=== PATIENT | male | born 1975 | race Caucasian/White ===

== ENCOUNTER 2019-04-30 20:50 | Emergency (ER) | payer MEDICAID, SELFPAY ==
[2019-04-30 20:50] VITALS: BP 155/96; PULSE 89; RESP 16; TEMP 36.6; O2SAT 100; BMI 27.4
--- NOTE | 2019-04-30 21:37 | ED.DCSUM_ITS ---
- ER Visit Summary Date of Service: 04/30/19 Chief Complaint: Headache History of Present Illness: The patient is a 43 M past medical history of a porcine valve and hypertension. Patient is on no blood thinners. He is up-to-date with his family. Said after is done eating he choked on a piece of lettuce and then developed a headache which is frontal. He says is actually improving. Now he has no trouble swallowing. Denies any recent head trauma. Again he is on no blood thinners. No family history of intracranial bleeds or aneurysms. Physical Examination: Well-appearing middle-aged male. Vital signs are stable and afebrile. H EENT exam unremarkable. Neck nontender. No meningismus. Able to flex chin to chest. Lungs clear to auscultation bilaterally. Heart regular rhythm. Abdomen soft nontender normal bowel sounds no peritoneal signs. Extremities moves all 4. Neurovascular intact. 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 Dorsi plantarflexion intact. Neurologically is awake and alert. No focal motor or sensory deficits. Fingertip to nose within normal limits [id number] within normal limits bilaterally. He is able to get up and ambulate without any difficulty in the hallway. No ataxia or trouble with his balance. NIH score is 0. Test Results: None Emergency Department Course and Treatment: Patient's exam is unremarkable. He was given p.o. Tylenol and reevaluated he is doing well his headache is resolving he is currently being discharged home. Repeat neurologic exam normal. Treatment Plan: Tylenol as needed. Return if worse. Disposition: Discharge Impression: Acute cephalgia History of porcine valve This note was generated with [employer] dictation software. It may contain incorrect words, spelling, and punctuation that were not noted in review of the chart prior to signing ED Disposition - Plan for ED Patient: Referrals: Anna Resendiz MD [Primary Care Provider] -
--- NOTE | 2019-04-30 21:40 | ED.DEP ---
ED Disposition - Plan for ED Patient: Disposition: Home or Assisted Living Instructions: HEADACHE, Unspecified Referrals: Anna Resendiz MD [Primary Care Provider] - 3-5 Days if not improving Additional Instructions: Headache as needed. Return if feeling a lot worse. Follow-up with your doctor if not improving.
[2019-04-30] MEDS: Acetaminophen 500 MG Tablet 1000 MG PO (21:44)
== END 2019-04-30 22:03 | disposition home or self-care (01) ==
PROVIDERS: Emergency Provider Emergency Medicine; Family Provider Internal Medicine; PCP Internal Medicine
DX: R51 Headache (principal); I10 Essential (primary) hypertension; Z95.3 Presence of xenogenic heart valve; Z79.899 Other long term (current) drug therapy
CPT/HCPCS: 99283

== ENCOUNTER → 2020-02-11 14:11 | Outpatient (CLI) | payer MEDICAID, SELFPAY ==
[2020-02-11 13:52] VITALS: BMI 27.4
[2020-02-11 15:29] LABS: Absolute Lymphocyte Count 1.18 X10^3/uL (0.83-4.51); Absolute Neutrophil Count 3.7 X10^3/uL (2.0-7.7); Basophil# 0.06 X10^3/uL; Basophil% 1.1 % (0-1); Eosinophil# 0.29 X10^3/uL; Eosinophils% 5.1 % (0-5); Hematocrit 42.5 % (40-54); Hemoglobin 14.2 g/dL (13.0-16.5); Lymphocyte # 1.18 X10^3/ul (4.0); Lymphocyte % 20.7 % (19-41); Mean Corp Hgb Conc 33.4 g/dL (32-36); Mean Corpuscular Hgb 31.7 pg (27.0-32.0); Mean Corpuscular Volume 94.9 fL (80-94); Mean Platelet Vol. 12.4 fl (6.2-12.0); Monocyte# 0.43 X10^3/uL; Monocyte% 7.5 % (0-10); NRBC Flagged by Analyzer 0 % (0-5); Neutrophil # 3.74 X10^3/uL (2.7-7.7); Neutrophil % 65.4 % (47-70); Platelet Count 134 K/mm3 (150-450); RBC Distribution Width CV 11.6 % (11.6-14.6); RBC Distribution Width SD 39.9 fl (35.1-43.9); Red Blood Count 4.48 M/mm3 (4.6-6.2); White Blood Count 5.7 K/mm3 (4.4-11.0)
[2020-02-11 16:19] LABS: Hemoglobin A1c 5.7 % (3.8-5.6)
[2020-02-11 16:23] LABS: ALB/GLOB Ratio 1.1 RATIO (0.9-2.4); AST(SGOT) 13 U/L (15-37); Alanine Aminotransfer ALT/SGPT 21 U/L (16-61); Albumin, Serum 3.8 g/dL (3.2-5.0); Alkaline Phosphatase 67 U/L (45-117); Anion Gap 3 (5-15); BUN 22 mg/dL (7-18); Calcium,Total 8.6 mg/dL (8.5-10.1); Chloride 104 mmol/L (98-107); Cholesterol 174 mg/dL (200); EST Glomerular Filtration Rate 78 mL/min (>60); Est Glom Filt Rate - Afr Amer 94 mL/min (>60); Globulin 3.5 g/dL (2.2-4.2); Glucose 108 mg/dL (74-106); High Density Lipoprotein 44 mg/dL; Potassium 4.2 mmol/L (3.5-5.1); Protein, Total 7.3 g/dL (6.4-8.2); Sodium Level 137 mmol/L (136-145); Triglycerides 180 mg/dL; Very Low Density Lipoprotein 36 mg/dL (5-40)
== END ==
PROVIDERS: PCP Internal Medicine; Referring Provider Nurse Practitioner Family; Visit Provider Nurse Practitioner Family
DX: I10 Essential (primary) hypertension (principal); R73.03 Prediabetes
CPT/HCPCS: 36415; 80053; 80061; 83036; 84443; 85025

== ENCOUNTER → 2020-10-11 14:19 | Outpatient (CLI) | payer MEDICAID, SELFPAY ==
[2020-10-11 15:38] LABS: Hemoglobin A1c 5.8 % (3.8-5.6)
[2020-10-11 15:42] LABS: Cholesterol 163 mg/dL (200); High Density Lipoprotein 45 mg/dL; PSA,Total - Annual Screen 0.25 ng/mL (0.00-4.00); Triglycerides 234 mg/dL; Very Low Density Lipoprotein 47 mg/dL (5-40)
== END ==
PROVIDERS: PCP Internal Medicine; Referring Provider Internal Medicine; Visit Provider Internal Medicine
DX: E11.9 Type 2 diabetes mellitus without complications (principal); E78.5 Hyperlipidemia, unspecified; Z12.5 Encounter for screening for malignant neoplasm of prostate
CPT/HCPCS: 36415; 80061; 83036; 84153; G0103

== ENCOUNTER → 2020-10-17 13:38 | Outpatient (CLI) | payer MEDICAID, SELFPAY ==
--- NOTE | 2020-10-17 13:40 | ECHOD_ITS ---
Reason For Study: CONGENITAL HEART DISEASE Procedure This was a 2D Doppler, Color Flow transthoracic echocardiogram. The study was technically difficult. Exam performed in department. Left Ventricle Normal LV size. Left ventricular systolic function is normal. The estimated ejection fraction is 60 %. No evidence for diastolic dysfunction. No regional wall motion abnormalities noted. Right Ventricle Normal RV size. Normal systolic function. Atria The left atrium is mildly enlarged. Normal right atrium. No doppler evidence for ASD. Mitral Valve There is no mitral annular calcification. Mild diffuse mitral valve thickening. Mild focal mitral valve calcification of the anterior leaflet. Mild mitral valve prolapse. Trivial mitral valve insufficiency. Tricuspid Valve Normal tricuspid valve. Trivial tricuspid valve insufficiency. Unable to estimate RV systolic pressure/pulmonary artery pressure due to technically difficult study. Aortic Valve Stable appearing bioprosthetic aortic valve apparatus. Pulmonic Valve The pulmonic valve is not well visualized. Great Vessels Normal sized aortic root. Pericardium/Pleural No pericardial effusion. MMode/2D Measurements & Calculations LVIDd: 5.0 cm IVSd: 1.0 cm LVOT diam: 2.3 cm LVIDs: 3.3 cm LVPWd: 1.0 cm LVOT area: 4.0 cm2 RVDd: 3.1 cm FS: 33.1 % Ao root diam: 3.6 cm LAV(MOD-bp): 45.2 ml LA A4 area: 16.5 cm2 LAV(MOD-bp) Indexed: 24.8 ml/m2 LAV(MOD-sp2): 44.9 ml LAV(MOD-sp4): 47.0 ml LA dimension(2D): 4.2 cm RA A4 area: 11.9 cm2 Time Measurements MV dec time: 0.23 sec Doppler Measurements & Calculations MV E max cristobal: 98.7 cm/sec Lat Peak E' Cristobal: 6.5 cm/sec Med Peak E' Cristobal: 6.8 cm/sec MV A max cristobal: 92.1 cm/sec E/E' lat: 15.3 E/E' med: 14.6 MV E/A: 1.1 Ao V2 max: 103.2 cm/sec LV V1 max: 81.8 cm/sec SV(LVOT): 71.3 ml Ao max P.3 mmHg LV V1 max P.7 mmHg Ao V2 mean: 70.7 cm/sec LV V1 mean P.5 mmHg Ao mean P.2 mmHg LV V1 mean: 57.6 cm/sec Ao V2 VTI: 21.5 cm LV V1 VTI: 17.8 cm LOLIS(I,D): 3.3 cm2 LOLIS(V,D): 3.2 cm2 PA V2 max: 167.7 cm/sec PA V2 mean: 116.6 cm/sec PA V2 VTI: 38.6 cm ECHO/Echo Complete Interpretation Summary The study was technically difficult. Left ventricular systolic function is normal. The estimated ejection fraction is 60 %. The left atrium is mildly enlarged. Mild diffuse mitral valve thickening. Mild focal mitral valve calcification of the anterior leaflet. Mild mitral valve prolapse. Trivial mitral valve insufficiency. Trivial tricuspid valve insufficiency. Stable appearing bioprosthetic aortic valve apparatus. Unable to estimate RV systolic pressure/pulmonary artery pressure due to techni lashell difficult study. No evidence for diastolic dysfunction. Ordering Physician: Anna Resendiz Referring Physician: Anna Resendiz Performed By: [place] Nunez, GAYATRI, RVT
== END ==
PROVIDERS: PCP Internal Medicine; Referring Provider Internal Medicine; Visit Provider Internal Medicine
DX: I10 Essential (primary) hypertension (principal)
CPT/HCPCS: 93306

== ENCOUNTER → 2021-06-06 14:12 | Outpatient (CLI) | payer MEDICAID, SELFPAY ==
[2021-06-06 15:32] LABS: Absolute Lymphocyte Count 1.03 X10^3/uL (0.83-4.51); Absolute Neutrophil Count 3.8 X10^3/uL (2.0-7.7); Basophil# 0.07 X10^3/uL; Basophil% 1.2 % (0-1); Eosinophil# 0.43 X10^3/uL; Eosinophils% 7.4 % (0-5); Hematocrit 42.4 % (40-54); Hemoglobin 14.5 g/dL (13.0-16.5); Lymphocyte # 1.03 X10^3/ul (0.83-4.51); Lymphocyte % 17.7 % (19-41); Mean Corp Hgb Conc 34.2 g/dL (32-36); Mean Corpuscular Hgb 31.2 pg (27.0-32.0); Mean Corpuscular Volume 91.2 fL (80-94); Mean Platelet Vol. 12.7 fl (6.2-12.0); Monocyte# 0.46 X10^3/uL; Monocyte% 7.9 % (0-10); NRBC Flagged by Analyzer 0 % (0-5); Neutrophil # 3.82 X10^3/uL (2.7-7.7); Neutrophil % 65.5 % (47-70); Platelet Count 145 K/mm3 (150-450); RBC Distribution Width CV 11.6 % (11.6-14.6); RBC Distribution Width SD 38.7 fl (35.1-43.9); Red Blood Count 4.65 M/mm3 (4.6-6.2); White Blood Count 5.8 K/mm3 (4.4-11.0)
[2021-06-06 15:56] LABS: Vitamin D,25 Hydroxy 18.8 ng/mL
[2021-06-06 16:06] LABS: AST(SGOT) 23 U/L (15-37); Alanine Aminotransfer ALT/SGPT 42 U/L (16-61); Albumin, Serum 3.7 g/dL (3.2-5.0); Alkaline Phosphatase 83 U/L (45-117); Anion Gap 3 (5-15); BUN 20 mg/dL (7-18); BUN/Creat Ratio 17.2 RATIO (10-20); Calcium,Total 8.6 mg/dL (8.5-10.1); Chloride 103 mmol/L (98-107); Cholesterol 228 mg/dL (200); Creatinine, Serum 1.16 mg/dL (0.70-1.30); EST Glomerular Filtration Rate 73 mL/min (>60); Est Glom Filt Rate - Afr Amer 88 mL/min (>60); Globulin 3.8 g/dL (2.2-4.2); Glucose 138 mg/dL (74-106); High Density Lipoprotein 47 mg/dL; Protein, Total 7.5 g/dL (6.4-8.2); Sodium Level 136 mmol/L (136-145); Thyroid Stim Hormone (TSH) 2.31 uIU/mL (0.358-3.74); Triglycerides 307 mg/dL; Very Low Density Lipoprotein 61 mg/dL (5-40)
[2021-06-06 17:04] LABS: Hemoglobin A1c 6.2 % (3.8-5.6)
== END ==
PROVIDERS: PCP Internal Medicine; Referring Provider Internal Medicine; Visit Provider Internal Medicine
DX: E11.9 Type 2 diabetes mellitus without complications (principal); E78.5 Hyperlipidemia, unspecified; I10 Essential (primary) hypertension
CPT/HCPCS: 36415; 80053; 80061; 82306; 83036; 84443; 85025

== ENCOUNTER 2021-07-26 14:38 | Outpatient (CLI) | payer MEDICAID, SELFPAY | END 2021-07-26 23:59 | disposition short-term general hospital (02) | LOC: LABSPEC 14:39 | PROVIDERS: PCP Internal Medicine; Referring Provider Physician Assistant; Visit Provider Physician Assistant | DX: U07.1 COVID-19 (principal) | CPT/HCPCS: 87635; U0003; U0005 ==

== ENCOUNTER 2021-07-27 18:07 | Emergency (ER) | payer MEDICAID, SELFPAY ==
[2021-07-27] VITALS (8 sets, daily range): BP systolic 114–126; BP diastolic 67–88; PULSE 100–115; RESP 16–22; TEMP 37.3–37.7; O2SAT 88–98; BMI 25.8
--- NOTE | 2021-07-27 18:35 | RAD_ITS ---
STUDY: X-RAY CHEST REASON FOR EXAM: Male, 45 years old. CHEST PAIN FEVER,COUGH TECHNIQUE: XR Chest 1 View COMPARISON: 07/05/14 FINDINGS: There is no demonstrated pleural abnormality. Left pneumonia. There are multiple median sternotomy wires. Normal size heart. Normal mediastinum and jerald. Normal visualized pulmonary arteries. Normal visualized aortic arch and descending thoracic aorta. Normal visualized thoracic spine. Normal visualized ribs, clavicles, and shoulders. There is no demonstrated abnormality of the visualized soft tissue structures of the upper abdomen. RAD/Chest 1 View IMPRESSION: Left pneumonia. Electronically Signed: Nicholas Cruz MD at 18:52 EST , Service support ,
--- NOTE | 2021-07-27 19:03 | EDS_ITS ---
HPI History of Present Illness Chief Complaint: Fever Informant: patient Onset/Context/Timing Onset: Days Context: Gradual Onset Current Severity: Mild Maximum Severity: Mild Narrative Narrative: Patient presents secondary to runny nose, chills, cough. Patient states he became ill 2 nights ago. He was seen by his PCP on a virtual visit today. Because they were unable to get vital signs on him they wanted him to be evaluated. He has a history of aortic valve replacement and they requested a chest x-ray. Patient reports some slight chest heaviness. He has occasional cough with clear sputum. [facility] Medical History Hyperlipidemia Hypertension kidney stone surgery Kidney stones Home Medications Grains super food PO 10/11/20 [History Last Taken Unknown] cholecalciferol (vitamin D3) 10 mcg (400 unit) capsule 10 mcg PO DAILY 10/11/20 [History Last Taken Unknown] metoprolol tartrate 25 mg tablet 12.5 mg PO BID #180 tablet 10/11/20 [Rx Last Taken Unknown] lisinopril 10 mg tablet 10 mg PO BID #90 tab 02/12/21 [Rx Last Taken Unknown] benzocaine 15 mg-menthol 2.6 mg lozenges 1 markie MUCOUS MEMBRANE Q2H PRN #16 ea 07/26/21 [Rx Last Taken Unknown] benzonatate 200 mg capsule 200 mg PO TID PRN #30 cap 07/26/21 [Rx Last Taken Unknown] fluticasone propionate 50 mcg/actuation nasal spray,suspension 1 spray INTRANASAL BID #16 g 07/26/21 [Rx Last Taken Unknown] guaifenesin 400 mg tablet 400 mg PO TID PRN #30 tab 07/26/21 [Rx Last Taken Unknown] dexamethasone [Decadron] 6 mg PO DAILY #9 tab 07/27/21 [Rx Last Taken Unknown] Allergy/AdvReac Type Severity Reaction Status Date / Time No Known Allergies Allergy Verified 06/06/21 13:10 Family History Father Cancer Surgical History Aortic valve replaced Social History Smoking Status: Never smoker alcohol intake: current alcohol intake frequency: holidays/special occasions only ROS ROS ED Constitutional Constitutional ED: Reports chills, fever(s) and subjective Eyes Eyes: Denies change in vision ENT ENT ED: Denies sore throat Cardiovascular Cardiovascular: Reports chest pain Respiratory/Chest Respiratory/Chest: Reports cough and dyspnea Gastrointestinal Gastrointestinal: Denies abdominal pain, diarrhea, nausea or vomiting Genitourinary Genitourinary ED: Denies dysuria Musculoskeletal Musculoskeletal: Denies back pain Integumentary Denies rash Neurologic Neurologic: Denies headache(s) or weakness Allergic/Immunologic Allergic/Immunologic ED: Denies urticaria EXAM Physical Exam Const Vital Signs: 07/27/21 18:08 07/27/21 18:10 07/27/21 20:07 Temperature 100 F H 100 F H 99.4 F H Temperature Source Temporal Temporal Temporal Pulse Rate 109 H 109 H 115 H Respiratory Rate 16 16 20 H Blood Pressure 124/81 H 124/81 H 126/67 H Blood Pressure Mean 95 95 86 Pulse Ox 98 98 96 Oxygen Delivery Method Room Air Room Air Room Air 07/27/21 22:28 Temperature 99.2 F H Temperature Source Temporal Pulse Rate 103 H Respiratory Rate 17 Blood Pressure 125/88 H Blood Pressure Mean 100 Pulse Ox 94 Oxygen Delivery Method Room Air Positive well nourished and well developed General Appearance ED: well developed HEENT Reports moist mucous membranes Eyes PERRL and EOMs intact bilaterally Neck supple Chest Wall inspection of chest normal and palpation of chest normal Resp normal respiratory effort and clear to auscultation bilaterally Cardio regular rate and regular rhythm GI non-tender Palpation: soft Extremity normal to inspection Neuro oriented x3 Sensorium / Orientation: alert Psych mental status grossly normal Skin no rashes or lesions noted MDM MDM MDM Narrative Medical decision making narrative: Rapid COVID testing portable chest x-ray ordered per nursing protocol. Patient was ambulated on room air and did desat to 88%. Lab work and EKG ordered at that time. Lab Data Attestation: I reviewed the patient's lab results. Labs: Laboratory Results - last 24 hr 07/27/21 07/27/21 07/27/21 20:10 20:10 20:10 WBC 5.0 RBC 4.78 Hgb 14.7 Hct 43.5 MCV 91.0 MCH 30.8 MCHC 33.8 RDW Std Deviation 39.7 RDW Coeff of Joan 11.9 Plt Count 112 L MPV 12.8 H Immature Gran % (Auto) 0.600 Neut % (Auto) 68.0 Lymph % (Auto) 15.7 L [place] % (Auto) 14.5 H Eos % (Auto) 0.8 Baso % (Auto) 0.4 Absolute Neuts (auto) 3.4 Absolute Lymphs (auto) 0.78 L Nucleated RBC % 0 D-Dimer Quant (PE/DVT) 1.11 H* Sodium 138 Potassium 4.2 Chloride 104 Carbon Dioxide 26.0 Anion Gap 8 BUN 20 H Creatinine 1.45 H Estim Creat Clear Calc 60.78 Est GFR (MDRD) Af Amer 68 Est GFR (MDRD) Non-Af 56 L BUN/Creatinine Ratio 13.8 Glucose 114 H Calcium 8.1 L Troponin I High Sens 12 Radiography Chest X-Ray - ED: 1 View, Read by ED Physician and Chronic Changes Diagnostic Testing: Clinical Impression(s) from Imaging Studies Chest X-Ray 07/27/21 18:35 IMPRESSION: Left pneumonia. Electronically Signed: Nicholas Cruz MD at 18:52 EST , Service support , Chest CTA 07/27/21 21:40 IMPRESSION: No demonstrated pulmonary embolism or arterial dissection. Electronically Signed: Nicholas Cruz MD at 21:55 EST , Service support , EKG Initial EKG: Attestation: I personally reviewed and interpreted this EKG as follows: Interpretation: Sinus Tachycardia (Sinus tach at 103. No acute ischemia) Treatment and Re-Evaluation Comments:: Patient did desat to 88% with ambulation. Lab work then obtained and significant for elevated D-dimer at 1.11. Troponin negative. Creatinine is slightly bumped to 1.45. CTA of the chest reveals no evidence of infiltrate. No PE. Patient is ambulated on 2 L of nasal cannula and tolerates this well. Order for home oxygen written and patient treated with a course of Decadron. Discharge Plan Triage Chief Complaint: Fever ED Provider: Hanna,Fiorella Dx/Rx/DC Orders Clinical Impression: COVID-19 Instructions: Coronavirus Disease 2019 (COVID-19): Overview, Coronavirus Disease 2019 (COVID-19): Caring for Yourself or Others Prescriptions: New dexamethasone [Decadron] 6 mg tablet 6 mg PO DAILY Qty: 9 RF: 0 No Action Grains super food PO RF: 0 cholecalciferol (vitamin D3) 10 mcg (400 unit) capsule 10 mcg PO DAILY RF: 0 metoprolol tartrate 25 mg tablet 12.5 mg PO BID Qty: 180 RF: 1 benzonatate 200 mg capsule 200 mg PO TID PRN (Reason: cough) Qty: 30 RF: 0 fluticasone propionate [Allergy Relief (fluticasone)] 50 mcg/actuation spray,suspension 1 spray intranasal BID Qty: 16 RF: 1 guaifenesin 400 mg tablet 400 mg PO TID PRN (Reason: congestion, cough) Qty: 30 RF: 0 benzocaine-menthol 15-2.6 mg lozenge 1 markie mucous membrane Q2H PRN (Reason: sore throat) Qty: 16 RF: 1 lisinopril 10 mg tablet 10 mg PO BID Qty: 90 RF: 1 Primary Care Provider: Anna Resendiz Referrals: Anna Resendiz MD [Primary Care Provider] - 1-2 Weeks Disposition Disposition: Home, Self Care
--- NOTE | 2021-07-27 19:32 | EKG12_ITS ---
Test Reason : FEVER Blood Pressure : / mmHG Vent. Rate : 103 BPM Atrial Rate : 103 BPM P-R Int : 176 ms QRS Dur : 096 ms QT Int : 326 ms P-R-T Axes : 208 084 142 degrees QTc Int : 427 ms Consider Limb Lead Misplacement Consider Repeat ECG Interpretation Based Upon the ECG Obtained Unusual P axis, possible ectopic atrial tachycardia Incomplete right bundle branch block Lateral infarct , age undetermined Abnormal ECG Confirmed by CALVIN HIGUERA, RAEGAN ([id number]), society editor LORNA GLEASON ([id number]) on 08/01/2021 11:21:43 AM Referred By: ASAF Confirmed By:RAEGAN SIMPSON MD
[2021-07-27] MEDS: Acetaminophen 500 MG Tablet 1000 MG PO (19:34)
[2021-07-27 20:27] LABS: Absolute Lymphocyte Count 0.78 X10^3/uL (0.83-4.51); Absolute Neutrophil Count 3.4 X10^3/uL (2.0-7.7); Basophil# 0.02 X10^3/uL; Basophil% 0.4 % (0-1); Eosinophil# 0.04 X10^3/uL; Eosinophils% 0.8 % (0-5); Hematocrit 43.5 % (40-54); Hemoglobin 14.7 g/dL (13.0-16.5); Lymphocyte # 0.78 X10^3/ul (0.83-4.51); Lymphocyte % 15.7 % (19-41); Mean Corp Hgb Conc 33.8 g/dL (32-36); Mean Corpuscular Hgb 30.8 pg (27.0-32.0); Mean Platelet Vol. 12.8 fl (6.2-12.0); Monocyte# 0.72 X10^3/uL; Monocyte% 14.5 % (0-10); NRBC Flagged by Analyzer 0 % (0-5); Neutrophil # 3.37 X10^3/uL (2.7-7.7); Platelet Count 112 K/mm3 (150-450); RBC Distribution Width CV 11.9 % (11.6-14.6); RBC Distribution Width SD 39.7 fl (35.1-43.9); Red Blood Count 4.78 M/mm3 (4.6-6.2)
[2021-07-27 20:44] LABS: Anion Gap 8 (5-15); BUN 20 mg/dL (7-18); BUN/Creat Ratio 13.8 RATIO (10-20); Calcium,Total 8.1 mg/dL (8.5-10.1); Chloride 104 mmol/L (98-107); Creatinine, Serum 1.45 mg/dL (0.70-1.30); EST Glomerular Filtration Rate 56 mL/min (>60); Est Glom Filt Rate - Afr Amer 68 mL/min (>60); Estimated Creatinine Clearance 60.78 ml/min; Glucose 114 mg/dL (74-106); Potassium 4.2 mmol/L (3.5-5.1); Sodium Level 138 mmol/L (136-145); Troponin-I HS 12 pg/mL (3.0-78.0)
[2021-07-27 21:02] LABS: D-Dimer Quantitative (DVT/PE) 1.11 FEU/ug/m (0.27-0.49)
--- NOTE | 2021-07-27 21:40 | CT_ITS ---
EXAM: CT ANGIOGRAPHY CHEST WITHOUT AND WITH INTRAVENOUS CONTRAST CLINICAL INDICATION: sob, covid TECHNIQUE: Helically acquired angiography images were obtained of the chest without and with intravenous contrast. This CT exam was performed using one or more of the following dose reduction techniques: automated exposure control, adjustment of the mA and/or kV according to patient size, and/or use of iterative reconstruction technique. This report was created using [employer] report generation technology. MIP reconstructed images were created and reviewed. CONTRAST: IV 100mL [id number] COMPARISON: None. FINDINGS: PULMONARY ARTERIES: No demonstrated pulmonary embolism or arterial dissection. Prior surgery of the pulmonary artery. AORTA: Unremarkable. Normal in caliber. No evidence of dissection. GREAT VESSELS OF AORTIC ARCH: Unremarkable. Normal in caliber. No evidence of dissection. LUNGS AND PLEURAL SPACES: Unremarkable. No mass. No consolidation or edema. No pleural effusion or thickening. No pneumothorax. HEART: Multiple median sternotomy wires are noted consistent for cardiac surgery. Retroesophageal right brachycephalic artery. There is prominent pericardial fat which can simply an infiltrate on plain film. MEDIASTINUM: See above. THYROID: Unremarkable. No thyroid lesions. BONES/JOINTS: There are degenerative findings of the thoracic spine. No suspicious lytic or blastic abnormality. CT/CTA Chest W/WO Contrast IMPRESSION: No demonstrated pulmonary embolism or arterial dissection. Electronically Signed: Nicholas Cruz MD at 21:55 EST , Service support ,
[2021-07-27] MEDS: dexAMETHasone 10 MG/ML Vial 6 MG IV (22:33)
== END 2021-07-27 22:59 | disposition home or self-care (01) ==
PROVIDERS: Emergency Provider Emergency Medicine; PCP Internal Medicine; Visit Provider Emergency Medicine
DX: U07.1 COVID-19 (principal); E78.5 Hyperlipidemia, unspecified; I10 Essential (primary) hypertension; Z79.899 Other long term (current) drug therapy; Z87.442 Personal history of urinary calculi; Z95.2 Presence of prosthetic heart valve
CPT/HCPCS: 71045; 71275; 80048; 84484; 85025; 85379; 87426; 93005; 99283; Q9967; A4216

== ENCOUNTER → 2022-02-25 | Outpatient (CLI) | payer MEDICAID, SELFPAY ==
[2022-02-25 13:36] LABS: Absolute Lymphocyte Count 1.05 X10^3/uL (0.83-4.51); Absolute Neutrophil Count 3.2 X10^3/uL (2.0-7.7); Basophil# 0.05 X10^3/uL; Eosinophil# 0.33 X10^3/uL; Eosinophils% 6.6 % (0-5); Hematocrit 40.6 % (40-54); Hemoglobin 14.5 g/dL (13.0-16.5); Lymphocyte # 1.05 X10^3/ul (0.83-4.51); Lymphocyte % 21.1 % (19-41); Mean Corp Hgb Conc 35.7 g/dL (32-36); Mean Corpuscular Hgb 32.7 pg (27.0-32.0); Mean Corpuscular Volume 91.6 fL (80-94); Mean Platelet Vol. 12.2 fl (6.2-12.0); Monocyte# 0.36 X10^3/uL; Monocyte% 7.2 % (0-10); NRBC Flagged by Analyzer 0 % (0-5); Neutrophil # 3.18 X10^3/uL (2.7-7.7); Neutrophil % 63.9 % (47-70); Platelet Count 151 K/mm3 (150-450); RBC Distribution Width CV 11.6 % (11.6-14.6); Red Blood Count 4.43 M/mm3 (4.6-6.2)
[2022-02-25 14:00] LABS: Hemoglobin A1c 6.5 % (3.8-5.6)
[2022-02-25 14:19] LABS: ALB/GLOB Ratio 1.1 RATIO (0.9-2.4); AST(SGOT) 19 U/L (15-37); Alanine Aminotransfer ALT/SGPT 32 U/L (16-61); Albumin, Serum 3.6 g/dL (3.2-5.0); Alkaline Phosphatase 74 U/L (45-117); Anion Gap 5 (5-15); BUN 15 mg/dL (7-18); BUN/Creat Ratio 12.9 RATIO (10-20); Calcium,Total 8.2 mg/dL (8.5-10.1); Chloride 106 mmol/L (98-107); Cholesterol 247 mg/dL (200); Creatinine, Serum 1.16 mg/dL (0.70-1.30); EST Glomerular Filtration Rate 72 mL/min (>60); Est Glom Filt Rate - Afr Amer 87 mL/min (>60); Globulin 3.4 g/dL (2.2-4.2); Glucose 152 mg/dL (74-106); High Density Lipoprotein 37 mg/dL; PSA,Total - Annual Screen 0.28 ng/mL (0.00-4.00); Potassium 4.2 mmol/L (3.5-5.1); Sodium Level 139 mmol/L (136-145); Thyroid Stim Hormone (TSH) 3.58 uIU/mL (0.358-3.74); Triglycerides 692 mg/dL
== END | disposition home or self-care (01) ==
LOC: LAB 12:15
PROVIDERS: PCP Internal Medicine; Referring Provider Internal Medicine; Visit Provider Internal Medicine
DX: E78.5 Hyperlipidemia, unspecified (principal); E11.9 Type 2 diabetes mellitus without complications; I10 Essential (primary) hypertension; E55.9 Vitamin D deficiency, unspecified; Z12.5 Encounter for screening for malignant neoplasm of prostate
CPT/HCPCS: 84153; 36415; 80053; 80061; 82306; 83036; 84443; 85025; G0103

== ENCOUNTER → 2022-09-16 | Outpatient (CLI) | payer MEDICAID, SELFPAY ==
--- NOTE | 2022-09-16 12:51 | ECHOD_ITS ---
Reason For Study: Congenital Heart Disease Procedure This was a 2D Doppler, Color Flow transthoracic echocardiogram. Technically difficult study, two techs attempted apical images. Exam performed in department. Left Ventricle Normal LV size. Left ventricular systolic function is normal. The estimated ejection fraction is 55 %. Stage 1 diastolic dysfunction. No regional wall motion abnormalities noted. Right Ventricle Normal RV size. Normal systolic function. Atria Normal left atrium. Normal right atrium. Mitral Valve Normal mitral valve. Tricuspid Valve Normal tricuspid valve. Aortic Valve Av Repair. Pulmonic Valve Normal pulmonic valve. Great Vessels Normal aortic root. The pulmonary artery is normal size. Normal inferior vena cava. Pericardium/Pleural No pericardial effusion. MMode/2D Measurements & Calculations LVIDd: 5.7 cm IVSd: 0.89 cm LVOT diam: 2.0 cm LVIDs: 4.7 cm LVPWd: 0.85 cm LVOT area: 3.3 cm2 FS: 17.4 % Ao root diam: 3.4 cm LAV(MOD-sp4): 29.3 ml LA A4 area: 14.1 cm2 LA dimension: 4.4 cm RA A4 area: 11.1 cm2 Time Measurements MV dec time: 0.21 sec Doppler Measurements & Calculations MV E max cristobal: 99.6 cm/sec Lat Peak E' Cristobal: 8.0 cm/sec Med Peak E' Cristobal: 8.7 cm/sec MV A max cristobal: 111.9 cm/sec E/E' lat: 12.4 E/E' med: 11.5 MV E/A: 0.89 MV V2 max: 137.7 cm/sec MV P1/2t max cristobal: 139.3 cm/sec Ao V2 max: 112.9 cm/sec MV max P.6 mmHg MV P1/2t: 63.3 msec Ao max P.1 mmHg MV V2 mean: 79.0 cm/sec Ao V2 mean: 76.0 cm/sec MV mean P.0 mmHg MV dec slope: 644.3 cm/sec2 Ao mean P.6 mmHg MV V2 VTI: 36.2 cm MVA(P1/2t): 3.5 cm2 Ao V2 VTI: 22.6 cm AV (velocity ratio): 0.67 MVA(VTI): 1.4 cm2 LOLIS(I,D): 2.2 cm2 LOLIS(V,D): 2.0 cm2 LV V1 max: 70.0 cm/sec SV(LVOT): 49.5 ml PA V2 max: 171.4 cm/sec LV V1 max P.0 mmHg LV V1 mean P.1 mmHg LV V1 mean: 47.3 cm/sec LV V1 VTI: 15.2 cm ECHO/Echo Complete Interpretation Summary Normal LV size. Left ventricular systolic function is normal. The estimated ejection fraction is 55 %. Stage 1 diastolic dysfunction. Ordering Physician: Anna Resendiz Referring Physician: Anna Resendiz Performed By: Tyler Fatima RCS
== END | disposition home or self-care (01) ==
LOC: CVS 12:50
PROVIDERS: PCP Internal Medicine; Referring Provider Internal Medicine; Visit Provider Internal Medicine
DX: Q21.3 Tetralogy of Fallot (principal); Z95.2 Presence of prosthetic heart valve
CPT/HCPCS: 93306

== ENCOUNTER 2022-09-21 12:14 | Emergency (ER) | payer MEDICAID, SELFPAY ==
[2022-09-21 12:15] VITALS: BP 136/92; PULSE 102; RESP 16; TEMP 36.8; O2SAT 99; BMI 26.4
--- NOTE | 2022-09-21 12:27 | RAD_ITS ---
HISTORY: cough. TECHNIQUE: XR Chest 2 Views. COMPARISON: 08/09/2021. FINDINGS: CARDIOMEDIASTINAL BORDERS: Unchanged borderline cardiomegaly with enlargement of the main pulmonary artery and midline sternotomy. LUNGS: Patchy and nodular opacities in the right upper to lower lung. Mild patchy opacities in the left mid and lower lung. PLEURA: No pleural effusion or pneumothorax seen. OSSEOUS STRUCTURES: Chronic appearing fracture of the left medial clavicle. Mild scoliosis and degenerative change. RAD/Chest PA and Lateral IMPRESSION: Patchy bilateral pulmonary opacities concerning for pneumonia with a small nodular opacity in the right mid lung; recommend follow-up. Electronically Signed: Juliet Moore MD at 13:13 EST ,
--- NOTE | 2022-09-21 12:29 | EDS_ITS ---
HPI <KAMLA Alarcon - Last Filed: 09/21/22 14:17> History of Present Illness Chief Complaint: Cough Narrative Narrative: Patient presents with chills and productive cough that started 5 days ago. A few days before this he was around someone who later became ill with cold symptoms. He states the chills have resolved but the cough is keeping him up at night. He tried a new cough syrup today which is helping. He denies chest pain or shortness of breath. He has decreased appetite but no nausea vomiting. Denies smoking. PFSH <KAMLA Alarcon - Last Filed: 09/21/22 14:17> [facility] Medical History Hyperlipidemia Hypertension kidney stone surgery Kidney stones Home Medications Grains super food PO 10/11/20 [History Last Taken Unknown] cholecalciferol (vitamin D3) 10 mcg (400 unit) capsule 10 mcg PO DAILY 10/11/20 [History Last Taken Unknown] benzocaine 15 mg-menthol 2.6 mg lozenges 1 markie mucous membrane Q2H PRN sore throat #16 ea 07/26/21 [Rx Last Taken Unknown] benzonatate 200 mg capsule 200 mg PO TID PRN cough #30 caps 07/26/21 [Rx Last Taken Unknown] fluticasone propionate 50 mcg/actuation nasal spray,suspension (Allergy Relief (fluticasone)) 1 spray intranasal BID #16 grams 07/26/21 [Rx Last Taken Unknown] guaifenesin 400 mg tablet 400 mg PO TID PRN congestion, cough #30 tabs 07/26/21 [Rx Last Taken Unknown] metoprolol tartrate 25 mg tablet 12.5 mg PO BID #90 tabs 11/09/21 [Rx Last Taken Unknown] lisinopril 10 mg tablet 10 mg PO BID #90 tabs 02/18/22 [Rx Last Taken Unknown] fexofenadine 180 mg tablet (Samia Allergy) 180 mg PO DAILY #30 tabs 02/25/22 [Rx Last Taken Unknown] levofloxacin 750 mg tablet 750 mg PO Q24H #7 tabs 09/21/22 [Rx Last Taken Unknown] Allergy/AdvReac Type Severity Reaction Status Date / Time enviromental Allergy Intermediate Other Uncoded 09/21/22 12:19 Family History Father Cancer Surgical History Aortic valve replaced Social History Smoking Status: Never smoker alcohol intake: current alcohol intake frequency: holidays/special occasions only ROS <KAMLA Alarcon - Last Filed: 09/21/22 14:17> ROS ED ROS Narrative Constitutional: Positive for chills. Negative for fever. ENT: Negative for sore throat, ear pain, rhinorrhea. CVS: Negative for palpitations, chest pain, syncope. Respiratory: Positive for cough. Negative for shortness of breath, cough. GI: Negative for abdominal pain, nausea, vomiting, diarrhea. : Negative for dysuria. Neuro: Negative for headache. Skin: Negative for rash. Musc: Negative for joint pain, swelling, trauma. EXAM <KAMLA Alarcon - Last Filed: 09/21/22 14:17> Physical Exam Narrative Exam Narrative: CONST: Patient sitting in no acute distress. EYES: Normal inspection. ENT: Normal inspection, moist mucous membranes. NECK: Normal inspection. RESP: No respiratory distress, faint bibasilar crackles. CVS: Regular rate and rhythm, no murmur, no gallop. SKIN: Color normal, no rash, warm, dry, intact. EXTREMITIES: Normal appearance, no pedal edema. NEURO: Oriented x4. PSYCH: Normal affect. Const Vital Signs: 09/21/22 12:15 09/21/22 12:57 Temperature 98.2 F Temperature Source Temporal Pulse Rate 102 H Respiratory Rate 16 Respiratory Effort Normal Non-Labored Respiratory Depth Normal Respiratory Pattern Normal Blood Pressure 136/92 H Blood Pressure Mean 106 Pulse Ox 99 Oxygen Delivery Method Room Air Room Air <Dr. Cheryl Morse DO - Last Filed: 09/21/22 13:54> Physical Exam Const Vital Signs: 09/21/22 12:15 09/21/22 12:57 Temperature 98.2 F Temperature Source Temporal Pulse Rate 102 H Respiratory Rate 16 Respiratory Effort Normal Non-Labored Respiratory Depth Normal Respiratory Pattern Normal Blood Pressure 136/92 H Blood Pressure Mean 106 Pulse Ox 99 Oxygen Delivery Method Room Air Room Air MDM <KAMLA Alarcon - Last Filed: 09/21/22 14:17> [facility] Narrative Medical decision making narrative: Patient presents with chills and a productive cough. He appears well and nontoxic. Heart rate which is 102 which is around his baseline. He states he is on metoprolol for tachycardia. The rest of his vital signs are normal. Radiography Diagnostic Testing: Clinical Impression(s) from Imaging Studies Chest X-Ray 09/21/22 12:27 IMPRESSION: Patchy bilateral pulmonary opacities concerning for pneumonia with a small nodular opacity in the right mid lung; recommend follow-up. Electronically Signed: Juliet Moore MD at 13:13 EST , <Dr. Cheryl Morse DO - Last Filed: 09/21/22 13:54> [facility] Narrative Medical decision making narrative: Patient presents with chills and a productive cough. He appears well and nontoxic. Heart rate which is 102 which is around his baseline. He states he is on metoprolol for tachycardia. The rest of his vital signs are normal. I have personally performed a face to face assessment of the patient and have reviewed the ISA Note. I performed a substantive portion of the visit including all aspects of the following. My aldridge findings include: History is [patient presents to the emergency department with a cough that he has had for about 4 to 5 days. Patient has had fever and chills. Patient states that he was with a friend last weekend who also came down with upper respiratory illness. Patient at times bringing up some phlegm. He has had no vomiting or diarrhea. He describes decreased appetite. He denies urinary symptoms.] Exam is [HEENT-PERRLA, EOMI. Cranial nerves II through XII grossly intact. TMs clear. Mucous membranes moist. No adenopathy. Cardiovascular-regular rate and rhythm without murmur or ectopy Lungs-no conversational dyspnea. Good aeration bilaterally. Few rales in both bases. No wheezing noted. No accessory muscle use or retractions. Abdomen-normoactive bowel sounds, soft, nontender, no rebound or rigidity, no peritoneal signs. Extremities-intact ?4, normal range of motion, normal pulses, atraumatic] Medical Decison Making [patient presents with cough for 5 days and fever. Chest x-ray consistent with pneumonia. Patient hemodynamically stable and does not require oxygen. He is in no respiratory distress.. Patient was given a dose of Levaquin in the emergency department and will be given a prescription for Levaquin. Patient advised to follow-up with primary care physician within next 3 to 5 days. He is advised to return if increasing shortness of breath or condition should worsen anyway. His COVID and flu tests were negative.] Other additions or changes: [None] Lab Data Attestation: I reviewed the patient's lab results. Radiography Diagnostic Testing: Clinical Impression(s) from Imaging Studies Chest X-Ray 09/21/22 12:27 IMPRESSION: Patchy bilateral pulmonary opacities concerning for pneumonia with a small nodular opacity in the right mid lung; recommend follow-up. Electronically Signed: Juliet Moore MD at 13:13 EST Reading Location ID and State: [facility] / [place] Tel , Service support , 1 view chest x-ray obtained interpreted by myself as bilateral infiltrates without evidence of pneumothorax. Radiology read x-rays patchy bilateral pulmonary opacities concerning for pneumonia with small nodular opacity in right midlung and recommended follow-up. Differential Diagnosis Chest pain/SOB: pneumonia and CHF Differential Diagnosis: CHF Why less likely: Patient without edema or weight gain. Patient also has a fever which would speak against CHF. Discharge Plan Triage Chief Complaint: Cough ED Midlevel Provider: Maaem Azul ED Provider: Cheryl Morse Dx/Rx/DC Orders Clinical Impression: Pneumonia Instructions: ED Pneumonia (Adult) Prescriptions: New levofloxacin 750 mg tablet 750 mg PO Q24H Qty: 7 0RF No Action Grains super food PO cholecalciferol (vitamin D3) 10 mcg (400 unit) capsule 10 mcg PO DAILY benzonatate 200 mg capsule 200 mg PO TID PRN (Reason: cough) Qty: 30 0RF fluticasone propionate [Allergy Relief (fluticasone)] 50 mcg/actuation spray,suspension 1 spray intranasal BID Qty: 16 1RF Rx Instructions: administer into each nostril guaifenesin 400 mg tablet 400 mg PO TID PRN (Reason: congestion, cough) Qty: 30 0RF benzocaine-menthol 15-2.6 mg lozenge 1 markie mucous membrane Q2H PRN (Reason: sore throat) Qty: 16 1RF fexofenadine [Samia Allergy] 180 mg tablet 180 mg PO DAILY Qty: 30 2RF metoprolol tartrate 25 mg tablet 12.5 mg PO BID Qty: 90 3RF lisinopril 10 mg tablet 10 mg PO BID Qty: 90 3RF Rx Instructions: Take 1/2 tab twice daily Primary Care Provider: Anna Resendiz Referrals: Anna Resendiz MD [Primary Care Provider] - 3-5 Days Disposition Disposition: Home, Self Care
[2022-09-21 12:57] VITALS: O2SAT 96
[2022-09-21] MEDS: levoFLOXacin 750 MG Tablet PO (14:09)
== END 2022-09-21 14:23 | disposition home or self-care (01) ==
PROVIDERS: Emergency Provider Emergency Medicine; PCP Internal Medicine; Visit Provider Emergency Medicine
DX: J18.9 Pneumonia, unspecified organism (principal); I10 Essential (primary) hypertension; E78.5 Hyperlipidemia, unspecified; Z79.899 Other long term (current) drug therapy
CPT/HCPCS: 71046; 87428; 99283

== ENCOUNTER → 2023-03-06 | Outpatient (CLI) | payer MEDICAID, SELFPAY ==
[2023-03-06 14:02] LABS: Absolute Lymphocyte Count 1.11 X10^3/uL (0.83-4.51); Absolute Neutrophil Count 3.3 X10^3/uL (2.0-7.7); Basophil# 0.06 X10^3/uL; Basophil% 1.2 % (0-1); Eosinophils% 5.8 % (0-5); Hematocrit 42.8 % (40-54); Hemoglobin 14.6 g/dL (13.0-16.5); Lymphocyte # 1.11 X10^3/ul (0.83-4.51); Lymphocyte % 21.6 % (19-41); Mean Corp Hgb Conc 34.1 g/dL (32-36); Mean Corpuscular Hgb 31.8 pg (27.0-32.0); Mean Corpuscular Volume 93.2 fL (80-94); Mean Platelet Vol. 11.9 fl (6.2-12.0); Monocyte# 0.37 X10^3/uL; Monocyte% 7.2 % (0-10); NRBC Flagged by Analyzer 0 % (0-5); Neutrophil # 3.29 X10^3/uL (2.7-7.7); Neutrophil % 63.8 % (47-70); Platelet Count 148 K/mm3 (150-450); RBC Distribution Width CV 11.8 % (11.6-14.6); RBC Distribution Width SD 39.5 fl (35.1-43.9); Red Blood Count 4.59 M/mm3 (4.6-6.2); White Blood Count 5.2 K/mm3 (4.4-11.0)
[2023-03-06 14:41] LABS: Hemoglobin A1c 8.1 % (3.8-5.6)
[2023-03-06 14:49] LABS: AST(SGOT) 21 U/L (15-37); Alanine Aminotransfer ALT/SGPT 45 U/L (16-61); Albumin, Serum 3.6 g/dL (3.2-5.0); Alkaline Phosphatase 92 U/L (45-117); Anion Gap 6 (5-15); BUN 16 mg/dL (7-18); BUN/Creat Ratio 13.1 RATIO (10-20); Calcium,Total 8.3 mg/dL (8.5-10.1); Chloride 106 mmol/L (98-107); Cholesterol 284 mg/dL (200); Creatinine, Serum 1.22 mg/dL (0.70-1.30); EST Glomerular Filtration Rate 68 mL/min (>60); Est Glom Filt Rate - Afr Amer 82 mL/min (>60); Globulin 3.5 g/dL (2.2-4.2); Glucose 190 mg/dL (74-106); High Density Lipoprotein 41 mg/dL; PSA,Total - Annual Screen 0.24 ng/mL (0.00-4.00); Potassium 4.2 mmol/L (3.5-5.1); Protein, Total 7.1 g/dL (6.4-8.2); Sodium Level 137 mmol/L (136-145); Thyroid Stim Hormone (TSH) 3.31 uIU/mL (0.358-3.74); Triglycerides 770 mg/dL
[2023-03-06 21:42] LABS: Vitamin D,25 Hydroxy 30.3 ng/mL
== END | disposition home or self-care (01) ==
LOC: LAB 13:45
PROVIDERS: PCP Internal Medicine; Referring Provider Internal Medicine; Visit Provider Internal Medicine
DX: E11.65 Type 2 diabetes mellitus with hyperglycemia (principal); E78.5 Hyperlipidemia, unspecified; I10 Essential (primary) hypertension; Q21.3 Tetralogy of Fallot; E55.9 Vitamin D deficiency, unspecified; Z95.2 Presence of prosthetic heart valve; Z12.5 Encounter for screening for malignant neoplasm of prostate; Z13.220 Encounter for screening for lipoid disorders
CPT/HCPCS: 84153; 36415; 80053; 80061; 82306; 83036; 84443; 85025; G0103

== ENCOUNTER → 2023-07-18 | Outpatient (CLI) | payer MEDICAID, SELFPAY ==
--- OUTSIDE RECORDS SUMMARY | 2023-07-18 12:10 | XMS RPT_ITS | CCD ---
Author Name Unknown Address [address] [place] [address] Organization [facility] Care Team Providers Care Apparel Sales Leader Name Role Phone ADALBERTO VICK (PAPER CUTTING MACHINE OPERATOR) Unavailable Unavaila ble ADALBERTO VICK S (PAPER CUTTING MACHINE OPERATOR) Unavailable Unavaila ble GERALD NATHANIEL Unavailable Unavailable ADALBERTO VICK S (PAPER CUTTING MACHINE OPERATOR) Unavailable Unavaila ble ADALBERTO VICK S (PAPER CUTTING MACHINE OPERATOR) Unavailable Unavaila ble MULU HAYES (PAPER CUTTING MACHINE OPERATOR) Unavailable Unavailable MISTY MAIER Unavailable Unavailable SAAREL, NATHANIEL Unavailable Unavailable NAJM, HANI Unavailable Unavailable NAJM, HANI Unavailable Unavailable NAJM, HANI Unavailable Unavailable NAJM, HANI Unavailable Unavailable NAJM, HANI Unavailable Unavailable LEANN KHAN G Unavailable Unavailable AMBROSIO CARLSON MD Admitting Unavailable AMBROSIO CARLSON MD Attending Unavailable AMBROSIO CARLSON MD Primary Care Unavailable AMBROSIO CARLSON MD Consulting Unavailable PROVIDER, UNKNOWN Consulting Unavailable PROVIDER, UNKNOWN Consulting Unavailable PROVIDER, UNKNOWN Consulting Unavailable HELEN COOK Admitting Unavailable HELEN COOK Attending Unavailable HELEN COOK Primary Care Unavailable AMBROSIO CARLSON MD Consulting Unavailable AMBROSIO CARLSON MD Referring Unavailable PROVIDER, UNKNOWN Consulting Unavailable PROVIDER, UNKNOWN Consulting Unavailable PROVIDER, UNKNOWN Consulting Unavailable AMBROSIO CARLSON MD Admitting Unavailable AMBROSIO CARLSON MD Attending Unavailable AMBROSIO CARLSON MD Primary Care Unavailable AMBROSIO CARLSON MD Consulting Unavailable PROVIDER, UNKNOWN Consulting Unavailable PROVIDER, UNKNOWN Consulting Unavailable PROVIDER, UNKNOWN Consulting Unavailable AMBROSIO CARLSON MD Admitting Unavailable AMBROSIO CARLSON MD Attending Unavailable AMBROSIO CARLSON MD Primary Care Unavailable AMBROSIO CARLSON MD Consulting Unavailable PROVIDER, UNKNOWN Consulting Unavailable PROVIDER, UNKNOWN Consulting Unavailable PROVIDER, UNKNOWN Consulting Unavailable AMBROSIO CARLSON MD Admitting Unavailable AMBROSIO CARLSON MD Attending Unavailable AMBROSIO CARLSON MD Primary Care Unavailable AMBROSIO CARLSON MD Consulting Unavailable PROVIDER, UNKNOWN Consulting Unavailable PROVIDER, UNKNOWN Consulting Unavailable PROVIDER, UNKNOWN Consulting Unavailable AMBROSIO CARLSON MD Admitting Unavailable AMBROSIO CARLSON MD Attending Unavailable AMBROSIO CARLSON MD Primary Care Unavailable AMBROSIO CARLSON MD Consulting Unavailable PROVIDER, UNKNOWN Consulting Unavailable PROVIDER, UNKNOWN Consulting Unavailable PROVIDER, UNKNOWN Consulting Unavailable YONY ABARCA Admitting Unavailable YONY ABARCA Attending Unavailable NO, DOCTOR ON Referring Unavailable YONY ABARCA Primary Care Unavailable NO, DOCTOR ON Consulting Unavailable Unavailable Primary Care Provider Unavailabl e Medications Current Medications Medication Drug Class(es) Dates Sig (Normalized) Sig (Original) acetaminophen 325 mg oral tablet (2 sources) Start: 09-09-2019 650 mg, Rectal, EVERY 6 HOURS PRN, Pain Mild (1-3), Fever, For temp greater than 100.5 F (38 C), Starting Nicki 09/09/19 at 0033 Administer if oral route cannot be used. Completed/Discontinued Medications Medication Drug Class(es) Dates Sig (Normalized) Sig (Original) cefTRIAXone sodium 1 g in dextrose 5 % 50 mL IVPB (add-vantage) (1 source) Start: 09-09-2019 1 g, Intravenous, EVERY 24 HOURS, First dose on Nicki 09/09/19 at 0200, Until Discontinued iopamidol (ISOVUE-300) 61 % injection 50 mL (1 source) Start: 09-10-2019 End: 09-10-2019 iopamidol (ISOVUE-300) 61 % injection 50 mL Problems Active Problems Problem Classification Problem Date Documented Date Episodic/Chronic Acute and unspecified renal failure (2 sources) Acute injury of kidney; Translations: [SHAWN (acute kidney injury) (HCC)] Onset: 09-09-2019 09-09-2019 Cardiac and circulatory congenital anomalies (1 source) Tetralogy of Fallot; Translations: [Tetralogy of Fallot] Onset: 05-12-2017 Chronic Cardiac dysrhythmias (1 source) Paroxysmal atrial fibrillation; Translations: [Paroxysmal atrial fibrillation] Onset: 05-12-2017 Chronic Diabetes mellitus without complication (4 sources) Type 2 diabetes mellitus without complications; Translations: [Type 2 diabetes mellitus without complications] Onset: 06-11-2019 Chronic Diseases of white blood cells (2 sources) Leukocytosis; Translations: [Leukocytosis] Onset: 09-09-2019 09-09-2019 Chronic Disorders of lipid metabolism (5 sources) Hyperlipidemia, unspecified; Translations: [Pure hyperglyceridemia] Onset: 03-09-2019 Chronic Essential hypertension (2 sources) Essential (primary) hypertension; Translations: [Essential (primary) hypertension] Onset: 04-30-2017 Chronic Heart valve disorders (4 sources) Nonrheumatic pulmonary valve insufficiency; 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] Onset: 05-06-2017 09-09-2019 Chronic Immunity disorders (1 source) Di Dionisio's syndrome; 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 Other connective tissue disease (1 source) Pain in right lower leg; Translations: [Pain in right lower leg] Onset: 09-08-2019 Episodic Other nutritional; endocrine; and metabolic disorders (1 source) Overweight; Translations: [Overweight] Onset: 02-02-2019 Chronic Unclassified (1 source) Other specified postprocedural states; Translations: [Other specified postprocedural states] Onset: 01-27-2017 Past or Other Problems Problem Classification Problem Date Documented Date Episodic/Chronic Calculus of urinary tract (2 sources) Kidney stone; Translations: [Nephrolithiasis] Onset: 09-09-2019 09-09-2019 Episodic Cardiac and circulatory congenital anomalies (3 sources) Personal history of (corrected) congenital malformations of heart and circulatory system; Translations: [H/O: cardiac anomaly] Onset: 01-27-2017 09-09-2019 Episodic Cardiac dysrhythmias (1 source) Palpitations; Translations: [Palpitations] Onset: 04-28-2017 Episodic Complications of surgical procedures or medical care (1 source) Acute postprocedural respiratory failure; Translations: [Acute postprocedural respiratory failure] Onset: 04-30-2017 Episodic Diabetes mellitus without complication (1 source) Other abnormal glucose; Translations: [Other abnormal glucose] Onset: 03-09-2019 Episodic Other nervous system disorders (1 source) Other acute postprocedural pain; Translations: [Other acute postprocedural pain] Onset: 04-30-2017 Episodic Other screening for suspected conditions (not mental disorders or infectious disease) (1 source) Encounter for screening for malignant neoplasm of prostate; Translations: [Encounter for screening for malignant neoplasm of prostate] Onset: 06-11-2019 Episodic Results Test Name Value Interpretation Reference Range Facil ity Vital Signs Date Time Vital Sign Value Performing Clinician Rajiv velazquez 09-11-2019 06:08-0500 Body Temperature 98.6 [degF] Randyrialice Castaneda [facility] [place] [place] 09-11-2019 06:08-0500 BP Diastolic 99 mm[Hg] Nimrit Leonel [facility] [place] [facility] [place] 09-11-2019 06:08-0500 BP Systolic 154 mm[Hg] Nimrit Leonel [facility] [place] [facility] [place] 09-11-2019 06:08-0500 Pulse (Heart Rate) 88 /min Nimrit Leonel [facility] [place] [place] 09-11-2019 06:08-0500 Pulse Oximetry 96 % Randyrialice Castaneda [facility] [place] , [place] 09-11-2019 06:08-0500 Respiratory Rate 18 /min Randyrit Leonel [facility] [place] Encounters Encounter Date Encounter Type Care Provider Facility Start: 09-08-2019 End: 09-11-2019 Evaluation and management of inpatient Tara Castaneda Work Phone: [facility] Start: 09-08-2019 End: 09-09-2019 Emergency department patient visit YONY ABARCA [facility] Start: 09-08-2019 Patient encounter procedure AMBROSIO HIGUERA [facility] Start: 08-31-2019 End: 08-31-2019 Patient encounter procedure AMBROSIO HIGUERA [facility] Start: 06-11-2019 End: 06-11-2019 Patient encounter procedure AMBROSIO HIGUERA [facility] Start: 03-09-2019 End: 03-09-2019 Patient encounter procedure AMBROSIO HIGUERA [facility] Start: 02-02-2019 End: 02-02-2019 Patient encounter procedure AMBROSIO HIGUERA [facility] Start: 12-02-2018 End: 12-02-2018 Emergency department patient visit HELEN COOK [facility] Start: 03-27-2018 End: 03-30-2018 Patient encounter LEANN KHAN [facility] Start: 05-12-2017 End: 05-12-2017 Patient encounter PAULINE LEON [facility] Start: 05-06-2017 End: 05-06-2017 Patient encounter PAULINE LEON [facility] Start: 04-30-2017 End: 05-06-2017 Evaluation and management of inpatient PAULINE LEON [facility] Start: 04-28-2017 End: 05-08-2017 Patient encounter MISTY MAIER [facility] Procedures Date Procedure Procedure Detail Performing Clinician Start: 09-11-2019 BASIC METABOLIC PANE L W/ REFLEX TO MG FOR LOW K Ruben B Justin Work Phone: Start: 09-11-2019 Blood count complete automated Rubenjairo Anderson Work Phone: Start: 09-10-2019 OPERATIVE REPORT 3m Sca nning Start: 09-10-2019 BASIC METABOLIC PANE L W/ REFLEX TO MG FOR LOW K Ruben B Justin Work Phone: Start: 09-10-2019 Blood count complete automated Ruben Bimal Anderson Work Phone: Start: 09-09-2019 Us retroperitoneal r eal time w/image limited Sagemerlin Veras Work Phone: Start: 09-09-2019 Radiologic exam abdo men 1 view Wally Jose Elias Work Phone: Start: 09-09-2019 Culture bacterial quanttative colony count urine [employer] Work Phone: Start: 09-09-2019 Urnls dip stick/tabl et rgnt auto w/o microscopy [employer] Work Phone: Start: 09-09-2019 Assay of urea nitrogen urine Marc Shereen Reeves Work Phone: Start: 09-09-2019 Assay of urine sodium A ndrea L [place] Work Phone: Start: 09-09-2019 Creatinine other source Marc Reeves Work Phone: Start: 09-09-2019 Blood count complete automated Ruben Wallis Justin Work Phone: Start: 09-09-2019 BASIC METABOLIC PANE L W/ REFLEX TO MG FOR LOW K Ruben Anderson Work Phone: Start: 09-08-2019 Urinalysis AMBROSIO THAD HNER Plan of Treatment Date Care Activity Detail Author Start: 2026 Shingles Vaccine (1 of 2) Shingles Vaccine (1 of 2) [place], [place] Start: 09-11-2020 Creatinine monitoring Creatinine mon itoring [place], [place] Start: 09-11-2020 Potassium monitoring Potassium monit oring [place], [place] Start: 03-21-2019 Influenza vaccination Flu vaccine (# 1) [place], [place] Start: 2016 Lipid screen Lipid screen [place], [place] Start: 11-04-1991 HIV screen HIV screen [place], [place] Start: 11-04-1987 DTaP/Tdap/Td vaccine (1 - Tdap) DTaP/Tdap/Td vaccine (1 - Tdap) [place], [place] Basic Metabolic Pane l w/ Reflex to MG Basic Metabolic Panel w/ Reflex to MG Lab Routine Daily until discontinued starting 09/09/2019, 3 completed [place], [place] Payers Date Payer Category Payer Unknown [id number] 1975 Unknown [id number] 1975 Unknown [id number] 1975 Unknown [id number] 1975 Unknown [id number] .[id number] 1975 Unknown [id number] 1975 Unknown [id number] Unknown [id number] Social History Date Type Detail Facility Start: 09-09-2019 [facility] [employer] Sex Assigned At Not on file [employer] Summary Purpose Family History No Family History Records FoundNo Family History Records FoundNo Family History Records FoundNo Family History Records Found Advance Directives Documents on File Type Date Recorded Patient Indian Nanny Expl anation Advance Directives and Living Will Power of Control Officer Latest Code Status on File Code Status Date Activated Date Inactivated Comments Full Code 09/09/2019 12:34 AM Hospital Course * Heather Vanegas MD - 09/11/2019 8:31 AM EST [facility] Discharge Summary with Discharge DayProgress Note and Transition Note Doc Ford : 1975 ADMIT DATE: 09/08/2019 DISCHARGE DATE: 09/11/2019 PRIMARYCARE PHYSICIAN: No primary care provider on file. VISIT STATUS: Admission CODE STATUS: Full Code DISCHARGE DIAGNOSES: Active Problems: Nephrolithiasis SHAWN (acute kidney injury) (HCC) Leukocytosis History of tetralogy of Fallot S/P AVR Resolved Problems: * No resolved hospital problems. * HOSPITAL COURSE: Doc Ford is a 43 y.o. male with history of DiGeorge 22q11 genetic abnormality, left atrophickidney, DM2 (diet controlled, Hgb A1C 6.0), HLD, HTN, and Tetralogy of Fallot (s/p bioprosthetic AVR), who presents as a transfer from [facility] with complaints of severe right flank/back pain. In ER, patient was found to have severe hydronephrosis, UTI and obstructing ureteral stone. Transferred to [facility], where he underwent urethral stone removal and R urethral string stent placement. Patient was discharged home in stable condition, with instructions to pull out string stent at home, andto follow up with urology. DAY OF DISCHARGE: Review of Systems Constitutional: Negative for chills and fever. Respiratory: Negative for cough and wheezing. Cardiovascular: Negative for chest pain. Gastrointestinal: Negative for abdominal pain, constipation, diarrhea, nausea and vomiting. Genitourinary: Negative for dysuria and hematuria. Patient Vitals for the past 24 hrs: BP Temp Temp src Pulse Resp SpO2 09/11/19 0608 (!) 154/99 98.6 F (37 C) Temporal 88 18 96 % 09/10/19 1958 (!) 152/86 Temporal 105 09/10/19 1746 98.7 F (37.1 C) Temporal 94 18 98 % 09/10/19 0859 (!) 145/97 Temporal 106 Average, Min, and Max forlast 24 hours Vitals: TEMPERATURE: Temp Av.7 F (37.1 C) Min: 98.6 F (37 C) Max: 98.7 F (37.1 C) RESPIRATIONS RANGE: Resp Av Min: 18 Max: 18 PULSE RANGE: Pulse Av.3 Min: 88 Max: 106 BLOOD PRESSURE RANGE: Systolic (24hrs), Av , Min:145 , Max:154 ; Diastolic (24hrs), Av, Min:86, Max:99 PULSE OXIMETRYRANGE: SpO2 Av % Min: 96 % Max: 98 % I/O last 3 completed shifts: In: 1915 [P.O.:500; I.V.:1415] Out: - Physical Exam Constitutional: Appearance: Normal appearance. Cardiovascular: Rate and Rhythm: Normal rate and regular rhythm. Heart sounds: No murmur. Pulmonary: Effort: Pulmonary effort is normal. No respiratory distress. Breath sounds: Normal breath sounds. No wheezing. Abdominal: General: Abdomen is flat. There is no distension. Palpations: Abdomen is soft. Tenderness: There is no abdominal tenderness. Neurological: Mental Status: He is alert. PROCEDURES: Urethral stone removal and string stent placement CONSULTANTS: urology DISCHARGE MEDICATIONS: Significant Medication Changes: none Doc Ford Home Medication Instructions SITA:[id number] Printed on:09/11/19 0842 Medication Information aspirin 81 MG chewable tablet Take 81 mg by mouth daily lisinopril (PRINIVIL;ZESTRIL) 5 MG tablet Take 5 mg by mouth 2 times daily metoprolol tartrate (LOPRESSOR) 25 MG tablet Take 25 mg by mouth 2 times daily DIET: regular ACTIVITY: resume regular activity SIGNIFICANT DIAGNOSTIC STUDIES: COMPLEXITY OF FOLLOW UP: [x] Moderate Complexity: follow up within 7-14 calendar days (36294) [] Severe Complexity: follow up within 7 calendar days (79711) FOLLOW UP TESTING, PENDING RESULTS ORREFERRALS AT TRANSITIONAL CARE VISIT: [] Yes - Pt to remove string stent in 3 days - Rpt renal US in 6 weeks, then follow up with urology in 2 months - Check BMP to look at renal function [] No DISPOSITION: Home FACILITY/HOME CARE AGENCY NAME: Follow up with No primary care provider on file. to be scheduled d Notification (telephone encounter) to PCP initiated: [] Yes [] No INSTRUCTIONS TO MA/SW: Please call patient on day after discharge (must document patient contacted within 2 business days of discharge). FOLLOW UP QUESTIONS FOR MA/SW: 1. Did you get medications filled and takingthem as instructed from discharge? 2. Are you following your discharge instructions from your hospital stay? 3. Please confirm patient is scheduled for a follow up appointment within the above time frame. DISCHARGE TIME: > 30 minutes D/W patient's father and RN documented in this encounter Discharge Instructions * Instructions* Heather Vanegas MD - 09/11/2019 - Remove string stent on 09/13 - Repeat renal ultrasound in 6 weeks - Follow up with urology in 2 months Ureteral Stent Placement: What to Expect at Home Your Recovery A ureteral (say [id number]-ZMA-[id number]-ul ) stent is a thin, hollow tube that is placed in the ureter to helpurine pass from the kidney into the bladder. Ureters are the tubes that connect the kidneys to the bladder. You may have a small amount of blood in your urine for 1 to 3 days after the procedure. While the stent is in place, you may have to urinate more often, feel a sudden need to urinate, or feel like you cannot completely empty your bladder. You may feel some pain when you urinate or do strenuous activity. You also may notice a small amount of blood in your urine after strenuous activities. These side effects usually do not prevent people from doing their normal daily activities. You may have a thin string coming out of your urethra. Your urethra is the tube that carries urine from your bladder to outside your body. This string is attached to the stent. Try not to pull on thestring. The doctor will use the string to pull out the stent when you no longer need it. After the procedure, urine may flow better from your kidneys to your bladder. A ureteral stent may be left in place for several days or for as long as several months. Your doctor will take it out when you no longer need it. This care sheet gives you a general idea about how long it will take for you to recover. But each person recovers at a different pace. Follow the steps below to get better as quickly as possible. How can you care for yourself at home? Activity Rest when you feel tired. Getting enough sleep will help you recover. Avoid strenuous activities, such as bicycle riding, jogging, weight lifting, or aerobic exercise, until your doctor says it is okay. Ask your doctor when you can drive again. Most people are able to return to work the day after the procedure. If your work requires intense activity, you may feel pain in your kidney area or get tired easily. If this happens, you may need todo less strenuous activities while the stent is in. Ask your doctor when it is okay for you to have sex. Diet You can eat your normal diet. If your stomach is upset, try bland, low-fat foods like plain rice, broiled chicken, toast, and yogurt. Drink plenty of fluids (unless your doctor tells you not to). Medicines Your doctor will tell you if and when you can restart your medicines. He or she will also give you instructions about taking any new medicines. If you take aspirin or some other blood thinner, ask your doctor if and when to start taking it again. Make sure that you understand exactly what your doctor wants you to do. Be safe with medicines. Take pain medicines exactly as directed. ? If the doctor gave you a prescription medicine for pain, take it as prescribed. ? If you are not taking a prescription pain medicine, ask your doctor if you can take an osmw-vor-lwijnyi medicine. If you think your pain medicine is making you sick to your stomach: ? Take your medicine after meals (unless your doctor has told you not to). ? Ask your doctor for a different pain medicine. If your doctor prescribed antibiotics, take them as directed. Do not stop taking them just because you feel better. You need to take the full course of antibiotics. Follow-up care is a aldridge part of your treatment and safety. Be sure to make and go to all appointments, and call your doctor if you are having problems. It's also a good idea to know your test resultsand keep a list of the medicines you take. When should you call for help? Call 911 anytime you think you may need emergency care. For example, call if: You passed out (lost consciousness). You have severe trouble breathing. You have sudden chest pain and shortness of breath, or you cough up blood. You have severe belly pain. Call your doctor now or seek immediate medical care if: Part or all of the stent comes out of your urethra. You have pain that does not get better after you take pain medicine. You have symptoms of a urinary infection. For example: ? You have blood or pus in your urine. ? You have pain in your back just below your rib cage. This is called flank pain. ? You have a fever, chills, or body aches. ? It hurts to urinate. ? You have groin or belly pain. You cannot control when you urinate, or you leak urine. Watch closely for changes in your health, and be sure to contact your doctor if you have any problems. Where can you learn more? Go to [email or web address] and sign in to your [employer] account. Enter B869 in the Search Health Information box to learn more about Ureteral Stent Placement: What to Expect at Home. If you do not have an account, please click on the Sign Up Now link. Current as of: March 10, 2019 Content Version: 12.3 2906-7516 [employer]. Care instructions adapted under license by [employer]. If youhave questions about a medical condition or this instruction, always ask your healthcare professional. [employer] disclaims any warranty or liability for your use of this information. * Attachments The following attachments cannot be sent through Care Everywhere. * Ureteral Stent Placement: Post-op (Lao) documented in this encounter History of Present Illness * Acacia Mathew RN - 09/11/2019 1:11 PM EST Discharge instructions given to pt with good understanding * Marc Reeves PA-C - 09/10/2019 10:53 AM EST [facility] Progress Note Doc Ford : 1975(43 y.o.) Date: 09/10/19 Subjective: HPI The patient complains of right flank pain. Reports he feels well s/p stent. Right flank pain has resolved. Febrile overnight but no n/v. Voided s/p procedure with pink tinged urine. Denies CP, SOB, abdominal, flank pain, dysuria. Asking about diet. Scheduled Meds: [Held by provider] lisinopril 5 mg Oral BID metoprolol tartrate 25 mg Oral BID sodium chloride flush 10 mL Intravenous 2 times per day cefTRIAXone (ROCEPHIN) IV 1 g Intravenous Q24H aspirin 81 mg Oral Daily Continuous Infusions: sodium chloride 100 mL/hr at 09/09/192033 PRN Meds:oxyCODONE-acetaminophen, morphine, sodium chloride flush, acetaminophen, acetaminophen, polyethylene glycol, promethazine, ondansetron, melatonin Review of Systems Constitutional: Negative for chills, fatigue and fever. Respiratory: Negative for cough and shortness of breath. Cardiovascular: Negative for chest pain. Gastrointestinal: Negative for abdominal pain, constipation, diarrhea, nausea and vomiting. Genitourinary: Positive for hematuria. Negative for dysuria, flank pain and frequency. Interval Pertinent History: Social History Tobacco Use Smoking status: Not on file Substance Use Topics Alcohol use: Not on file Objective: Patient Vitals for the past 24 hrs: BP Temp Temp src Pulse Resp SpO2 09/10/19 0859 (!) 145/97 Temporal 106 09/10/19 0840 98.9 F (37.2 C) Temporal 102 18 99 % 09/10/19 0815 (!) 143/91 101 16 95 % 09/10/19 0745 (!) 144/93 85 13 100 % 09/10/19 0729 130/86 97.3 F (36.3 C) Temporal 89 13 100 % 09/10/19 0715 (!) 156/100 91 13 100 % 09/10/19 0658 139/89 97.4 F (36.3 C) Temporal 90 19 100 % 09/10/19 0607 (!) 158/92 98.3 F (36.8 C) Temporal 97 16 97 % 09/10/19 0554 (!) 167/99 98.7 F (37.1 C) Temporal 92 18 99 % 09/10/19 0136 123/74 98.3 F (36.8 C) Oral 92 18 95 % 09/09/19 2354 135/88 99.4 F (37.4 C) Oral 110 20 96 % 09/09/19 2253 (!) 180/105 102.5 F (39.2 C) Oral 114 94 % 09/09/19 1730 (!) 148/84 98.8 F (37.1 C) Oral 103 20 94 % 09/09/19 1508 (!) 149/90 97.5 F (36.4 C) Oral 98 18 95 % Average, Min, and Max for last 24 hours Vitals: TEMPERATURE: Temp Av.7 F (37.1 C) Min: 97.3 F (36.3 C) Max: 102.5 F (39.2 C) RESPIRATIONS RANGE: Resp Av.8 Min: 13 Max: 20 PULSE RANGE: Pulse Av.9 Min: 85 Max: 114 BLOOD PRESSURE RANGE: Systolic (24hrs), Av , Min:123 , Max:180 ; Diastolic (24hrs), Av, Min:74, Max:105 PULSE OXIMETRY RANGE: SpO2 Av.2 % Min: 94 % Max: 100 % I/O last 3 completed shifts: In: 4110 [P.O.:900; I.V.:3210] Out: 1720 [Urine:1720] Physical Exam Vitals signs reviewed. Constitutional: Appearance: He is well-developed. Comments: Resting in bed, ambulating to bathroom, father at bedside HENT: Head: Normocephalic and atraumatic. Right Ear: External ear normal. Left Ear: External ear normal. Nose: Nose normal. Mouth/Throat: Mouth: Mucous membranes are moist. Eyes: General: No scleral icterus. Conjunctiva/sclera: Conjunctivae normal. Pupils: Pupils are equal, round, and reactive to light. Neck: Musculoskeletal: Neck supple. Cardiovascular: Rate and Rhythm: Normal rate and regular rhythm. Heart sounds: Normal heart sounds. No murmur. Comments: Prominent S2, borderline tachycardia Pulmonary: Effort: Pulmonary effort is normal. Breath sounds: Normal breath sounds. No wheezing. Abdominal: General: Bowel sounds are normal. There is no distension. Palpations: Abdomen is soft. Comments: Obese abdomen, no TTP, no flank pain or CVA tenderness Skin: General: Skin is warm and dry. Neurological: General: No focal deficit present. Mental Status: He is alert and oriented to person, place, and time. Gait: Gait normal. Psychiatric: Behavior: Behavior normal. Lab Results Component Value Date WBC 8.2 09/10/2019 HGB 12.1 (L) 09/10/2019 HCT 36.4 (L) 09/10/2019 MCV 95.1 09/10/2019 PLT 111 (L) 09/10/2019 Lab Results Component Value Date NA 142 09/10/2019 K 4.2 09/10/2019 CL 113 09/10/2019 CO2 21 09/10/2019 BUN 20 09/10/2019 CREATININE 1.46 09/10/2019 GLUCOSE 120 09/10/2019 CALCIUM 8.1 09/10/2019 No results found for: LABA1C Additional results of the last 24 hours have been reviewed. Assessment and Plan: Active Problems: Nephrolithiasis SHAWN (acute kidney injury) (HCC) Leukocytosis History of tetralogy of Fallot S/P AVR Resolved Problems: * No resolved hospital problems. * 1. Nephrolithiasis, right flank pain and UTI -appreciate urology, stone was seen in proximal urethra and passed, right ureteral string stent placed 09/10/19--remove stent in 3 days, f/u with repeat renal US in 6w, reports flank pain resolved -flomax, strain urine -started on Ceftriaxone (day 2) for UA with 500 leuks, >100WBC, and moderate bacteria, Ucx pending 2. SHAWN -BUN/creat increased since initial labs --trending down today creat. 1.46, continue IVF, likely cand/c as long as good PO intake -hold lisinopril -denies NSAID use 3. Leukocytosis -likely 2/2 UTI vs kidney stone, normalized today, continue IV ceftriaxone 4. Tetrology of fallot -s/p bioprosthetic aortic valve replacement, on ASA, metoprolol -stable, follows with cardiology at [facility] 5. Disposition -s/p stent 09/10- observe, likely d/c later today or tomorrow per urology -continue IV ceftriaxone DVTProphylaxis: SCDs and Ambulate in purvis Disposition:await test results, await life consultant recommendations, await clinical improvement and anticipate discharge likely tomorrow I spent over 51% of total time providing counseling or incoordination of care: > 25 minutes discussed with nurse, patient and family updated, I personally examined the patient and I personally reviewed chart, data, labs radiology reports 6AM-6PM please page: [phone], Izabella Reeves PA-C 6PM-6AM please page: [facility] Internal [facility] Associated attestation - Heather Vanegas MD - 09/10/2019 4:15 PM EST Attending Supervising Physician's Attestation Statement I performed a history and physical examination on the patient and discussed the management with thephysician bookkeeping assistant. I reviewed and agree with the findings and plan as documented in her note . Patient underwent R ureteral stent placement today, plan to remove in 3 days, fu renal US in 6w Patient feels better Renal function improving Cont abx Likely discharge tomorrow I spent over 51% of total time providing counseling or incoordination of care: > 35 minutes discussed with nurse, patient and family updated, I personally examined the patient and I personally reviewed chart, data, labs radiology reports * Fiorella Landa - 09/10/2019 10:32 AM EST Nutrition rescreen completed. Chart reviewed. Patient to be monitored and followed by the diet tissue technician. Fiorella Landa DT * Sabine Dale RN - 09/10/2019 7:37 AM EST Attempted to update family, unable to locate at this time. * Karen Lawrence RN - 09/09/2019 11:07 PM EST Patient complaining of abdominal pain. Patient medicated with PRN morphine. Patient bladder scannedfor 340cc. Vitals 102.5, HR 114, BP 180/105 Spo2% 92 on Room air. Patient was given tylenol for fever. Dr. Veras was paged and notified. Will continue to monitor. * Laura Yu RN - 09/09/2019 1:00 AM EST Pt transferred from [facility]. Arrived 09/08/19 at approx 2325. Report received from ER nurse at [facility]. Pt presented to ER with flank pain and was worked up for possible kidney stone. Upon arrival to [facility], pt A&Ox4 and not in acute distress. ethnoarchaeologist stated he was given Fentanyl and Zofran for pain and nausea on the way over. Dr. Veras contacted for orders and those were received. Pt resting comfortably in bed and his father is rooming with him. documented in this encounter Assessments Diagnosis Nephrolithiasis Calculus of kidney SHAWN (acute kidney injury) (HCC) Acute kidney failure, unspecified Leukocytosis Leukocytosis, unspecified History of tetralogy of Fallot S/P AVR Heart valve replaced by other means Additional Source Comments (unrecognized sect ion and content) No Status Records FoundNo Status Records FoundNo Status Records FoundNo Status Records Found INFORMATION SOURCE (unrecogn ized section and content) DATE CREATED AUTHOR AUTHOR'S ORGANIZ ATION 09/01/[address] [facility] DATE CREATED AUTHOR AUTHOR'S ORGANIZ ATION 09/17/2019 [facility] DATE CREATED AUTHOR AUTHOR'S ORGANIZ ATION 11/10/2019 [facility] Reason for Visit (unrecogniz ed section and content) FOR RECORDS PERTAINING TO PATIENTS WHO ARE OR HAVE BEEN ENROLLED IN A CHEMICAL DEPENDENCY/SUBSTANCEABUSE PROGRAM, SOME INFORMATION MAY BE OMITTED. This clinical summary was aggregated from multiple sources. Caution should be exercised in using it in the provision of clinical care. This summary normalizes information from multiple sources, and as a consequence, information in this document may materially change the coding, format and clinical context of patient data. In addition, data may be omitted in some cases. CLINICAL DECISIONS SHOULD BE BASED ON THE PRIMARY CLINICAL RECORDS. [facility]. provides no warranty or guarantee of the accuracy or completeness of information in this document.
[2023-07-18 13:12] LABS: Hemoglobin A1c 7.6 % (3.8-5.6)
[2023-07-18 13:22] LABS: Anion Gap 5 (5-15); BUN 16 mg/dL (7-18); BUN/Creat Ratio 13.2 RATIO (10-20); Calcium,Total 8.5 mg/dL (8.5-10.1); Chloride 105 mmol/L (98-107); Cholesterol 250 mg/dL (200); Creatinine, Serum 1.21 mg/dL (0.70-1.30); EST Glomerular Filtration Rate 68 mL/min (>60); Est Glom Filt Rate - Afr Amer 83 mL/min (>60); Glucose 176 mg/dL (74-106); High Density Lipoprotein 44 mg/dL; Potassium 4.2 mmol/L (3.5-5.1); Sodium Level 139 mmol/L (136-145); Triglycerides 476 mg/dL
== END | disposition home or self-care (01) ==
LOC: LAB 11:53
PROVIDERS: PCP Internal Medicine; Referring Provider Internal Medicine; Visit Provider Internal Medicine
DX: Z13.220 Encounter for screening for lipoid disorders (principal); E11.65 Type 2 diabetes mellitus with hyperglycemia; E78.5 Hyperlipidemia, unspecified; I10 Essential (primary) hypertension
CPT/HCPCS: 36415; 80048; 80061; 83036

== ENCOUNTER → 2024-03-15 | Outpatient (CLI) | payer MEDICAID, SELFPAY ==
[2024-03-15 12:33] LABS: Absolute Lymphocyte Count 1.17 X10^3/uL (0.83-4.51); Absolute Neutrophil Count 3.7 X10^3/uL (2.0-7.7); Basophil# 0.06 X10^3/uL; Basophil% 1.1 % (0-1); Eosinophil# 0.28 X10^3/uL; Eosinophils% 4.9 % (0-5); Hematocrit 44.8 % (40-54); Hemoglobin 15.3 g/dL (13.0-16.5); Lymphocyte # 1.17 X10^3/ul (0.83-4.51); Lymphocyte % 20.6 % (19-41); Mean Corp Hgb Conc 34.2 g/dL (32-36); Mean Corpuscular Hgb 31.3 pg (27.0-32.0); Mean Corpuscular Volume 91.6 fL (80-94); Mean Platelet Vol. 12.7 fl (6.2-12.0); Monocyte# 0.41 X10^3/uL; Monocyte% 7.2 % (0-10); NRBC Flagged by Analyzer 0 % (0-5); Neutrophil # 3.73 X10^3/uL (2.7-7.7); Neutrophil % 65.7 % (47-70); Platelet Count 132 K/mm3 (150-450); RBC Distribution Width CV 11.5 % (11.6-14.6); RBC Distribution Width SD 38.6 fl (35.1-43.9); Red Blood Count 4.89 M/mm3 (4.6-6.2); White Blood Count 5.7 K/mm3 (4.4-11.0)
[2024-03-15 13:05] LABS: Hemoglobin A1c 9.8 % (3.8-5.6)
[2024-03-15 13:11] LABS: ALB/GLOB Ratio 0.9 RATIO (0.9-2.4); AST(SGOT) 20 U/L (15-37); Alanine Aminotransfer ALT/SGPT 37 U/L (16-61); Albumin, Serum 3.3 g/dL (3.2-5.0); Alkaline Phosphatase 91 U/L (45-117); Anion Gap 6 (5-15); BUN 16 mg/dL (7-18); BUN/Creat Ratio 12.8 RATIO (10-20); Calcium,Total 8.7 mg/dL (8.5-10.1); Chloride 101 mmol/L (98-107); Cholesterol 274 mg/dL (200); Creatinine, Serum 1.25 mg/dL (0.70-1.30); EST Glomerular Filtration Rate 66 mL/min (>60); Est Glom Filt Rate - Afr Amer 80 mL/min (>60); Globulin 3.8 g/dL (2.2-4.2); Glucose 275 mg/dL (74-106); High Density Lipoprotein 42 mg/dL; PSA,Total - Annual Screen 0.23 ng/mL (0.00-4.00); Potassium 4.5 mmol/L (3.5-5.1); Protein, Total 7.1 g/dL (6.4-8.2); Sodium Level 135 mmol/L (136-145); Triglycerides 687 mg/dL
== END | disposition home or self-care (01) ==
PROVIDERS: PCP Internal Medicine; Referring Provider Internal Medicine; Visit Provider Internal Medicine
DX: I10 Essential (primary) hypertension (principal); E11.9 Type 2 diabetes mellitus without complications; E78.5 Hyperlipidemia, unspecified; E55.9 Vitamin D deficiency, unspecified; Z13.220 Encounter for screening for lipoid disorders; Z12.5 Encounter for screening for malignant neoplasm of prostate
CPT/HCPCS: 84153; 36415; 80053; 80061; 82306; 83036; 84443; 85025; G0103

== ENCOUNTER → 2024-04-15 | Outpatient (CLI) | payer MEDICAID, SELFPAY ==
--- NOTE | 2024-04-15 14:09 | STRESSREP ---
Stress Test Report Date: 04/15/2024 Procedure: Exercise tolerance test Indications: Shortness of breath Consent: Per the patient Procedure: The patient exercised on a Stephan protocol for 5 minutes and 3 seconds achieving a peak heart rate of 153 bpm (88% predicted maximal heart rate) with a peak blood pressure 166/88 mmHg and a peak MET capacity of approximately 7 MET's. The baseline ECG demonstrated normal sinus rhythm, incomplete right bundle branch block. The peak exercise ECG demonstrated no significant ischemic changes. Patient had PVCs with exercise and in the recovery phase. No significant V. tach or other significant arrhythmias. The functional capacity was considered decreased for age. The patient had no complaint of chest discomfort during exercise or recovery. The examination was discontinued secondary to dyspnea. Impression: 1. Technically adequate (percent predicted maximal heart rate greater than 85%) exercise tolerance test 2. Stress test is negative for exercise-induced chest pain. 3. Stress test test is negative for exercise-induced EKG changes of ischemia. 4. Functional capacity is decreased for age This note was generated with [employer] software. It may contain incorrect words, spelling, and punctuation that were not noted in checking the note before signing.
== END | disposition home or self-care (01) ==
LOC: CVS 09:48
PROVIDERS: PCP Internal Medicine; Referring Provider Internal Medicine; Visit Provider Internal Medicine
DX: R06.09 Other forms of dyspnea (principal); E11.9 Type 2 diabetes mellitus without complications; I10 Essential (primary) hypertension; E78.5 Hyperlipidemia, unspecified
CPT/HCPCS: 93017

== ENCOUNTER → 2024-05-31 | Outpatient (CLI) | payer MEDICAID, SELFPAY ==
[2024-05-31 13:07] LABS: Anion Gap 4 (5-15); BUN 13 mg/dL (7-18); BUN/Creat Ratio 11.6 RATIO (10-20); Calcium,Total 8.7 mg/dL (8.5-10.1); Chloride 105 mmol/L (98-107); Cholesterol 265 mg/dL (200); Creatinine, Serum 1.12 mg/dL (0.70-1.30); EST Glomerular Filtration Rate 75 mL/min (>60); Est Glom Filt Rate - Afr Amer 90 mL/min (>60); Glucose 230 mg/dL (74-106); High Density Lipoprotein 44 mg/dL; Potassium 4.2 mmol/L (3.5-5.1); Sodium Level 137 mmol/L (136-145); Triglycerides 425 mg/dL
[2024-05-31 13:47] LABS: Hemoglobin A1c 8.8 % (3.8-5.6)
== END | disposition home or self-care (01) ==
LOC: LAB 12:05
PROVIDERS: PCP Internal Medicine; Referring Provider Internal Medicine; Visit Provider Internal Medicine
DX: E11.65 Type 2 diabetes mellitus with hyperglycemia (principal); I10 Essential (primary) hypertension; E78.5 Hyperlipidemia, unspecified; Z13.220 Encounter for screening for lipoid disorders
CPT/HCPCS: 36415; 80048; 80061; 83036

== ENCOUNTER 2024-06-12 16:22 | Emergency (ER) | payer MEDICAID, SELFPAY ==
[2024-06-12 16:23] VITALS: BP 143/90; PULSE 73; RESP 16; TEMP 36.6; O2SAT 99; BMI 26.0
--- NOTE | 2024-06-12 16:39 | EKG12_ITS ---
Test Reason : BACK PAIN Blood Pressure : */* mmHG Vent. Rate : 67 BPM Atrial Rate : 67 BPM P-R Int : 180 ms QRS Dur : 104 ms QT Int : 376 ms P-R-T Axes : -22 81 69 degrees QTcB Int : 397 ms Normal sinus rhythm Incomplete right bundle branch block T wave abnormality, consider anterior ischemia Abnormal ECG Confirmed by Subhash Andrea ([id number]), supervising editor news reel LORNA GLEASON ([id number]) on 06/15/2024 10:25:17 AM Referred By: Confirmed By: Subhash Andrea
--- NOTE | 2024-06-12 16:40 | EX.ED.DYSGE1 ---
HPI History of Present Illness Chief Complaint: Back Informant: patient and parent Narrative Narrative: Presents here with father for evaluation. 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 Started noticing low back pain. Today while sitting watching TV he felt warm and dizzy. There is no prodromal chest pains or shortness of breath. Would have his back discomfort. Father concerned due to having history of tetralogy of Fallot he has had valve replacement and electrolyte abnormalities. Prediabetic. Denies recent vomiting diarrhea. Denies any allergies to medications.. Denies history of CKD. He states he was currently use Aleve however did not get around to it. Prior similar symptoms: Yes PFSH PFSH Medical History kidney stone surgery Hyperlipidemia Kidney stones Hypertension Home Medications ?Medication ?Instructions ?Recorded ?Last Taken ?Type cholecalciferol (vitamin D3) 10 10 mcg PO DAILY 10/11/20 Unknown History mcg (400 unit) capsule lisinopril 10 mg tablet 10 mg PO BID #90 tabs 03/08/24 Unknown Rx metformin 500 mg tablet 500 mg PO BID #180 tabs 03/15/24 Unknown Rx metoprolol tartrate 25 mg tablet 12.5 mg (1/2 x 25 mg) PO BID #90 03/17/24 Unknown Rx tabs empagliflozin 10 mg tablet 10 mg PO QDAY #60 tabs 05/31/24 Unknown Rx (Jardiance) Allergy/AdvReac Type Severity Reaction Status Date / Time Seasonal Allergies: Uncoded Allergy Rash Verified 06/12/24 16:26 (environmental) Family History Father Cancer Surgical History Aortic valve replaced Social History Smoking Status: Never smoker alcohol intake: current alcohol intake frequency: holidays/special occasions only ROS ROS ED Constitutional Constitutional ED: Denies chills, fever(s) or sweats Eyes Eyes: Denies change in vision ENT ENT ED: Denies dysphagia or sore throat Cardiovascular Cardiovascular: Reports other Details: Lightheaded symptoms ; Denies chest pain, leg edema, palpitations or racing heartbeat Respiratory/Chest Respiratory/Chest: Denies cough, dyspnea or dyspnea on exertion Gastrointestinal Gastrointestinal: Denies abdominal pain, diarrhea, nausea or vomiting Genitourinary Genitourinary ED: Denies dysuria, hematuria or urinary frequency Musculoskeletal Musculoskeletal: Reports back pain; Denies extremity pain or neck pain Integumentary Denies rash or wounds Neurologic Neurologic: Denies headache(s), paresthesias or weakness EXAM Physical Exam Const Vital Signs: 06/12/24 16:23 06/12/24 18:01 Temperature 97.9 F 98.2 F Temperature Source Oral Pulse Rate 73 87 Respiratory Rate 16 16 Blood Pressure 143/90 H 141/82 H Blood Pressure Mean 107 101 Pulse Ox 99 100 Oxygen Delivery Method Room Air Positive well nourished and well developed General Appearance ED: well developed and NAD HEENT Reports moist mucous membranes normocephalic and atraumatic Eyes EOMs intact bilaterally and conjunctivae normal General Eye ED: Yes normal appearance of both eyes Neck no lymphadenopathy and supple General: Negative for tenderness Chest Wall Chest: Negative for tenderness Resp normal respiratory effort and normal air movement Effort and Inspection: symmetric chest movement; Negative for respiratory distress Cardio regular rate, regular rhythm and no murmurs Peripheral Pulses: pulses 2+ throughout GI normal to inspection, nondistended, normoactive bowel sounds and non-tender Palpation: Negative for guarding or rebound tenderness present Back/Spine no CVA tenderness and no thoracic nor lumbar tenderness Back/Spine Narrative: Lower thoracic tenderness somatic function T10, this was rotated left side bent left and extended. Straight leg test was negative. Extremity normal to inspection General Extremety ED: Negative for edema or tenderness General Extremity: Negative for edema Neuro oriented x3 and no sensory deficits noted Sensorium / Orientation: awake and alert Skin no rashes or lesions noted and no wounds MDM MDM MDM Narrative Medical decision making narrative: Interventions / MDM: Differential diagnosis: Lightheaded, somatic dysfunction thoracic spine Diagnosis considered but do not suspect: N/A My EKG interpretation: Sinus rhythm rate of 67. No ST changes. T wave inversions anterior lateral leads sparing of V5 and V6, new T wave inversion V3 V4. Compared to EKG July 2021. QTc 397. Imaging independently reviewed and interpreted by myself: N/A External documents reviewed: N/A Test considered but not ordered:N/A ED course: Patient no focal deficits. Father describes her lightheaded symptoms valve history along with history electrolyte abnormalities. Will order EKG and labs for evaluation. 1750: Labs notable for hyperglycemia with glucose 276 Normal at 7. Normal hemoglobin 15.7. Creatinine 1.2. Back pain improved with Toradol. I discussed findings with patient and father. Discussed EKG, he does follow with cardiology yearly. Discussed further testing as an outpatient if needed with strict return precautions. He has Aleve at home for which she will take twice a day. All questions were answered. Re-evaluation: stable Disposition discussed with patient/family/significant other: Patient and father Case discussed with consulting clinician: N/A This note was generated with [employer] dictation software. It may contain incorrect words, spelling, and punctuation that were not noted in checking the note before signing. Lab Data Attestation: I reviewed the patient's lab results. Labs: Laboratory Results - last 24 hr 06/12/24 16:54 WBC 6.9 RBC 4.94 Hgb 15.7 Hct 44.2 MCV 89.5 MCH 31.8 MCHC 35.5 RDW Std Deviation 37.1 RDW Coeff of Joan 11.5 L Plt Count 144 L MPV 12.4 H Immature Gran % (Auto) 0.400 Neut % (Auto) 74.6 H Lymph % (Auto) 14.5 L [place] % (Auto) 6.0 Eos % (Auto) 3.8 Baso % (Auto) 0.7 Absolute Neuts (auto) 5.1 Absolute Lymphs (auto) 1.00 Nucleated RBC % 0 Sodium 136 Potassium 4.4 Chloride 105 Carbon Dioxide 25.0 Anion Gap 7 BUN 19 H Creatinine 1.20 Estim Creat Clear Calc 71.15 Est GFR (MDRD) Af Amer 83 Est GFR (MDRD) Non-Af 69 BUN/Creatinine Ratio 15.8 Glucose 276 H Calcium 8.9 Discharge Plan Triage Chief Complaint: Back ED Provider: Sean Guo Dx/Rx/DC Orders Clinical Impression: Light-headedness, Hyperglycemia without ketosis, Strain of thoracic back region Instructions: Dizziness Fainting Causes, ED Diabetic Hyperglycemia, ED Thoracic Spine Strain Prescriptions: No Action cholecalciferol (vitamin D3) 10 mcg (400 unit) capsule 10 mcg PO DAILY lisinopril 10 mg tablet 10 mg PO BID Qty: 90 3RF Rx Instructions: Take 1/2 tab twice daily metformin 500 mg tablet 500 mg PO BID Qty: 180 1RF metoprolol tartrate 25 mg tablet 12.5 mg PO BID Qty: 90 3RF Jardiance 10 mg tablet 10 mg PO QDAY Qty: 60 1RF Primary Care Provider: Anna Resendiz Referrals: Anna Resendiz MD [Primary Care Provider] - 1 Week Activity Restrictions/Additional Instructions: Labs stable noted glucose 270. Normal anion gap. Continue Aleve twice a day to help your back symptoms. Follow-up with your doctor. Print Language: Haitian Disposition Disposition: Home, Self Care Discharge Date/Time: 06/12/24 18:02
[2024-06-12] MEDS: Ketorolac 15 MG/ML Vial IV (16:51)
[2024-06-12 17:01] LABS: Absolute Neutrophil Count 5.1 X10^3/uL (2.0-7.7); Basophil# 0.05 X10^3/uL; Basophil% 0.7 % (0-1); Eosinophil# 0.26 X10^3/uL; Eosinophils% 3.8 % (0-5); Hematocrit 44.2 % (40-54); Hemoglobin 15.7 g/dL (13.0-16.5); Lymphocyte % 14.5 % (19-41); Mean Corp Hgb Conc 35.5 g/dL (32-36); Mean Corpuscular Hgb 31.8 pg (27.0-32.0); Mean Corpuscular Volume 89.5 fL (80-94); Mean Platelet Vol. 12.4 fl (6.2-12.0); Monocyte# 0.41 X10^3/uL; NRBC Flagged by Analyzer 0 % (0-5); Neutrophil # 5.13 X10^3/uL (2.7-7.7); Neutrophil % 74.6 % (47-70); Platelet Count 144 K/mm3 (150-450); RBC Distribution Width CV 11.5 % (11.6-14.6); RBC Distribution Width SD 37.1 fl (35.1-43.9); Red Blood Count 4.94 M/mm3 (4.6-6.2); White Blood Count 6.9 K/mm3 (4.4-11.0)
[2024-06-12 17:12] LABS: Anion Gap 7 (5-15); BUN 19 mg/dL (7-18); BUN/Creat Ratio 15.8 RATIO (10-20); Calcium,Total 8.9 mg/dL (8.5-10.1); Chloride 105 mmol/L (98-107); EST Glomerular Filtration Rate 69 mL/min (>60); Est Glom Filt Rate - Afr Amer 83 mL/min (>60); Estimated Creatinine Clearance 71.15 ml/min; Glucose 276 mg/dL (74-106); Potassium 4.4 mmol/L (3.5-5.1); Sodium Level 136 mmol/L (136-145)
[2024-06-12 18:01] VITALS: BP 141/82; PULSE 87; RESP 16; TEMP 36.8; O2SAT 100
== END 2024-06-12 18:02 | disposition home or self-care (01) ==
PROVIDERS: Emergency Provider Emergency Medicine; PCP Internal Medicine; Visit Provider Emergency Medicine
DX: S29.012A Strain of muscle and tendon of back wall of thorax, initial encounter (principal); X50.0XXA Overexertion from strenuous movement or load, initial encounter; Y93.89 Activity, other specified; R42 Dizziness and giddiness; R73.03 Prediabetes; I10 Essential (primary) hypertension; Z79.899 Other long term (current) drug therapy
CPT/HCPCS: 80048; 85025; 93005; 96374; 99283; A4216

== ENCOUNTER → 2024-11-25 | Outpatient (CLI) | payer MEDICAID, SELFPAY ==
[2024-11-25 12:25] LABS: Absolute Lymphocyte Count 1.18 X10^3/uL (0.83-4.51); Absolute Neutrophil Count 3.9 X10^3/uL (2.0-7.7); Basophil# 0.07 X10^3/uL; Basophil% 1.2 % (0-1); Eosinophil# 0.34 X10^3/uL; Eosinophils% 5.7 % (0-5); Hematocrit 45.9 % (40-54); Hemoglobin 15.9 g/dL (13.0-16.5); Lymphocyte # 1.18 X10^3/ul (0.83-4.51); Lymphocyte % 19.7 % (19-41); Mean Corp Hgb Conc 34.6 g/dL (32-36); Mean Corpuscular Hgb 32.1 pg (27.0-32.0); Mean Corpuscular Volume 92.7 fL (80-94); Mean Platelet Vol. 11.9 fl (6.2-12.0); Monocyte# 0.46 X10^3/uL; Monocyte% 7.7 % (0-10); NRBC Flagged by Analyzer 0 % (0-5); Neutrophil # 3.92 X10^3/uL (2.7-7.7); Neutrophil % 65.4 % (47-70); Platelet Count 144 K/mm3 (150-450); RBC Distribution Width CV 11.7 % (11.6-14.6); RBC Distribution Width SD 39.8 fl (35.1-43.9); Red Blood Count 4.95 M/mm3 (4.6-6.2)
[2024-11-25 12:39] LABS: Hemoglobin A1c 7.6 % (<=5.6)
[2024-11-25 13:22] LABS: ALB/GLOB Ratio 1.6 RATIO (0.9-2.4); AST(SGOT) 18 U/L (<=37); Alanine Aminotransfer ALT/SGPT 27 U/L (<=46); Albumin, Serum 4.2 g/dL (3.5-5.0); Alkaline Phosphatase 85 U/L (40-129); Anion Gap 9 (5-15); BUN 16 mg/dL (4-19); Calcium,Total 8.9 mg/dL (7.6-11.0); Carbon Dioxide 25.1 mmol/L (21.0-32.0); Chloride 103 mmol/L (98-108); Cholesterol 251 mg/dL (<=200); Creatinine, Serum 1.04 mg/dL (0.70-1.20); EST Glomerular Filtration Rate 89 (>60); Globulin 2.6 g/dL (2.2-4.2); Glucose 184 mg/dL (70-99); High Density Lipoprotein 36 mg/dL; Low Density Lipoprotein Calc. 131 mg/dL; Potassium 4.7 mmol/L (3.3-5.1); Protein, Total 6.8 g/dL (5.9-8.4); Sodium Level 138 mmol/L (133-145); Total Bilirubin 1.68 mg/dL (0.00-1.30); Triglycerides 416 mg/dL; Very Low Density Lipoprotein 83 mg/dL (5-40); Vitamin D,25 Hydroxy 37.2 ng/mL (30-100)
[2024-11-27 04:07] LABS: Insulin Level 14.2 uIU/mL (2.6-24.9)
== END | disposition home or self-care (01) ==
LOC: LAB 12:01
PROVIDERS: PCP Internal Medicine; Referring Provider Internal Medicine; Visit Provider Internal Medicine
DX: I10 Essential (primary) hypertension (principal); E11.65 Type 2 diabetes mellitus with hyperglycemia; E78.5 Hyperlipidemia, unspecified; E55.9 Vitamin D deficiency, unspecified; Z13.220 Encounter for screening for lipoid disorders
CPT/HCPCS: 36415; 80053; 80061; 82306; 83036; 83525; 84443; 85025

== ENCOUNTER 2025-06-17 17:58 | Emergency (ER) | payer MEDICAID, SELFPAY ==
[2025-06-17 17:59] VITALS: BP 157/95; PULSE 79; RESP 18; TEMP 35.8; O2SAT 100; BMI 27.2
--- NOTE | 2025-06-17 18:40 | RAD_ITS ---
PROCEDURE: TIBIA FIBULA 2 VIEWS 06/17/2025 REASON FOR EXAM: PAIN, FALL TECHNIQUE: Procedure Code: RADTF Modality: DX Procedure: TIBIA FIBULA 2 VIEWS Laterality: Left COMPARISON: None FINDINGS: No displaced fracture or traumatic malalignment. Bone mineral density is subjectively normal. No periosteal reaction or cortical thickening. Soft tissues are unremarkable. RAD/Tibia & Fibula 2 Views IMPRESSION: No acute osseous abnormality of the left tibia or fibula. Reading Location: [id number]
--- NOTE | 2025-06-17 18:43 | ED.VIS.FALL ---
HPI HPI - Fall History of Present Illness Chief Complaint: Fall Narrative Narrative: This is a 49-year-old male who presents to the emergency department for left lower extremity injury. 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 He states he hit his left gomez on the stairs. He has a small wound to that area. He has pain both with walking and ambulation of the lower extremity. Last tetanus vaccine was about 7 years ago. He is not anticoagulated. No pain at the ankle or left knee. Tetanus Immunization: 5-10 years [facility] Medical History Impacted cerumen, left ear Near syncope kidney stone surgery Hyperlipidemia Kidney stones Hypertension Home Medications Medication Instructions Recorded Last Taken Type cholecalciferol (vitamin D3) 10 10 mcg PO DAILY 10/11/20 Unknown History mcg (400 unit) capsule lisinopril 10 mg tablet 10 mg PO BID #90 tabs 03/01/25 Unknown Rx metoprolol tartrate 25 mg tablet 12.5 mg (1/2 x 25 mg) PO BID #90 03/09/25 Unknown Rx tabs Allergy/AdvReac Type Severity Reaction Status Date / Time Seasonal Allergies: Uncoded Allergy Rash Verified 06/17/25 18:01 (environmental) Family History Father Cancer Surgical History Aortic valve replaced Social History Smoking Status: Never smoker alcohol intake: current alcohol intake frequency: holidays/special occasions only substance use type: does not use ROS ROS ED Musculoskeletal Musculoskeletal: Reports arthralgias Integumentary Reports other Details: Small wound to the left gomez EXAM Physical Exam Const Vital Signs: 06/17/25 17:59 06/17/25 18:07 06/17/25 20:32 Temperature 96.5 F L 96.6 F L Temperature Source Temporal Pulse Rate 79 76 Respiratory Rate 18 18 Respiratory Effort Normal Respiratory Depth Normal Respiratory Pattern Normal Blood Pressure 157/95 H 159/104 H Blood Pressure Mean 115 122 Pulse Ox 100 100 Oxygen Delivery Method Room Air Positive well nourished, well developed, oriented x3 and healthy appearing General Appearance ED: active, cooperative and well developed Orientation / Consciousness: awake and oriented to person Exam Limitations: no limitations Nutritional Appearance: Negative for overweight HEENT Reports normocephalic normocephalic and atraumatic Face and Sinus: normal facial exam Nose: nares normal Eyes PERRL, EOMs intact bilaterally and conjunctivae normal General Eye ED: Yes normal appearance of both eyes Visual Acuity: acuity normal Eyelid: eyelids normal Conjunctiva: conjunctiva normal Sclera: sclera normal Cornea: cornea normal Pupil: PERRL and accommodation reflex normal EOM: EOM abnormal Neck full ROM Chest Wall inspection of chest normal Chest: abnormal inspection of the chest Resp normal respiratory effort Effort and Inspection: symmetric chest movement Auscultation: clear to auscultation bilaterally Cardio regular rate and regular rhythm Rate: regular rate Peripheral Pulses: pulses 2+ throughout Back/Spine Cervical Spine: cervical ROM normal Extremity normal to inspection, full ROM and normal capillary refill Extremity Narrative: Small 1 cm skin avulsion to the left anterior gomez. Tenderness over the anterior left gomez. Normal range of motion of the left ankle and left knee without any reproducible pain. Neuro oriented x3, CN's II-XII intact bilaterally, moves all extremities and no focal motor deficits Sensorium / Orientation: awake and alert Motor Exam: strength 5/5 throughout Psych mental status grossly normal Appearance: grossly normal and appropriate Speech: normal speech Skin no rashes or lesions noted MDM MDM MDM Narrative Medical decision making narrative: This is a 49-year-old male who tripped going up stairs earlier today. X-ray of his left tibia and fibula shows no acute osseous abnormality or fracture. I encouraged basic wound care for the patient's skin tear/avulsion on his left lower leg. He can continue keep bacitracin or Neosporin ointment over the wound as well. Otherwise, tetanus was updated in the ED. Patient comfortable with OTC analgesia at home. Patient discharged home. Radiography Diagnostic Testing: Clinical Impression(s) from Imaging Studies Tibia/Fibula X-Ray 06/17/25 18:40 IMPRESSION: No acute osseous abnormality of the left tibia or fibula. Reading Location: [id number] Discharge Plan Triage Chief Complaint: Fall ED Provider: Soumya Alvares Dx/Rx/DC Orders Clinical Impression: Contusion of gomez of left lower leg, Skin tear of lower leg without complication Instructions: ED Contusion, Lower Extremity, ED Skin Tear (Skin Avulsion) Prescriptions: No Action cholecalciferol (vitamin D3) 10 mcg (400 unit) capsule 10 mcg PO DAILY lisinopril 10 mg tablet 10 mg PO BID Qty: 90 3RF Rx Instructions: Take 1/2 tab twice daily metoprolol tartrate 25 mg tablet 12.5 mg PO BID Qty: 90 3RF Primary Care Provider: Anna Resendiz Referrals: Anna Resendiz MD [Primary Care Provider, Internal Medicine - [facility]] Print Language: Swedish Disposition Disposition: Home, Self Care Discharge Date/Time: 06/17/25 20:34
--- OUTSIDE RECORDS SUMMARY | 2025-06-17 18:45 | XMS RPT_ITS | CCD ---
Author Organization [facility] CliniSynd Care Team Providers Care 3D Technologist Name Role Phone INA VICK S ([employer]IMINAL JUSTICE [employer]) Unavailable Unavaila ble KENANJAKINA S (CRIMINAL JUSTICE FACULTY) Unavailable Unavaila ble SAAREL, CONCEPCION Unavailable Unavailable INA VICK S (CRIMINAL JUSTICE FACULTY) Unavailable Unavaila ble INA VICK S (CRIMINAL JUSTICE FACULTY) Unavailable Unavaila ble MULU CRABTREE (CRIMINAL JUSTICE FACULTY) Unavailable Unavailable MISTY MAIER Unavailable Unavailable SAAREL, CONCEPCION Unavailable Unavailable NAJM, HANI Unavailable Unavailable NAJM, HANI Unavailable Unavailable NAJM, HANI Unavailable Unavailable NAJM, HANI Unavailable Unavailable NAJM, HANI Unavailable Unavailable AZAEL KHAN Unavailable Unavailable Unavailable Primary Care Provider Unavailabl e Dr. Ambrosio Resendiz Primary Care Provider Dr. Ambrosio Resendiz Attending Provider [phone] Dr. John Corbett Attending Provider Dr. Ambrosio Resendiz Primary Care Provider Dr. Ambrosio Resendiz Attending Provider AMBROSIO RESENDIZ Attending Unavailable AMBROSIO RESENDIZ Primary Care Unavailable AMBROSIO RESENDIZ Admitting Unavailable NO, DOCTOR ON Consulting Unavailable Dr. Ambrosio Resendiz MD Primary Care Provider Dr. Ambrosio Resendiz MD Attending Provider Dr. Ambrosio Resendiz MD Referring Provider Ambrosio Resendiz Referring Unavailable Ambrosio Resendiz Unavailable Ambrosio Resendiz Primary Care Unavailable Ambrosio Resendiz Primary Care Unavailable Ambrosio Resendiz Referring Unavailable Astrid, Ambrosio Attending Unavailable Astrid, Ambrosio Primary Care Unavailable Astrid, Ambrosio Referring Unavailable Astrid, Ambrosio Attending Unavailable Astrid, Ambrosio Referring Unavailable Astrid, Ambrosio Attending Unavailable Astrid, Ambrosio Primary Care Unavailable Astrid, Ambrosio Primary Care Unavailable Sean Guo Attending Unavailable Astrid, Ambrosio Referring Unavailable Astrid, Ambrosio Attending Unavailable Astrid, Ambrosio Primary Care Unavailable Astrid, Ambrosio Attending Unavailable Astrid, Ambrosio Primary Care Unavailable Astrid, Ambrosio Attending Unavailable Astrid, Ambrosio Primary Care Unavailable Astrid, Ambrosio Primary Care Unavailable Astrid, Ambrosio Attending Unavailable Astrid, Ambrosio Attending Unavailable Astrid, Ambrosio Primary Care Unavailable Astrid, Ambrosio Primary Care Unavailable Astrid, Ambrosio Referring Unavailable Astrid, Ambrosio Consulting Unavailable Suzanna Perez Attending Unavailabl e Astrid, Ambrosio Primary Care Unavailable Astrid, Ambrosio Attending Unavailable Allergies Allergy Classification Reported Allergen(s) Allergy Type Date of Onset Reaction(s) Facility (1 source) Seasonal Allergies: Uncoded; Translations: [Seasonal Allergies: Uncoded] Propensity to adverse reactions (disorder) 5 [facility] Repository Medications Current Medications Medication Drug Class(es) Dates Sig (Normalized) Sig (Original) acetaminophen 325 mg oral tablet (2 sources) Start: 09-09-2019 650 mg, Rectal, EVERY 6 HOURS PRN, Pain Mild (1-3), Fever, For temp greater than 100.5 F (38 C), Starting Nicki 09/09/19 at 0033 Administer if oral route cannot be used. Start: 09-09-2019 650 mg, Oral, EVERY 6 HOURS PRN, Pain Mild (1-3), Fever, For temp greater than 100.5 F (38 C), Starting Nicki 09/09/19 at 0033 Maximum dose of acetaminophen is 4000 mg from all sources in 24 hours. acetaminophen 325 mg / oxyCODONE hydrochloride 5 mg oral tablet (1 source) Opioid Agonist Start: 09-09-2019 take 1 tablet by mouth every four hours as needed for pain 1 tablet, Oral, EVERY 4 HOURS PRN, Pain Moderate (4-6), Starting Nicki 09/09/19 at 0033 Maximum dose of acetaminophen is 4000 mg from all sources in 24 hours. aspirin 81 mg chewable tablet (2 sources) Platelet Aggregation Inhibitor, Nonsteroidal Anti-inflammatory Drug Start: 09-09-2019 take 81 mg by mouth once daily 81 mg, Oral, DAILY, First dose on Nicki 09/09/19 at 0900 cholecalciferol 0.01 mg oral capsule (5 sources) Vitamin D Start: 10-11-2020 take 1 capsule by mouth once daily Cholecalciferol (Vitamin D3) 10 mcg (400 unit) capsule Active 10 ug PO DAILY October 11, 2020 12:00am empagliflozin 10 mg oral tablet (3 sources) Sodium-Glucose Cotransporter 2 Inhibitor Start: 05-31-2024 End: 11-29-2024 take 1 tablet by mouth once daily Empagliflozin (Jardiance) 10 mg tablet Active 10 mg PO daily November 29, 2024 1:36pm lisinopril 10 mg oral tablet (20 sources) Angiotensin Converting Enzyme Inhibitor Start: 02-15-2020 End: 03-08-2024 take 0.5 tablet by mouth twice daily Lisinopril 10 mg tablet Active 10 mg PO TWICE A DAY March 08, 2024 1:49pm Take 1/2 tab twice daily Start: 02-11-2020 End: 02-15-2020 take 1 tablet by mouth twice daily Lisinopril 10 mg tablet Discontinued 10 mg PO TWICE A DAY February 11, 2020 2:04pm February 15, 2020 8:35am Start: 09-09-2019 take 5 mg by mouth twice daily 5 mg, Oral, 2 TIMES DAILY, First dose on Fri09/09/19 at 0100 Start: 04-30-2019 End: 02-11-2020 take 1 tablet by mouth once daily Lisinopril 10 tablet Discontinued 10 mg PO DAILY April 30, 2019 12:00am February 11, 2020 1:56pm melatonin 2 mg extended release oral tablet (1 source) Start: 09-09-2019 take 2 mg by mouth once daily as needed for sleep 2 mg, Oral, NIGHTLY PRN, Sleep, Starting Nicki 09/09/19 at 0100 metFORMIN hydrochloride 500 mg oral tablet (20 sources) Biguanide Start: 03-15-2024 take 1 tablet by mouth twice daily Metformin 500 mg tablet Active 500 mg PO TWICE A DAY March 15, 2024 2:11pm Start: 08-09-2021 End: 08-12-2022 take 1 tablet by mouth twice daily Metformin 500 mg tablet Discontinued 500 mg PO TWICE A DAY 180 February 25, 2022 2:33pm August 12, 2022 12:35pm Start: 02-11-2020 End: 02-11-2020 take 1 tablet by mouth twice daily Metformin 500 mg tablet Discontinued 500 mg PO TWICE A DAY February 11, 2020 12:00am February 11, 2020 2:05pm 1 ml morphine sulfate 4 mg/ml injection (1 source) Opioid Agonist Start: 09-09-2019 take 2 mg by mouth every four hours as needed for pain 2 mg, Intravenous, EVERY 4 HOURS PRN, Pain Severe (7-10), Starting Nicki 09/09/19 at 0033 If oral and IV narcotics ordered, use oral first and only use IV if oral is ineffective or cannot take oral. Do Not give oral and IV within 1 hour of each other unless specifically ordered. 2 ml ondansetron 2 mg/ml injection (1 source) Serotonin-3 Receptor Antagonist Start: 09-09-2019 take 4 mg by mouth every six hours as needed for nausea 4 mg, Intravenous, EVERY 6 HOURS PRN, Nausea, Vomiting, Starting Nicki 09/09/19 at 0033 Administer if oral route cannot be used. polyethylene glycol 3350 69918 mg powder for oral solution (1 source) Osmotic Laxative Start: 09-09-2019 17 g, Oral, DAILY PRN, Constipation, Starting Nicki 09/09/19 at 0033 First line therapy for constipation promethazine hydrochloride 25 mg oral tablet (1 source) Phenothiazine Start: 09-09-2019 take 12.5 mg by mouth every six hours as needed for nausea 12.5 mg, Oral, EVERY 6 HOURS PRN, Nausea, Vomiting, Starting Nicki 09/09/19 at 0033 3 ml sodium chloride 9 mg/ml injection (3 sources) Start: 09-09-2019 10 mL, Intravenous, EVERY 12 HOURS SCHEDULED (2 times per day), First dose on Nicki 09/09/19 at 0900 Start: 09-09-2019 take 10 mL intraveno us route once as needed 10 mL, Intravenous, PRN, Line Care, After every IV line use, Starting Nicki 09/09/19 at 0033 Start: 09-09-2019 End: 09-11-2019 Intravenous, at 100 mL/hr, CONTINUOUS, Starting [facility] 09/09/19 at 0100 Completed/Discontinued Medications Medication Drug Class(es) Dates Sig (Normalized) Sig (Original) amoxicillin 500 mg oral capsule (5 sources) Penicillin-class Antibacterial Start: 08-12-2022 End: 08-19-2022 take 1 capsule by mouth every eight hours Amoxicillin 500 mg capsule Discontinued 500 mg PO Q8H 21 August 12, 2022 1:00am August 18, 2022 1:00am August 19, 2022 1:03am azithromycin 250 mg oral tablet (9 sources) Macrolide Antimicrobial Start: 09-11-2023 End: 10-28-2023 Azithromycin 250 mg tablet Discontinued 0 PO .COMPLEX September 11, 2023 12:46pm October 28, 2023 1:22pm For 250 mg dose pack: take 500 mg today (day 1), then 250 mg for 4 days (days 2-5) PO Start: 09-23-2022 End: 09-30-2022 take 1 tablet by mouth once daily Azithromycin 500 mg tablet Discontinued 500 mg PO DAILY 7 September 23, 2022 1:00am September 29, 2022 1:00am September 30, 2022 12:04am Start: 08-16-2021 End: 02-25-2022 Azithromycin 250 mg tablet Discontinued 0 PO .COMPLEX August 16, 2021 1:00am February 25, 2022 11:40am For 250 mg dose pack: take 500 mg today (day 1), then 250 mg for 4 days (days 2-5) PO Start: 08-16-2021 End: 02-25-2022 Azithromycin Discontinued 0 PO .COMPLEX August 16, 2021 12:00am February 25, 2022 10:40am For 250 mg dose pack: take 500 mg today (day 1), then 250 mg for 4 days (days 2-5) PO benzocaine 15 mg / menthol 2.6 mg oral lozenge (5 sources) Standardized Chemical Allergen Start: 07-26-2021 End: 08-06-2023 Benzocaine-Menthol 15-2.6 mg lozenge Discontinued 1 NMA MUCOUS MEM Q2H as needed for sore throat July 26, 2021 1:00am August 06, 2023 11:36am Start: 07-26-2021 Benzocaine-Men thol Active 1 LOZENGE MUCOUS MEM Q2H 16 July 26, 2021 12:00am benzonatate 200 mg oral capsule (5 sources) Non-narcotic Antitussive Start: 07-26-2021 End: 08-06-2023 take 1 capsule by mouth three times daily as needed for cough Benzonatate 200 mg capsule Discontinued 200 mg PO THREE TIMES A DAY as needed for cough 30 July 26, 2021 1:00am August 06, 2023 11:36am cefTRIAXone sodium 1 g in dextrose 5 % 50 mL IVPB (add-vantage) (1 source) Start: 09-09-2019 1 g, Intraveno us, EVERY 24 HOURS, First dose on Fri09/09/19 at 0200, Until Discontinued codeine phosphate 2 mg/ml / guaiFENesin 20 mg/ml oral solution (5 sources) Opioid Agonist Start: 08-09-2021 End: 08-12-2022 take 1 mL by mouth every six hours as needed Codeine-Guaifenesi n 10-100 mg/5 mL liquid Discontinued 5 mL PO EVERY 6 HOURS as needed for cough 120 August 09, 2021 1:00am August 12, 2022 12:35pm Do not drive while using this medication. Use mainly for nighttime use. Start: 08-09-2021 End: 08-12-2022 take 1 mL by mouth every six hours Codeine-Guaifenesin Discontinued 5 ML PO EVERY 6 HOURS 120 August 09, 2021 12:00am August 12, 2022 11:35am Do not drive while using this medication. Use mainly for nighttime use. dexamethasone 6 mg oral tablet (5 sources) Corticosteroid Start: 07-27-2021 End: 08-09-2021 take 1 tablet by mouth once daily Dexamethasone (Decadron) 6 mg tablet Discontinued 6 mg PO DAILY July 27, 2021 1:00am August 09, 2021 2:39pm doxycycline hyclate 100 mg oral tablet (1 source) Tetracycline-class Drug Start: 08-06-2023 End: 09-11-2023 take 1 tablet by mouth twice daily Doxycycline Hyclate 100 mg tablet Discontinued 100 mg PO TWICE A DAY August 06, 2023 1:00am September 11, 2023 12:10pm Take on empty stomach with a couple of crackers and small amount of water. Do not take with dairy products. fexofenadine hydrochloride 180 mg oral tablet (6 sources) Histamine-1 Receptor Antagonist Start: 02-25-2022 End: 03-08-2024 take 1 tablet by mouth once daily as needed Fexofenadine (Samia Allergy) 180 mg tablet Discontinued 180 mg PO DAILY as needed September 11, 2023 12:10pm March 08, 2024 12:56pm fluticasone propionate 0.05 mg/actuat metered dose nasal spray (15 sources) Corticosteroid Start: 06-06-2021 End: 08-06-2023 take 50 ug nasal route twice daily Fluticasone Propionate (Allergy Relief (Fluticasone)) 50 mcg/actuation spray,suspension Discontinued 1 NMA INTRANASAL TWICE A DAY July 26, 2021 2:27pm August 06, 2023 11:36am administer into each nostril Start: 06-06-2021 End: 07-26-2021 take 1 spray(s) nasal route twice daily Fluticasone Propionate (Allergy Relief (Fluticasone)) 50 mcg/actuation spray,suspension Discontinued 1 SPRAY INTRANASAL TWICE A DAY July 06, 2021 10:08am July 26, 2021 1:28pm administer into each nostril Grains super food (5 sources) Start: 10-11-2020 End: 03-08-2024 Grains super food Discontinu ed PO October 11, 2020 12:00am March 08, 2024 12:56pm Start: 10-11-2020 Grains super f ood Active PO October 11, 2020 12:00am Start: 10-11-2020 Grains super f ood Active PO October 10, 2020 11:00pm guaiFENesin 20 mg/ml oral solution (6 sources) Start: 09-11-2023 End: 03-08-2024 take 200 mg by mouth every six hours as needed for cough Guaifenesin 100 mg/5 mL liquid Discontinued 200 mg PO EVERY 6 HOURS as needed for cough 200 September 11, 2023 1:00am March 08, 2024 12:56pm Start: 07-26-2021 End: 08-06-2023 take 1 tablet by mouth three times daily as needed for cough Guaifenesin 400 mg tablet Discontinued 400 mg PO THREE TIMES A DAY as needed for congestion, cough July 26, 2021 1:00am August 06, 2023 11:37am hydroCHLOROthiazide 25 mg oral tablet (5 sources) Thiazide Diuretic Start: 07-06-2016 End: 02-11-2020 take 1 tablet by mouth once daily Hydrochlorothiazide 25 MG tablet Discontinued 25 mg PO DAILY July 06, 2016 1:00am February 11, 2020 1:48pm iopamidol (ISOVUE-300) 61 % injection 50 mL (1 source) Start: 09-10-2019 End: 09-10-2019 iopamidol (ISOVUE-300) 61 % injection 50 mL levoFLOXacin 750 mg oral tablet (5 sources) Quinolone Antimicrobial Start: 09-21-2022 End: 03-03-2023 take 1 tablet by mouth every twenty-fo ur hours Levofloxacin 750 mg tablet Discontinued 750 mg PO Q24H September 21, 2022 1:00am March 03, 2023 1:34pm metoprolol tartrate 25 mg oral tablet (20 sources) beta-Adrenergic Christos Start: 10-11-2020 End: 11-29-2024 Metoprolol Tartrate 25 mg tablet Discontinued 12.5 mg PO TWICE A DAY March 17, 2024 3:42pm November 29, 2024 1:07pm Start: 10-11-2020 End: 02-17-2023 take 12.5 mg by mouth twice daily Metoprolol Tartrate Discontinued 12.5 MG PO TWICE A DAY October 29, 2022 12:06pm February 17, 2023 3:19pm Start: 02-11-2020 End: 10-11-2020 take 1 tablet by mouth twice daily Metoprolol Tartrate 25 mg tablet Discontinued 25 mg PO TWICE A DAY September 28, 2020 4:13pm October 11, 2020 1:51pm Start: 09-09-2019 take 25 mg by mouth twice brianna y 25 mg, Oral, 2 TIMES DAILY, First dose on Fri09/09/19 at 0100 Start: 04-30-2019 End: 02-11-2020 take 1 tablet by mouth once daily Metoprolol Tartrate 25 tablet Discontinued 25 mg PO DAILY April 30, 2019 12:00am February 11, 2020 1:56pm rosuvastatin calcium 10 mg oral tablet (5 sources) HMG-CoA Reductase Inhibitor Start: 02-25-2022 End: 08-12-2022 take 1 tablet by mouth once daily Rosuvastatin 10 mg tablet Discontinued 10 mg PO DAILY February 25, 2022 12:00am August 12, 2022 12:35pm Problems Active Problems Problem Classification Problem Date Documented Date Episodic/Chronic Acute and unspecified renal failure (2 sources) Acute injury of kidney; Translations: [SHAWN (acute kidney injury) (HCC)] Onset: 09-09-2019 09-09-2019 Acute bronchitis (1 source) Acute bronchitis; Translations: [Acute bronchitis, unspecified] 09-11-2023 Episodic Allergic reactions (5 sources) Environmental allergy; Translations: [Other allergy status, other than to drugs and biological substances] 02-25-2022 Episodic Cardiac and circulatory congenital anomalies (10 sources) Tetralogy of Fallot; Translations: [Tetralogy of Fallot] Onset: 05-12-2017 08-12-2022 Chronic Cardiac dysrhythmias (1 source) Paroxysmal atrial fibrillation; Translations: [Paroxysmal atrial fibrillation] Onset: 05-12-2017 Chronic Conditions associated with dizziness or vertigo (6 sources) Vertigo; Translations: [Dizziness and giddiness] 06-06-2021 Episodic Diabetes mellitus without complication (11 sources) Type 2 diabetes mellitus; Translations: [Type 2 diabetes mellitus without complications] Onset: 05-09-2024 06-05-2020 Chronic Diabetes mellitus without complication (1 source) Hyperglycemia; Translations: [Hyperglycemia, unspecified] 06-20-2024 Episodic Diseases of white blood cells (2 sources) Leukocytosis; Translations: [Leukocytosis] Onset: 09-09-2019 09-09-2019 Chronic Disorders of lipid metabolism (11 sources) Hyperlipidemia; Translations: [Hyperlipidemia, unspecified] Onset: 03-08-2024 06-05-2020 Chronic Essential hypertension (12 sources) Essential (primary) hypertension; Translations: [Essential hypertension] Onset: 04-30-2017 06-05-2020 Chronic Heart valve disorders (13 sources) Nonrheumatic pulmonary valve insufficiency; 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] Onset: 05-06-2017 09-09-2019 Chronic Immunity disorders (1 source) Di Dionisio's syndrome; 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 Immunizations and screening for infectious disease (1 source) Encounter for immunization; Translations: [Need for vaccination against Streptococcus pneumoniae] 08-06-2023 Episodic Nutritional deficiencies (8 sources) Vitamin D deficiency; Translations: [Vitamin D deficiency, unspecified] Onset: 03-08-2024 02-25-2022 Chronic Other ear and sense organ disorders (8 sources) Impacted cerumen; Translations: [Impacted cerumen, bilateral] 08-12-2022 Episodic Other ear and sense organ disorders (3 sources) Impacted cerumen, bilateral; Translations: [Impacted cerumen] Onset: 10-12-2024 08-12-2022 Episodic Other ear and sense organ disorders (1 source) Impacted cerumen, unspecified ear; Translations: [Impacted cerumen, unspecified ear] Onset: 10-12-2024 Episodic Other screening for suspected conditions (not mental disorders or infectious disease) (1 source) Encounter for screening for malignant neoplasm of prostate; Translations: [Encounter for screening for malignant neoplasm of prostate] Onset: 11-29-2024 Episodic Other skin disorders (5 sources) Lesion of scalp; Translations: [Disorder of the skin and subcutaneous tissue, unspecified] 06-06-2021 Episodic Other skin disorders (1 source) Sebaceous cyst of skin; Translations: [Sebaceous cyst] 09-11-2023 Episodic Other skin disorders (1 source) Cyst of skin; Translations: [Follicular cyst of the skin and subcutaneous tissue, unspecified] 08-06-2023 Episodic Pneumonia (except that caused by tuberculosis or sexually transmitted disease) (5 sources) Pneumonia; Translations: [Pneumonia, unspecified organism] 09-21-2022 Episodic Sprains and strains (1 source) Strain of thoracic region; Translations: [Strain of muscle and tendon of back wall of thorax, initial encounter] 06-20-2024 Episodic Syncope (1 source) Near syncope; Translations: [Syncope and collapse] 06-24-2024 Episodic Unclassified (1 source) Other specified postprocedural states; Translations: [Other specified postprocedural states] Onset: 01-27-2017 Unclassified (1 source) Low back pain, unspecified; Translations: [Low back pain, unspecified] Onset: 07-11-2024 Viral infection (5 sources) Disease caused by 2019-nCoV; Translations: [COVID-19] 07-31-2021 Episodic Comment on above: 07/26/2021 Past or Other Problems Problem Classification Problem [...] [Acute postprocedural respiratory failure] Onset: 04-30-2017 Episodic Other lower respiratory disease (2 sources) Other forms of dyspnea; Translations: [Other forms of dyspnea] Onset: 05-09-2024 Episodic Other nervous system disorders (1 source) Other acute postprocedural pain; Translations: [Other acute postprocedural pain] Onset: 04-30-2017 Episodic Results Test Name Value Interpretation Reference Range [facility] [address] [facility] [address] [place] [id number] OFFICE VISIT Date of Service: 11/29/24 MR#: [id number] Acct: [id number] Name: DOC KUO Rep #: [id number] : 1975 Provider: Dr. Ambrosio malloy MD Age/Sex: 49/M Location: [facility] Status: Signed with Addenda ADDENDUM by Chace Lauren RN on 11/29/24 at 1533 Office Procedure Documentation entered by Chace Lauren RN 11/29/24 15:33: Cerumen Removal Procedure BMS Cerumen Removal Procedure Procedure performed by: Chace Lauren Method of removal: loop and irrigation From which ear canal was the cerumen removed: left Amount of Cerumen: moderate Patient tolerated procedure: well Complications: none Date cc: * Signed Intake Vital Signs 09/28/24 13:39 11/29/24 13:08 Height 5 ft 7 in 5 ft 7 in Weight: 166 lb 6 oz BMI 26.0 BP 125/80 H Blood Pressure Location Lt brachial Position Sitting Respiration 16 Pulse 77 Pulse Source Monitor Temp 98.0 F Temp Source Temporal Pulse Oximetry (%) 98 Oxygen Delivery Method room air Intake Visit Reasons: 6 M FU Chief 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: 6 M 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 Ambrosio Resendiz MD) Impacted cerumen, left ear Near syncope kidney stone surgery Hyperlipidemia Kidney stones Hypertension Surgical History Aortic valve replaced Family History Father Cancer Social History Smoking Status: Never smoker alcohol intake: current alcohol intake frequency: holidays/special occasions only substance use type: does not use HPI HPI Chief Complaint: 6 M FU Details: DOC KUO, is a 49 M who presents to the office today for 6-month follow-up. Doc has a history of hyperlipidemia and essential hypertension, type 2 diabetes as well as vitamin D deficiency. Remotely had history of tetralogy of Fallot and status post pulmonic valve replacement which has been stable per echo follow-ups. He is currently on Jardiance 10 mg daily, lisinopril 10 mg twice daily and metformin 500 mg p.o. twice daily as well as vitamin D. Labs were obtained recently and reviewed. Review of systems per chart. Patient denies chest pain, chest tightness, shortness of breath wheeze cough or congestion that are new or different. He does have some sense of fullness in the ears once again more so to the right than the left he states. Has been using [id number] nasal steroid but not sure which 1 wonders if he can be sent in as a prescription. I have asked him to send the bottle in or at least call in so that we know what we are ordering. He is in agreement. Also has a bottle of a supplement he is using for blood sugar control. This appears to be chromium plus a proprietary bio flavonoid mix. I do not see anything particularly concerning about using it. Physical exam. Vital signs on chart. PERRLA. Sclera are clear. Right TM is unremarkable. Mild ceruminosis. Left is occluded by cerumen. Posterior pharynx is unremarkable. Good dentition. No cervical or supraclavicular lymph nodes enlarged or tender. No clear thyromegaly. No thyroid nodules readily palpable. Lungs are without wheeze, rhonchi, rales. No E/A changes are heard. Heart is regular. Not tachycardic. No clear rub or gallop is identified. Soft systolic murmur left upper sternal border. The abdomen is soft. Bowel sounds are present. Nontender nondistended abdomen. No clear palpable masses in the abdomen. No significant leg edema. Cranial nerve examination 2 through 12 are grossly unremarkable nonlateralizing. No obvious rashes. No obvious significant skin lesions are identified. ROS Const Constitutional: No body ache, chills, excessive sweating, fatigue, fever(s), frequent falls, headache(s), snoring, weakness or change in appetite Eyes Eyes: No blurry vision, change in vision, eye pain or Light sensitivity ENT ENT: Positive for ear pressure; No abnormal hearing, ear or mastoid pain, tinnitus, nasal congestion, headache(s), neck pain or (more content not included)... Normal [facility] Insulin Levelon 11-27-2024 INSULIN,FASTING 14.2 uIU/mL Normal 2.6-24.9 [facility] Comment on above: Result Comment: Perf ormed at: [place] [address] [id number] [employer] Analysis Technician: Chi Ochoa PhD, Phone: [phone] Performed By: #### L 501.1425, L500.8575, L500.2500 #### [facility] [address] [place], [address] Absolute lymphocyte countOrd ered By: Ambrosio Resendiz on 11-25-2024 Lymphocytes Auto (Unsp spec) [#/Vol] 1.18 10*3/uL 0.83-4.51 [facility] Absolute neutrophil countOrd ered By: Ambrosio Resendiz on 11-25-2024 Neutrophils (Bld) [#/Vol] 3.9 10*3/uL 2.0-7.7 [facility] Anion gap in Serum or Plasma Ordered By: Ambrosio Resendiz on 11-25-2024 Anion gap [Moles/Vol] 9 mmol/L 5-15 [facility] Automated lymphocyte count a s percentage of total leukocytesOrdered By: Ambrosio Resendiz on 11-25-2024 Lymphocytes/100 WBC Auto (Unsp spec) 19.7 % -41 [facility] BUN/creatinine ratioOrdered By: Ambrosio Resendiz on 11-25-2024 Urea nitrogen/Creatinine [Mass ratio] 15.0 mg/mg 10-20 [facility] Basophil percentageOrdered B y: Ambrosio Resendiz on 11-25-2024 Basophils/100 WBC (Bld) 1.2 % High 0-1 [facility] Bilirubin, totalOrdered By: Ambrosio Resendiz on 11-25-2024 Bilirubin [Mass/Vol] 1.68 mg/dL High 0.00-1.30 [facility] CBC W/Diff, Automatedon Absolute Lymph 1.18 X10 3/uL Normal 0.83-4.51 [facility] Comment on above: Performed By: #### L 501.9520, L3300.3500, L506.1001, L500.4050, L100.0100, L501.9985, L500.4100 ####[facility] [address] [place], [address] Absolute Neut 3.9 X10 3/uL Normal 2.0-7.7 [facility] Comment on above: Performed By: #### L 501.9520, L3300.3500, L506.1001, L500.4050, L100.0100, L501.9985, L500.4100 ####[facility] [address] [place], [address] Basophils/100 WBC (Bld) 1.2 % High 0-1 [facility] Comment on above: Performed By: #### L 501.9520, L3300.3500, L506.1001, L500.4050, L100.0100, L501.9985, L500.4100 ####[facility] [address] [place], [address] Eosinophils/100 WBC (Bld) 5.7 % High 0-5 [facility] Comment on above: Performed By: #### L 501.9520, L3300.3500, L506.1001, L500.4050, L100.0100, L501.9985, L500.4100 ####[facility] [address] [place], [address] Erythrocyte distribution width (RBC) [Ratio] 11.7 % Normal 11.6-14.6 [facility] Comment on above: Performed By: #### L 501.9520, L3300.3500, L506.1001, L500.4050, L100.0100, L501.9985, L500.4100 ####[facility] [address] [place], [address] Hematocrit (Bld) [Volume fraction] 45.9 % Normal 40-54 [facility] Comment on above: Performed By: #### L 501.9520, L3300.3500, L506.1001, L500.4050, L100.0100, L501.9985, L500.4100 ####[facility] [address] [place], [address] Hemoglobin (Bld) [Mass/Vol] 15.9 g/dL Normal 13.0-16.5 [facility] Comment on above: Performed By: #### L 501.9520, L3300.3500, L506.1001, L500.4050, L100.0100, L501.9985, L500.4100 ####[facility] [address], [address] IG% 0.300 Normal 0.0-0.9 [facility] Comment on above: Result Comment: IG% - Immature Granulocytes (promyelocytes, myelocytes and metamyelocytes) > 1% indicates that a LEFT SHIFT is Present. Performed By: #### L 501.9520, L3300.3500, L506.1001, L500.4050, L100.0100, L501.9985, L500.4100 ####[facility] [address], [address] Lymphocytes/100 WBC (Bld) 19.7 % Normal 19-41 [facility] Comment on above: Performed By: #### L 501.9520, L3300.3500, L506.1001, L500.4050, L100.0100, L501.9985, L500.4100 ####[facility] [address] [place], [address] MCH (RBC) [Entitic mass] 32.1 pg High 27.0-32.0 [facility] Comment on above: Performed By: #### L 501.9520, L3300.3500, L506.1001, L500.4050, L100.0100, L501.9985, L500.4100 ####[facility] [address] [place], [address] MCHC (RBC) [Mass/Vol] 34.6 g/dL Normal 32-36 [facility] Comment on above: Performed By: #### L 501.9520, L3300.3500, L506.1001, L500.4050, L100.0100, L501.9985, L500.4100 ####[facility] [address] [place], [address] MCV (RBC) [Entitic vol] 92.7 fL Normal 80-94 [facility] Comment on above: Performed By: #### L 501.9520, L3300.3500, L506.1001, L500.4050, L100.0100, L501.9985, L500.4100 ####[facility] [address] [place], [address] Monocytes/100 WBC (Bld) 7.7 % Normal 0-10 [facility] Comment on above: Performed By: #### L 501.9520, L3300.3500, L506.1001, L500.4050, L100.0100, L501.9985, L500.4100 ####[facility] [address] [place], [address] Neutrophils/100 WBC (Bld) 65.4 % Normal 47-70 [facility] Comment on above: Performed By: #### L 501.9520, L3300.3500, L506.1001, L500.4050, L100.0100, L501.9985, L500.4100 ####[facility] [address] [place], [address] Nucleated RBC (Bld) [#/Vol] 0 10*3/uL Normal 0-5 [facility] Comment on above: Performed By: #### L 501.9520, L3300.3500, L506.1001, L500.4050, L100.0100, L501.9985, L500.4100 ####[facility] [address] [place], [address] Platelet mean volume (Bld) [Entitic vol] 11.9 fL Normal 6.2-12.0 [facility] Comment on above: Performed By: #### L 501.9520, L3300.3500, L506.1001, L500.4050, L100.0100, L501.9985, L500.4100 ####[facility] [address] [place], [address] Platelets (Bld) [#/Vol] 144 10*3/uL Low 150-450 [facility] Comment on above: Performed By: #### L 501.9520, L3300.3500, L506.1001, L500.4050, L100.0100, L501.9985, L500.4100 ####[facility] [address] [place], [address] RBC (Bld) [#/Vol] 4.95 10*6/uL Normal 4.6-6.2 [facility] Comment on above: Performed By: #### L 501.9520, L3300.3500, L506.1001, L500.4050, L100.0100, L501.9985, L500.4100 ####[facility] [address] [place], [address] RDW SD 39.8 fl Normal 35.1-43.9 [facility] Comment on above: Performed By: #### L 501.9520, L3300.3500, L506.1001, L500.4050, L100.0100, L501.9985, L500.4100 ####[facility] [address] [place], [address] WBC (Bld) [#/Vol] 6.0 10*3/uL Normal 4.4-11.0 [facility] Comment on above: Performed By: #### L 501.9520, L3300.3500, L506.1001, L500.4050, L100.0100, L501.9985, L500.4100 ####[facility] [address] [place], [address] Calculated very low density lipoprotein (VLDL) cholesterol measurementOrdered By: Ambrosio Resendiz on 11-25-2024 Calculated very low density lipoprotein (VLDL) cholesterol measurement 83 mg/dL High 5-40 [facility] Carbon dioxide, total [Moles /volume] in Central venous bloodOrdered By: Ambrosio Resendiz on 11-25-2024 CO2 [Moles/Vol] 25.1 mmol/L 21.0-32.0 [facility] Chloride assayOrdered By: Shital Resendiz on 11-25-2024 Chloride [Moles/Vol] 103 mmol/L 98-108 [facility] Comprehensive Metabolic Prof ilon 11-25-2024 Albumin [Mass/Vol] 4.2 g/dL Normal 3.5-5.0 [facility] Comment on above: Performed By: #### L 501.9520, L3300.3500, L506.1001, L500.4050, L100.0100, L501.9985, L500.4100 ####[facility] [address] [place], [address] Albumin/Globulin [Mass ratio] 1.6 {ratio} Normal 0.9-2.4 [facility] Comment on above: Performed By: #### L 501.9520, L3300.3500, L506.1001, L500.4050, L100.0100, L501.9985, L500.4100 ####[facility] [address] [place], [address] ALK PHOS 85 U/L Normal 40-129 [facility] Comment on above: Performed By: #### L 501.9520, L3300.3500, L506.1001, L500.4050, L100.0100, L501.9985, L500.4100 ####[facility] [address] [place], [place], [id number] ALT [Catalytic activity/Vol] 27 U/L Normal <=46 [facility] Comment on above: Performed By: #### L 501.9520, L3300.3500, L506.1001, L500.4050, L100.0100, L501.9985, L500.4100 ####[facility] [address] [place], [place], [id number] AST [Catalytic activity/Vol] 18 U/L Normal <=37 [facility] Comment on above: Performed By: #### L 501.9520, L3300.3500, L506.1001, L500.4050, L100.0100, L501.9985, L500.4100 ####[facility] [address] [place], [place], [id number] Bilirubin [Mass/Vol] 1.68 mg/dL High 0.00-1.30 [facility] Comment on above: Performed By: #### L 501.9520, L3300.3500, L506.1001, L500.4050, L100.0100, L501.9985, L500.4100 ####[facility] [address] [place], [place], [phone] BUN/CRE 15.0 RATIO Normal 10-20 [facility] Comment on above: Performed By: #### L 501.9520, L3300.3500, L506.1001, L500.4050, L100.0100, L501.9985, L500.4100 ####[facility] [address] [place], [address] Calcium [Mass/Vol] 8.9 mg/dL Normal 7.6-11.0 [facility] Comment on above: Performed By: #### L 501.9520, L3300.3500, L506.1001, L500.4050, L100.0100, L501.9985, L500.4100 ####[facility] [address] [place], [address] Chloride [Moles/Vol] 103 mmol/L Normal 98-108 [facility] Comment on above: Performed By: #### L 501.9520, L3300.3500, L506.1001, L500.4050, L100.0100, L501.9985, L500.4100 ####[facility] [address] [place], [address] CO2 [Moles/Vol] 25.1 mmol/L Normal 21.0-32.0 [facility] Comment on above: Performed By: #### L 501.9520, L3300.3500, L506.1001, L500.4050, L100.0100, L501.9985, L500.4100 ####[facility] [address] [place], [address] Creatinine [Mass/Vol] 1.04 mg/dL Normal 0.70-1.20 [facility] Comment on above: Performed By: #### L 501.9520, L3300.3500, L506.1001, L500.4050, L100.0100, L501.9985, L500.4100 ####[facility] [address] [place], [address] GAP 9 Normal 5-15 [facility] Comment on above: Performed By: #### L 501.9520, L3300.3500, L506.1001, L500.4050, L100.0100, L501.9985, L500.4100 ####[facility] [address] [place], [address] GFR/1.73 sq M.predicted among non-blacks MDRD (S/P/Bld) [Vol rate/Area] 89 mL/min/{1.73_m2} Normal >60 [facility] Comment on above: Result Comment: mL/m in/1.73m2 CKD-EPI Creatinine Equation (2020) Performed By: #### L 501.9520, L3300.3500, L506.1001, L500.4050, L100.0100, L501.9985, L500.4100 ####[facility] [address] [place], [address] Globulin (S) [Mass/Vol] 2.6 g/dL Normal 2.2-4.2 [facility] Comment on above: Performed By: #### L 501.9520, L3300.3500, L506.1001, L500.4050, L100.0100, L501.9985, L500.4100 ####[facility] [address] [place], [address] Glucose [Mass/Vol] 184 mg/dL High 70-99 [facility] Comment on above: Performed By: #### L 501.9520, L3300.3500, L506.1001, L500.4050, L100.0100, L501.9985, L500.4100 ####[facility] [address] [place], [address] Potassium [Moles/Vol] 4.7 mmol/L Normal 3.3-5.1 [facility] Comment on above: Performed By: #### L 501.9520, L3300.3500, L506.1001, L500.4050, L100.0100, L501.9985, L500.4100 ####[facility] [address] [place], [place], [id number] Sodium [Moles/Vol] 138 mmol/L Normal 133-145 [facility] Comment on above: Performed By: #### L 501.9520, L3300.3500, L506.1001, L500.4050, L100.0100, L501.9985, L500.4100 ####[facility] [address] [place], [place], [phone] T PROT 6.8 g/dL Normal 5.9-8.4 [facility] Comment on above: Performed By: #### L 501.9520, L3300.3500, L506.1001, L500.4050, L100.0100, L501.9985, L500.4100 ####[facility] [address] [place], [place], [id number] Urea nitrogen [Mass/Vol] 16 mg/dL Normal 4-19 [facility] Comment on above: Performed By: #### L 501.9520, L3300.3500, L506.1001, L500.4050, L100.0100, L501.9985, L500.4100 ####[facility] [address] [place], [place], [id number] Eosinophil percentageOrdered By: Ambrosio Resendiz on 11-25-2024 Eosinophils/100 WBC (Bld) 5.7 % High 0-5 [facility] Erythrocyte distribution wid th ratioOrdered By: Ambrosio Resendiz on 11-25-2024 Erythrocyte distribution width (RBC) [Ratio] 11.7 % 11.6-14.6 [facility] Erythrocyte distribution wid th standard deviationOrdered By: Ambrosio Resendiz on 11-25-2024 Erythrocyte distribution width (RBC) [Ratio] 39.8 fl 35.1-43.9 [facility] Glomerular filtration rate ( GFR) estimation/1.73 sq m using serum, plasma, or whole bOrdered By: Ambrosio Resendiz on 11-25-2024 GFR/1.73 sq M.predicted among non-blacks MDRD (S/P/Bld) [Vol rate/Area] 89 mL/min/{1.73_m2} >60 [facility] Comment on above: mL/min/1.73m2 CKD-EP I Creatinine Equation (2020) Hematocrit Auto (Bld) [Volum e fraction]Ordered By: Ambrosio Resendiz on 11-25-2024 Hematocrit (Bld) [Volume fraction] 45.9 % 40-54 [facility] Hemoglobin A1con 11-25-2024 HbA1c (Bld) [Mass fraction] 7.6 % High <=5.6 [facility] Comment on above: Result Comment: Norm al < 5.7 % Prediabetic 5.7 - 6.4 % Diabetic >or= 6.5 % Please note range changes. Performed By: #### L 501.9520, L3300.3500, L506.1001, L500.4050, L100.0100, L501.9985, L500.4100 ####[facility] [address] [place], [address] Hemoglobin A1c percentageOrd ered By: Ambrosio Resendiz on 11-25-2024 HbA1c (Bld) [Mass fraction] 7.6 % High <5.7 [facility] Comment on above: Normal < 5.7 % Predi abetic 5.7 - 6.4 % Diabetic >or= 6.5 % Please note range changes. Hemoglobin measurementOrdere d By: Ambrosio Resendiz on 11-25-2024 Hemoglobin (Bld) [Mass/Vol] 15.9 g/dL 13.0-16.5 [facility] Immature granulocytes/100 WB C Auto (Bld)Ordered By: Ambrosio Resendiz on 11-25-2024 Immature granulocytes/100 WBC (Bld) 0.300 % 0.0-0.9 [facility] Comment on above: IG% - Immature Granu locytes (promyelocytes, myelocytes and metamyelocytes) > 1% indicates that a LEFT SHIFT is Present. LDL calc ser/plasOrdered By: Ambrosio Resendiz on 11-25-2024 Cholesterol in LDL [Mass/Vol] 131 mg/dL [facility] Comment on above: Kgzatiehbd=007-706 m g/dL & Higher Qdvk=679 mg/dL or greater Laboratory - Chemistry and C hemistry - challengeOrdered By: Ambrosio Resendiz on 11-25-2024 AST [Catalytic activity/Vol] 18 U/L <38 [facility] Lipid Profileon 11-25-2024 CHOL:HDL 6.90 Normal [facility] Comment on above: Performed By: #### L 501.9520, L3300.3500, L506.1001, L500.4050, L100.0100, L501.9985, L500.4100 ####[facility] [address] [place], [address] Cholesterol [Mass/Vol] 251 mg/dL High <=200 [facility] Comment on above: Result Comment: Chol esterol level, Desirable <200 mg/dL Borderline high cholesterol 200-239 mg/dL High cholesterol >=240 mg/dL Recommendations of the NCEP Adult Treatment Panel for the following risk-cutoff thresholds for the [place] population. Performed By: #### L 501.9520, L3300.3500, L506.1001, L500.4050, L100.0100, L501.9985, L500.4100 ####[facility] [address] [place], [address] Cholesterol in HDL [Mass/Vol] 36 mg/dL Low [facility] Comment on above: Result Comment: [place] on[place] Cholesterol Education Program (NCEP) guidelines: <40 mg/dL: Low HDL-cholesterol (major risk factor for CHD) >= 60 mg/dL: High HDL-cholesterol (negative risk factor for CHD) HDL-cholesterol is affected by a number of factors, e.g. smoking, exercise, hormones, sex and age. Performed By: #### L 501.9520, L3300.3500, L506.1001, L500.4050, L100.0100, L501.9985, L500.4100 ####[facility] [address] [place], [address] Cholesterol in LDL [Mass/Vol] 131 mg/dL Normal [facility] Comment on above: Result Comment: Bord gmjsbo=835-787 mg/dL Higher Bbwh=586 mg/dL or greater Performed By: #### L 501.9520, L3300.3500, L506.1001, L500.4050, L100.0100, L501.9985, L500.4100 ####[facility] [address], [address] Cholesterol in VLDL [Mass/Vol] 83 mg/dL High 5-40 [facility] Comment on above: Performed By: #### L 501.9520, L3300.3500, L506.1001, L500.4050, L100.0100, L501.9985, L500.4100 ####[facility] [address] [place], [place], [phone] Triglyceride [Mass/Vol] 416 mg/dL High [facility] Comment on above: Result Comment: The drugs N-Acetylcysteine and Metamizole may falsely depress this assay. Normal range: <150 mg/dL Borderline High: 150-199 mg/dL High: 200-499 mg/dL Very High: >500 mg/dL Performed By: #### L 501.9520, L3300.3500, L506.1001, L500.4050, L100.0100, L501.9985, L500.4100 ####[facility] [address] [place], [place], [id number] MCV (mean corpuscular volume ) determinationOrdered By: Ambrosio Resendiz on 11-25-2024 MCV (RBC) [Entitic vol] 92.7 fL 80-94 [facility] Mean corpuscular hemoglobin (MCH) determinationOrdered By: Ambrosio Resendiz on 11-25-2024 MCH (RBC) [Entitic mass] 32.1 pg High 27.0-32.0 [facility] Mean corpuscular hemoglobin concentration (MCHC) determinationOrdered By: Ambrosio Resendiz on 11-25-2024 MCHC (RBC) [Mass/Vol] 34.6 g/dL 32-36 [facility] Mean platelet volume determi nationOrdered By: Ambrosio Resendiz on 11-25-2024 Platelet mean volume (Bld) [Entitic vol] 11.9 fL 6.2-12.0 [facility] Monocyte percentageOrdered B y: Ambrosio Resendiz on 11-25-2024 Monocytes/100 WBC (Bld) 7.7 % 0-10 [facility] Neutrophil percentageOrdered By: Ambrosio Resendiz on 11-25-2024 Neutrophils/100 WBC (Bld) 65.4 % 47-70 [facility] Nucleated red blood cell per centageOrdered By: Ambrosio Resendiz on 11-25-2024 Nucleated RBC/100 WBC (Bld) [Ratio] 0 % 0-5 [facility] Platelet countOrdered By: Shital Resendiz on 11-25-2024 Platelets (Bld) [#/Vol] 144 10*3/uL Low 150-450 [facility] Potassium measurement (mass/ volume)Ordered By: Ambrosio Resendiz on 11-25-2024 Potassium (Unsp spec) [Mass/Vol] 4.7 mmol/L 3.3-5.1 [facility] RBC Auto (Bld) [#/Vol]Ordere d By: Ambrosio Resendiz on 11-25-2024 RBC (Bld) [#/Vol] 4.95 10*6/uL 4.6-6.2 [facility] Screening total cholesterol/ high density lipoprotein (HDL) cholesterol ratioOrdered By: Ambrosio Resendiz on 11-25-2024 Cholesterol.total/Cho lesterol in HDL [Mass ratio] 6.90 {ratio} [facility] Serum creatinine measurement (mass/volume)Ordered By: Ambrosio Resendiz on 11-25-2024 Creatinine [Mass/Vol] 1.04 mg/dL 0.70-1.20 [facility] Serum globulin measurementOr dered By: Ambrosio Resendiz on 11-25-2024 Globulin (S) [Mass/Vol] 2.6 g/dL 2.2-4.2 [facility] Serum glucose measurement (m ass/volume)Ordered By: Ambrosio Resendiz on 11-25-2024 Glucose [Mass/Vol] 184 mg/dL High 70-99 [facility] Serum or plasma alanine rock otransferase (ALT) measurementOrdered By: Ambrosio Resendiz on 11-25-2024 ALT [Catalytic activity/Vol] 27 U/L <47 [facility] Serum or plasma albumin ivette urement (mass/volume)Ordered By: Ambrosio Resendiz on 11-25-2024 Albumin [Mass/Vol] 4.2 g/dL 3.5-5.0 [facility] Serum or plasma albumin/glob ulin mass ratioOrdered By: Ambrosio Resendiz on 11-25-2024 Albumin/Globulin [Mass ratio] 1.6 {ratio} 0.9-2.4 [facility] Serum or plasma alkaline tasha sphatase measurementOrdered By: Ambrosio Resendiz on 11-25-2024 ALP [Catalytic activity/Vol] 85 U/L 40-129 [facility] Serum or plasma calcium ivette urement (mass/volume)Ordered By: Ambrosio Resendiz on 11-25-2024 Calcium [Mass/Vol] 8.9 mg/dL 7.6-11.0 [facility] Serum or plasma cholesterol in HDL measurement (mass/volume)Ordered By: Ambrosio Resendiz on 11-25-2024 Cholesterol in HDL [Mass/Vol] 36 mg/dL Low >40 [facility] Comment on above: National Cholesterol Education Program (NCEP) guidelines:<40 mg/dL: Low HDL-cholesterol (major risk factor for CHD)>= 60 mg/dL: High HDL-cholesterol (negative risk factor for CHD)HDL-cholesterol is affected by a number of factors, e.g. smoking, exercise, hormones, sex and age. Serum or plasma cholesterol measurement (mass/volume)Ordered By: Ambrosio Resendiz on 11-25-2024 Cholesterol [Mass/Vol] 251 mg/dL High <201 [facility] Comment on above: Cholesterol level, D esirable <200 mg/dLBorderline high cholesterol 200-239 mg/dLHigh cholesterol >=240 mg/dLRecommendations of the NCEP Adult Treatment Panel for the following risk-cutoff thresholds for the [place] population. Serum or plasma insulin ivette urement (mass/volume)Ordered By: Ambrosio Resendiz on 11-25-2024 Insulin [Mass/Vol] 14.2 uIU/mL 2.6-24.9 [facility] Comment on above: Performed at: [address] [id number] Director: Chi Ochoa PhD, Phone: [phone] Serum or plasma urea nitroge n measurement (mass/volume)Ordered By: Ambrosio Resendiz on 11-25-2024 Urea nitrogen [Mass/Vol] 16 mg/dL 4-19 [facility] Sodium levelOrdered By: Marilynn Resendiz on 11-25-2024 Sodium [Moles/Vol] 138 mmol/L 133-145 [facility] TSH DL <= 0.005 mIU/L QnOrde red By: Ambrosio Resendiz on 11-25-2024 TSH Qn 3.000 uIU/mL 0.300-4.20 0 [facility] Thyroid Stim Hormone (TSH)on 11-25-2024 TSH 3.000 uIU/mL Normal 0.300-4.20 0 [facility] Comment on above: Performed By: #### L 501.9520, L3300.3500, L506.1001, L500.4050, L100.0100, L501.9985, L500.4100 ####[facility] [address] [place], [address] Total proteinOrdered By: Lian Resendiz on 11-25-2024 Protein [Mass/Vol] 6.8 g/dL 5.9-8.4 [facility] Triglycerides measurementOrd ered By: Ambrosio Resendiz on 11-25-2024 Triglyceride [Mass/Vol] 416 mg/dL High <199 [facility] Comment on above: The drugs N-Acetylcy steine and Metamizole may falsely depress this assay. Normal range: <150 mg/dLBorderline High: 150-199 mg/dLHigh: 200-499 mg/dLVery High: >500 mg/dL Vitamin D,25 Hydroxyon 11-25 Vitamin D 25-OH 37.2 ng/mL Normal 30-100 [facility] Comment on above: Result Comment: Hood min D Status Deficiency: <20 ng/mL (50nmol/L) Insufficiency: 20-30 ng/mL (50-75 nmol/L) Sufficiency: 30-100 ng/mL (75-250 nmol/L) Toxicity: >100 ng/mL (>250 nmol/L) Performed By: #### L 501.9520, L3300.3500, L506.1001, L500.4050, L100.0100, L501.9985, L500.4100 ####[facility] [address] [place], [address] White blood cell (WBC) count Ordered By: Ambrosio Resendiz on 11-25-2024 WBC (Bld) [#/Vol] 6.0 10*3/uL 4.4-11.0 [facility] Office Visit Reporton [address] [facility] [address] [place] [address] OFFICE VISIT Date of Service: 09/30/24 MR#: [id number] Acct: [id number] Patient: DOC KUO Rep #: [id number] 3 : 1975 Provider: IMB NURSE Age/Sex: 48/M Location: [facility] Status: Signed Intake Vital Signs 06/24/24 10:26 09/28/24 13:39 Height 5 ft 7 in 5 ft 7 in Weight: 167 lb 4 oz BMI 26.2 BP 128/83 H Blood Pressure Location Rt brachial Position Sitting Respiration 16 Pulse 65 Pulse Source Monitor Temp 97.8 F Temp Source Temporal Pulse Oximetry (%) 98 Oxygen Delivery Method room air Intake Visit Reasons: Ear Flush Chief Complaint: [facility] ER FU Allergies Seasonal Allergies: Uncoded (environmental) Allergy (Verified 06/24/24 10:11) Rash Office Procedures Cerumen Removal Procedure BMS Cerumen Removal Procedure Procedure performed by: hCace Lauren Method of removal: loop and irrigation From which ear canal was the cerumen removed: bilateral Amount of Cerumen: moderate Patient tolerated procedure: well Complications: none Assessment and Plan Assessment and Plan Orders: Orders Cerumen Removal [facility] [place] Today H61.20 - Impacted cerumen, unspecified ear Cerumen Removal [facility] [place] Today H61.20 - Impacted cerumen, unspecified ear, H61.23 - Impacted cerumen, bilateral Plan Details Additional Comments: Patient presented today for nurse visit, bilateral cerumen impaction. Successful irrigation, bilateral ears. Otherwise follow-up in office as previously scheduled. 09/30/24 1402 Date Ambrosio Resendiz MD Cosigner Signature: Date (if applicable) CC: Normal [facility] MR/BMS.FRANCKBon 06-24-2024 MR/BMS.HEIDI [facility] [address] [place] [address] OFFICE VISIT Date of Service: 06/24/24 MR#: [id number] Acct: [id number] Name: DOC KUO Rep #: [id number] : 1975 Provider: Dr. 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: No Accompanied by: Self Is patient in pain?: No Allergies Seasonal Allergies: Uncoded (environmental) Allergy (Verified 06/24/24 10:11) Rash Medications ???Medication ???Instructions ???Recorded ???Confirmed ???Type cholecalciferol (vitamin D3) 10 10 mcg PO DAILY 10/11/20 06/24/24 History mcg (400 unit) capsule lisinopril 10 mg tablet 10 mg PO BID #90 tabs 03/08/24 06/24/24 Rx metformin 500 mg tablet 500 mg PO BID #180 tabs 03/15/24 06/24/24 Rx metoprolol tartrate 25 mg tablet 12.5 mg (1/2 x 25 mg) PO BID #90 03/17/24 06/24/24 Rx tabs empagliflozin 10 mg tablet 10 mg PO QDAY #60 tabs 05/31/24 06/24/24 Rx (Jardiance) [facility] Medical History (Updated 06/24/24 @ 15:[address] Ambrosio Resendiz MD) Near syncope kidney stone surgery Hyperlipidemia Kidney stones Hypertension Surgical History Aortic valve replaced Family History Father Cancer Social History (Updated 06/24/24 @ 10:24 by Chace Lauren RN) Smoking Status: Never smoker alcohol intake: current alcohol intake frequency: holidays/special occasions only substance use type: does not use HPI HPI Chief Complaint: [facility] ER FU Details: DOC KUO, is a 48 M who presents to the office today for ER follow-up. Patient had recent ER visit. He was sitting at home in his chair, when he started feeling warm, lightheaded sensation. Not vertiginous. Did not pass out. Father was concerned because patient does have a history of heart disease, pulmonic valve replacement, tetralogy of Fallot, and took him to the emergency room. By the time he went to the emergency room his symptoms had fully resolved. He had a blood sugar that was moderately elevated over 200. He does have type 2 diabetes. He is on Farxiga and metformin. He states that morning he did sleep late and actually did not get up early in the morning because he was having a lot of back pain. He had done quite a bit of heavy lifting the day before and that is why he was having the back pain he attributes. He states that day when he was sitting up in the chair after having some breakfast and taking his diabetes medications, as when he felt this sensation. He was having a lot of pain he states at that time. He notes since then he had another episode that was mild in comparison when he was at the airport in [place], returning home from [facility] where he was with his dad and brother in [place]. In any event, he was in the line for quite a long time, and did a lot of walking at the airport and had somewhat mild sensation similar to this. It has not happened since. He did not check his blood sugar on either occasion. Did not check blood pressure on either occasion. Review of systems per chart. He is not having episodes chest pain, chest tightness. We did stress test earlier this year that did not show any evidence of obstructive CAD. Physical exam. Vital signs on chart. Sclera are clear. No cervical or supraclavicular lymph nodes enlarged or tender. No clear thyromegaly. No thyroid nodules readily palpable. Lungs are without wheeze, rhonchi, rales. No E/A changes are heard. Heart is regular. Not tachycardic. No clear rub or gallop is identified. The abdomen is soft. Bowel sounds are present. Remainder of exam unremarkable. ROS Const Constitutional: No body ache, chills, excessive sweating, fatigue, fever(s), frequent falls, headache(s), snoring, weakness or change in appetite Eyes Eyes: No blurry vision, change in vision, eye pain or Light sensitivity ENT ENT: No abnormal hearing, ear or mastoid pain, tinnitus, nasal congestion, headache(s), neck pain or sore throat Resp Respiratory: No cough, shortness of breath, snoring or wheezing Cardio Cardiology: No chest pain at rest, chest pain with exertion, excessive sweating, dyspnea on exertion, lightheadedness, orthopnea or palpitations Gastro GI: No abdominal pain, change in bowel habits, constipation, cramping, diarrhea, nausea/dyspepsia or vomiting Genitourinary Male: N (more content not included)... Normal [facility] 12 Lead EKGon 06-12-2024 12 Lead EKG [facility] [address] [place] [address] 12 Lead EKG 06/12/24 1655 MR#: [id number] Acct: [id number] Name: DOC KUO Rep #: [id number] : 1975 48 From: Subhash Andrea MD Attending Dr: Status: DEP ER Ordering Dr: Sean Guo DO Date: 06/12/24 Location: ED Sex: M C Admitted: Test Reason : BACK PAIN Blood Pressure : */* mmHG Vent. Rate : 67 BPM Atrial Rate : 67 BPM P-R Int : 180 ms QRS Dur : 104 ms QT Int : 376 ms P-R-T Axes : -22 81 69 degrees QTcB Int : 397 ms Normal sinus rhythm Incomplete right bundle branch block T wave abnormality, consider anterior ischemia Abnormal ECG Confirmed by Subhash Andrea ([id number]), avid editor RACHEL GLEASON ([id number]) on 06/15/2024 10:25:17 AM Referred By: Confirmed By: Subhash Andrea 06/15/24 1025 Date Subhash Andrea MD CC: Dr. Ambrosio Resendiz MD; Dr. Sean Guo DO Signed Normal [facility] Basic Metabolic Profile (BMP )on 06-12-2024 BUN/CRE 15.8 RATIO Normal 10-20 [facility] Comment on above: Performed By: #### L 100.0100, L500.2500 ####[facility] [address] [place], [address] CA,Total 8.9 mg/dL Normal 8.5-10.1 [facility] Comment on above: Performed By: #### L 100.0100, L500.2500 ####[facility] [address] [place], [address] Chloride [Moles/Vol] 105 mmol/L Normal 98-107 [facility] Comment on above: Performed By: #### L 100.0100, L500.2500 ####[facility] [address] [place], [address] CO2 [Moles/Vol] 25.0 mmol/L Normal 21.0-32.0 [facility] Comment on above: Performed By: #### L 100.0100, L500.2500 ####[facility] [address] [place], [address] Creatinine [Mass/Vol] 1.20 mg/dL Normal 0.70-1.30 [facility] Comment on above: Result Comment: The validity of the calculated GFR GFRAA in patients over 70 years has not been determined. Clinical correlation is essential. Performed By: #### L 100.0100, L500.2500 ####[facility] [address] [place], [address] ECRCL 71.15 ml/min Normal [facility] Comment on above: Performed By: #### L 100.0100, L500.2500 ####[facility] [address] [place], [address] EST GFR - AA 83 mL/min Normal >60 [facility] Comment on above: Result Comment: Afri can Kyrgyz GFR Calc Performed By: #### L 100.0100, L500.2500 ####[facility] [address] [place], [address] GAP 7 Normal 5-15 [facility] Comment on above: Performed By: #### L 100.0100, L500.2500 ####[facility] [address] [place], [address] GFR/1.73 sq M.predicted among non-blacks MDRD (S/P/Bld) [Vol rate/Area] 69 mL/min/{1.73_m2} Normal >60 [facility] Comment on above: Result Comment: Non- GFR Calc Performed By: #### L 100.0100, L500.2500 ####[facility] [address] [place], [address] Glucose [Mass/Vol] 276 mg/dL High 74-106 [facility] Comment on above: Result Comment: Gluc ose result greater than or equal to 200 mg/dL suggests DIABETES MELLITUS per A.D.A. criteria. Performed By: #### L 100.0100, L500.2500 ####[facility] [address] [place], [address] Potassium [Moles/Vol] 4.4 mmol/L Normal 3.5-5.1 [facility] Comment on above: Performed By: #### L 100.0100, L500.2500 ####[facility] [address] [place], [address] Sodium [Moles/Vol] 136 mmol/L Normal 136-145 [facility] Comment on above: Performed By: #### L 100.0100, L500.2500 ####[facility] [address] [place], [address] Urea nitrogen [Mass/Vol] 19 mg/dL High 7-18 [facility] Comment on above: Performed By: #### L 100.0100, L500.2500 ####[facility] [address] [place], [address] CBC W/Diff, Automatedon 11-2 -2023 Absolute Lymph 1.00 X10 3/uL Normal 0.83-4.51 [facility] Comment on above: Performed By: #### L 100.0100, L500.2500 ####[facility] [address] [place], [address] Absolute Neut 5.1 X10 3/uL Normal 2.0-7.7 [facility] Comment on above: Performed By: #### L 100.0100, L500.2500 ####[facility] [address] [place], [address] Basophils/100 WBC (Bld) 0.7 % Normal 0-1 [facility] Comment on above: Performed By: #### L 100.0100, L500.2500 ####[facility] [address] [place], [address] Eosinophils/100 WBC (Bld) 3.8 % Normal 0-5 [facility] Comment on above: Performed By: #### L 100.0100, L500.2500 ####[facility] [address] [place], [address] Erythrocyte distribution width (RBC) [Ratio] 11.5 % Low 11.6-14.6 [facility] Comment on above: Performed By: #### L 100.0100, L500.2500 ####[facility] [address] [place], [address] Hematocrit (Bld) [Volume fraction] 44.2 % Normal 40-54 [facility] Comment on above: Performed By: #### L 100.0100, L500.2500 ####[facility] [address] [place], [address] Hemoglobin (Bld) [Mass/Vol] 15.7 g/dL Normal 13.0-16.5 [facility] Comment on above: Performed By: #### L 100.0100, L500.2500 ####[facility] [address] [place], [address] IG% 0.400 Normal 0.0-0.9 [facility] Comment on above: Result Comment: IG% - Immature Granulocytes (promyelocytes, myelocytes and metamyelocytes) > 1% indicates that a LEFT SHIFT is Present. Performed By: #### L 100.0100, L500.2500 ####[facility] [address] [place], [address] Lymphocytes/100 WBC (Bld) 14.5 % Low 19-41 [facility] Comment on above: Performed By: #### L 100.0100, L500.2500 ####[facility] [address] [place], [address] MCH (RBC) [Entitic mass] 31.8 pg Normal 27.0-32.0 [facility] Comment on above: Performed By: #### L 100.0100, L500.2500 ####[facility] [address] [place], [address] MCHC (RBC) [Mass/Vol] 35.5 g/dL Normal 32-36 [facility] Comment on above: Performed By: #### L 100.0100, L500.2500 ####[facility] [address] [place], [address] MCV (RBC) [Entitic vol] 89.5 fL Normal 80-94 [facility] Comment on above: Performed By: #### L 100.0100, L500.2500 ####[facility] [address] [place], [address] Monocytes/100 WBC (Bld) 6.0 % Normal 0-10 [facility] Comment on above: Performed By: #### L 100.0100, L500.2500 ####[facility] [address] [place], [address] Neutrophils/100 WBC (Bld) 74.6 % High 47-70 [facility] Comment on above: Performed By: #### L 100.0100, L500.2500 ####[facility] [address] [place], [address] Nucleated RBC (Bld) [#/Vol] 0 10*3/uL Normal 0-5 [facility] Comment on above: Performed By: #### L 100.0100, L500.2500 ####[facility] [address] [place], [address] Platelet mean volume (Bld) [Entitic vol] 12.4 fL High 6.2-12.0 [facility] Comment on above: Performed By: #### L 100.0100, L500.2500 ####[facility] [address] [place], [address] Platelets (Bld) [#/Vol] 144 10*3/uL Low 150-450 [facility] Comment on above: Performed By: #### L 100.0100, L500.2500 ####[facility] [address] [place], [address] RBC (Bld) [#/Vol] 4.94 10*6/uL Normal 4.6-6.2 [facility] Comment on above: Performed By: #### L 100.0100, L500.2500 ####[facility] [address] [place], [address] RDW SD 37.1 fl Normal 35.1-43.9 [facility] Comment on above: Performed By: #### L 100.0100, L500.2500 ####[facility] [address] [place], [address] WBC (Bld) [#/Vol] 6.9 10*3/uL Normal 4.4-11.0 [facility] Comment on above: Performed By: #### L 100.0100, L500.2500 ####[facility] [address] [place], [address] Emergency Department Summary on 06-12-2024 Emergency Department Summary [facility] Medical Records Department [address] [place] [address] Emergency Department Summary 06/12/24 MR#: [id number] Acct: [id number] Name: DOC KUO Rep #: [id number] : 1975 48 From: Sean Romero PCP: Dr. Ambrosio Resendiz MD Status:DEP ER Location: ED HPI History of Present Illness Chief Complaint: Back Informant: patient and parent Narrative Narrative: Presents here with father for evaluation. 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 Started noticing low back pain. Today while sitting watching TV he felt warm and dizzy. There is no prodromal chest pains or shortness of breath. Would have his back discomfort. Father concerned due to having history of tetralogy of Fallot he has had valve replacement and electrolyte abnormalities. Prediabetic. Denies recent vomiting diarrhea. Denies any allergies to medications.. Denies history of CKD. He states he was currently use Aleve however did not get around to it. Prior similar symptoms: Yes [facility] Medical History kidney stone surgery Hyperlipidemia Kidney stones Hypertension Home Medications ???Medication ???Instructions ???Recorded ???Last Taken ???Type cholecalciferol (vitamin D3) 10 10 mcg PO DAILY 10/11/20 Unknown History mcg (400 unit) capsule lisinopril 10 mg tablet 10 mg PO BID #90 tabs 03/08/24 Unknown Rx metformin 500 mg tablet 500 mg PO BID #180 tabs 03/15/24 Unknown Rx metoprolol tartrate 25 mg tablet 12.5 mg (1/2 x 25 mg) PO BID #90 03/17/24 Unknown Rx tabs empagliflozin 10 mg tablet 10 mg PO QDAY #60 tabs 05/31/24 Unknown Rx (Jardiance) Allergy/AdvReac Type Severity Reaction Status Date / Time Seasonal Allergies: Uncoded Allergy Rash Verified 06/12/24 16:26 (environmental) Family History Father Cancer Surgical History Aortic valve replaced Social History Smoking Status: Never smoker alcohol intake: current alcohol intake frequency: holidays/special occasions only ROS ROS ED Constitutional Constitutional ED: Denies chills, fever(s) or sweats Eyes Eyes: Denies change in vision ENT ENT ED: Denies dysphagia or sore throat Cardiovascular Cardiovascular: Reports other Details: Lightheaded symptoms ; Denies chest pain, leg edema, palpitations or racing heartbeat Respiratory/Chest Respiratory/Chest: Denies cough, dyspnea or dyspnea on exertion Gastrointestinal Gastrointestinal: Denies abdominal pain, diarrhea, nausea or vomiting Genitourinary Genitourinary ED: Denies dysuria, hematuria or urinary frequency Musculoskeletal Musculoskeletal: Reports back pain; Denies extremity pain or neck pain Integumentary Denies rash or wounds Neurologic Neurologic: Denies headache(s), paresthesias or weakness EXAM Physical Exam Const Vital Signs: 06/12/24 16:23 06/12/24 18:01 Temperature 97.9 F 98.2 F Temperature Source Oral Pulse Rate 73 87 Respiratory Rate 16 16 Blood Pressure 143/90 H 141/82 H Blood Pressure Mean 107 101 Pulse Ox 99 100 Oxygen Delivery Method Room Air Positive well nourished and well developed General Appearance ED: well developed and NAD HEENT Reports moist mucous membranes normocephalic and atraumatic Eyes EOMs intact bilaterally and conjunctivae normal General Eye ED: Yes normal appearance of both eyes Neck no lymphadenopathy and supple General: Negative for tenderness Chest Wall Chest: Negative for tenderness Resp normal respiratory effort and normal air movement Effort and Inspection: symmetric chest movement; Negative for respiratory distress Cardio regular rate, regular rhythm and no murmurs Peripheral Pulses: pulses 2+ throughout GI normal to inspection, nondistended, normoactive bowel sounds and non-tender Palpation: Negative for guarding or rebound tenderness present Back/Spine no CVA tenderness and no thoracic nor lumbar tenderness Back/Spine Narrative: Lower thoracic tenderness somatic function T10, this was rotated left side bent left and extended. Straight leg test was negative. Extremity normal to inspection General Extremety ED: Negative for edema or tenderness General Extremity: Negative for edema Neuro oriented x3 and no sensory deficits noted Sensorium / Orientation: awake and alert Skin no rashes or lesions noted and no wounds MDM MDM MDM Narrative Medical decision making narrative: Interventions / MDM: Differential diagnosis: Lightheaded, somatic dysfunction thoracic spine Diagnosis considered but do not suspect: N/A My EKG interpretation: Sinus rhythm rate (more content not included)... Normal [facility] Basic Metabolic Profile (BMP )on 05-31-2024 BUN/CRE 11.6 RATIO Normal - [facility] Comment on above: Performed By: #### L 501.9985, L500.4100, L500.2500 #### [facility] [address] [place], [address] CA,Total 8.7 mg/dL Normal 8.5-10.1 [facility] Comment on above: Performed By: #### L 501.9985, L500.4100, L500.2500 #### [facility] [address] [place], [address] Chloride [Moles/Vol] 105 mmol/L Normal 98-107 [facility] Comment on above: Performed By: #### L 501.9985, L500.4100, L500.2500 #### [facility] [address] [place], [address] CO2 [Moles/Vol] 28.0 mmol/L Normal 21.0-32.0 [facility] Comment on above: Performed By: #### L 501.9985, L500.4100, L500.2500 #### [facility] [address] [place], [address] Creatinine [Mass/Vol] 1.12 mg/dL Normal 0.70-1.30 [facility] Comment on above: Result Comment: The validity of the calculated GFR GFRAA in patients over 70 years has not been determined. Clinical correlation is essential. Performed By: #### L 501.9985, L500.4100, L500.2500 #### [facility] [address] [place], [address] EST GFR - AA 90 mL/min Normal >60 [facility] Comment on above: Result Comment: Afri can Kyrgyz GFR Calc Performed By: #### L 501.9985, L500.4100, L500.2500 #### [facility] [address] [place], [address] GAP 4 Low 5-15 [facility] Comment on above: Performed By: #### L 501.9985, L500.4100, L500.2500 #### [facility] [address] [place], [address] GFR/1.73 sq M.predicted among non-blacks MDRD (S/P/Bld) [Vol rate/Area] 75 mL/min/{1.73_m2} Normal >60 [facility] Comment on above: Result Comment: Non- GFR Calc Performed By: #### L 501.9985, L500.4100, L500.2500 #### [facility] [address] [place], [address] Glucose [Mass/Vol] 230 mg/dL High 74-106 [facility] Comment on above: Result Comment: Gluc ose result greater than or equal to 200 mg/dL suggests DIABETES MELLITUS per A.D.A. criteria. Performed By: #### L 501.9985, L500.4100, L500.2500 #### [facility] [address] [place], [address] Potassium [Moles/Vol] 4.2 mmol/L Normal 3.5-5.1 [facility] Comment on above: Performed By: #### L 501.9985, L500.4100, L500.2500 #### [facility] [address] [place], [address] Sodium [Moles/Vol] 137 mmol/L Normal 136-145 [facility] Comment on above: Performed By: #### L 501.9985, L500.4100, L500.2500 #### [facility] [address] [place], [address] Urea nitrogen [Mass/Vol] 13 mg/dL Normal 7-18 [facility] Comment on above: Performed By: #### L 501.9985, L500.4100, L500.2500 #### [facility] [address] [place], [address] Hemoglobin A1con 05-31-2024 HbA1c (Bld) [Mass fraction] 8.8 % High 3.8-5.6 [facility] Comment on above: Result Comment: Norm al < 5.7 % Prediabetic 5.7 - 6.4 % Diabetic >or= 6.5 % Please note range changes. Performed By: #### L 501.9985, L500.4100, L500.2500 #### [facility] [address] [place], [address] Lipid Profileon 05-31-2024 Cholesterol [Mass/Vol] 265 mg/dL High 200 [facility] Comment on above: Result Comment: <200 mg/dL Desirable 200-240 mg/dL Borderline >240 mg/dL High Risk Performed By: #### L 501.9985, L500.4100, L500.2500 #### [facility] [address] [place], [address] Cholesterol in HDL [Mass/Vol] 44 mg/dL Normal [facility] Comment on above: Result Comment: The drugs N-Acetylcysteine and Metamizole may falsely depress this assay. Reference Range HDL <40 mg/dL Low HDL Cholesterol HDL >or= 60 mg/dL High HDL Cholesterol Performed By: #### L 501.9985, L500.4100, L500.2500 #### [facility] [address] [place], [address] LDL TNP Normal 0-130 [facility] Comment on above: Performed By: #### L 501.9985, L500.4100, L500.2500 #### [facility] [address] [place], [address] Triglyceride [Mass/Vol] 425 mg/dL High [facility] Comment on above: Result Comment: The drugs N-Acetylcysteine and Metamizole may falsely depress this assay. TRIGLYCERIDE IS GREATER THAN 400 mg/dL. LDL RESULT IS INVALID AND WILL NOT BE REPORTED. Serum Triglycerides Reference Interval Normal <150 mg/dL Borderline high 150 - 199 mg/dL High 200 - 499 mg/dL Very High > or = 500 mg/dL Performed By: #### L 501.9985, L500.4100, L500.2500 #### [facility] [address] [place], [address] VLDL TNP Normal 5-40 [facility] Comment on above: Performed By: #### L 501.9985, L500.4100, L500.2500 #### [facility] [address] [place], [address] MR/BMS.IMBon 05-31-2024 MR/BMS.IMB [facility] [address] [place] [address] OFFICE VISIT Date of Service: 05/31/24 MR#: [id number] Acct: [id number] Name: DOC KUO Rep #: [id number] : 1975 Provider: Dr. 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 Required: No Accompanied by: Self Is patient in pain?: No Allergies Seasonal Allergies: Uncoded (environmental) Allergy (Verified 05/31/24 12:49) Rash Medications ???Medication ???Instructions ???Recorded ???Confirmed ???Type cholecalciferol (vitamin D3) 10 10 mcg PO DAILY 10/11/20 05/31/24 History mcg (400 unit) capsule lisinopril 10 mg tablet 10 mg PO BID #90 tabs 03/08/24 05/31/24 Rx metformin 500 mg tablet 500 mg PO BID #180 tabs 03/15/24 05/31/24 Rx metoprolol tartrate 25 mg tablet 12.5 mg (1/2 x 25 mg) PO BID #90 03/17/24 05/31/24 Rx tabs PFSH Medical History kidney stone surgery Hyperlipidemia Kidney stones Hypertension Surgical History Aortic valve replaced Family History Father Cancer Social History Smoking Status: Never smoker alcohol intake: current alcohol intake frequency: holidays/special occasions only HPI HPI Chief Complaint: annual/physical Details: DOC KUO, is a 48 M who presents to the office today for 6-month follow-up. 48-year-old gentleman who has a history of type 2 diabetes, unfortunately previously very well-controlled through dietary measures alone. A few years ago and I pointed out to him and his labs, how in 2019 and actually prior to that, he made extensive dietary changes and his A1c normalized, triglycerides normalized. Gradually, starting in his triglycerides starting going up, and A1c went up culminating with this past summer. We had tried to encourage him but he did finally, make a lot of changes since his last visit. We started him on metformin but he did not tolerate due to diarrhea. He is on lisinopril 10 mg p.o. twice daily, vitamin D and metoprolol tartrate 12 and half p.o. twice daily. Blood pressures have generally been pretty good. He was having some dyspnea on exertion that we evaluated with stress testing, which showed no abnormal EKG findings. Nuclear test was denied. He has a history of tetralogy of Fallot, and surgery for correction. Has been having periodic echoes and has been stable. Otherwise seems to be doing reasonably well. He is not having any current chest pain, chest tightness. No nausea or vomiting. Appetites been good. Bowel movements have been regular, no bloody stools. No diarrhea or black stools currently. No dysuria, urgency or frequency is noted. Notes a sense of fullness is bilateral ears. History of cerumen cyst. Review of systems per chart. Physical exam. Vital signs on chart. PERRLA. Sclera are clear. Bilateral ceruminosis/impaction. Canals are unremarkable. Posterior pharynx is unremarkable. Good dentition. No cervical or supraclavicular lymph nodes enlarged or tender. No clear thyromegaly. No thyroid nodules readily palpable. Lungs are without wheeze, rhonchi, rales. No E/A changes are heard. Heart is regular. Not tachycardic. No clear rub or gallop is identified. The abdomen is soft. Bowel sounds are present. Nontender nondistended abdomen. No clear palpable masses in the abdomen. No significant leg edema. Cranial nerve examination 2 through 12 are grossly unremarkable nonlateralizing. No obvious rashes. No obvious significant skin lesions are identified. ROS Const Constitutional: No body ache, chills, excessive sweating, fatigue, fever(s), frequent falls, headache(s), snoring, weakness or change in appetite Eyes Eyes: No blurry vision, change in vision, eye pain or Light sensitivity ENT ENT: Positive for ear pressure; No abnormal hearing, ear or mastoid pain, tinnitus, nasal congestion, headache(s), neck pain or sore throat Resp Respiratory: No cough, shortness of breath, snoring or wheezing Cardio Cardiology: No chest pain at rest, chest pain with exertion, excessive sweating, dyspnea on exertion, lightheadedness, orthopnea or palpitations Gastro GI: No abdominal pain, change in bowel habits, constipation, cramping, diarrhea, nausea/dyspepsi (more content not included)... Normal [facility] Stress Reporton 04-15-2024 Stress Report [facility] [address] [place] [address] MR#: [id number] Acct: [id number] Name: DOC KUO Rep #: [id number] : 1975 48 From: Suzanna Perez MD Primary Care: Dr. Ambrosio Resendiz MD Status: REG I Referring Dr: Ambrosio Resendiz MD Sex: M C Stress Test Report Date: 04/15/2024 Procedure: Exercise tolerance test Indications: Shortness of breath Consent: Per the patient Procedure: The patient exercised on a Stephan protocol for 5 minutes and 3 seconds achieving a peak heart rate of 153 bpm (88% predicted maximal heart rate) with a peak blood pressure 166/88 mmHg and a peak MET capacity of approximately 7 MET's. The baseline ECG demonstrated normal sinus rhythm, incomplete right bundle branch block. The peak exercise ECG demonstrated no significant ischemic changes. Patient had PVCs with exercise and in the recovery phase. No significant V. tach or other significant arrhythmias. The functional capacity was considered decreased for age. The patient had no complaint of chest discomfort during exercise or recovery. The examination was discontinued secondary to dyspnea. Impression: 1. Technically adequate (percent predicted maximal heart rate greater than 85%) exercise tolerance test 2. Stress test is negative for exercise-induced chest pain. 3. Stress test test is negative for exercise-induced EKG changes of ischemia. 4. Functional capacity is decreased for age This note was generated with Scopely software. It may contain incorrect words, spelling, and punctuation that were not noted in checking the note before signing. 04/15/24 1414 Date Suzanna Perez MD CC: Dr. Ambrosio Resendiz MD Date Dictated: 04/15/241408 Date Transcribed: 04/15/241408 Slitter Creaser Slotter Operator: NN Signed Normal [facility] CBC W/Diff, Automatedon 02-19 Absolute Lymph 1.17 X10 3/uL Normal 0.83-4.51 [facility] Comment on above: Performed By: #### L 506.1000, L501.9985, L100.0100, L500.4050, L500.4100, L501.9520, L501.9910 #### [facility] [address] [place], [address] Absolute Neut 3.7 X10 3/uL Normal 2.0-7.7 [facility] Comment on above: Performed By: #### L 506.1000, L501.9985, L100.0100, L500.4050, L500.4100, L501.9520, L501.9910 #### [facility] [address] [place], [place], [id number] (903) Basophils/100 WBC (Bld) 1.1 % High 0-1 [facility] Comment on above: Performed By: #### L 506.1000, L501.9985, L100.0100, L500.4050, L500.4100, L501.9520, L501.9910 #### [facility] [address] [place], [address] Eosinophils/100 WBC (Bld) 4.9 % Normal 0-5 [facility] Comment on above: Performed By: #### L 506.1000, L501.9985, L100.0100, L500.4050, L500.4100, L501.9520, L501.9910 #### [facility] [address] [place], [address] Erythrocyte distribution width (RBC) [Ratio] 11.5 % Low 11.6-14.6 [facility] Comment on above: Performed By: #### L 506.1000, L501.9985, L100.0100, L500.4050, L500.4100, L501.9520, L501.9910 #### [facility] [address] [place], [address] Hematocrit (Bld) [Volume fraction] 44.8 % Normal 40-54 [facility] Comment on above: Performed By: #### L 506.1000, L501.9985, L100.0100, L500.4050, L500.4100, L501.9520, L501.9910 #### [facility] [address] [place], [address] Hemoglobin (Bld) [Mass/Vol] 15.3 g/dL Normal 13.0-16.5 [facility] Comment on above: Performed By: #### L 506.1000, L501.9985, L100.0100, L500.4050, L500.4100, L501.9520, L501.9910 #### [facility] [address] [place], [address] IG% 0.500 Normal 0.0-0.9 [facility] Comment on above: Result Comment: IG% - Immature Granulocytes (promyelocytes, myelocytes and metamyelocytes) > 1% indicates that a LEFT SHIFT is Present. Performed By: #### L 506.1000, L501.9985, L100.0100, L500.4050, L500.4100, L501.9520, L501.9910 #### [facility] [address] [place], [address] Lymphocytes/100 WBC (Bld) 20.6 % Normal 19-41 [facility] Comment on above: Performed By: #### L 506.1000, L501.9985, L100.0100, L500.4050, L500.4100, L501.9520, L501.9910 #### [facility] [address] [place], [address] MCH (RBC) [Entitic mass] 31.3 pg Normal 27.0-32.0 [facility] Comment on above: Performed By: #### L 506.1000, L501.9985, L100.0100, L500.4050, L500.4100, L501.9520, L501.9910 #### [facility] [address] [place], [address] MCHC (RBC) [Mass/Vol] 34.2 g/dL Normal 32-36 [facility] Comment on above: Performed By: #### L 506.1000, L501.9985, L100.0100, L500.4050, L500.4100, L501.9520, L501.9910 #### [facility] [address] [place], [address] MCV (RBC) [Entitic vol] 91.6 fL Normal 80-94 [facility] Comment on above: Performed By: #### L 506.1000, L501.9985, L100.0100, L500.4050, L500.4100, L501.9520, L501.9910 #### [facility] [address] [place], [address] Monocytes/100 WBC (Bld) 7.2 % Normal 0-10 [facility] Comment on above: Performed By: #### L 506.1000, L501.9985, L100.0100, L500.4050, L500.4100, L501.9520, L501.9910 #### [facility] [address] [place], [address] Neutrophils/100 WBC (Bld) 65.7 % Normal 47-70 [facility] Comment on above: Performed By: #### L 506.1000, L501.9985, L100.0100, L500.4050, L500.4100, L501.9520, L501.9910 #### [facility] [address] [place], [address] Nucleated RBC (Bld) [#/Vol] 0 10*3/uL Normal 0-5 [facility] Comment on above: Performed By: #### L 506.1000, L501.9985, L100.0100, L500.4050, L500.4100, L501.9520, L501.9910 #### [facility] [address] [place], [address] Platelet mean volume (Bld) [Entitic vol] 12.7 fL High 6.2-12.0 [facility] Comment on above: Performed By: #### L 506.1000, L501.9985, L100.0100, L500.4050, L500.4100, L501.9520, L501.9910 #### [facility] [address] [place], [address] Platelets (Bld) [#/Vol] 132 10*3/uL Low 150-450 [facility] Comment on above: Performed By: #### L 506.1000, L501.9985, L100.0100, L500.4050, L500.4100, L501.9520, L501.9910 #### [facility] [address] [place], [address] RBC (Bld) [#/Vol] 4.89 10*6/uL Normal 4.6-6.2 [facility] Comment on above: Performed By: #### L 506.1000, L501.9985, L100.0100, L500.4050, L500.4100, L501.9520, L501.9910 #### [facility] [address] [place], [address] RDW SD 38.6 fl Normal 35.1-43.9 [facility] Comment on above: Performed By: #### L 506.1000, L501.9985, L100.0100, L500.4050, L500.4100, L501.9520, L501.9910 #### [facility] [address] [place], [address] WBC (Bld) [#/Vol] 5.7 10*3/uL Normal 4.4-11.0 [facility] Comment on above: Performed By: #### L 506.1000, L501.9985, L100.0100, L500.4050, L500.4100, L501.9520, L501.9910 #### [facility] [address] [place], [address] Comprehensive Metabolic [facility] 03-15-2024 Albumin [Mass/Vol] 3.3 g/dL Normal 3.2-5.0 [facility] Comment on above: Performed By: #### L 506.1000, L501.9985, L100.0100, L500.4050, L500.4100, L501.9520, L501.9910 #### [facility] [address] [place], [address] Albumin/Globulin [Mass ratio] 0.9 {ratio} Normal 0.9-2.4 [facility] Comment on above: Performed By: #### L 506.1000, L501.9985, L100.0100, L500.4050, L500.4100, L501.9520, L501.9910 #### [facility] [address] [place], [address] ALK P 91 U/L Normal 45-117 [facility] Comment on above: Performed By: #### L 506.1000, L501.9985, L100.0100, L500.4050, L500.4100, L501.9520, L501.9910 #### [facility] [address] [place], [address] ALT [Catalytic activity/Vol] 37 U/L Normal 16-61 [facility] Comment on above: Performed By: #### L 506.1000, L501.9985, L100.0100, L500.4050, L500.4100, L501.9520, L501.9910 #### [facility] [address] [place], [address] AST [Catalytic activity/Vol] 20 U/L Normal 15-37 [facility] Comment on above: Performed By: #### L 506.1000, L501.9985, L100.0100, L500.4050, L500.4100, L501.9520, L501.9910 #### [facility] [address] [place], [address] Bilirubin [Mass/Vol] 2.20 mg/dL High 0.20-1.00 [facility] Comment on above: Result Comment: For patients on eltrombopag therapy, use of Dimension [place] TBIL is not recommended. Performed By: #### L 506.1000, L501.9985, L100.0100, L500.4050, L500.4100, L501.9520, L501.9910 #### [facility] [address] [place], [address] BUN/CRE 12.8 RATIO Normal 10-20 [facility] Comment on above: Performed By: #### L 506.1000, L501.9985, L100.0100, L500.4050, L500.4100, L501.9520, L501.9910 #### [facility] [address] [place], [address] CA,Total 8.7 mg/dL Normal 8.5-10.1 [facility] Comment on above: Performed By: #### L 506.1000, L501.9985, L100.0100, L500.4050, L500.4100, L501.9520, L501.9910 #### [facility] [address] [place], [address] Chloride [Moles/Vol] 101 mmol/L Normal 98-107 [facility] Comment on above: Performed By: #### L 506.1000, L501.9985, L100.0100, L500.4050, L500.4100, L501.9520, L501.9910 #### [facility] [address] [place], [address] CO2 [Moles/Vol] 28.0 mmol/L Normal 21.0-32.0 [facility] Comment on above: Performed By: #### L 506.1000, L501.9985, L100.0100, L500.4050, L500.4100, L501.9520, L501.9910 #### [facility] [address] [place], [address] Creatinine [Mass/Vol] 1.25 mg/dL Normal 0.70-1.30 [facility] Comment on above: Result Comment: The validity of the calculated GFR GFRAA in patients over 70 years has not been determined. Clinical correlation is essential. Performed By: #### L 506.1000, L501.9985, L100.0100, L500.4050, L500.4100, L501.9520, L501.9910 #### [facility] [address] [place], [address] EST GFR - AA 80 mL/min Normal >60 [facility] Comment on above: Result Comment: Afri can [place] GFR Calc Performed By: #### L 506.1000, L501.9985, L100.0100, L500.4050, L500.4100, L501.9520, L501.9910 #### [facility] [address] [place], [address] GAP 6 Normal 5-15 [facility] Comment on above: Performed By: #### L 506.1000, L501.9985, L100.0100, L500.4050, L500.4100, L501.9520, L501.9910 #### [facility] [address] [place], [address] GFR/1.73 sq M.predicted among non-blacks MDRD (S/P/Bld) [Vol rate/Area] 66 mL/min/{1.73_m2} Normal >60 [facility] Comment on above: Result Comment: Non- GFR Calc Performed By: #### L 506.1000, L501.9985, L100.0100, L500.4050, L500.4100, L501.9520, L501.9910 #### [facility] [address] [place], [address] Globulin (S) [Mass/Vol] 3.8 g/dL Normal 2.2-4.2 [facility] Comment on above: Performed By: #### L 506.1000, L501.9985, L100.0100, L500.4050, L500.4100, L501.9520, L501.9910 #### [facility] [address] [place], [address] Glucose [Mass/Vol] 275 mg/dL High 74-106 [facility] Comment on above: Result Comment: Gluc ose result greater than or equal to 200 mg/dL suggests DIABETES MELLITUS per A.D.A. criteria. Performed By: #### L 506.1000, L501.9985, L100.0100, L500.4050, L500.4100, L501.9520, L501.9910 #### [facility] [address] [place], [address] Potassium [Moles/Vol] 4.5 mmol/L Normal 3.5-5.1 [facility] Comment on above: Performed By: #### L 506.1000, L501.9985, L100.0100, L500.4050, L500.4100, L501.9520, L501.9910 #### [facility] [address] [place], [address] Sodium [Moles/Vol] 135 mmol/L Low 136-145 [facility] Comment on above: Performed By: #### L 506.1000, L501.9985, L100.0100, L500.4050, L500.4100, L501.9520, L501.9910 #### [facility] [address] [place], [address] T PROT 7.1 g/dL Normal 6.4-8.2 [facility] Comment on above: Performed By: #### L 506.1000, L501.9985, L100.0100, L500.4050, L500.4100, L501.9520, L501.9910 #### [facility] [address] [place], [address] Urea nitrogen [Mass/Vol] 16 mg/dL Normal 7-18 [facility] Comment on above: Performed By: #### L 506.1000, L501.9985, L100.0100, L500.4050, L500.4100, L501.9520, L501.9910 #### [facility] [address] [place], [address] Hemoglobin A1con 03-15-2024 HbA1c (Bld) [Mass fraction] 9.8 % High 3.8-5.6 [facility] Comment on above: Result Comment: Norm al < 5.7 % Prediabetic 5.7 - 6.4 % Diabetic >or= 6.5 % Please note range changes. Performed By: #### L 506.1000, L501.9985, L100.0100, L500.4050, L500.4100, L501.9520, L501.9910 #### [facility] [address] [place], [address] Lipid Profileon 03-15-2024 Cholesterol [Mass/Vol] 274 mg/dL High 200 [facility] Comment on above: Result Comment: <200 mg/dL Desirable 200-240 mg/dL Borderline >240 mg/dL High Risk Performed By: #### L 506.1000, L501.9985, L100.0100, L500.4050, L500.4100, L501.9520, L501.9910 #### [facility] [address] [place], [address] Cholesterol in HDL [Mass/Vol] 42 mg/dL Normal [facility] Comment on above: Result Comment: The drugs N-Acetylcysteine and Metamizole may falsely depress this assay. Reference Range HDL <40 mg/dL Low HDL Cholesterol HDL >or= 60 mg/dL High HDL Cholesterol Performed By: #### L 506.1000, L501.9985, L100.0100, L500.4050, L500.4100, L501.9520, L501.9910 #### [facility] [address] [place], [address] LDL TNP Normal 0-130 [facility] Comment on above: Performed By: #### L 506.1000, L501.9985, L100.0100, L500.4050, L500.4100, L501.9520, L501.9910 #### [facility] [address] [place], [address] Triglyceride [Mass/Vol] 687 mg/dL High [facility] Comment on above: Result Comment: The drugs N-Acetylcysteine and Metamizole may falsely depress this assay. TRIGLYCERIDE IS GREATER THAN 400 mg/dL. LDL RESULT IS INVALID AND WILL NOT BE REPORTED. Serum Triglycerides Reference Interval Normal <150 mg/dL Borderline high 150 - 199 mg/dL High 200 - 499 mg/dL Very High > or = 500 mg/dL Performed By: #### L 506.1000, L501.9985, L100.0100, L500.4050, L500.4100, L501.9520, L501.9910 #### [facility] [address] [place], [address] VLDL TNP Normal 5-40 [facility] Comment on above: Performed By: #### L 506.1000, L501.9985, L100.0100, L500.4050, L500.4100, L501.9520, L501.9910 #### [facility] [address] [place], [address] PSA,Total - Annual Screenon 03-15-2024 PSA,TOT SCREEN 0.23 ng/mL Normal 0.00-4.00 [facility] Comment on above: Result Comment: This test was performed using the TPSA assay method for the [employer] chemistry system. Values obtained with different assay methods cannot be used interchangably. When changing PSA assays in the course of monitoring a patient, additional sequential testing should be carried out to confirm baseline values. Performed By: #### L 506.1000, L501.9985, L100.0100, L500.4050, L500.4100, L501.9520, L501.9910 ####[facility] [address] [place], [address](234) Thyroid Stim Hormone (TSH)on 03-15-2024 TSH 3.580 uIU/mL Normal 0.358-3.74 0 [facility] Comment on above: Performed By: #### L 506.1000, L501.9985, L100.0100, L500.4050, L500.4100, L501.9520, L501.9910 ####[facility] [address] [place], [address] Vitamin D,25 Hydroxyon 03-15 Vitamin D 25-OH 33.0 ng/mL Normal [facility] Comment on above: Result Comment: Hood min D 25(OH) Status Range Deficiency <20 ng/mL (50nmol/L) Insufficiency 20 - 30 ng/mL (50 - 75 nmol/L) Sufficiency 30 - 100 ng/mL (75 - 250 nmol/L) Toxicity >100 ng/mL (>250 nmol/L) Performed By: #### L 506.1000, L501.9985, L100.0100, L500.4050, L500.4100, L501.9520, L501.9910 #### [facility] [address] [place], [place], [address] MR/Lawson 03-08-2024 /LESLIE [facility] [address] [place] [address] OFFICE VISIT Date of Service: 03/08/24 MR#: [id number] Acct: [id number] Name: DOC KUO Rep #: [id number] : 1975 Provider: Dr. Ambrosio malloy MD Age/Sex: 48/M Location: [facility] Status: Signed Intake Vital Signs 10/21/23 13:37 03/08/24 13:00 Height 5 ft 7 in 5 ft 7 in Weight: 170 lb 171 lb BMI 26.6 26.7 BP 125/87 H 135/85 H Blood Pressure Location Rt brachial Lt brachial Position Sitting Sitting Respiration 18 12 Pulse 94 68 Pulse Source Monitor Monitor Temp 97.3 F L 98.2 F Temp Source Temporal Temporal Pulse Oximetry (%) 96 97 Oxygen Delivery Method room air room air Intake Visit Reasons: Shortness of breath Chief Complaint: Shortness of breath Accompanied by: Self Is patient in pain?: No Allergies Seasonal Allergies: Uncoded (environmental) Allergy (Verified 03/08/24 12:56) Rash Medications ???Medication ???Instructions ???Recorded ???Confirmed ???Type cholecalciferol (vitamin D3) 10 10 mcg PO DAILY 10/11/20 03/08/24 History mcg (400 unit) capsule metoprolol tartrate 25 mg tablet 12.5 mg (1/2 x 25 mg) PO BID #90 02/17/23 03/08/24 Rx tabs lisinopril 10 mg tablet 10 mg PO BID #90 tabs 03/08/24 03/08/24 Rx PFSH Medical History kidney stone surgery Hyperlipidemia Kidney stones Hypertension Surgical History Aortic valve replaced Family History Father Cancer Social History Smoking Status: Never smoker alcohol intake: current alcohol intake frequency: holidays/special occasions only HPI HPI Chief Complaint: Shortness of breath Details: DOC KUO, is a 48 M who presents to the office today for an acute care follow-up visit. 48-year-old gentleman who has a history of tetralogy of Fallot. He is status post pulmonic valve replacement at [facility]. He has history of hypertension on lisinopril 10 mg p.o. twice daily and metoprolol 12-1/2 mg p.o. twice daily. He tolerates this well. Generally speaking he has been doing well. He recently was at a concert, was there basically most of the day, from 4 PM to about 11. When he was walking out of the venue, which was outdoors, he was walking up a fairly good grade he states and probably too fast at least according to his father. He got quite winded. It did not stop him from walking and he did not have chest pain or chest tightness per se but mostly the winded feeling. He notes when he is out golfing if he is overdoing it walking too fast he will get a little winded. However this was quite a bit more intense he felt. He did not feel like he had palpitations or fluttering in the chest, no chest pain or discomfort. When he got home, he still did not necessarily feel well all told although he was not necessarily overtly short of breath at that point. He slept all night, and much of the next day before he regained his full energy level he feels. He worked last week and did not have any significant difficulties during the week with such symptoms. He perhaps was not as active as usual. 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 Review of systems per chart. No chest pain, chest tightness. No history of blood clots. No pleuritic type of discomfort. No nausea or vomiting. Appetite has been good. No history of underlying CAD. He did have a remote stress at [facility] perioperatively which was exercise only stress test. EKG reportedly did not show any significant ischemic findings. I reviewed that information that the patient provided to me that was on MyChart as he was again previously with the [facility] and still has access. We have obtained echocardiogram in and showing no significant abnormalities. Physical exam. Vital signs on chart. PERRLA. Sclera are clear. TMs largely occluded by cerumen but normal. Itching, plugged feeling. Canals are unremarkable. Posterior pharynx is unremarkable. Good dentition. No cervical or supraclavicular lymph nodes enlarged or tender. No clear thyromegaly. No thyroid nodules readily palpable. Lungs are without wheeze, rhonchi, rales. No E/A changes are heard. Heart is regular. Not tachycardic. No clear murmur, rub, or gallop is identified. The abdomen is soft. Bowel sounds are present. Nontender nondistended abdomen. No clear palpable masses in the abdomen. No significant leg edema. ROS Const Constitutional: No body ache, chills, excessive sweating, fatigue, fever(s), frequent falls, headache(s), night sweats, snoring, weakness, weight change, sleep problems, abnormal sleep pattern or change in appetite Eyes (more content not included)... Normal [facility] Basophil percentageOrdered B y: Ambrosio Astrid on 07-18-2023 Chloride [Moles/Vol] 105 mmol/L 98-107 [facility] Cholesterol [Mass/Vol] 250 mg/dL <200 [facility] Comment on above: <200 mg/dL Desirable 200-240 mg/dL Borderline >240 mg/dL High Risk Glucose [Mass/Vol] 176 mg/dL 74-106 [facility] Comment on above: Fasting Glucose resu lt greater than or equal to 126 mg/dL suggests DIABETES MELLITUS per A.D.A. criteria. Potassium [Moles/Vol] 4.2 mmol/L 3.5-5.1 [facility] Sodium [Moles/Vol] 139 mmol/L 136-145 [facility] Triglyceride [Mass/Vol] 476 mg/dL <199 [facility] Comment on above: The drugs N-Acetylcy steine and Metamizole may falsely depress this assay. TRIGLYCERIDE IS GREATER THAN 400 mg/dL. LDL RESULT IS INVALID AND WILL NOT BE REPORTED.Serum Triglycerides Reference Interval Normal <150 mg/dL Borderline high 150 - 199 mg/dL High 200 - 499 mg/dL Very High > or = 500 mg/dL Laboratory - Chemistry and C hemistry - challengeOrdered By: Ambrosio Resendiz on 07-18-2023 CO2 [Moles/Vol] 29.0 mmol/L 21.0-32.0 [facility] Urea nitrogen/Creatinine [Mass ratio] 13.2 mg/mg 10-20 [facility] No Panel InformationOrdered By: Ambrosio Resendiz on 07-18-2023 Estimated GFR (MDRD) Amer 83 mL/min >60 [facility] Comment on above: GFR Calc Estimated GFR (MDRD) Non-Af Amer 68 mL/min >60 [facility] Comment on above: Non- GFR Calc Serum or plasma calcium ivette urement (mass/volume)Ordered By: Ambrosio Resendiz on 07-18-2023 Calcium [Mass/Vol] 8.5 mg/dL 8.5-10.1 [facility] Serum or plasma cholesterol in HDL measurement (mass/volume)Ordered By: Ambrosio Resendiz on 07-18-2023 Cholesterol in HDL [Mass/Vol] 44 mg/dL >40 [facility] Comment on above: The drugs N-Acetylcy steine and Metamizole may falsely depress this assay. Reference Range HDL <40 mg/dL Low HDL Cholesterol HDL >or= 60 mg/dL High HDL Cholesterol Serum or plasma cholesterol in VLDL measurement (mass/volume)Ordered By: Ambrosio Resendiz on 07-18-2023 Cholesterol in VLDL [Mass/Vol] [facility] Comment on above: Test not performed Serum or plasma creatinine m easurement (mass/volume)Ordered By: Ambrosio Resendiz on 07-18-2023 Creatinine [Mass/Vol] 1.21 mg/dL 0.70-1.30 [facility] Comment on above: The validity of the calculated GFR & GFRAA in patients over 70 years has not been determined. Clinical correlation is essential. Serum or plasma low density lipoprotein (LDL) cholesterol measurement (mass/volume)Ordered By: Ambrosio Resendiz on 07-18-2023 Cholesterol in LDL [Mass/Vol] [facility] Comment on above: Test not performed Serum or plasma urea nitroge n measurement (mass/volume)Ordered By: Ambrosio Resendiz on 07-18-2023 Urea nitrogen [Mass/Vol] 16 mg/dL 7-18 [facility] Thin prep Papanicolaou smear with manual screeningOrdered By: Ambrosio Resendiz on 07-18-2023 Thin prep Papanicolaou smear with manual screening 5 5-15 [facility] Whole blood hemoglobin A1c/t otal hemoglobin ratio (mass fraction)Ordered By: Ambrosio Resendiz on 07-18-2023 HbA1c (Bld) [Mass fraction] 7.6 % 3.8-5.6 [facility] Comment on above: Normal < 5.7 % Predi abetic 5.7 - 6.4 % Diabetic >or= 6.5 % Please note range changes. Absolute lymphocyte countOrd ered By: Ambrosio Resendiz on 03-06-2023 Lymphocytes Auto (Unsp spec) [#/Vol] 1.11 10*3/uL 0.83-4.51 [facility] Basophil percentageOrdered B y: Ambrosio Resendiz on 03-06-2023 Basophils/100 WBC (Bld) 1.2 % 0-1 [facility] Bilirubin [Mass/Vol] 1.80 mg/dL 0.20-1.00 [facility] Comment on above: For patients on eltr ombopag therapy, use of Dimension [place] TBIL is not recommended. Chloride [Moles/Vol] 106 mmol/L 98-107 [facility] Cholesterol [Mass/Vol] 284 mg/dL <200 [facility] Comment on above: <200 mg/dL Desirable 200-240 mg/dL Borderline >240 mg/dL High Risk Eosinophils/100 WBC (Bld) 5.8 % 0-5 [facility] Glucose [Mass/Vol] 190 mg/dL 74-106 [facility] Comment on above: Fasting Glucose resu lt greater than or equal to 126 mg/dL suggests DIABETES MELLITUS per A.D.A. criteria. Neutrophils (Bld) [#/Vol] 3.3 10*3/uL 2.0-7.7 [facility] Neutrophils/100 WBC (Bld) 63.8 % 47-70 [facility] Potassium [Moles/Vol] 4.2 mmol/L 3.5-5.1 [facility] Protein [Mass/Vol] 7.1 g/dL 6.4-8.2 [facility] Sodium [Moles/Vol] 137 mmol/L 136-145 [facility] Triglyceride [Mass/Vol] 770 mg/dL <199 [facility] Comment on above: The drugs N-Acetylcy steine and Metamizole may falsely depress this assay. TRIGLYCERIDE IS GREATER THAN 400 mg/dL. LDL RESULT IS INVALID AND WILL NOT BE REPORTED.Serum Triglycerides Reference Interval Normal <150 mg/dL Borderline high 150 - 199 mg/dL High 200 - 499 mg/dL Very High > or = 500 mg/dL WBC (Bld) [#/Vol] 5.2 10*3/uL 4.4-11.0 [facility] Blood erythrocytes count (nu mber/volume)Ordered By: Ambrosio Resendiz on 03-06-2023 RBC (Bld) [#/Vol] 4.59 10*6/uL 4.6-6.2 [facility] Blood hemoglobin measurement (mass/volume)Ordered By: Ambrosio Resendiz on 03-06-2023 Hemoglobin (Bld) [Mass/Vol] 14.6 g/dL 13.0-16.5 [facility] Blood lymphocytes/100 leukoc ytesOrdered By: Ambrosio Resendiz on 03-06-2023 Lymphocytes/100 WBC (Bld) 21.6 % 19-41 [facility] Blood monocytes/100 leukocyt esOrdered By: Ambrosio Resendiz on 03-06-2023 Monocytes/100 WBC (Bld) 7.2 % 0-10 [facility] Blood platelet mean volumeOr dered By: Ambrosio Resendiz on 03-06-2023 Platelet mean volume (Bld) [Entitic vol] 11.9 fL 6.2-12.0 [facility] Determination of erythrocyte mean corpuscular volume (MCV)Ordered By: Ambrosio Resendiz on 03-06-2023 MCV (RBC) [Entitic vol] 93.2 fL 80-94 [facility] Hematocrit Auto (Bld) [Volum e fraction]Ordered By: Ambrosio Resendiz on 03-06-2023 Hematocrit (Bld) [Volume fraction] 42.8 % 40-54 [facility] Laboratory - Chemistry and C hemistry - challengeOrdered By: Ambrosiohernandez Resendiz on 03-06-2023 ALP [Catalytic activity/Vol] 92 U/L 45-117 [facility] ALT [Catalytic activity/Vol] 45 U/L 16-61 [facility] CO2 [Moles/Vol] 25.0 mmol/L 21.0-32.0 [facility] Globulin (S) [Mass/Vol] 3.5 g/dL 2.2-4.2 [facility] Urea nitrogen/Creatinine [Mass ratio] 13.1 mg/mg 10-20 [facility] Laboratory - Hematology and Cell countsOrdered By: Ambrosio Resendiz on 03-06-2023 Erythrocyte distribution width (RBC) [Entitic vol] 39.5 fL 35.1-43.9 [facility] Erythrocyte distribution width (RBC) [Ratio] 11.8 % 11.6-14.6 [facility] Immature granulocytes/100 WBC (Bld) 0.400 % 0.0-0.9 [facility] Comment on above: IG% - Immature Granu locytes (promyelocytes, myelocytes and metamyelocytes) > 1% indicates that a LEFT SHIFT is Present. MCH (RBC) [Entitic mass] 31.8 pg 27.0-32.0 [facility] Nucleated RBC/100 WBC (Bld) [Ratio] 0 % 0-5 [facility] MCHC Auto (RBC) [Mass/Vol]Or dered By: Ambrosio Resendiz on 03-06-2023 MCHC (RBC) [Mass/Vol] 34.1 g/dL 32-36 [facility] No Panel InformationOrdered By: Ambrosio Resendiz on 03-06-2023 Estimated GFR (MDRD) Amer 82 mL/min >60 [facility] Comment on above: GFR Calc Estimated GFR (MDRD) Non-Af Amer 68 mL/min >60 [facility] Comment on above: Non- GFR Calc Prostate Specific Antigen Screen 0.24 ng/mL 0.00-4.00 [facility] Comment on above: This test was perfor med using the TPSA assay method for the[employer] chemistry system. Values obtained with differentassay methods cannot be used interchangably.When changing PSA assays in the course of monitoring apatient, additional sequential testing should be carriedout to confirm baseline values. Thyroid Stimulating Hormone (TSH) 3.31 uIU/mL 0.358-3.74 [facility] Vitamin D 25-Hydroxy 30.3 ng/mL [facility] Comment on above: Vitamin D 25(OH) Sta tus Range Deficiency <20 ng/mL (50nmol/L) Insufficiency 20 - 30 ng/mL (50 - 75 nmol/L) Sufficiency 30 - 100 ng/mL (75 - 250 nmol/L) Toxicity >100 ng/mL (>250 nmol/L) Platelets bldOrdered By: Lian Resendiz on 03-06-2023 Platelets (Bld) [#/Vol] 148 10*3/uL 150-450 [facility] Serum or plasma albumin ivette urement (mass/volume)Ordered By: Ambrosio Resendiz on 03-06-2023 Albumin [Mass/Vol] 3.6 g/dL 3.2-5.0 [facility] Serum or plasma albumin/glob ulin mass ratioOrdered By: Ambrosio Resendiz on 03-06-2023 Albumin/Globulin [Mass ratio] 1.0 {ratio} 0.9-2.4 [facility] Serum or plasma calcium ivette urement (mass/volume)Ordered By: Ambrosio Resendiz on 03-06-2023 Calcium [Mass/Vol] 8.3 mg/dL 8.5-10.1 [facility] Serum or plasma cholesterol in HDL measurement (mass/volume)Ordered By: Ambrosio Resendiz on 03-06-2023 Cholesterol in HDL [Mass/Vol] 41 mg/dL >40 [facility] Comment on above: The drugs N-Acetylcy steine and Metamizole may falsely depress this assay. Reference Range HDL <40 mg/dL Low HDL Cholesterol HDL >or= 60 mg/dL High HDL Cholesterol Serum or plasma cholesterol in VLDL measurement (mass/volume)Ordered By: Ambrosio Resendiz on 03-06-2023 Cholesterol in VLDL [Mass/Vol] [facility] Comment on above: Test not performed Serum or plasma creatinine m easurement (mass/volume)Ordered By: Ambrosio Resendiz on 03-06-2023 Creatinine [Mass/Vol] 1.22 mg/dL 0.70-1.30 [facility] Comment on above: The validity of the calculated GFR & GFRAA in patients over 70 years has not been determined. Clinical correlation is essential. Serum or plasma low density lipoprotein (LDL) cholesterol measurement (mass/volume)Ordered By: Ambrosio Resendiz on 03-06-2023 Cholesterol in LDL [Mass/Vol] [facility] Comment on above: Test not performed Serum or plasma urea nitroge n measurement (mass/volume)Ordered By: Ambrosio Resendiz on 03-06-2023 Urea nitrogen [Mass/Vol] 16 mg/dL 7-18 [facility] Thin prep Papanicolaou smear with manual screeningOrdered By: Ambrosio Resendiz on 03-06-2023 Thin prep Papanicolaou smear with manual screening 21 U/L 1537 [facility] Thin prep Papanicolaou smear with manual screening 6 5-15 [facility] Whole blood hemoglobin A1c/t otal hemoglobin ratio (mass fraction)Ordered By: Ambrosio Resendiz on 03-06-2023 HbA1c (Bld) [Mass fraction] 8.1 % 3.8-5.6 [facility] Comment on above: Normal < 5.7 % Predi abetic 5.7 - 6.4 % Diabetic >or= 6.5 % Please note range changes. Influenza virus A and B and SARS-CoV-2 (COVID-19) Ag panel - Upper respiratory specimOrdered By: Maame Azul on 09-21-2022 SARS-CoV-2 (COVID-19) RNA AUREA+probe Ql (Resp) [facility] Laboratory - Hematology and Cell countson 08-12-2022 HbA1c (Bld) [Mass fraction] 7.9 % 4.2-6.3 [facility] Calculi Analysis(Stone)on Calculi Composition See Note Normal [facility] Comment on above: Result Comment: Calc solitario composed primarily of: 60% calcium oxalate monohydrate, 20% calcium oxalate dihydrate, and 20% calcium phosphate (hydroxy- and carbonate- apatite). INTERPRETIVE INFORMATION: Calculi (Stone) analysis Calculi are the products of physiological processes that yield crystalline compounds in a matrix of biological compounds and blood. Matrix components are not reported. The clinically significant crystalline components identified in calculi specimens are reported. Gross description may not be consistent with composition determined by FTIR analysis. Performed by [facility], [address] [place] [id number] [email or web address] Shaka Gagnon MD, Lab. Director Performed By: #### H LINETTE [id number] #### [address] [place] [address] [place], [place] Calculi Description See Note Normal [facility] Comment on above: Result Comment: Spec imen consists of a single, medium, brown/whitehead, irregular calculus. Performed By: #### H LINETTE BMP3M #### [facility] [address] [place], [place] Calculi Mass 51 mg Normal [facility] Comment on above: Performed By: #### H LINETTE BMP3M #### [address] Calculi Number 1 Normal [facility] Comment on above: Performed By: #### H LINETTE BMP3M #### [facility] [address] [place], [place] Calculi Size 5 to 9 Normal [facility] Comment on above: Performed By: #### PILI MCNEILL3Cecil #### [address] [address] [address] [place], [place] Basic Metabolic Panelon 08-22 Calcium [Mass/Vol] 8.7 mg/dL Normal 8.4-10.4 [facility] Comment on above: Performed By: #### Janneth SUE BMP3M #### [address] [address] [place] [place], [place] Glucose [Mass/Vol] 232 mg/dL High 70-100 [facility] Comment on above: Performed By: #### Janneth SUE BMP3M #### [address] [address] [place] [place], [place] Anion gap [Moles/Vol] 9 Normal [facility] Comment on above: Performed By: #### Janneth SUE BMP3M #### [address] [place] [address] [place] [place], [place] CO2 [Moles/Vol] 21 mmol/L Low 22-30 [facility] Comment on above: Performed By: #### PILI MCNEILL3Cecil #### [address] [address] [place] [place], [place] Creatinine [Mass/Vol] 1.19 mg/dL Normal 0.52-1.25 [facility] Comment on above: Performed By: #### Janneth SUE BMP3M #### [address] [address] [place], [place] GFR/1.73 sq M predicted among blacks MDRD (S/P/Bld) [Vol rate/Area] mL/min/{1.73_m2} Normal >60 [facility] Comment on above: Performed By: #### Janneth SUE BMP3M #### [address] [address] [place] [place], [place] GFR/1.73 sq M predicted among non-blacks MDRD (S/P/Bld) [Vol rate/Area] mL/min/{1.73_m2} Normal >60 [facility] Comment on above: Result Comment: Sour ce- MDRD equation with creatinine calibration to IDMS(NKDEP) eGFR not recommended for drug dose adjustment Performed By: #### BRONWYN MCNEILL #### [facility] [address] [place], [place] Urea nitrogen [Mass/Vol] 20 mg/dL Normal 7-20 [facility] Comment on above: Performed By: #### BRONWYN MCNEILL #### [facility] [address] [place], [place] Chloride [Moles/Vol] 112 mmol/L High 98-107 [facility] Comment on above: Performed By: #### BRONWYN MCNEILL #### [facility] [address] [place], [place] Potassium [Moles/Vol] 4.4 mmol/L Normal 3.5-5.1 [facility] Comment on above: Performed By: #### BRONWYN MCNEILL #### [facility] [address] [place], [place] Sodium [Moles/Vol] 142 mmol/L Normal 135-145 [facility] Comment on above: Performed By: #### BRONWYN MCNEILL #### [facility] [address] [place], [place] Basic Metabolic Panel w/ Ref maddie to MGon 09-11-2019 Anion gap [Moles/Vol] 9 mmol/L [place], [place] Calcium [Mass/Vol] 8.7 mg/dL 8.4 - 10. 4 mg/dL [place], [place] Chloride [Moles/Vol] 112 mmol/L High 98 - 10 7 mmol/L [place] CO2 [Moles/Vol] 21 mmol/L Low 22 - 30 mmol/L [place] Creatinine [Mass/Vol] 1.19 mg/dL 0.52 - 1.25 mg/dL [place] EGFR IF NonAfrican [place]z >60.0 >60 mL/min [place] Comment on above: Source- MDRD equatio n with creatinine calibration to IDMS(NKDEP) eGFR not recommended for drug dose adjustment GFR/1.73 sq M predicted among blacks MDRD (S/P/Bld) [Vol rate/Area] mL/min/{1.73_m2} >60 mL/min [place] Glucose [Mass/Vol] 232 mg/dL High 70 - 100 mg/dL [place] Interpretation and review of laboratory results Abnormal [place] Potassium [Moles/Vol] 4.4 mmol/L 3.5 - 5.1 mmol/L [place] Sodium [Moles/Vol] 142 mmol/L 135 - 145 mmol/L [place] Urea nitrogen [Mass/Vol] 20 mg/dL 7 - 20 mg/dL [place] Test Performed by [address] [address] [place], [place] CBCon 09-11-2019 Erythrocyte distribution width (RBC) [Ratio] 12.4 % 11.5 - 14.5 % [place] Hematocrit (Bld) [Volume fraction] 38.0 % Low 40 - 52 % [place] Hemoglobin (Bld) [Mass/Vol] 13.0 g/dL 13 - 18 g/dL [place] Interpretation and review of laboratory results Abnormal [place] MCH (RBC) [Entitic mass] 32.1 pg 26 - 34 pg [place] MCHC (RBC) [Mass/Vol] 34.3 % 32 - 36 % [place], [place] MCV (RBC) [Entitic vol] 93.6 fL 80 - 98 fL [place] Platelet mean volume (Bld) [Entitic vol] 10.8 fL High 7.4 - 10.4 fL [place] Platelets (Bld) [#/Vol] 131 10*3/uL Low 140 - 440 10*3/uL [place] RBC (Bld) [#/Vol] 4.06 10*6/uL Low 4.4 - 5.9 10*6/uL [place] WBC (Bld) [#/Vol] 8.0 10*3/uL 3.6 - 10.7 10*3/uL [place] Test Performed by [facility], [address] [place], [place], [place] Hemogramon 09-11-2019 Erythrocyte distribution width (RBC) [Ratio] 12.4 % Normal 11.5-14.5 [facility] Comment on above: Performed By: #### Janneth SUE BMP3M #### [address] [address] [place], [place] Hematocrit (Bld) [Volume fraction] 38.0 % Low 40.0-52.0 [facility] Comment on above: Performed By: #### Janneth SUE BMP3M #### [address] [address] [place], [place] Hemoglobin (Bld) [Mass/Vol] 13.0 g/dL Normal 13.0-18.0 [facility] Comment on above: Performed By: #### Janneth SUE BMP3M #### [address] [address] [place], [place] MCH (RBC) [Entitic mass] 32.1 pg Normal 26.0-34.0 [facility] Comment on above: Performed By: #### Janneth SUE BMP3M #### [address] MCHC (RBC) [Mass/Vol] 34.3 % Normal 32.0-36.0 [facility] Comment on above: Performed By: #### Janneth SUE BMP3M #### [address] [place] [address] [place], [place] MCV (RBC) [Entitic vol] 93.6 fL Normal 80.0-98.0 [facility] Comment on above: Performed By: #### Janneth SUE BMP3M #### [address] Platelet mean volume (Bld) [Entitic vol] 10.8 fL High 7.4-10.4 [facility] Comment on above: Performed By: #### Janneth SUE BMP3M #### [address] [place], [place] Platelets (Bld) [#/Vol] 131 10*3/uL Low 140-440 [facility] Comment on above: Performed By: #### Janneth SUE BMP3M #### [facility] [address] [place], [place] RBC (Bld) [#/Vol] 4.06 10*6/uL Low 4.40-5.90 [facility] Comment on above: Performed By: #### H LINETTE BMP3M #### [address] [address] [place], [place] WBC (Bld) [#/Vol] 8.0 10*3/uL Normal 3.6-10.7 [facility] Comment on above: Performed By: #### Janneth SUE BMP3M #### [address] [address] [place], [place] Basic Metabolic Panelon 02-2 Calcium [Mass/Vol] 8.1 mg/dL Low 8.4-10.4 [facility] Comment on above: Performed By: #### Janneth SUE BMP3M #### [address] [address] [place], [place] Anion gap [Moles/Vol] 9 Normal [facility] Comment on above: Performed By: #### Janneth SUE BMP3M #### [address] [address] [place], [place] CO2 [Moles/Vol] 21 mmol/L Low 22-30 [facility] Comment on above: Performed By: #### Janneth SUE BMP3M #### [address] [address] [place], [place] Creatinine [Mass/Vol] 1.46 mg/dL High 0.52-1.25 [facility] Comment on above: Performed By: #### H LINETTE BMP3M #### [address] [place] [address] [place], [place] GFR/1.73 sq M predicted among blacks MDRD (S/P/Bld) [Vol rate/Area] mL/min/{1.73_m2} Normal >60 [facility] Comment on above: Performed By: #### Janneth SUE BMP3M #### [facility] [address] [place], [place] GFR/1.73 sq M predicted among non-blacks MDRD (S/P/Bld) [Vol rate/Area] 52.7 mL/min/{1.73_m2} Normal >60 [facility] Comment on above: Result Comment: Sour ce- MDRD equation with creatinine calibration to IDMS(NKDEP) eGFR not recommended for drug dose adjustment Performed By: #### Janneth SUE BMP3M #### [facility] [address] [place], [place] Glucose [Mass/Vol] 120 mg/dL High 70-100 [facility] Comment on above: Performed By: #### Janneth SUE BMP3M #### [address] [address] [place], [place] Urea nitrogen [Mass/Vol] 20 mg/dL Normal 7-20 [facility] Comment on above: Performed By: #### Janneth SUE BMP3M #### [address] [place] [address] [place], [place] Chloride [Moles/Vol] 113 mmol/L High 98-107 [facility] Comment on above: Performed By: #### Janneth SUE BMP3M #### [facility] [address] [place], [place] Potassium [Moles/Vol] 4.2 mmol/L Normal 3.5-5.1 [facility] Comment on above: Performed By: #### Janneth SUE BMP3M #### [facility] [address] [place], [place] Sodium [Moles/Vol] 142 mmol/L Normal 135-145 [facility] Comment on above: Performed By: #### Janneth SUE BMP3M #### [facility] [address] [place], [place] Basic Metabolic Panel w/ Ref maddie to MGon 09-10-2019 Anion gap [Moles/Vol] 9 mmol/L [place] Calcium [Mass/Vol] 8.1 mg/dL Low 8.4 - 10. 4 mg/dL [place] Chloride [Moles/Vol] 113 mmol/L High 98 - 10 7 mmol/L [place] CO2 [Moles/Vol] 21 mmol/L Low 22 - 30 mmol/L [place] Creatinine [Mass/Vol] 1.46 mg/dL High 0.52 - 1.25 mg/dL [place] EGFR IF NonAfrican [place] 52.7 mL/min >60 [place] Comment on above: Source- MDRD equatio n with creatinine calibration to IDMS(NKDEP) eGFR not recommended for drug dose adjustment GFR/1.73 sq M predicted among blacks MDRD (S/P/Bld) [Vol rate/Area] mL/min/{1.73_m2} >60 mL/min [place] Glucose [Mass/Vol] 120 mg/dL High 70 - 100 mg/dL [place] Interpretation and review of laboratory results Abnormal [place] Potassium [Moles/Vol] 4.2 mmol/L 3.5 - 5.1 mmol/L [place] Sodium [Moles/Vol] 142 mmol/L 135 - 145 mmol/L [place] Urea nitrogen [Mass/Vol] 20 mg/dL 7 - 20 mg/dL [place] Test Performed by [facility], [address] [place] [id number] [place] CBCon 09-10-2019 Erythrocyte distribution width (RBC) [Ratio] 12.6 % 11.5 - 14.5 % [place] Hematocrit (Bld) [Volume fraction] 36.4 % Low 40 - 52 % [place] Hemoglobin (Bld) [Mass/Vol] 12.1 g/dL Low 13 - 18 g/dL [place] Interpretation and review of laboratory results Abnormal [place] MCH (RBC) [Entitic mass] 31.7 pg 26 - 34 pg [place] MCHC (RBC) [Mass/Vol] 33.3 % 32 - 36 % [place] MCV (RBC) [Entitic vol] 95.1 fL 80 - 98 fL [place] Platelet mean volume (Bld) [Entitic vol] 10.7 fL High 7.4 - 10.4 fL [place] Platelets (Bld) [#/Vol] 111 10*3/uL Low 140 - 440 10*3/uL [place] RBC (Bld) [#/Vol] 3.83 10*6/uL Low 4.4 - 5.9 10*6/uL [place] WBC (Bld) [#/Vol] 8.2 10*3/uL 3.6 - 10.7 10*3/uL [place] Test Performed by [facility], [address] [place] [id number] [place] CR Urography Retrograde w/ + w/o KUBon 09-10-2019 CR Urography Retrograde w/ + w/o KUB Patient Name: DOC KUO Diagnostic Radiology Exam Date/Time 09/10/2019 07:00:16 EST Exam CR Urography Retrograde w/ + w/o KUB Ordering Physician MD FERMÍN, ANTONIETTA Wilson Accession Number [id number] CPT4 Codes 07011 () Reason For Exam kidney stone fluro rm 17 c and p Report A total of 0.8 minutes of fluoro time was used in the Operating Suite for this procedure. No other report will be generated. Final Signed Date and Time: 10/19/2019 10:43 am Signed by: RACETRACK STEWARD, SYSTEM Transcribed Date and Time: 10/19/2019 8:55 Transcribed By:YONATAN Normal [facility] CULTURE URINEon 09-10-2019 CULTURE URINE CULTURE URINE --> St atus: F Normal urogenital jun present. Normal [facility] Comment on above: Order Comment: Speci men Source Comment:Urine, clean catch Performed By: #### H PILI SUE3M #### [address] [address] Culture, Urineon 09-10-2019 Bacteria identified Cx Nom (U) Normal urogenital jun present. [place], [place] Test Performed by [facility], [address] [place] [address] Specimen Source Comment:Urine, clean catch [facility]2019 Erythrocyte distribution width (RBC) [Ratio] 12.6 % Normal 11.5-14.5 [facility] Comment on above: Performed By: #### Janneth SUE BMP3M #### [address] [address] [address] [place], [place] Hematocrit (Bld) [Volume fraction] 36.4 % Low 40.0-52.0 [facility] Comment on above: Performed By: #### Janneth SUE BMP3M #### [address] Hemoglobin (Bld) [Mass/Vol] 12.1 g/dL Low 13.0-18.0 [facility] Comment on above: Performed By: #### Janneth SUE BMP3M #### [address] [address] [place], [place] MCH (RBC) [Entitic mass] 31.7 pg Normal 26.0-34.0 [facility] Comment on above: Performed By: #### H LINETTE BMP3M #### [address] [address] [address] [place], [place] MCHC (RBC) [Mass/Vol] 33.3 % Normal 32.0-36.0 [facility] Comment on above: Performed By: #### H LINETTE BMP3M #### [address] [address] [address] [place], [place] MCV (RBC) [Entitic vol] 95.1 fL Normal 80.0-98.0 [facility] Comment on above: Performed By: #### H LINETTE BMP3M #### [address] [address] [place], [place] Platelet mean volume (Bld) [Entitic vol] 10.7 fL High 7.4-10.4 [facility] Comment on above: Performed By: #### H LINETTE BMP3M #### [facility] [address] [place], [place] Platelets (Bld) [#/Vol] 111 10*3/uL Low 140-440 [facility] Comment on above: Performed By: #### H LINETTE BMP3M #### [facility] [address] [place], [place] RBC (Bld) [#/Vol] 3.83 10*6/uL Low 4.40-5.90 [facility] Comment on above: Performed By: #### H LINETTE BMP3M #### [facility] [address] [place], [place] WBC (Bld) [#/Vol] 8.2 10*3/uL Normal 3.6-10.7 [facility] Comment on above: Performed By: #### H LINETTE BMP3M #### [facility] [address] [place], [place] Basic Metabolic Panelon 02-2 0-2020 Anion gap [Moles/Vol] 8 Normal [facility] Comment on above: Performed By: #### H LINETTE BMP3M #### [facility] [address] [place], [place] Calcium [Mass/Vol] 8.0 mg/dL Low 8.4-10.4 [facility] Comment on above: Performed By: #### H LINETTE BMP3M #### [facility] [address] [place], [place] CO2 [Moles/Vol] 21 mmol/L Low 22-30 [facility] Comment on above: Performed By: #### H LINETTE BMP3M #### [facility] [address] [place], [place] Glucose [Mass/Vol] 167 mg/dL High 70-100 [facility] Comment on above: Performed By: #### H LINETTE BMP3M #### [facility] [address] [place], [place] Urea nitrogen [Mass/Vol] 32 mg/dL High 7-20 [facility] Comment on above: Performed By: #### PILI MCNEILL3M #### [facility] [address] [place], [place] Creatinine [Mass/Vol] 2.37 mg/dL High 0.52-1.25 [facility] Comment on above: Performed By: #### Janneth SUE BMP3M #### [address] [address] [address] [place], [place] GFR/1.73 sq M predicted among blacks MDRD (S/P/Bld) [Vol rate/Area] 36.5 mL/min/{1.73_m2} Normal >60 [facility] Comment on above: Performed By: #### PILI MCNEILL3M #### [address] [address] [address] [place], [place] GFR/1.73 sq M predicted among non-blacks MDRD (S/P/Bld) [Vol rate/Area] 30.2 mL/min/{1.73_m2} Normal >60 [facility] Comment on above: Result Comment: Sour ce- MDRD equation with creatinine calibration to IDMS(NKDEP) eGFR not recommended for drug dose adjustment Performed By: #### PILI MCNEILL3Cecil #### [address] [address] [address] [place], [place] Potassium [Moles/Vol] 4.3 mmol/L Normal 3.5-5.1 [facility] Comment on above: Performed By: #### Janneth SUE BMP3Cecil #### [address] [place] [address] [address] [place], [place] Sodium [Moles/Vol] 137 mmol/L Normal 135-145 [facility] Comment on above: Performed By: #### PILI MCNEILL3M #### [address] [address] [address] [place], [place] Chloride [Moles/Vol] 108 mmol/L High 98-107 [facility] Comment on above: Performed By: #### Janneth SUE BMP3M #### [address] [address] [address] [place], [place] Basic Metabolic Panel w/ Ref maddie to MGon 09-09-2019 Anion gap [Moles/Vol] 8 mmol/L [place], [place] Calcium [Mass/Vol] 8.0 mg/dL Low 8.4 - 10. 4 mg/dL [place], [place] Chloride [Moles/Vol] 108 mmol/L High 98 - 10 7 mmol/L [place] CO2 [Moles/Vol] 21 mmol/L Low 22 - 30 mmol/L [place] Creatinine [Mass/Vol] 2.37 mg/dL High 0.52 - 1.25 mg/dL [place] EGFR IF NonAfrican Kyr[place]z 30.2 mL/min >60 [place] Comment on above: Source- MDRD equatio n with creatinine calibration to IDMS(NKDEP) eGFR not recommended for drug dose adjustment GFR/1.73 sq M predicted among blacks MDRD (S/P/Bld) [Vol rate/Area] 36.5 mL/min/{1.73_m2} >60 [place] Glucose [Mass/Vol] 167 mg/dL High 70 - 100 mg/dL [place] Interpretation and review of laboratory results Abnormal [place] Potassium [Moles/Vol] 4.3 mmol/L 3.5 - 5.1 mmol/L [place] Sodium [Moles/Vol] 137 mmol/L 135 - 145 mmol/L [place] Urea nitrogen [Mass/Vol] 32 mg/dL High 7 - 20 mg/dL [place] Test Performed by [address] [address] [place], [place] CBCon 09-09-2019 Erythrocyte distribution width (RBC) [Ratio] 12.2 % 11.5 - 14.5 % [place] Hematocrit (Bld) [Volume fraction] 36.0 % Low 40 - 52 % [place] Hemoglobin (Bld) [Mass/Vol] 12.2 g/dL Low 13 - 18 g/dL [place] Interpretation and review of laboratory results Abnormal [place] MCH (RBC) [Entitic mass] 31.9 pg 26 - 34 pg [place] MCHC (RBC) [Mass/Vol] 33.8 % 32 - 36 % [place] MCV (RBC) [Entitic vol] 94.4 fL 80 - 98 fL [place] Platelet mean volume (Bld) [Entitic vol] 10.8 fL High 7.4 - 10.4 fL [place] Platelets (Bld) [#/Vol] 126 10*3/uL Low 140 - 440 10*3/uL [place] RBC (Bld) [#/Vol] 3.81 10*6/uL Low 4.4 - 5.9 10*6/uL [place] WBC (Bld) [#/Vol] 15.9 10*3/uL High 3.6 - 10.7 10*3/uL [place] Test Performed by [facility], [address] [place] [id number] [place] [address] CR Abdomen APon 09-09-2019 CR Abdomen AP Patient Name: DOC KUO Diagnostic Radiology Exam Date/Time 09/09/2019 10:57:55 EST Exam CR Abdomen AP Ordering Physician MD DOLLY, MAYTE JAIN Accession Number [id number] CPT4 Codes 21031 () Reason For Exam right ureteral calculus Report CLINICAL INFORMATION: Kidney stones Sonogram of the kidneys and bladder is performed. The right renal cortical echogenicity is within normal limits. There are no masses that distort the right renal contour. Moderate hydronephrosis with shadow from calculus in right UVJ region seen. There are no perinephric fluid collections. The urinary bladder is within normal limits. IMPRESSION: ULTRASOUND RETROPERITONEAL LIMITED 1. Right hydronephrosis and hydroureter with 7.3 mm calculus in the region of the right UVJ and questionable additional small renal calculi 2. Renal size: Right: 13.5 x 7.1 x 8.7 cm. Left: Congenitally absent per patient Two anterior views the abdomen are performed. IMPRESSION: ABDOMEN X-RAY 1. Appears to be residual contrast in right renal collecting system (limited visualization due to dilatation of bowel with moderate stool in colon) and dilated right ureter. 2. A tubular structure seen along the left side of the abdomen which could represent contrast in a dilated left ureter or calcific density material in dilated left ureter (this could be further evaluated with CT if not already performed). 3. Prior chest surgery, degenerative changes spine with mild levoscoliosis, several calcifications in the pelvis which could represent bladder calculi or calcified phleboliths with apparent contrast in urinary bladder Report Dictated on Final Dictated: 09/09/2019 1:12 pm Dictating Physician: MD WHITE WILLIAM Signed Date and Time: 09/09/2019 1:23 pm Signed by: MD WHITE WILLIAM Transcribed Date and Time: 09/09/2019 1:12 Normal [facility] CREATININE, RANDOM URINEon 0 09-09-2019 Creatinine (U) [Mass/Vol] 73.6 mg/dL No Range [facility] [place], [place] Complete Urinalysison 2019 Appearance (U) Turbid Normal Clear [facility] Comment on above: Performed By: #### C UA2 #### [address] Bacteria LM.HPF (Urine sed) [#/Area] Moderate Normal Negative [facility] Comment on above: Performed By: #### C UA2 #### [address] Bilirubin,Urine Negative Normal Negative [facility] Comment on above: Performed By: #### C UA2 #### [address] [address] [place], [place] Cast, Hyaline Negative Normal Negative [facility] Comment on above: Performed By: #### C UA2 #### [address] Color (U) Yellow Normal Lt. Yellow [facility] Comment on above: Performed By: #### C UA2 #### [address] Glucose Ql (U) Normal Normal Normal (<70) [facility] Comment on above: Performed By: #### C UA2 #### [address] [address] [address] [place], [place] Ketone,Urine Negative Normal Negative [facility] Comment on above: Performed By: #### C UA2 #### [address] [address] [address] [place], [place] Leukocytes,Urine 500 Stephen/uL Normal Negative [facility] Comment on above: Performed By: #### C UA2 #### [address] [address] [place], [place] Nitrites,Urine Positive Normal Negative [facility] Comment on above: Performed By: #### C UA2 #### [address] [address] [place], [place] Occult Blood,Urine 0.2 mg/dL Normal Negative [facility] Comment on above: Performed By: #### C UA2 #### [address] [address] [place], [place] pH (U) 8.0 Normal 5.0-8.0 [facility] Comment on above: Performed By: #### C UA2 #### [address] [address] [place], [place] Protein (U) [Mass/Vol] 30 mg/dL Normal Negative [facility] Comment on above: Performed By: #### C UA2 #### [address] [address] [address] [place], [place] RBC LM.HPF (Urine sed) [#/Area] 51 - 100 Normal 0-2 [facility] Comment on above: Performed By: #### C UA2 #### [address] [address] [address] [place], [place] Specific Coila,Urine > 1.030 Normal 1.005-1.03 0 [facility] Comment on above: Performed By: #### C UA2 #### [address] [address] [address] [place], [place] Squamous Epithelial 0 - 2 Normal 3-5 [facility] Comment on above: Performed By: #### C UA2 #### [address] [address] [address] [place], [place] Urobilinogen,Urine Normal Normal Normal (0-1) [facility] Comment on above: Performed By: #### C UA2 #### [facility] [address] [place], [place] WBC LM.HPF (Urine sed) [#/Area] /[HPF] Normal 0-5 [facility] Comment on above: Performed By: #### C UA2 #### [address] [address] [address] [place], [place] Creatinine, Ur Randomon 08-22 Creatinine, Ur Random 73.6 mg/dL Normal No Range [facility] Comment on above: Performed By: #### N AURR, CRTUR, UNURR #### [address] [address] [place], [place] Hemogramon 09-09-2019 Erythrocyte distribution width (RBC) [Ratio] 12.2 % Normal 11.5-14.5 [facility] Comment on above: Performed By: #### H LINETTE BMP3M #### [address] [address] [place], [place] Hematocrit (Bld) [Volume fraction] 36.0 % Low 40.0-52.0 [facility] Comment on above: Performed By: #### H LINETTE BMP3M #### [address] [address] [place], [place] Hemoglobin (Bld) [Mass/Vol] 12.2 g/dL Low 13.0-18.0 [facility] Comment on above: Performed By: #### H LINETTE BMP3M #### [address] [address] [place], [place] MCH (RBC) [Entitic mass] 31.9 pg Normal 26.0-34.0 [facility] Comment on above: Performed By: #### H LINETTE BMP3M #### [address] MCHC (RBC) [Mass/Vol] 33.8 % Normal 32.0-36.0 [facility] Comment on above: Performed By: #### H LINETTE BMP3M #### [address] [address] [address] [place], [place] MCV (RBC) [Entitic vol] 94.4 fL Normal 80.0-98.0 [facility] Comment on above: Performed By: #### H PILI SUE3M #### [address] [address] [address] [place], [place] Platelet mean volume (Bld) [Entitic vol] 10.8 fL High 7.4-10.4 [facility] Comment on above: Performed By: #### H PILI SUE3M #### [address] [address] [place], [place] Platelets (Bld) [#/Vol] 126 10*3/uL Low 140-440 [facility] Comment on above: Performed By: #### H PILI SUE3M #### [address] [address] [address] [place], [place] RBC (Bld) [#/Vol] 3.81 10*6/uL Low 4.40-5.90 [facility] Comment on above: Performed By: #### H PILI SUE3M #### [address] [address] [place], [place] WBC (Bld) [#/Vol] 15.9 10*3/uL High 3.6-10.7 [facility] Comment on above: Performed By: #### H LINETTE BMP3M #### [address] [address] [address] [place], [place] Otheron 09-09-2019 Test Performed by [facility], [place] [address] [place] SODIUM, URINE, RANDOMon 08-22 Sodium (U) [Moles/Vol] 35 mmol/L No Range [place] Sodium, Ur Randomon 09-09-19 Sodium [Moles/Vol] 35 mmol/L Normal No Range [facility] Comment on above: Performed By: #### N AURR, CRTUR, UNURR #### [address] [address] [place], [place] UREA NITROGEN, URINEon 09-09 Urea Nitrogen, Random Urine 198 mg/dL No Range [place] US RETROPERITONEAL LIMITEDon 09-09-2019 [place] Incoming Radiology Results From [facility] - 09/09/2019 1:25 PM EST Patient Name: DOC KUO ---Ultrasound--- Exam Date/Time 09/09/2019 11:26:41 EST Exam US Retroperitoneal Limited Ordering Physician MD HAYLEE, SAGE RAMAN Accession Number [id number] CPT4 Codes 59956 () Reason For Exam kidney stones Report CLINICAL INFORMATION: Kidney stones Sonogram of the kidneys and bladder is performed. The right renal cortical echogenicity is within normal limits. There are no masses that distort the right renal contour. Moderate hydronephrosis with shadow from calculus in right UVJ region seen. There are no perinephric fluid collections. The urinary bladder is within normal limits. IMPRESSION: ULTRASOUND RETROPERITONEAL LIMITED 1. Right hydronephrosis and hydroureter with 7.3 mm calculus in the region of the right UVJ and questionable additional small renal calculi 2. Renal size: Right: 13.5 x 7.1 x 8.7 cm. Left: Congenitally absent per patient Two anterior views the abdomen are performed. IMPRESSION: ABDOMEN X-RAY 1. Appears to be residual contrast in right renal collecting system (limited visualization due to dilatation of bowel with moderate stool in colon) and dilated right ureter. 2. A tubular structure seen along the left side of the abdomen which could represent contrast in a dilated left ureter or calcific density material in dilated left ureter (this could be further evaluated with CT if not already performed). 3. Prior chest surgery, degenerative changes spine with mild levoscoliosis, several calcifications in the pelvis which could represent bladder calculi or calcified phleboliths with apparent contrast in urinary bladder Report Dictated on --- Final --- Dictated: 09/09/2019 1:12 pm Dictating Physician: MD WHITE WILLIAM Signed Date and Time: 09/09/2019 1:23 pm Signed by: MD WHITE WILLIAM Transcribed Date and Time: 09/09/2019 1:12 [place] Patient Name: DOC KUO ---Ultrasound--- Exam Date/Time 09/09/2019 11:26:41 EST Exam US Retroperitoneal Limited Ordering Physician MD LEACH STEPHEN JOHN Accession Number [id number] CPT4 Codes 71684 () Reason For Exam kidney stones Report CLINICAL INFORMATION: Kidney stones Sonogram of the kidneys and bladder is performed. The right renal cortical echogenicity is within normal limits. There are no masses that distort the right renal contour. Moderate hydronephrosis with shadow from calculus in right UVJ region seen. There are no perinephric fluid collections. The urinary bladder is within normal limits. IMPRESSION: ULTRASOUND RETROPERITONEAL LIMITED 1. Right hydronephrosis and hydroureter with 7.3 mm calculus in the region of the right UVJ and questionable additional small renal calculi 2. Renal size: Right: 13.5 x 7.1 x 8.7 cm. Left: Congenitally absent per patient Two anterior views the abdomen are performed. IMPRESSION: ABDOMEN X-RAY 1. Appears to be residual contrast in right renal collecting system (limited visualization due to dilatation of bowel with moderate stool in colon) and dilated right ureter. 2. A tubular structure seen along the left side of the abdomen which could represent contrast in a dilated left ureter or calcific density material in dilated left ureter (this could be further evaluated with CT if not already performed). 3. Prior chest surgery, degenerative changes spine with mild levoscoliosis, several calcifications in the pelvis which could represent bladder calculi or calcified phleboliths with apparent contrast in urinary bladder Report Dictated on --- Final --- Dictated: 09/09/2019 1:12 pm Dictating Physician: MD WHITE WILLIAM Signed Date and Time: 09/09/2019 1:23 pm Signed by: MD WHITE WILLIAM Transcribed Date and Time: 09/09/2019 1:12 [place] US Retroperitoneal Limitedon 09-09-2019 US Retroperitoneal Limited Patient Name: DOC KUO Ultrasound Exam Date/Time 09/09/2019 11:26:41 EST Exam US Retroperitoneal Limited Ordering Physician MD LEACH STEPHEN JOHN Accession Number [id number] CPT4 Codes 09040 () Reason For Exam kidney stones Report CLINICAL INFORMATION: Kidney stones Sonogram of the kidneys and bladder is performed. The right renal cortical echogenicity is within normal limits. There are no masses that distort the right renal contour. Moderate hydronephrosis with shadow from calculus in right UVJ region seen. There are no perinephric fluid collections. The urinary bladder is within normal limits. IMPRESSION: ULTRASOUND RETROPERITONEAL LIMITED 1. Right hydronephrosis and hydroureter with 7.3 mm calculus in the region of the right UVJ and questionable additional small renal calculi 2. Renal size: Right: 13.5 x 7.1 x 8.7 cm. Left: Congenitally absent per patient Two anterior views the abdomen are performed. IMPRESSION: ABDOMEN X-RAY 1. Appears to be residual contrast in right renal collecting system (limited visualization due to dilatation of bowel with moderate stool in colon) and dilated right ureter. 2. A tubular structure seen along the left side of the abdomen which could represent contrast in a dilated left ureter or calcific density material in dilated left ureter (this could be further evaluated with CT if not already performed). 3. Prior chest surgery, degenerative changes spine with mild levoscoliosis, several calcifications in the pelvis which could represent bladder calculi or calcified phleboliths with apparent contrast in urinary bladder Report Dictated on Final Dictated: 09/09/2019 1:12 pm Dictating Physician: MD WHITE WILLIAM Signed Date and Time: 09/09/2019 1:23 pm Signed by: MD WHITE WILLIAM Transcribed Date and Time: 09/09/2019 1:12 Normal [facility] Urea Nitrogen,Ur Randomon Urea nitrogen [Mass/Vol] 198 mg/dL Normal No Range [facility] Comment on above: Performed By: #### N AURR, CRTUR, UNURR #### [address] [address] Urinalysison 09-09-2019 Appearance (U) Turbid Clear NA [facility] [place] Bacteria, UA Moderate Negative /[HPF] [facility], [place] Bilirubin Urine Negative Negative mg/dL [facility], [place] Color (U) Yellow Lt. Yellow NA [facility] [place], [place] Glucose, Ur Normal Normal (<70) mg/dL [facility] [place], [place] Hyaline Casts, UA Negative Negative /[LPF] [place] Ketones Ql (U) Negative Negative mg/dL [place] LEUKOCYTES, UA 500 Negative Stephen/uL [place] Nitrite, Urine Positive Negative NA [place] Occult Blood,Urine 0.2 mg/dL Negative [place] pH (U) 8.0 [pH] [place] Protein (U) [Mass/Vol] 30 mg/dL Negative [place] RBC (U) [#/Vol] 51-100 0 - 2 /[HPF] [place] Specific Coila, Urine >1.030 [place] Squam Epithel, UA 0-2 3 - 5 /[HPF] [place] Urobilinogen, Urine Normal Normal (0-1) mg/dL [place] WBC, UA >100 0 - 5 /[HPF] [place] Test Performed by [address] [address] [place] XR ABDOMEN (KUB) (SINGLE AP VIEW)on 09-09-2019 Patient Name: DOC KUO ---Diagnostic Radiology--- Exam Date/Time 09/09/2019 10:57:55 EST Exam CR Abdomen AP Ordering Physician MD DOLLY, MAYTE JAIN Accession Number [id number] CPT4 Codes 87714 () Reason For Exam right ureteral calculus Report CLINICAL INFORMATION: Kidney stones Sonogram of the kidneys and bladder is performed. The right renal cortical echogenicity is within normal limits. There are no masses that distort the right renal contour. Moderate hydronephrosis with shadow from calculus in right UVJ region seen. There are no perinephric fluid collections. The urinary bladder is within normal limits. IMPRESSION: ULTRASOUND RETROPERITONEAL LIMITED 1. Right hydronephrosis and hydroureter with 7.3 mm calculus in the region of the right UVJ and questionable additional small renal calculi 2. Renal size: Right: 13.5 x 7.1 x 8.7 cm. Left: Congenitally absent per patient Two anterior views the abdomen are performed. IMPRESSION: ABDOMEN X-RAY 1. Appears to be residual contrast in right renal collecting system (limited visualization due to dilatation of bowel with moderate stool in colon) and dilated right ureter. 2. A tubular structure seen along the left side of the abdomen which could represent contrast in a dilated left ureter or calcific density material in dilated left ureter (this could be further evaluated with CT if not already performed). 3. Prior chest surgery, degenerative changes spine with mild levoscoliosis, several calcifications in the pelvis which could represent bladder calculi or calcified phleboliths with apparent contrast in urinary bladder Report Dictated on --- Final --- Dictated: 09/09/2019 1:12 pm Dictating Physician: MD WHITE WILLIAM Signed Date and Time: 09/09/2019 1:23 pm Signed by: MD WHITE WILLIAM Transcribed Date and Time: 09/09/2019 1:[address] [facility], [place], [facility] Incoming Radiology Results From [facility] - 09/09/2019 1:25 PM EST Patient Name: DOC KUO ---Diagnostic Radiology--- Exam Date/Time 09/09/2019 10:57:55 EST Exam CR Abdomen AP Ordering Physician MD DOLLY, MAYTE JAIN Accession Number [id number] CPT4 Codes 97362 () Reason For Exam right ureteral calculus Report CLINICAL INFORMATION: Kidney stones Sonogram of the kidneys and bladder is performed. The right renal cortical echogenicity is within normal limits. There are no masses that distort the right renal contour. Moderate hydronephrosis with shadow from calculus in right UVJ region seen. There are no perinephric fluid collections. The urinary bladder is within normal limits. IMPRESSION: ULTRASOUND RETROPERITONEAL LIMITED 1. Right hydronephrosis and hydroureter with 7.3 mm calculus in the region of the right UVJ and questionable additional small renal calculi 2. Renal size: Right: 13.5 x 7.1 x 8.7 cm. Left: Congenitally absent per patient Two anterior views the abdomen are performed. IMPRESSION: ABDOMEN X-RAY 1. Appears to be residual contrast in right renal collecting system (limited visualization due to dilatation of bowel with moderate stool in colon) and dilated right ureter. 2. A tubular structure seen along the left side of the abdomen which could represent contrast in a dilated left ureter or calcific density material in dilated left ureter (this could be further evaluated with CT if not already performed). 3. Prior chest surgery, degenerative changes spine with mild levoscoliosis, several calcifications in the pelvis which could represent bladder calculi or calcified phleboliths with apparent contrast in urinary bladder Report Dictated on --- Final --- Dictated: 09/09/2019 1:12 pm Dictating Physician: MD WHITE WILLIAM Signed Date and Time: 09/09/2019 1:23 pm Signed by: MD WHITE WILLIAM Transcribed Date and Time: 09/09/2019 1:12 [place], [place] Hemoglobin A1con 09-01-2019 HbA1c (Bld) [Mass fraction] 6.0 % High 4.3-5.6 [facility] Comment on above: Performed By: #### H BA1C #### [facility] Routine Lab [address] [phone] HbA1c (Bld) [Mass fraction] 126 mg/dL Normal [facility] Comment on above: Performed By: #### H BA1C #### [facility] Routine Lab [address] [phone] Hemoglobin A1con 06-13-2019 HbA1c (Bld) [Mass fraction] 7.1 % High 4.3-5.6 [facility] Comment on above: Performed By: #### H BA1C #### [facility] Routine Lab [address] [phone] HbA1c (Bld) [Mass fraction] 157 mg/dL Normal [facility] Comment on above: Performed By: #### H BA1C #### [facility] Routine Lab [address] [phone] Hemoglobin A1con 03-11-2019 HbA1c (Bld) [Mass fraction] 7.0 % High 4.3-5.6 [facility] HbA1c (Bld) [Mass fraction] 154 mg/dL Normal [facility] Hemoglobin A1con 02-03-2019 HbA1c (Bld) [Mass fraction] 7.4 % High 4.3-5.6 [facility] HbA1c (Bld) [Mass fraction] 166 mg/dL Normal [facility] CNOVon 03-27-2018 CNOV Office Visit (CHPDMN) -KIAN KUO ([id number]) 1975 MDate Time Provider Department03/27/18 11:00 AM STRESS LAB PEDS CARD MAIN CHPDMN During your visit today, we recorded the following information about you:Referring Provider: AZAEL KHAN [[id number]]Allergies As of Date: 03/27/2018(No Known Allergies)Date Reviewed: 05/12/2017Reviewed by: Kiki Johnson Ma - Fully AssessedReason for Visit: Shortness of Breath [227]Primary Visit Diagnosis:S/P TOF (tetralogy of Fallot) repair [Z98.890, Z87.74] Other Visit Diagnoses:Pulmonary valve regurgitation, acquired [I37.1] Pulmonary valve replaced [Z95.2]Order(s):PEDS EXERCISE METABOLIC STRESS [[id number]] Order #: [id number]. 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 SUMMARY INVALID FOR* Priority: Moderate More... Atelectasis [J98.11] INVALID FOR* Priority: B More... Postoperative pain [G89.18] INVALID FOR* Priority: H More... Discharge planning issues [Z02.9] INVALID FOR* Priority: M More... Paroxysmal atrial fibrillation (HCC) [I48.0] INVALID FOR* Priority: C More... Essential hypertension [I10] INVALID FOR* Priority: E More... Pulmonary valve replaced [Z95.2] INVALID FOR* Status:Closed by MIKAYLA SINGH KELLI on 03/27/18 [facility] HOSP 06-17-2017 HOSP Patient Update (CHPDMN) -KIAN KUO ([id number]) 1975 MDate Time Provider Uhzqcvipnt47/28/17 AZAEL KHAN PDMN During your visit today, we recorded the following information about you:Azael Khan MD 06/17/2017 10:24 AM SignedREASON FOR VISIT: 41 year old with tetralogy, s/p PVRMEDICAL HISTORY: Kain is a 41 year old [place] 4 [place] weight 4 lb 8 oz at 35 weeks. he was followed intermittentlyinto about age 17 when he heard that he no longer needed follow-up. Herecently came back to medical care. He came back to care after a neuro likeevent that prompted admission to [facility]. At that time his blood pressure washigh. He had an echocardiogram and a spect scan. The echocardiogram showedhis right ventricular dilatation and pulmonary regurgitation. His SPECT scanwas reassuring for the absence of coronary disease. I think he also had abrain scan which did not show any significant recent onset brain injury. Hehas a history of scoliosis, solitary kidney, swallowing problem, speechtherapy, pneumonia frequently as an .He had replacement 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 on April2017. He did well post-operative but did have one post operative episode ofatrial fibrillation and converted after amiodarone bolus and metoprolol.and wasstarted on metoprolol as well as his previous lisinopril for his BP. He hadtransient cough and fever several weeks ago but otherwise is nearly back to hisbaseline. No chest pain, dizziness, syncope, palpitations.Medical history obtained from: EPIC, father, patientComplains of the following symptoms: no headaches, diarrhea, dysuria, jointpain, rash, sorethoat, earache, vision changes, all other systems reviewed andare negative-MEDS, Allergies reviewedDiet: normalHosp/OP- see HPICARDIAC FAMILY HISTORY:There is no history of congenital heart disease, no sudden unexplained or earlydeaths, arrhythmias, cardiomyopathy, long QT, aneurysms. MGF [place], PM at 70, PGMMI age 75. Brother has PM at age 42 and now has PM for bradycardiaSOCIAL HISTORY: No smokers, High school, some college, older brother,PHYSICAL EXAM:Wt 160 lb, HR 59 bpm, BP 124/78GENERAL APPEARANCE: alert, oriented, in nodistressSKIN: acyanotic, healing scarSKEL: not hyperextensible, no pectus, scoliosis, no pes planusHEENT: No abnormalities of the head, abnormal pinna, equal pupils.OROPHARYNX: Normal palate, uvulaNECK: NormalCHEST: Lungs are clear to auscultation and there is no grunting, flaring orretractingCARDIAC: The precordium is normally active. The PMI is at the 5th leftintercostal space, mid-clavicular line. First heart sound normal, second heartsound single. No clicks, gallops. No murmurs in the supine, sitting, standing,squatting and leg raised position. Normal heart rate variability with position.ABDOMEN: Abdomen is soft, non-tender; liver and spleen not palpable.EXTREMITIES: Radial pulses, +2 bilaterally, dorsalis pedis pulses, +2bilaterallyECG (12 May 2017) NSR, RBBBECHOCARDIOGRAM: (November 2016 ) (Shahnaz reviewed and interpreted- loaded onSyngo)RV dilatation, mild PS free SD, ? RVOT aneurysm, LSVC to CS, left arch probaber RSCA, dilated PAsECHO (30 April 2017)PREOPERATIVE STUDY:1. Systemic veins:B/L SVC's, LSVC to roofed CS.2. Pulmonary veins: normal3. Atria: normal sized4. Atrial septum: Intact with negative bubble study5. Tricuspid valve: trivial TR6. Mitral valve: Trivial MR7. Right ventricle: Severely dilated with mildly diminished systolic function8. Left ventricle: normal size and function qualitatively.9. Ventricular septum: intact, igzusetsz25. Pulmonary valve: Free regurgitation.11. Aortic valve: trileaflet, central iketcihurhesl35. Pulmonary arteries: normal MPA ANDamp;RPA, severely dilated LPA13. Coronary arteries: normal pkbove94. Aorta: mild aortic root dilatation.?POSTOPERATIVE STUDY:Patient underwent pulmonary valve replacement with 27 mm prosthesis. PostbypassTEE performed starting clip #65 showed:1. Normal prosthetic valve function without stenosis or regurgitation. Vmax 1.6m/s.2. Normal LV size and function.3. Qualitatively there is slight interval decrease in RV size, withqualitativelymild to moderate reduction in systolic function.4. Trivial tricuspid regurgitation.Echo (17 June 2017)S/P TOF PVR 27 mm BicorNormal LV size and function, wall thicknessNormal RV size and functionNo residual VSDNormal TV with mild TR 2.6 m/6Normal MV with mild MRDilated aortic root, mildly thickened aortic valve, trivial ARPulmonary valve incompletely seen, no stenosis or regurgitation. Vmax 1.6 m/sLSVC to CSMRI (27 January 2017)SEVERE PULMONARY REGURGITATION (RV = 78 cc, RF = 71%).RIGHT VENTRICLE IS MODERATELY DILATED (EDVi = 123 cc/m2) WITH MILDLYREDUCED SYSTOLIC FUNCTION (RVEF = 46%).Left ventricle is normal in size with normal systolic function (LVEF =59%).- diastolic septal flattening, consistent with RV volume overload.LEFT-SIDED IVC DRAINING INTO THE CORONARY SINUS- normal pulmonary venous return.ABERRANT RSCA WITHOUT EVIDENCE OF DIVERTICULUM OF KOMMERELLPULMONARY ARTERIES: LEFT PA IS DILATED (3.5 cm)Dimensions: as described aboveAORTIC ROOT: ECTASIA, Aortic Root Diameter: 4 x 3.6 cm?? ? Ascending Thoracic Aorta: normal size, Diameter: 3 cmCPET (27 January 2017)1. Abnormal aerobic (4.7 METS) and exercise (4.5 eMETS) capacity.2. Blunted heart rate response with max HR 139, normal HR recovery (12.2% 1min, 20.9% 2 min).3. Normal systolic and diastolic BP response.4. Peak VO2 (1.24 l/min and VO2/kg (16.6 ml/min/kg).5. AT/kg (15.3 ml/min/kg); 92.4% VO2max.6. Oxygen pulse (8.9 ml) with normal rise throughout exercise.7. Total ventilation (VE/ht2.5 11.2 l/ht2.5; VT/kg 16.0 ml/kg; RR 34/min).8. Peak exercise ETCO2 (37 torr).9. VE/VCO2 at AT and slope (32.5).10. NSR with no ectopy or ST-T changes at rest, during exercise or recovery.11. Normal SpO2's during study- 100%.12. Patient was holding on to bars throughout test and had a unstable gait.?Conclusion: Blunted HR with normal BP and abnormal pulmonary response tosubmaximal exercise (RER 1.02) with evidence of limitation with submaximalnormal VO2/kg, AT, VE/VCO2, oxygen pulse and HR recovery.With a submaximal effort and normal HR recovery suggests cardiac limitationalong with VO2/kg and eMETS.Impression:S/P TOF, aber RSCA, LSVC S/P 27 mm Bicor PVR ([facility] 30 April 2017)22q11 Scoliosis, single kidneyHigh blood pressurePlan/Recommendations: Kian's clinical cardiac exam is consistent with an excellent result and noclinical PS or SD. There is no right heart failure. He has not had clinicalarrhythmia. His echo shows an excellent result from surgery. His currentrhythm is normal and we thought we could stop his metoprolol and do a holter atsome point over the next month, He should continue his lisinopril and aspirin.The superintendent terminal durability of the pulmonary valve should be good. He remains atrisk for arrhythmias. I would not expect his aortic size to be a long termissue.I will help him with a referral to orthopedics for evaluation of his scoliosis.No cardiac restrictions- offered cardiac rehab if he does not continue to makeprogressContinue asprin and lisinoprilSBE prophylaxis based on 2007 AHA recommendations- artifical valveHeart health- no smoking, prudent diet and exerciseFollow-up 6 months with Farhad Khan, [facility] Adult Congenital Heart Disease StaffAllergies As of Date: 06/17/2017(No Known Allergies)Date Reviewed: 05/12/2017Reviewed by: Kiki Johnson Ma - Fully AssessedReason for Visit: Recheck [92] Cmt: Natali visitPrescriptions as of 06/17/2017 Sig: ASPIRIN 81 MG CHEWABLE TABLET Take 1 tablet by mouth once d* LISINOPRIL 5 MG TABLET Take 1 tablet by mouth twice * AMOXICILLIN 500 MG CAPSULE take 4 caps po 1/2 hour prior*Problem List As Of Date 06/17/2017 Noted Resolved 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 SUMMARY INVALID FOR* Priority: Moderate More... Atelectasis [J98.11] INVALID FOR* Priority: B More... Postoperative pain [G89.18] INVALID FOR* Priority: H More... Discharge planning issues [Z02.9] INVALID FOR* Priority: M More... Paroxysmal atrial fibrillation (HCC) [I48.0] INVALID FOR* Priority: C More... Essential hypertension [I10] INVALID FOR* Priority: E More...Medications Discontinued During This Encounter oxyCODONE IR (ROXICODONE) 5 mg immed* 27 t* 0 05/06/2017 06/17/2017 Class: Print RX Route: ORAL Sig: Take 1 tablet by mouth every 6 hours as needed. FOR SEVERE PAIN. Disc: Reason for discontinue is not on file. acetaminophen (TYLENOL) 325 mg tablet 05/06/2017 06/17/2017 Class: OTC Route: ORAL Sig: Take 2 tablets by mouth every 6 hours as needed. FOR MILD TO MODERATE PAIN. DO NOT EXCEED 4,000 MG IN 24 HOUR PERIOD Disc: Reason for discontinue is not on file. metoprolol tartrate, short acting, (* 60 t* 1 05/06/2017 06/17/2017 Route: ORAL Sig: Take 1 tablet by mouth every 12 hours. Disc: Reason for discontinue is not on file. Status:Closed by AZAEL KHAN MD on 06/17/17 [facility] PROGRESSon 06-17-2017 Protein mass conc HNO ID: [id number] thor: Azael Derase: (none)Author Type: PhysicianType: Progress NotesFiled: 06/17/2017 10:24 AMNote Text:REASON FOR VISIT: 41 year old with tetralogy, s/p PVRMEDICAL HISTORY: Kina is a 41 year old who had repair of TOF at age 4at [place]. His weight 4 lb 8 oz at 35 weeks. he was followedintermittently into about age 17 when he heard that he no longer neededfollow-up. He recently came back to medical care. He came back to careafter a neuro like event that prompted admission to [facility]. At thattime his blood pressure was high. He had an echocardiogram and a spectscan. The echocardiogram showed his right ventricular dilatation andpulmonary regurgitation. His SPECT scan was reassuring for the absence ofcoronary disease. I think he also had a brain scan which did not show anysignificant recent onset brain injury. He has a history of scoliosis,solitary kidney, swallowing problem, speech therapy, pneumonia frequentlyas an infant.He had replacement 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 on 2016. He did well post-operative but did have one post operativeepisode of atrial fibrillation and converted after amiodarone bolus andmetoprolol.and was started on metoprolol as well as his previouslisinopril for his BP. He had transient cough and fever several weeks agobut otherwise is nearly back to his baseline. No chest pain,dizziness, syncope, palpitations.Medical history obtained from: EPIC, father, patientComplains of the following symptoms: no headaches, diarrhea, dysuria,joint pain, rash, sorethoat, earache, vision changes, all other systemsreviewed and are negative-MEDS, Allergies reviewedDiet: normalHosp/OP- see HPICARDIAC FAMILY HISTORY:There is no history of congenital heart disease, no sudden unexplained orearly deaths, arrhythmias, cardiomyopathy, long QT, aneurysms. MGF AK, PMat 70, PGM [place] age 75. Brother has PM at age 42 and now has PM forbradycardiaSOCIAL HISTORY: No smokers, High school, some college, older brother,PHYSICAL EXAM:Wt 160 lb, HR 59 bpm, BP 124/78GENERAL APPEARANCE: alert, oriented, in nodistressSKIN: acyanotic, healing scarSKEL: not hyperextensible, no pectus, scoliosis, no pes planusHEENT: No abnormalities of the head, abnormal pinna, equal pupils.OROPHARYNX: Normal palate, uvulaNECK: NormalCHEST: Lungs are clear to auscultation and there is no grunting, flaringor retractingCARDIAC: The precordium is normally active. The PMI is at the 5th leftintercostal space, mid-clavicular line. First heart sound normal, secondheart sound single. No clicks, gallops. No murmurs in the supine,sitting, standing, squatting and leg raised position. Normal heart ratevariability with position.ABDOMEN: Abdomen is soft, non-tender; liver and spleen not palpable.EXTREMITIES: Radial pulses, +2 bilaterally, dorsalis pedis pulses, +2bilaterallyECG (12 May 2017) NSR, RBBBECHOCARDIOGRAM: (November 2016 ) ([facility])RV dilatation, mild PS free SD, ? 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 Systemic veins:B/L SVC's, LSVC to roofed CS.2. Pulmonary veins: normal3. Atria: normal sized4. Atrial septum: Intact with negative bubble study5. Tricuspid valve: trivial TR6. Mitral valve: Trivial MR7. Right ventricle: Severely dilated with mildly diminished systolicfunction8. Left ventricle: normal size and function qualitatively.9. Ventricular septum: intact, . Pulmonary valve: Free regurgitation.11. Aortic valve: trileaflet, central acplrlmgjtmgg29. Pulmonary arteries: normal MPA ANDRPA, severely dilated LPA13. Coronary arteries: normal ivqisg18. Aorta: mild aortic root dilatation.?POSTOPERATIVE STUDY:Patient underwent pulmonary valve replacement with 27 mm prosthesis. PostbypassTEE performed starting clip #65 showed:1. Normal prosthetic valve function without stenosis or regurgitation.Vmax 1.6m/s.2. Normal LV size and function.3. Qualitatively there is slight interval decrease in RV size, withqualitativelymild to moderate reduction in systolic function.4. Trivial tricuspid regurgitation.Echo (17 June 2017)S/P TOF PVR 27 mm BicorNormal LV size and function, wall thicknessNormal RV size and functionNo residual VSDNormal TV with mild TR 2.6 m/6Normal MV with mild MRDilated aortic root, mildly thickened aortic valve, trivial ARPulmonary valve incompletely seen, no stenosis or regurgitation. Vmax 1.6m/sLSVC to CSMRI (27 January 2017)SEVERE PULMONARY REGURGITATION (RV = 78 cc, RF = 71%).RIGHT VENTRICLE IS MODERATELY DILATED (EDVi = 123 cc/m2) WITH MILDLYREDUCED SYSTOLIC FUNCTION (RVEF = 46%).Left ventricle is normal in size with normal systolic function (LVEF =59%).- diastolic septal flattening, consistent with RV volume overload.LEFT-SIDED IVC DRAINING INTO THE CORONARY SINUS- normal pulmonary venous return.ABERRANT RSCA WITHOUT EVIDENCE OF DIVERTICULUM OF KOMMERELLPULMONARY ARTERIES: LEFT PA IS DILATED (3.5 cm)Dimensions: as described aboveAORTIC ROOT: ECTASIA, Aortic Root Diameter: 4 x 3.6 cm?? ? Ascending Thoracic Aorta: normal size, Diameter: 3 cmCPET (27 January 2017)1. Abnormal aerobic (4.7 METS) and exercise (4.5 eMETS) capacity.2. Blunted heart rate response with max HR 139, normal HR recovery (12.2%1 min, 20.9% 2 min).3. Normal systolic and diastolic BP response.4. Peak VO2 (1.24 l/min and VO2/kg (16.6 ml/min/kg).5. AT/kg (15.3 ml/min/kg); 92.4% VO2max.6. Oxygen pulse (8.9 ml) with normal rise throughout exercise.7. Total ventilation (VE/ht2.5 11.2 l/ht2.5; VT/kg 16.0 ml/kg; RR 34/min).8. Peak exercise ETCO2 (37 torr).9. VE/VCO2 at AT and slope (32.5).10. NSR with no ectopy or ST-T changes at rest, during exercise orrecovery.11. Normal SpO2's during study- 100%.12. Patient was holding on to bars throughout test and had a unstablegait.?Conclusion: Blunted HR with normal BP and abnormal pulmonary response tosubmaximal exercise (RER 1.02) with evidence of limitation with submaximalnormal VO2/kg, AT, VE/VCO2, oxygen pulse and HR recovery.With a submaximal effort and normal HR recovery suggests cardiaclimitation along with VO2/kg and eMETS.Impression:S/P TOF, aber RSCA, LSVC S/P 27 mm Bicor PVR ([facility] 30 April 2017)22q11 Scoliosis, single kidneyHigh blood pressurePlan/Recommendations: Kian's clinical cardiac exam is consistent with an excellent result andno clinical PS or SD. There is no right heart failure. He has not hadclinical arrhythmia. His echo shows an excellent result from surgery.His current rhythm is normal and we thought we could stop his metoprololand do a holter at some point over the next month, He should continue hislisinopril and aspirin.The group home durability of the pulmonary valve should be good. Heremains at risk for arrhythmias. I would not expect his aortic size to jodi superintendent terminal issue.I will help him with a referral to orthopedics for evaluation of hisscoliosis.No cardiac restrictions- offered cardiac rehab if he does not continue tomake progressContinue asprin and lisinoprilSBE prophylaxis based on 2007 AHA recommendations- artifical valveHeart health- no smoking, prudent diet and exerciseFollow-up 6 months with ECGAzael Khan, MDPediatric Cardiology and Adult Congenital Heart Disease Staff Normal [facility] Basic Metabolic Panlon 05-12 Anion gap 3 molar conc 13 mmol/L Normal - [facility] Comment on above: Performed By: #### C BCDIF, PT, PTT, BMP, AHCV ####[facility] [phone] Calcium mass conc 8.9 mg/dL Normal 8.5-10.2 [facility] Comment on above: Performed By: #### C BCDIF, PT, PTT, BMP, AHCV ####[address] [address] [address], [place] [phone] Chloride molar conc 99 mmol/L Normal 97-105 [facility] Comment on above: Performed By: #### C BCDIF, PT, PTT, BMP, AHCV ####[address] [address] [address] [phone] CO2 molar conc 26 mmol/L Normal 22-30 [facility] Comment on above: Performed By: #### C BCDIF, PT, PTT, BMP, AHCV ####[address] [address] [address] [phone] Creatinine mass conc 1.19 mg/dL Normal 0.73-1.22 [facility] Comment on above: Performed By: #### C BCDIF, PT, PTT, BMP, AHCV ####[address] [address] [address] [phone] eGFR- Amer. >60 Normal [facility] Comment on above: Performed By: #### C BCDIF, PT, PTT, BMP, AHCV ####[address] [address] [address] [phone] GFR/1.73 sq M predicted among non-blacks MDRD vol rate/area (S/P/Bld) mL/min/{1.73_m2} Normal [facility] Comment on above: Result Comment: eGFR (Estimated GFR) Units of measure: mL/min/1.73 meters squaredeGFR is derived from the reexpressed MDRD Study equation using the following parameters: serum creatinine, age, gender and race. The creatinine assay has been calibrated to be traceable to IDMS.An eGFR <60 mL/min/1.73m2 for >3 months is consistent with chronic kidney disease. Refer to KDOQI guidelines for clinical interpretation.In patients with unstable renal function, e.g. those with acute kidney injury, the eGFR may not accurately reflect actual GFR. Performed By: #### C BCDIF, PT, PTT, BMP, AHCV ####[facility] [place] [address] [phone] Glucose mass conc 254 mg/dL High 74-99 [facility] Comment on above: Result Comment: The [place] [employer] (ADA) provides guidance for cutoff values for fasting glucose and random glucose. The ADA defines fasting as no caloric intake for at least 8 hours. Fasting plasma glucose results between 100 to 125 mg/dL indicate increased risk for diabetes (prediabetes).Fasting plasma glucose results greater than or equal to 126 mg/dL meet the criteria for diagnosis of diabetes. In the absence of unequivocal hyperglycemia, results should be confirmed by repeat testing. In a patient with classic symptoms of hyperglycemia or hyperglycemic crisis, random plasma glucose results greater than or equal to 200 mg/dL meet the criteria for diagnosis of diabetes.Reference: Standards of Medical Care in Diabetes 2016, [place] [employer]. Diabetes Care. 2016.39(Suppl 1). Performed By: #### C BCDIF, PT, PTT, BMP, AHCV ####[address] [phone] Potassium molar conc 4.7 mmol/L Normal 3.7-5.1 [facility] Comment on above: Performed By: #### C BCDIF, PT, PTT, BMP, AHCV ####[facility] [place], [place] [phone] Sodium molar conc 138 mmol/L Normal 136-144 [facility] Comment on above: Performed By: #### C BCDIF, PT, PTT, BMP, AHCV ####[id number] [place], [place] [phone] Urea nitrogen mass conc 17 mg/dL Normal 9-24 [facility] Comment on above: Performed By: #### C BCDIF, PT, PTT, BMP, AHCV ####[facility] [address] [place], [place] [phone] CNOVon 05-12-2017 CNOV Office Visit (OSMN) -KIAN KUO ([id number]) 1975 MDate Time Provider Lgppxtncfp29/23/17 10:30 AM ELENA ZEPEDA ([facility]AL During your visit today, we recorded the following information about you: Temperature Pulse Blood pressure Weight 97.9 degrees 71/minute 92/62 72.1 kgElena Zepeda CNP, CNP 05/12/2017 3:09 PM [facility] InstituteCTS Post op Follow upPhilldank Kuo is a 41 year old male who presents who is here for postoperative follow upHPI: S/P on 04/30/2017?[facility] Surgeon: Pauline Dash M.D.[facility] Primary Compliance Intern: Azael Khan M.D.OPERATIONS : Replacement 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??SURGICAL PATHOLOGY:??Pulmonary valve, excision - Mild myxoid change.Discharged on 05/06/2017PAST MEDICAL HISTORYDiagnosis Date- Other specified disorder of gallbladder- Tetralogy of Fallot- Undescended testiclePAST SURGICAL HISTORYProcedure Laterality Date- HOLTER MONITOR - PAST SURGICAL HISTORY OF 04/06/1980 cardiac cath. ANDamp; cineangiography- PAST SURGICAL HISTORY OF L thoracentesis- PAST SURGICAL HISTORY OF Schordon Removal- PAST SURGICAL HISTORY OF 06/20/1980 open heart surgeryALLERGIESNo Known AllergiesCurrent Outpatient Prescriptions:acetaminophen (TYLENOL) 325 mg tablet Take 2 tablets by mouth every 6 hours asneeded. FOR MILD TO MODERATE PAIN. DO NOT EXCEED 4,000 MG IN 24 HOUR PERIODoxyCODONE IR (ROXICODONE) 5 mg immediate release tablet Take 1 tablet by mouthevery 6 hours as needed. FOR SEVERE PAIN.metoprolol tartrate, short acting, (LOPRESSOR) 50 mg tablet Take 1 tablet bymouth every 12 hours.magnesium hydroxide (MOM) 400 mg/5 mL suspension Take 30 mL by mouth once dailyas needed for Constipation.therapeutic multivitamin (THERA VITAMIN) tablet Take 1 tablet by mouth dailywith breakfast.aspirin 81 mg chewable tablet Take 1 tablet by mouth once daily.lisinopril (ZESTRIL, PRINIVIL) 5 mg tablet Take 1 tablet by mouth twice daily.amoxicillin (POLYMOX, AMOXIL) 500 mg capsule take 4 caps po 1/2 hour prior todental proceedureNo current facility-administered medications for this visit.Chief Complaints: ANDquot; I'm doing goodANDquot;Discharge Post Operative Course:Pain scale :No: 0 on a scale of 0 to 10Appetite: appetite goodActivity: Walking ad karely around the houseElimination: normal, no constipation , urination is normalSleep: no problems with sleepMood: normal and goodIncisions/Wounds: healingReview of Systems:HEENT: Negative for fevers since discharge, chills, night sweats and blurryvisionCardiac: Denies significant problems, chest pain, Arrhythmia and leg edemaRespiratory: denies dyspnea, cough, orthopneaMusculoskeletal: No history of joint swelling, joint pain, or loss of range ofmotion.Neuro: Denies neurological complaintsPhysical Exam:BP 92/62 (BP Site: Right Arm, BP Position: Sitting, BP Cuff Size: RegularAdult) Pulse 71 Temp 36.6 ?C (97.9 ?F) (Oral) Wt 72.1 kg (159 lb) [id number]% BMI 25.58 kg/t5Uqzqpjtmbu: well groomed, white male, in no acute distressNeck: No neck vein distentionCardiac: regular S1, S2, No murmur, No rubLungs: Clear breath sounds bilaterally without wheeze or dullnessAbdomen: soft, non tender, Normal bowel soundsExtremities: No edemaSternum: stable, no clickSternotomy site: healing, clean, dry and intactWound: NAProcedures: Sutures removed from chest tube sites without difficulty.IMPRESSION ANDamp; PLAN:1.S/P on 04/30/2017?[facility] Surgeon: Pauline Dash M.D.[facility] Primary Compliance Intern: Azael Khan M.D.OPERATIONS : Replacement 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??SURGICAL PATHOLOGY:??Pulmonary valve, excision - Mild myxoid change.Discharged on 05/06/20172. [employer], parox - post op - currently SR - per Card continue bb no AC or amioEC05/12/2017Diagnosis:U NUSUAL P AXIS, POSSIBLE ECTOPIC ATRIAL RHYTHMINCOMPLETE RIGHT BUNDLE BRANCH BLOCKST ANDamp; ANTEROLATERAL T WAVE ABNORMALITYABNORMAL ECG?Ventricular Rate : 65 ?BPMAtrial Rate : 65 ?BPM3. Atelectasis - improving - encouraged to continue deep breathing exercises and walkingCXR:05/12/2017Reviewed ,final results pending4. HTN - hypotensive, but asymptomatic - advised to monitor bp at home - if below 90 systolic or becomes symptomatic advised to decrease lisinoprilto 5mg dailyLABS:05/12/2017Component Latest Ref Rng ANDamp; Units 05/06/2017 05/12/2017WBC 3.70 - 11.00 k/uL 5.99 9.79RBC 4.20 - 6.00 m/uL 3.27 (L) 3.71 (L)Hemoglobin 13.0 - 17.0 g/dL 10.0 (L) 11.3 (L)Hematocrit 39.0 - 51.0 % 30.4 (L) 35.3 (L)Platelet Count 150 - 400 k/uL 177 363Component Latest Ref Rng ANDamp; Units 05/06/2017 05/12/2017Glucose 74 - 99 mg/dL 142 (H) 254 (H)BUN 9 - 24 mg/dL 14 17Creatinine 0.73 - 1.22 mg/dL 0.92 1.19Sodium 136 - 144 mmol/L 139 138Potassium 3.7 - 5.1 mmol/L 4.2 4.7Summary:Follow up with PCP in one week with repeat cbc and cmpFollow up with Compliance Intern in 4-6 weeks. Post op care and discharge orders reviewed with the patient- all questionswere answered.Surgical sites healing without complicationDiscussed new medications, dosage, route of administration and side effectsReviewed walking program at homeReviewed diet guidelines for recovery from surgeryReturn to the clinic prn with signs or symptoms of infection, fevers, SOB, orpleural effusionSBE prophylaxis reviewedDiscussed wound careElena Zepeda CNPReferring Provider: PAULINE DASH [[id number]]Allergies As of Date: 05/12/2017(No Known Allergies)Date Reviewed: 05/12/2017Reviewed by: Kiki Johnson Ma - Fully AssessedReason for Visit: Follow Up [171]Primary Visit Diagnosis:S/P pulmonic valve replacement with homograft [Z95.4] Other Visit Diagnoses:Paroxysmal atrial fibrillation (HCC) [I48.0] Essential hypertension [I10] S/P TOF (tetralogy of Fallot) repair [Z98.890, Z87.74] Atelectasis [J98.11]Prescriptions as of 05/12/2017 Sig: ACETAMINOPHEN 325 MG TABLET Take 2 tablets by mouth every* OXYCODONE 5 MG TABLET Take 1 tablet by mouth every * METOPROLOL TARTRATE 50 MG TAB* Take 1 tablet by mouth every * ASPIRIN 81 MG CHEWABLE TABLET Take 1 tablet by mouth once d* LISINOPRIL 5 MG TABLET Take 1 tablet by mouth twice * AMOXICILLIN 500 MG CAPSULE take 4 caps po 1/2 hour prior*Problem List As Of Date 05/12/2017 Noted Resolved 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 SUMMARY INVALID FOR* Priority: Moderate More... Atelectasis [J98.11] INVALID FOR* Priority: B More... Postoperative pain [G89.18] INVALID FOR* Priority: H More... Discharge planning issues [Z02.9] INVALID FOR* Priority: M More... Paroxysmal atrial fibrillation (HCC) [I48.0] INVALID FOR* Priority: C More... Essential hypertension [I10] INVALID FOR* Priority: E More...Medications Discontinued During This Encounter therapeutic multivitamin (THERA HOOD* 0 05/06/2017 05/12/2017 Class: OTC Route: ORAL Sig: Take 1 tablet by mouth daily with breakfast. Patient not taking: Reported on 05/12/2017 Disc: Discontinued by Patient magnesium hydroxide (MOM) 400 mg/5 m* 05/06/2017 05/12/2017 Class: OTC Route: ORAL Sig: Take 30 mL by mouth once daily as needed for Constipation. Patient not taking: Reported on 05/12/2017 Disc: Discontinued by PatientEncounter Number: [id number] Status:Closed by ELENA ZEPEDA CNP on 05/12/17 Normal [facility] Urinalysison 05-12-2017 Bilirubin, Urine Negative Normal Negative [facility] Comment on above: Performed By: #### C BCDIF, PT, PTT, BMP, AHCV ####[facility] [place] [phone] Cast SEE COMMENT Critically abnormal 0 [facility] Comment on above: Result Comment: 4-10 Hyaline Cast Performed By: #### C BCDIF, PT, PTT, BMP, AHCV ####[facility] [address]CKelly [place] [phone] Clarity Cloudy Critically abnormal Clear [facility] Comment on above: Performed By: #### C BCDIF, PT, PTT, BMP, AHCV ####[facility] [address] [place] [phone] Color Yellow Normal Yellow [facility] Comment on above: Performed By: #### C BCDIF, PT, PTT, BMP, AHCV ####[facility] [address]CJennifer [place] [phone] Comments SEE COMMENT Normal [facility] Comment on above: Result Comment: Micr oscopic Examination Performed Performed By: #### C BCDIF, PT, PTT, BMP, AHCV ####[facility] [address]CJ[address] [place] [phone] Glucose Ql (U) Negative Normal Negative [facility] Comment on above: Performed By: #### C BCDIF, PT, PTT, BMP, AHCV ####[place] [phone] Hemoglobin/Blood,Ur 1+ Critically abnormal Negative [facility] Comment on above: Performed By: #### C BCDIF, PT, PTT, BMP, AHCV ####[place] [phone] INR Coag RelTime (Bld) 0-3 Normal 0-3 [facility] Comment on above: Performed By: #### C BCDIF, PT, PTT, BMP, AHCV ####[place] [phone] Ketones Ql (U) Negative Normal Negative [facility] Comment on above: Performed By: #### C BCDIF, PT, PTT, BMP, AHCV ####[place] [phone] Leukest 3+ Critically abnormal Negative [facility] Comment on above: Performed By: #### C BCDIF, PT, PTT, BMP, AHCV ####[place] [phone] Nitrites Negative Normal Negative [facility] Comment on above: Performed By: #### C BCDIF, PT, PTT, BMP, AHCV ####[place] [phone] pH 5.0 Normal 4.5-8.0 [facility] Comment on above: Performed By: #### C BCDIF, PT, PTT, BMP, AHCV ####[place] [phone] Protein, Urine Negative Normal Negative [facility] Comment on above: Performed By: #### C BCDIF, PT, PTT, BMP, AHCV ####[facility] Av[place], [place] [phone] Specific Coila, Ur 1.018 Normal 1.005-1 .03 0 [facility] Comment on above: Performed By: #### C BCDIF, PT, PTT, BMP, AHCV ####[facility] [place], [place] [phone] Urine Ike Comment SEE COMMENT Normal [facility] Comment on above: Result Comment: N/A Performed By: #### C BCDIF, PT, PTT, BMP, AHCV ####[facility] [place], [place] [phone] Urobilinogen Normal Normal Normal [facility] Comment on above: Performed By: #### C BCDIF, PT, PTT, BMP, AHCV ####[facility] [place] [phone] WBC >25 Critically abnormal 0-5 [facility] Comment on above: Performed By: #### C BCDIF, PT, PTT, BMP, AHCV ####[facility] [place], [place] [phone] XR CHEST 2V FRONTAL/LATon XR CHEST 2V FRONTAL/LAT * * *Final Report* * *DATE OF EXAM: May 12 2017 10:05AM JIX [id number] - XR CHEST 2V FRONTAL/LAT / REASON: multiple diagnoses * * * * Physician Interpretation * * * * EXAMINATION: CHEST RADIOGRAPH (2 VIEW FRONTAL and LATERAL)Clinical History: Nonrheumatic pulmonary valve insufficiency Paroxysmal atrial fibrillation Tetralogy of FallotM: XC2_3Comparison: 05/02/2017RESULT:Lines, tubes, and devices: None.Lungs and pleura: No consolidation. No lung mass. Improved trace bilateral pleural effusion and basilar atelectatic changes noted in the previous radiograph.Cardiomediastinal silhouette: Stable enlargement of the cardiomediastinal silhouette.Other: Prior median sternotomy with intact sternal wires. Dextro scoliosis with convexity to the right.IMPRESSION:Improved trace pleural effusions and basilar atelectatic changes noted on the previous radiograph.Slitter Creaser Slotter Operator: TAMAR Transcribe Date/Time: May 12 2017 4:48PDictated by : Neil ESCOTO examination was interpreted and the report reviewed and electronically signed by: WALTER RAMIRES MD on May 12 2017 4:49PM [id number] Normal [facility] PROGRESSon 05-07-2017 Protein mass conc HNO ID: [id number] thor: Elena (Chain Sales Consultant) Kasie Zepedae: (none)Author Type: Nurse PractitionerType: Progress NotesFiled: 05/12/2017 3:09 PMNote Text:[facility] and V[facility] InstituteCTS Post op Follow upPhillip Chapincito Kuo is a 41 year old male who presents who is here for postoperative follow upHPI: S/P on 04/30/2017?[facility] Surgeon: Pauline Dash M.D.[facility] Primary Compliance Intern: Azael Khan M.D.OPERATIONS : Replacement 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??SURGICAL PATHOLOGY:??Pulmonary valve, excision - Mild myxoid change.Discharged on 05/06/2017PAST MEDICAL HISTORYDiagnosis Date- Other specified disorder of gallbladder- Tetralogy of Fallot- Undescended testiclePAST SURGICAL HISTORYProcedure Laterality Date- HOLTER MONITOR - PAST SURGICAL HISTORY OF 04/06/1980 cardiac cath. AND cineangiography- PAST SURGICAL HISTORY OF L thoracentesis- PAST SURGICAL HISTORY OF Schordon Removal- PAST SURGICAL HISTORY OF 06/20/1980 open heart surgeryALLERGIESNo Known AllergiesCurrent Outpatient Prescriptions:acetaminophen (TYLENOL) 325 mg tablet Take 2 tablets by mouth every 6hours as needed. FOR MILD TO MODERATE PAIN. DO NOT EXCEED 4,000 MG IN 24HOUR PERIODoxyCODONE IR (ROXICODONE) 5 mg immediate release tablet Take 1 tablet bymouth every 6 hours as needed. FOR SEVERE PAIN.metoprolol tartrate, short acting, (LOPRESSOR) 50 mg tablet Take 1 tabletby mouth every 12 hours.magnesium hydroxide (MOM) 400 mg/5 mL suspension Take 30 mL by mouth oncedaily as needed for Constipation.therapeutic multivitamin (THERA VITAMIN) tablet Take 1 tablet by mouthdaily with breakfast.aspirin 81 mg chewable tablet Take 1 tablet by mouth once daily.lisinopril (ZESTRIL, PRINIVIL) 5 mg tablet Take 1 tablet by mouth twicedaily.amoxicillin (POLYMOX, AMOXIL) 500 mg capsule take 4 caps po 1/2 hour priorto dental proceedureNo current facility-administered medications for this visit.Chief Complaints: " I'm doing good"Discharge Post Operative Course:Pain scale :No: 0 on a scale of 0 to 10Appetite: appetite goodActivity: Walking ad karely around the houseElimination: normal, no constipation , urination is normalSleep: no problems with sleepMood: normal and goodIncisions/Wounds: healingReview of Systems:HEENT: Negative for fevers since discharge, chills, night sweats andblurry visionCardiac: Denies significant problems, chest pain, Arrhythmia and leg edemaRespiratory: denies dyspnea, cough, orthopneaMusculoskeletal: No history of joint swelling, joint pain, or loss ofrange of motion.Neuro: Denies neurological complaintsPhysical Exam:BP 92/62 (BP Site: Right Arm, BP Position: Sitting, BP Cuff Size: RegularAdult) Pulse 71 Temp 36.6 ?C (97.9 ?F) (Oral) Wt 72.1 kg (159 lb) SpO2 100% BMI 25.58 kg/q7Dtxzdwodcy: well groomed, white male, in no acute distressNeck: No neck vein distentionCardiac: regular S1, S2, No murmur, No rubLungs: Clear breath sounds bilaterally without wheeze or dullnessAbdomen: soft, non tender, Normal bowel soundsExtremities: No edemaSternum: stable, no clickSternotomy site: healing, clean, dry and intactWound: NAProcedures: Sutures removed from chest tube sites without difficulty.IMPRESSION AND PLAN:1.S/P on 04/30/2017?[facility] Surgeon: Pauline Dash M.D.[facility] Primary Compliance Intern: Azael Khan M.D.OPERATIONS : Replacement 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??SURGICAL PATHOLOGY:??Pulmonary valve, excision - Mild myxoid change.Discharged on 05/06/20172. [employer], parox - post op - currently SR - per Card continue bb no AC or amioEC05/12/2017Diagnosis:U NUSUAL P AXIS, POSSIBLE ECTOPIC ATRIAL RHYTHMINCOMPLETE RIGHT BUNDLE BRANCH BLOCKST AND ANTEROLATERAL T WAVE ABNORMALITYABNORMAL ECG?Ventricular Rate : 65 ?BPMAtrial Rate : 65 ?BPM3. Atelectasis - improving - encouraged to continue deep breathing exercises and walkingCXR:05/12/2017Reviewed ,final results pending4. HTN - hypotensive, but asymptomatic - advised to monitor bp at home - if below 90 systolic or becomes symptomatic advised to decreaselisinopril to 5mg dailyLABS:05/12/2017Component Latest Ref Rng AND Units 05/06/2017 05/12/2017WBC 3.70 - 11.00 k/uL 5.99 9.79RBC 4.20 - 6.00 m/uL 3.27 (L) 3.71 (L)Hemoglobin 13.0 - 17.0 g/dL 10.0 (L) 11.3 (L)Hematocrit 39.0 - 51.0 % 30.4 (L) 35.3 (L)Platelet Count 150 - 400 k/uL 177 363Component Latest Ref Rng AND Units 05/06/2017 05/12/2017Glucose 74 - 99 mg/dL 142 (H) 254 (H)BUN 9 - 24 mg/dL 14 17Creatinine 0.73 - 1.22 mg/dL 0.92 1.19Sodium 136 - 144 mmol/L 139 138Potassium 3.7 - 5.1 mmol/L 4.2 4.7Summary:Follow up with PCP in one week with repeat cbc and cmpFollow up with Compliance Intern in 4-6 weeks. Post op care and discharge orders reviewed with the patient- allquestions were answered.Surgical sites healing without complicationDiscussed new medications, dosage, route of administration and sideeffectsReviewed walking program at homeReviewed diet guidelines for recovery from surgeryReturn to the clinic prn with signs or symptoms of infection, fevers, SOB,or pleural effusionSBE prophylaxis reviewedDiscussed wound careAndsathya Zepeda CNP Normal [facility] CBCon 05-06-2017 Absolute nRBC <0.01 Normal <0.01 [facility] Comment on above: Performed By: #### C BCDIF, PT, PTT, BMP, AHCV ####[address] [place] [phone] Erythrocyte distribution width Auto Ratio (RBC) 11.9 % Normal 11.5-15.0 [facility] Comment on above: Performed By: #### C BCDIF, PT, PTT, BMP, AHCV ####[address] [place] [phone] Hematocrit Auto Volume Fraction (Bld) 30.4 % Low 39.0-51.0 [facility] Comment on above: Performed By: #### C BCDIF, PT, PTT, BMP, AHCV ####[address] [place] [phone] Hemoglobin mass conc (Bld) 10.0 g/dL Low 13.0-17.0 [facility] Comment on above: Performed By: #### C BCDIF, PT, PTT, BMP, AHCV ####[address] [place] [phone] MCH Auto Entitic mass (RBC) 30.6 pG Normal 26.0-34.0 [facility] Comment on above: Performed By: #### C BCDIF, PT, PTT, BMP, AHCV ####[address] [place] [phone] MCHC Auto mass conc (RBC) 32.9 g/dL Normal 30.5-36.0 [facility] Comment on above: Performed By: #### C BCDIF, PT, PTT, BMP, AHCV ####[place] [address] [place] [phone] MCV Auto Entitic volume (RBC) 93.0 fL Normal 80.0-100.0 [facility] Comment on above: Performed By: #### C BCDIF, PT, PTT, BMP, AHCV ####[facility] [place], [place] [phone] Platelet mean volume Auto Entitic volume (Bld) 11.2 fL Normal 9.0-12.7 [facility] Comment on above: Performed By: #### C BCDIF, PT, PTT, BMP, AHCV ####[place] [id number] [place], [place] [phone] Platelets Auto #/vol (Bld) 177 10*3/uL Normal 150-400 [facility] Comment on above: Performed By: #### C BCDIF, PT, PTT, BMP, AHCV ####[place] [id number] [place], [place] [phone] RBC Auto #/vol (Bld) 3.27 10*6/uL Low 4.20-6.00 [facility] Comment on above: Performed By: #### C BCDIF, PT, PTT, BMP, AHCV ####[address] [phone] WBC Auto #/vol (Bld) 5.99 10*3/uL Normal 3.70-11.00 [facility] Comment on above: Performed By: #### C BCDIF, PT, PTT, BMP, AHCV ####[facility] [place], [place] [phone] CNDSon 05-06-2017 CNDS HNO ID: [id number] thor: Amelia Jacob (Lorenzo) VargoService: Cardiac SurgeryAuthor Type: Nurse PractitionerType: Discharge SummariesFiled: 05/06/2017 8:23 AMNote Text:Department of Cardiothoracic SurgeryDischarge Summary Patient Name: Kian KuoPatient Date: 04/30/2017Discharge Date: 05/06/2017Attending Physician: Pauline Dash M.D.Primary Service: [facility] Cts Team BAdmission Diagnosis: S/P TOF (tetralogy of Fallot) repair [Z98.890,Z87.74]Discharge Diagnosis: S/P TOF (tetralogy of Fallot) repair [Z98.890,Z87.74][facility] Surgeon: Pauline Dash M.D.[facility] Primary Compliance Intern: Azael Khan M.D.[facility] Consulting Compliance Intern: NoneReason for Hospitalization: S/P TOF (tetralogy of Fallot) repair [Z98.890,Z87.74]PROCEDURES PERFORMED WHILE HOSPITALIZED: No procedures performed?OPERATIONS PERFORMED WHILE HOSPITALIZED: Replacement of pulmonary valvewith 27 mm Biocor valve?SURGICAL PATHOLOGY:Pulmonary valve, excision - Mild myxoid change.?PENDING RESULTS: No pending results.?ADDITIONAL FINDINGS WHILE IN THE HOSPITAL:Atrial Fibrillation: You had one post operative episode and convertedafter amiodarone bolus and metoprolol. You have been continued onmetoprolol. Please discuss this medication at your cardiology follow up.?Anemia: Your blood work reveals post-operative anemia, or low iron in theblood. This occurs from blood loss during surgery. You can try a diet richin high iron foods like lean red meats, iron fortified cereals, navybeans, tofu, dried apricots, raisins, spinach, and cream of wheat. Pleasehave your local doctor recheck these blood studies in a few weeks.?PAIN CONTROL: Adequate management.?Treatment/wound care:Wash wound daily with soap and water, pat dry. Leave open to air. Do notapply any lotions, powders or ointments for 6 weeks after surgery. Do notsoak in a tub, pool or hot tub until your incisions are completely healed. Inspect incision(s) daily for signs of infection: increased pain,redness, drainage, swelling. If you notice these call your surgeon'soffice or see your local provider.?ACTIVITY AFTER DISCHARGE:Continue to wear your white compression stockings during the day until youno longer have any swelling in your legs. You may take the stockings offat night while you are sleeping.?1) Do not lift, push, or pull greater than 10 lbs for 6 weeks after openheart surgery.2) Do not drive for 6 weeks after surgery. Do not ride in the front seatof a car with airbags for 6 weeks after surgery. Please wear yourseatbealt using a small towel to shield your incision.3) You may walk as much as tolerated. Discuss beginning outpatient cardiacrehab with your primary property claims manager at your follow up visit.4) Whether driving or flying home, please stand and stretch your legs fora few minutes every hour.?Please refer to your Cardiac Rehab Handout and/or Recovery from HeartSurgery binder for specific questions regarding your activity limitationsfollowing surgery.?DIET:Low salt and low fat diet. No more than 2 grams salt per day. Restaurantcarry out meals, frozen foods, soups, deli meat etc have salt already inthem even though you do not add salt yourself. You must be careful aboutthese foods. I recommend you buy fresh food and cook it yourself so youknow exactly how much salt is in your diet.?Problem List:ACTIVE PROBLEM LISTTetralogy of FallotInguinal Hernia Without Mention of Obstruction Or Gangrene, Unilateral OrUnspecified, (Not Specified As Recurrent)S/P Tof (Tetralogy of Fallot) RepairPulmonary Valve Regurgitation, AcquiredSummaryAtelectasisPos toperative PainDischarge Planning IssuesParoxysmal Atrial Fibrillation (Hcc)Essential HypertensionConsults:NonePati ent condition at discharge: StableDischarge Disposition: HomeComplications: NoInformation Provided to the Patient:Patient given copy of After Visit Summary which included activityinstructions, diet instructions, wound care instructions, medicationinstructions and follow up appointmentDischarge Medications:Current Discharge Medication ListSTART taking these medicationsacetaminophen (TYLENOL) 650 mgTake 650 mg by mouth every 6 hours as needed. FOR MILD TO MODERATE PAIN.DO NOT EXCEED 4,000 MG IN 24 HOUR PERIODoxyCODONE IR (ROXICODONE) 5 mgTake 5 mg by mouth every 6 hours as needed. FOR SEVERE PAIN.Qty: 27 tablet Refills: 0metoprolol tartrate (short acting) (LOPRESSOR) 50 mgTake 50 mg by mouth every 12 hours.Qty: 60 tablet Refills: 1magnesium hydroxide (MOM) 30 mLTake 30 mL by mouth once daily as needed for Constipation.therapeutic multivitamin (THERA VITAMIN) 1 tabletTake 1 tablet by mouth daily with breakfast.Refills: 0aspirin 81 mgTake 81 mg by mouth once daily.Refills: 0CONTINUE these medications which have NOT CHANGEDlisinopril (ZESTRIL, PRINIVIL) 5 mgTake 5 mg by mouth twice daily.amoxicillin (POLYMOX, AMOXIL) 500 mg capsuletake 4 caps po 1/2 hour prior to dental proceedureQty: 4 capsule Refills: 5Outpatient Management:* Are there important medication changes and/or outstanding issues thatneed to beaddressed:see additional findings* What is the plan for follow up: as below and CARDS/PCPFuture AppointmentsDate Time Provider Department Uwtuxh4505/12/2017 10:00 AM LBJ1-4 MAIN LBJ1-4 CARD J BLD1 10:10 AM XR CHEST MAIN J1 RADMNJ RADIO J BLDG05/12/2017 10:15 AM EKGJ1-4 MAIN EKGF16 CARD J BLD1 10:30 AM Elena Fernandes) CONNIE Zepeda BLDGElectronically SIGNED by Licensed Independent Practitioner: Amelia Goodman CNP Normal [facility] Comp Metabolic Panelon 05-06 Albumin mass conc 3.7 g/dL Low 3.9-4.9 [facility] Comment on above: Performed By: #### C BCDIF, PT, PTT, BMP, AHCV ####[facility] [address]CPione[address], [place] [phone] ALP enzyme act/vol 48 U/L Normal 36-108 [facility] Comment on above: Performed By: #### C BCDIF, PT, PTT, BMP, AHCV ####[facility] [address] AveCPione[address], [place] [phone] ALT enzyme act/vol 17 U/L Normal 10-54 [facility] Comment on above: Performed By: #### C BCDIF, PT, PTT, BMP, AHCV ####[facility]CJ[address] [place] [phone] Anion gap 3 molar conc 12 mmol/L Normal 9-18 [facility] Comment on above: Performed By: #### C BCDIF, PT, PTT, BMP, AHCV ####[facility] AveCCher[address] [place] [phone] AST enzyme act/vol 15 U/L Normal 14-40 [facility] Comment on above: Performed By: #### C BCDIF, PT, PTT, BMP, AHCV ####[facility] [place] [phone] Bilirubin mass conc 1.1 mg/dL Normal 0.2-1.3 [facility] Comment on above: Performed By: #### C BCDIF, PT, PTT, BMP, AHCV ####[place] [address] [place] [phone] Calcium mass conc 8.5 mg/dL Normal 8.5-10.2 [facility] Comment on above: Performed By: #### C BCDIF, PT, PTT, BMP, AHCV ####[facility] [place] [phone] Chloride molar conc 101 mmol/L Normal 97-105 [facility] Comment on above: Performed By: #### C BCDIF, PT, PTT, BMP, AHCV ####[facility] [place] [phone] CO2 molar conc 26 mmol/L Normal 22-30 [facility] Comment on above: Performed By: #### C BCDIF, PT, PTT, BMP, AHCV ####[facility] [place] [phone] Creatinine mass conc 0.92 mg/dL Normal 0.73-1.22 [facility] Comment on above: Performed By: #### C BCDIF, PT, PTT, BMP, AHCV ####[facility] [place], [place] [phone] eGFR- Amer. >60 Normal [facility] Comment on above: Performed By: #### C BCDIF, PT, PTT, BMP, AHCV ####[facility] [place], [place] [phone] GFR/1.73 sq M predicted among non-blacks MDRD vol rate/area (S/P/Bld) mL/min/{1.73_m2} Normal [facility] Comment on above: Result Comment: eGFR (Estimated GFR) Units of measure: mL/min/1.73 meters squaredeGFR is derived from the reexpressed MDRD Study equation using the following parameters: serum creatinine, age, gender and race. The creatinine assay has been calibrated to be traceable to IDMS.An eGFR <60 mL/min/1.73m2 for >3 months is consistent with chronic kidney disease. Refer to KDOQI guidelines for clinical interpretation.In patients with unstable renal function, e.g. those with acute kidney injury, the eGFR may not accurately reflect actual GFR. Performed By: #### C BCDIF, PT, PTT, BMP, AHCV ####[facility] [place], [place] [phone] Glucose mass conc 142 mg/dL High 74-99 [facility] Comment on above: Result Comment: The [place] Diabetes Association (ADA) provides guidance for cutoff values for fasting glucose and random glucose. The ADA defines fasting as no caloric intake for at least 8 hours. Fasting plasma glucose results between 100 to 125 mg/dL indicate increased risk for diabetes (prediabetes).Fasting plasma glucose results greater than or equal to 126 mg/dL meet the criteria for diagnosis of diabetes. In the absence of unequivocal hyperglycemia, results should be confirmed by repeat testing. In a patient with classic symptoms of hyperglycemia or hyperglycemic crisis, random plasma glucose results greater than or equal to 200 mg/dL meet the criteria for diagnosis of diabetes.Reference: Standards of Medical Care in Diabetes 2016, [place] [employer] Association. Diabetes Care. 2016.39(Suppl 1). Performed By: #### C BCDIF, PT, PTT, BMP, AHCV ####[address] [phone] Potassium molar conc 4.2 mmol/L Normal 3.7-5.1 [facility] Comment on above: Performed By: #### C BCDIF, PT, PTT, BMP, AHCV ####[address] [phone] Protein mass conc 6.7 g/dL Normal 6.3-8.0 [facility] Comment on above: Performed By: #### C BCDIF, PT, PTT, BMP, AHCV ####[address] [phone] Sodium molar conc 139 mmol/L Normal 136-144 [facility] Comment on above: Performed By: #### C BCDIF, PT, PTT, BMP, AHCV ####[address] [phone] Urea nitrogen mass conc 14 mg/dL Normal 9-24 [facility] Comment on above: Performed By: #### C BCDIF, PT, PTT, BMP, AHCV ####[address] [phone] PROGRESSon 05-06-2017 Protein mass conc HNO ID: [id number] thor: Amelia Jacob (Pinion Sorter) VargoService: Cardiac SurgeryAuthor Type: Nurse PractitionerType: Progress NotesFiled: 05/06/2017 8:18 AMNote Text:[facility] CTS POSTOP PROGRESS NOTEDay of Surgery:04/30/2017S/P SURGERY: Replacement 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.INTERVAL EVENTS / PERTINENT ROS:-BP improved still not under optimal control inc lisinopril back to homedose and inc beta christos (d/t HR)-DC to homeRhythm: SinusIntake/Output Summary (Last 24 hours) at 05/06/17 0818Last data filed at 05/05/17 1900 Gross per 24 hourIntake 360 mlOutput 700 mlNet -340 mlEKG: most recent image reviewedTELE: most recent recordings reviewedCXR: most recent image reviewed, most recent report reviewedEchocardiogram: most recent report reviewedPHYSICAL EXAM:BP 134/79 Pulse 100 Temp 36.7 ?C (98 ?F) (Oral) Resp 18 Ht 167.9cm (5' 6.1") Wt 74 kg (163 lb 1.6 oz) SpO2 100% BMI 26.24 kg/s2Oozsp: AANDO x 3 moves all extremities with no apparent weaknessHeart Exam: HRRR, no r/g 2/6 murmurResp: CTAAbd: soft, NT/ND +BS x 4Skin: Skin color, texture, turgor normal, no suspicious rashes or lesionsExt: no edemaSurgical incisions: clean, dry and intactChest tube: NoPacer wires: No.HISTORY, ASSESSMENT AND PLAN:ProblemSummary Indication for Surgery: TOF, PRLVEF: Normal RVF: Normal ECG: SR Cards: ZahkaImportant/Relevant PMH/PSH: TOF, 22q11, Free PR41 year old who had repair of TO[place] at age 4 [place] after which he wasfollowed intermittently until about age 17 when he heard that he no longerneeded follow-up. He recently came back to medical care after a neuro likeevent that prompted admission to [facility]. At that time he was found to behypertensive. The ECHO sowed his right ventricular dilatation andpulmonary regurgitation. His SPECT scan was reassuring for the absence ofcoronary disease. Patient has a history of scoliosis, solitary kidney.Preoperatively his symptoms included tiring quickly with activity. Hedenied chest pain, dizziness, syncope, palpitations. No fever or weightloss.Procedure/Surgerie s: 04/30/2017 PVR #27 BiocorAirway Difficulty: Grade I - No special instrumentationOR Course: UncomplicatedPacing wires: NoICU: Transferred to PICU, extubated within 20 minutes of arrival, stable,NSR, pain controlled. No events over night, patient de-lined, MS CTremoved after OOB to chair without complication.A/P:s/p PVR no post op imaging-Currently Sinus previous episode of Afib RVR. Self converted withMetoprolol and IV Amiodarone. Per Dr. Maier no need for PO Amiodarone.inc beta christos-HTN inc beta christos and inc lisinopril back to home dose-Positive urinalysis preoperatively - urine culture negativeDispo - 41yo from [facility]. No skilled needs. Will follow up with CTS OPDand Dr. Khan in cardiology (requested). DC today 05/06Pulmonary Valve Regurgitation, Acquired History: pre-op ECHO shows mild pulmonic stenosis. ?The peakpulmonic?gradient is 22.0 mm Hg. The mean pulmonic gradient is 13.0 mm Hg.There is ?3+ pulmonic regurgitation.Assessment: 04/30/2017 PVR #27 BiocorPlan: Continue ASA and beta blockerf/u with CARDS and OPDAtelectasis History: recent OHSAssessment: Postop atelectasisPlan:encourage ez pep, coughing (splinting with pillow), deep breathing andambulation.Paroxysmal Atrial Fibrillation (Hcc) History: No prior history of atrial arrhythmias.Assessment: 1st episode of AF on 05/02 @ 8pm. Self converted with IVAmiodarone and Metoprolol. Per DR. Maier stop IV amio no need for oral.05/05 SinusPlan: increase Metoprolol.f/u with CARDSEssential Hypertension History: home med lisinoprilAssessment: BP improvedPlan:inc metoprolol (more for HR control)inc lisinoprilf/u OPD and CARDSPostoperative Pain History: Developed postoperativelyAssessment: Pain well managed with current pain medication regimen.Plan:DC on PRN tylenol for mild to moderate painDC on PRN oxycodone for severe pain.Discharge Planning Issues -From [facility]. No skilled needs. Will follow up with CTS OPD and in cardiology (requested). DC today.DAILY STEP DOWN CHECKLIST FOR CATHETER RELATED INFECTION PREVENTIONCVC, PICC, Meghana and/or Permacath present? NoDoes the patient have a urinary catheter beyond POD 2? NoVTE Risk Assessment: High riskVTE Mechanical and/or Pharmacologic Prophylaxis: IPC Device, SubcutaneousHeparin, SCD and encourage ambulationLabs and medications reviewed in EpicCase discussed in depth with: CTS FellowSIGNATURE: Amelia Reyes CNP PATIENT NAME: Kian KuoDATE: May 06, 2017 PAGER/CONTACT #: [phone] Normal [facility] ALLIED HEALTHon 05-05-2017 ALLIED HEALTH HNO ID: [id number] thor: Aleyda (Ex Phys) EusebialliService: Cardiovascular MedicineAuthor Type: Exercise PhysiologistType: Allied HealthFiled: 05/05/2017 1:57 PMNote Text:CARDIAC REHABILITATIONPHASE I FOLLOW-UPPATIENT NAME: Kian KuoMRN: [id number] DATE: May 05, 2017SESSION TIME: 11:00amComments:Pt. observed ambulating in the room independently. He was steady andstated he has been ambulating in the purvis ~280ft without complaints ordifficulty. Tolerating exercise well. Encouraged to continue withexercise 4 - 6 x/day.Home activity guidelines given and reviewed.Recommend enrollment in Phase 2, Outpatient Cardiac Rehab. Order given topt.Home Program: Provided and reviewed home activity guidelines as outlinedbelow. Frequency: 4 - 6 days/week Intensity: 3 - 4/10 RPE Type: walking - start at 3 - 5 minutes/4 - 6 x day Duration: 20 - 30 minutes -----> 45 + minutesZO Vanessa PHYSPager: [id number] 20161:53 PM Normal [facility] CASE MANAGEMon 05-05-2017 CASE MANAGEM HNO ID: [id number] thor: Fide (Rn) Rafiq RNService: Case ManagementAuthor Type: Registered NurseType: Care Mgt Progress NoteFiled: 05/05/2017 6:43 PMNote Text:CARE MANAGEMENT PROGRESS NOTESERVICE DATE: 05/05/2017SERVICE TIME: 6:42 PM LOS: 5 daysNeeds Prior to Discharge: To Be DeterminedPer medical team patient will d/c home on Friday.SIGNATURE: Fide Conroy RN PATIENT NAME: Kian KuoDATE: May 05, 2017 : 6:42 PM PAGER/CONTACT #: [phone] Normal [facility] CASE MANAGEM HNO ID: [id number] thor: Fide (Rn) CHRISTOPHER Conroyervice: Case ManagementAuthor Type: Registered NurseType: Care Mgt Progress NoteFiled: 05/05/2017 10:59 AMNote Text:CARE MANAGEMENT PROGRESS NOTESERVICE DATE: 05/05/2017SERVICE TIME: 10:58 AM LOS: 5 daysNeeds Prior to Discharge: To Be DeterminedPossible Friday/Friday DC no skilled needs.Per shared medical record:Dispo - 41yo from [facility]. No skilled needs. [facility] OPMayur Khan in cardiology (requested). Possible DC in a.m.?SIGNATURE: Fide Conroy RN PATIENT NAME: Kain KuoDATE: May 05, 2017 : 10:58 AM PAGER/CONTACT #: [phone] Normal [facility] CBCon 05-05-2017 Absolute nRBC 0.00 k/uL Normal <0.01 [facility] Comment on above: Performed By: #### C BC, CMP ####[facility] [place], [place] [phone] Erythrocyte distribution width Auto Ratio (RBC) 11.8 % Normal 11.5-15.0 [facility] Comment on above: Performed By: #### C BC, CMP ####[facility] [address], [place] [phone] Hematocrit Auto Volume Fraction (Bld) 29.7 % Low 39.0-51.0 [facility] Comment on above: Performed By: #### C BC, CMP ####[facility], [place] [phone] Hemoglobin mass conc (Bld) 10.0 g/dL Low 13.0-17.0 [facility] Comment on above: Performed By: #### C BC, CMP ####[facility] [address] AvPatrick [place] [phone] MCH Auto Entitic mass (RBC) 31.3 pG Normal 26.0-34.0 [facility] Comment on above: Performed By: #### C BC, CMP ####[place] [address], [place] [phone] MCHC Auto mass conc (RBC) 33.7 g/dL Normal 30.5-36.0 [facility] Comment on above: Performed By: #### C BC, CMP ####[place] [address], [place] [phone] MCV Auto Entitic volume (RBC) 92.8 fL Normal 80.0-100.0 [facility] Comment on above: Performed By: #### C BC, CMP ####[place] [address], [place] [phone] Platelet mean volume Auto Entitic volume (Bld) 12.2 fL Normal 9.0-12.7 [facility] Comment on above: Performed By: #### C BC, CMP ####[place] [address], [place] [phone] Platelets Auto #/vol (Bld) 145 10*3/uL Low 150-400 [facility] Comment on above: Performed By: #### C BC, CMP ####[place] [address], [place] [phone] RBC Auto #/vol (Bld) 3.20 10*6/uL Low 4.20-6.00 [facility] Comment on above: Performed By: #### C BC, CMP ####[place] [address], [place] [phone] WBC Auto #/vol (Bld) 6.72 10*3/uL Normal 3.70-11.00 [facility] Comment on above: Performed By: #### C BC, CMP ####[place] [address]CJ[address] [place] [phone] Comp Metabolic Panelon 05-05 Albumin mass conc 3.6 g/dL Low 3.9-4.9 [facility] Comment on above: Performed By: #### C BC, CMP ####[facility] [address]CP[address], [place] [phone] ALP enzyme act/vol 49 U/L Normal 36-108 [facility] Comment on above: Performed By: #### C BC, CMP ####[facility]CJ[address] [place] [phone] ALT enzyme act/vol 14 U/L Normal 10-54 [facility] Comment on above: Performed By: #### C BC, CMP ####[place] [address] [place] [phone] Anion gap 3 molar conc 11 mmol/L Normal 9-18 [facility] Comment on above: Performed By: #### C BC, CMP ####[facility] [place] [phone] AST enzyme act/vol 13 U/L Low 14-40 [facility] Comment on above: Performed By: #### C BC, CMP ####[place] [address], [place] [phone] Bilirubin mass conc 1.1 mg/dL Normal 0.2-1.3 [facility] Comment on above: Performed By: #### C BC, CMP ####[facility]CJ[address] [place] [phone] Calcium mass conc 8.5 mg/dL Normal 8.5-10.2 [facility] Comment on above: Performed By: #### C BC, CMP ####[facility]CP[address], [place] [phone] Chloride molar conc 99 mmol/L Normal 97-105 [facility] Comment on above: Performed By: #### C BC, CMP ####[facility] [address], [place] [phone] CO2 molar conc 28 mmol/L Normal 22-30 [facility] Comment on above: Performed By: #### C BC, CMP ####[facility] [address], [place] [phone] Creatinine mass conc 1.00 mg/dL Normal 0.73-1.22 [facility] Comment on above: Performed By: #### C BC, CMP ####[facility] [place], [place] [phone] eGFR- Amer. >60 Normal [facility] Comment on above: Performed By: #### C BC, CMP ####[facility], [place] [phone] GFR/1.73 sq M predicted among non-blacks MDRD vol rate/area (S/P/Bld) mL/min/{1.73_m2} Normal [facility] Comment on above: Result Comment: eGFR (Estimated GFR) Units of measure: mL/min/1.73 meters squaredeGFR is derived from the reexpressed MDRD Study equation using the following parameters: serum creatinine, age, gender and race. The creatinine assay has been calibrated to be traceable to IDMS.An eGFR <60 mL/min/1.73m2 for >3 months is consistent with chronic kidney disease. Refer to KDOQI guidelines for clinical interpretation.In patients with unstable renal function, e.g. those with acute kidney injury, the eGFR may not accurately reflect actual GFR. Performed By: #### C BC, CMP ####[facility], [place] [phone] Glucose mass conc 156 mg/dL High 74-99 [facility] Comment on above: Result Comment: The [place] Diabetes Association (ADA) provides guidance for cutoff values for fasting glucose and random glucose. The ADA defines fasting as no caloric intake for at least 8 hours. Fasting plasma glucose results between 100 to 125 mg/dL indicate increased risk for diabetes (prediabetes).Fasting plasma glucose results greater than or equal to 126 mg/dL meet the criteria for diagnosis of diabetes. In the absence of unequivocal hyperglycemia, results should be confirmed by repeat testing. In a patient with classic symptoms of hyperglycemia or hyperglycemic crisis, random plasma glucose results greater than or equal to 200 mg/dL meet the criteria for diagnosis of diabetes.Reference: Standards of Medical Care in Diabetes 2016, [place] [employer] Association. Diabetes Care. 2016.39(Suppl 1). Performed By: #### C BC, CMP ####[address] [phone] Potassium molar conc 4.1 mmol/L Normal 3.7-5.1 [facility] Comment on above: Performed By: #### C BC, CMP ####[address] [phone] Protein mass conc 6.8 g/dL Normal 6.3-8.0 [facility] Comment on above: Performed By: #### C BC, CMP ####[address] [phone] Sodium molar conc 138 mmol/L Normal 136-144 [facility] Comment on above: Performed By: #### C BC, CMP ####[address] [phone] Urea nitrogen mass conc 18 mg/dL Normal 9-24 [facility] Comment on above: Performed By: #### C BC, CMP ####[address] [phone] PROGRESSon 05-05-2017 Protein mass conc HNO ID: [id number] thor: Amelia Jacob (Lorenzo) JoangoService: Cardiac SurgeryAuthor Type: Nurse PractitionerType: Progress NotesFiled: 05/05/2017 9:56 AMNote Text:[facility] CTS POSTOP PROGRESS NOTEDay of Surgery:04/30/2017S/P SURGERY: Replacement 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.INTERVAL EVENTS / PERTINENT ROS:-BP trending up add ESPERANZA and inc beta blockerRhythm: SinusIntake/Output Summary (Last 24 hours) at 05/05/17 0956Last data filed at 05/05/17 0844 Gross per 24 hourIntake 520 mlOutput 800 mlNet -280 mlEKG: most recent image reviewedTELE: most recent recordings reviewedCXR: most recent image reviewed, most recent report reviewedEchocardiogram: most recent report reviewedPHYSICAL EXAM:BP 145/75 Pulse 97 Temp 36.8 ?C (98.3 ?F) (Oral) Resp 18 Ht 167.9cm (5' 6.1") Wt 74.8 kg (165 lb) SpO2 100% BMI 26.55 kg/m3Jbmjx: AANDO x 3 moves all extremities with no apparent weaknessHeart Exam: HRRR, no r/g 2/6 murmurResp: diminished bilat posterior basesAbd: soft, NT/ND +BS x 4Skin: Skin color, texture, turgor normal, no suspicious rashes or lesionsExt: no edemaSurgical incisions: clean, dry and intactChest tube: NoPacer wires: No.HISTORY, ASSESSMENT AND PLAN:ProblemSummary Indication for Surgery: TOF, PRLVEF: Normal RVF: Normal ECG: SR Cards: ZakaImportant/Relevant PMH/PSH: TOF, 22q11, Free PR41 year old who had repair of TOF at age 4 at [place] after which he wasfollowed intermittently until about age 17 when he heard that he no longerneeded follow-up. He recently came back to medical care after a neuro likeevent that prompted admission to [facility]. At that time he was found to behypertensive. The ECHO sowed his right ventricular dilatation andpulmonary regurgitation. His SPECT scan was reassuring for the absence ofcoronary disease. Patient has a history of scoliosis, solitary kidney.Preoperatively his symptoms included tiring quickly with activity. Hedenied chest pain, dizziness, syncope, palpitations. No fever or weightloss.Procedure/Surgerie s: 04/30/2017 PVR #27 BiocorAirway Difficulty: Grade I - No special instrumentationOR Course: UncomplicatedPacing wires: NoICU: Transferred to PICU, extubated within 20 minutes of arrival, stable,NSR, pain controlled. No events over night, patient de-lined, MS CTremoved after OOB to chair without complication.A/P:s/p PVR no post op imaging-Currently Sinus previous episode of Afib RVR. Self converted withMetoprolol and IV Amiodarone. Per Dr. Maier no need for PO Amiodarone.inc beta christos-HTN inc beta christos restart home med lisinopril-Positive urinalysis preoperatively - urine culture negativeDispo - 41yo from [facility]. No skilled needs. Will follow up with CTS OPDand Dr. Khan in cardiology (requested). Possible DC in a.m.Pulmonary Valve Regurgitation, Acquired History: pre-op ECHO shows mild pulmonic stenosis. ?The peakpulmonic?gradient is 22.0 mm Hg. The mean pulmonic gradient is 13.0 mm Hg.There is ?3+ pulmonic regurgitation.Assessment: 04/30/2017 PVR #27 BiocorPlan: Continue Devendra/u with CARDSAtelectasis History: recent OHSAssessment: Postop atelectasisPlan:encourage ez pep, coughing (splinting with pillow), deep breathing andambulation.Paroxysmal Atrial Fibrillation (Hcc) History: No prior history of atrial arrhythmias.Assessment: 1st episode of AF on 05/02 @ 8pm. Self converted with IVAmiodarone and Metoprolol. Per DR. aMier stop IV amio no need for oral.05/05 SinusPlan: increase Metoprolol. Monitor telemetryEssential Hypertension History: home med lisinoprilAssessment: BP trending upPlan:inc metoprolol (more for HR control)restart lisinoprilmonitor response and adjust meds as needed.Postoperative Pain History: Developed postoperativelyAssessment: Pain well managed with current pain medication regimen.Plan: Continue scheduled daily Lidoderm patches and PRN Tylenol, Tramadol.Pain goal < 4Discharge Planning Issues -From [facility]. No skilled needs. Will follow up with [facility] OPD and in cardiology (requested). Likely DC in a.m.DAILY STEP DOWN CHECKLIST FOR CATHETER RELATED INFECTION PREVENTIONCVC, PICC, Meghana and/or Permacath present? NoDoes the patient have a urinary catheter beyond POD 2? NoVTE Risk Assessment: High riskVTE Mechanical and/or Pharmacologic Prophylaxis: IPC Device, SubcutaneousHeparin, SCD and encourage ambulationLabs and medications reviewed in EpicCase discussed in depth with: CTS FellowSIGNATURE: Amelia Reyes CNP PATIENT NAME: Kian KuoDATE: May 05, 2017 : 8:30 AM PAGER/CONTACT #: [id number] Normal [facility] CBCon 05-04-2017 Absolute nRBC 0.00 k/uL Normal <0.01 [facility] Comment on above: Performed By: #### C BC, CMP ####[place] [address] [place] [phone] Erythrocyte distribution width Auto Ratio (RBC) 11.8 % Normal 11.5-15.0 [facility] Comment on above: Performed By: #### C BC, CMP ####[place] [address] [address] [phone] Hematocrit Auto Volume Fraction (Bld) 29.4 % Low 39.0-51.0 [facility] Comment on above: Performed By: #### C BC, CMP ####[place] [address] [address] [place] [phone] Hemoglobin mass conc (Bld) 9.9 g/dL Low 13.0-17.0 [facility] Comment on above: Performed By: #### C BC, CMP ####[place] [address] [address] [place] [phone] MCH Auto Entitic mass (RBC) 31.0 pG Normal 26.0-34.0 [facility] Comment on above: Performed By: #### C BC, CMP ####[place] [address] [address] [place] [phone] MCHC Auto mass conc (RBC) 33.7 g/dL Normal 30.5-36.0 [facility] Comment on above: Performed By: #### C BC, CMP ####[facility] [address] [phone] MCV Auto Entitic volume (RBC) 92.2 fL Normal 80.0-100.0 [facility] Comment on above: Performed By: #### C BC, CMP ####[address] [place], [place] [phone] Platelet mean volume Auto Entitic volume (Bld) 12.9 fL High 9.0-12.7 [facility] Comment on above: Performed By: #### C BC, CMP ####[address] [place], [place] [phone] Platelets Auto #/vol (Bld) 109 10*3/uL Low 150-400 [facility] Comment on above: Performed By: #### C BC, CMP ####[address] [phone] RBC Auto #/vol (Bld) 3.19 10*6/uL Low 4.20-6.00 [facility] Comment on above: Performed By: #### C BC, CMP ####[address] [phone] WBC Auto #/vol (Bld) 7.28 10*3/uL Normal 3.70-11.00 [facility] Comment on above: Performed By: #### C BC, CMP ####[address] [phone] Comp Metabolic Panel 05-04 Albumin mass conc 3.4 g/dL Low 3.9-4.9 [facility] Comment on above: Performed By: #### C BC, CMP ####[address] [phone] ALP enzyme act/vol 47 U/L Normal 36-108 [facility] Comment on above: Performed By: #### C BC, CMP ####[address] [place] [phone] ALT enzyme act/vol 13 U/L Normal 10-54 [facility] Comment on above: Performed By: #### C BC, CMP ####[place] [address] [address] [place] [phone] Anion gap 3 molar conc 13 mmol/L Normal 9-18 [facility] Comment on above: Performed By: #### C BC, CMP ####[place] [address] [address] [place] [phone] AST enzyme act/vol 14 U/L Normal 14-40 [facility] Comment on above: Performed By: #### C BC, CMP ####[place] [phone] Bilirubin mass conc 1.2 mg/dL Normal 0.2-1.3 [facility] Comment on above: Performed By: #### C BC, CMP ####[place] [address] [address] [place] [phone] Calcium mass conc 8.1 mg/dL Low 8.5-10.2 [facility] Comment on above: Performed By: #### C BC, CMP ####[place] [phone] Chloride molar conc 94 mmol/L Low 97-105 [facility] Comment on above: Performed By: #### C BC, CMP ####[place] [address] [address] [place] [phone] CO2 molar conc 27 mmol/L Normal 22-30 [facility] Comment on above: Performed By: #### C BC, CMP ####[place] [address] [address] [place] [phone] Creatinine mass conc 1.07 mg/dL Normal 0.73-1.22 [facility] Comment on above: Performed By: #### C BC, CMP ####[facility] [place], [place] [phone] eGFR- Amer. >60 Normal [facility] Comment on above: Performed By: #### C ELADIO, CMP ####[facility] [place], [place] [phone] GFR/1.73 sq M predicted among non-blacks MDRD vol rate/area (S/P/Bld) mL/min/{1.73_m2} Normal [facility] Comment on above: Result Comment: eGFR (Estimated GFR) Units of measure: mL/min/1.73 meters squaredeGFR is derived from the reexpressed MDRD Study equation using the following parameters: serum creatinine, age, gender and race. The creatinine assay has been calibrated to be traceable to IDMS.An eGFR <60 mL/min/1.73m2 for >3 months is consistent with chronic kidney disease. Refer to KDOQI guidelines for clinical interpretation.In patients with unstable renal function, e.g. those with acute kidney injury, the eGFR may not accurately reflect actual GFR. Performed By: #### C ELADIO, CMP ####[facility] [place], [place] [phone] Glucose mass conc 183 mg/dL High 74-99 [facility] Comment on above: Result Comment: The [place] Diabetes Association (ADA) provides guidance for cutoff values for fasting glucose and random glucose. The ADA defines fasting as no caloric intake for at least 8 hours. Fasting plasma glucose results between 100 to 125 mg/dL indicate increased risk for diabetes (prediabetes).Fasting plasma glucose results greater than or equal to 126 mg/dL meet the criteria for diagnosis of diabetes. In the absence of unequivocal hyperglycemia, results should be confirmed by repeat testing. In a patient with classic symptoms of hyperglycemia or hyperglycemic crisis, random plasma glucose results greater than or equal to 200 mg/dL meet the criteria for diagnosis of diabetes.Reference: Standards of Medical Care in Diabetes 2016, [place] [employer] Association. Diabetes Care. 2016.39(Suppl 1). Performed By: #### C ELADIO, CMP ####[place] [address] [place], [place] [phone] Potassium molar conc 3.8 mmol/L Normal 3.7-5.1 [facility] Comment on above: Performed By: #### C BC, CMP ####[facility] [place], [place] [phone] Protein mass conc 6.5 g/dL Normal 6.3-8.0 [facility] Comment on above: Performed By: #### C BC, CMP ####[facility] [place], [place] [phone] Sodium molar conc 134 mmol/L Low 136-144 [facility] Comment on above: Performed By: #### C BC, CMP ####[facility] [place], [place] [phone] Urea nitrogen mass conc 26 mg/dL High 9-24 [facility] Comment on above: Performed By: #### C BC, CMP ####[facility] [place], [place] [phone] NURSING PROGon 05-04-2017 Protein mass conc HNO ID: [id number] thor: Rachna (Rn) Jesu, CHRISTOPHERervice: (none)Author Type: Registered NurseType: Nursing Progress NoteFiled: 05/04/2017 5:54 PMNote Text: Nursing Progress NotePatient Name: Kian KuoMRN: [id number] Location: [address]39 HR began sustaining in the 110's SR, pt asymptomatic, CTS on callnotified. Orders given to give 2100 dose of 25mg Metoprolol early. SeeMAR for medication administration. Will continue to monitor pt.This note was completed by: Rachna Nails RN [facility] Protein mass conc HNO ID: [id number] thor: Rachna (Rn) CHRISTOPHER Nailservice: (none)Author Type: Registered NurseType: Nursing Progress NoteFiled: 05/04/2017 12:19 PMNote Text: Nursing Progress NotePatient Name: Kian KuoMRN: [id number] Location: [address]L3-6-59 Pt was c/o of difficulty voiding and feeling like her bladder wasn'temptying with voiding. Bladder was scanned after she voided 300cc andshowed >999cc in bladder. Notified Dr. Zhang, advised to wait an hour,have pt void again and bladder scan. Pt voided additional 300cc butreported no relief. Bladder scan again shower >999cc. Notified Dr. Case strait cath ordered. Pt was strait cathed for 1200cc clear yellowurine. Pt reports relief and bladder feels empty. Will continue tomonitor pt.This note was completed by: Rachna Nails RN Normal [facility] CBCon 05-03-2017 Absolute nRBC 0.00 k/uL Normal <0.01 [facility] Comment on above: Performed By: #### C BC, CMP ####[facility] [place], [place] [phone] Erythrocyte distribution width Auto Ratio (RBC) 11.9 % Normal 11.5-15.0 [facility] Comment on above: Performed By: #### C BC, CMP ####[facility] [place], [place] [phone] Hematocrit Auto Volume Fraction (Bld) 33.3 % Low 39.0-51.0 [facility] Comment on above: Performed By: #### C BC, CMP ####[facility] [place], [place] [phone] Hemoglobin mass conc (Bld) 11.1 g/dL Low 13.0-17.0 [facility] Comment on above: Performed By: #### C BC, CMP ####[place] [address] [address], [place] [phone] MCH Auto Entitic mass (RBC) 30.9 pG Normal 26.0-34.0 [facility] Comment on above: Performed By: #### C BC, CMP ####[place] [address] [address], [place] [phone] MCHC Auto mass conc (RBC) 33.3 g/dL Normal 30.5-36.0 [facility] Comment on above: Performed By: #### C ELADIO, CMP ####[place] [address] [address], [place] [phone] MCV Auto Entitic volume (RBC) 92.8 fL Normal 80.0-100.0 [facility] Comment on above: Performed By: #### C BC, CMP ####[place] [address] [address] [place] [phone] Platelet mean volume Auto Entitic volume (Bld) 12.9 fL High 9.0-12.7 [facility] Comment on above: Performed By: #### C BC, CMP ####[place] [address] [address], [place] [phone] Platelets Auto #/vol (Bld) 108 10*3/uL Low 150-400 [facility] Comment on above: Performed By: #### C BC, CMP ####[place] [address] [address], [place] [phone] RBC Auto #/vol (Bld) 3.59 10*6/uL Low 4.20-6.00 [facility] Comment on above: Performed By: #### C BC, CMP ####[place] [address] [address], [place] [phone] WBC Auto #/vol (Bld) 8.90 10*3/uL Normal 3.70-11.00 [facility] Comment on above: Performed By: #### C BC, CMP ####[facility] AveClevelF[address], [place] [phone] Comp Metabolic Panelon 05-03 Albumin mass conc 3.7 g/dL Low 3.9-4.9 [facility] Comment on above: Performed By: #### C BC, CMP ####[place] [address] [address] [phone] ALP enzyme act/vol 51 U/L Normal 36-108 [facility] Comment on above: Performed By: #### C BC, CMP ####[place] [address] [address] [place] [phone] ALT enzyme act/vol 17 U/L Normal 10-54 [facility] Comment on above: Performed By: #### C BC, CMP ####[place] [address] [address] [place] [phone] Anion gap 3 molar conc 10 mmol/L Normal 9-18 [facility] Comment on above: Performed By: #### C BC, CMP ####[place] [address] [address] [place] [phone] AST enzyme act/vol 15 U/L Normal 14-40 [facility] Comment on above: Performed By: #### C BC, CMP ####[place] [address] [address], [place] [phone] Bilirubin mass conc 1.3 mg/dL Normal 0.2-1.3 [facility] Comment on above: Performed By: #### C BC, CMP ####[facility] AveClevelF[place], [place] [phone] Calcium mass conc 8.2 mg/dL Low 8.5-10.2 [facility] Comment on above: Performed By: #### C BC, CMP ####[facility] [place], [place] [phone] Chloride molar conc 98 mmol/L Normal 97-105 [facility] Comment on above: Performed By: #### C BC, CMP ####[facility], [place] [phone] CO2 molar conc 30 mmol/L Normal 22-30 [facility] Comment on above: Performed By: #### C BC, CMP ####[place] [address] [address], [place] [phone] Creatinine mass conc 1.09 mg/dL Normal 0.73-1.22 [facility] Comment on above: Performed By: #### C BC, CMP ####[place] [address], [place] [phone] eGFR- Amer. >60 Normal [facility] Comment on above: Performed By: #### C BC, CMP ####[place] [address] [address], [place] [phone] GFR/1.73 sq M predicted among non-blacks MDRD vol rate/area (S/P/Bld) mL/min/{1.73_m2} Normal [facility] Comment on above: Result Comment: eGFR (Estimated GFR) Units of measure: mL/min/1.73 meters squaredeGFR is derived from the reexpressed MDRD Study equation using the following parameters: serum creatinine, age, gender and race. The creatinine assay has been calibrated to be traceable to IDMS.An eGFR <60 mL/min/1.73m2 for >3 months is consistent with chronic kidney disease. Refer to KDOQI guidelines for clinical interpretation.In patients with unstable renal function, e.g. those with acute kidney injury, the eGFR may not accurately reflect actual GFR. Performed By: #### C BC, CMP ####[facility] [place], [place] [phone] Glucose mass conc 148 mg/dL High 74-99 [facility] Comment on above: Result Comment: The [place] Diabetes Association (ADA) provides guidance for cutoff values for fasting glucose and random glucose. The ADA defines fasting as no caloric intake for at least 8 hours. Fasting plasma glucose results between 100 to 125 mg/dL indicate increased risk for diabetes (prediabetes).Fasting plasma glucose results greater than or equal to 126 mg/dL meet the criteria for diagnosis of diabetes. In the absence of unequivocal hyperglycemia, results should be confirmed by repeat testing. In a patient with classic symptoms of hyperglycemia or hyperglycemic crisis, random plasma glucose results greater than or equal to 200 mg/dL meet the criteria for diagnosis of diabetes.Reference: Standards of Medical Care in Diabetes 2016, [place] [employer]. Diabetes Care. 2016.39(Suppl 1). Performed By: #### C BC, CMP ####[address] [phone] Potassium molar conc 4.2 mmol/L Normal 3.7-5.1 [facility] Comment on above: Performed By: #### C BC, CMP ####[address] [phone] Protein mass conc 6.8 g/dL Normal 6.3-8.0 [facility] Comment on above: Performed By: #### C BC, CMP ####[address] [phone] Sodium molar conc 138 mmol/L Normal 136-144 [facility] Comment on above: Performed By: #### C BC, CMP ####[address] [phone] Urea nitrogen mass conc 27 mg/dL High 9-24 [facility] Comment on above: Performed By: #### C BC, CMP ####[address] [phone] NURSING PROGon 05-03-2017 Protein mass conc HNO ID: [id number] thor: Ramirez (Rn) CHRISTOPHER Nicholaservice: (none)Author Type: Registered NurseType: Nursing Progress NoteFiled: 05/03/2017 2:18 AMNote Text: Nursing Progress NotePatient Name: Kian KuoMRN: [id number] Location: [place] [address]/T6-9-31 Event(s) / Intervention Note:The patient was observed having the following problems: change in vitalsigns; Afib RVR (HR 130s)..The time of the event occurred at: 1999.The following intervention(s) were initiated: Primary notified ([id number]),vital signs taken, Passed 2g of Mag sulfate, 5mg Lopressor IV. Rhythmdidn't convert, gave Amiodarone bolus and gtt.After the initiated interventions, the following observation(s) were made:Rate gradually lowered. Will continue to monitor.This note was completed by: Ramirez Nicholas RN Normal [facility] PROGRESSon 05-03-2017 Protein mass conc HNO ID: [id number] thor: Hina ([facility]) StimjaninService: Cardiac SurgeryAuthor Type: Nurse PractitionerType: Progress NotesFiled: 05/03/2017 1:02 PMNote Text:[facility] CTS POSTOP PROGRESS NOTEDay of Surgery:04/30/2017S/P SURGERY: PVR #27 BiocorINTERVAL EVENTS / PERTINENT ROS:-Afib RVR overnight - Self converted with Metoprolol and IV Amiodarone.-Positive urinalysis preoperatively - urine culture ordered-Pain controlled but appears drowsy-Poor appetiteEncourage ambulationRhythm: SRIntake/Output Summary (Last 24 hours) at 05/03/17 1301Last data filed at 05/03/17 1139 Gross per 24 hourIntake 426.8 mlOutput 725 mlNet -298.2 mlEKG: most recent image reviewedTELE: most recent recordings reviewedCXR: most recent report reviewedEchocardiogram: most recent report reviewedPHYSICAL EXAM:BP 138/63 Pulse 72 Temp 37 ?C (98.6 ?F) (Oral) Resp 18 Ht 167.9 cm(5' 6.1") Wt 74.8 kg (165 lb) SpO2 95% BMI 26.55 kg/n4Pkoob: AANDO x 3 moves all extremities with no apparent weaknessCV: no jugular venous distentionHeart Exam: RRR without murmur, gallop, or rubs. No ectopy.Resp: clear to auscultation bilaterally and diminished breath sounds.Respirations even and unlaboredAbd: The abdomen is soft, nontender, nondistended; BS normal;Skin: Skin color, texture, turgor normal, no suspicious rashes or lesionsExt: no edemaSurgical incisions: MSI well approximated without erythema, induration orfluctuation. Sternum Stable with coughChest tube: NoPacer wires: No.HISTORY, ASSESSMENT AND PLAN:ProblemSummary Indication for Surgery: TOF, PRLVEF: Normal RVF: Normal ECG: SR Cards: ZahkaImportant/Relevant PMH/PSH: TOF, 22q11, Free PR41 year old who had repair of TOF at age 4 at [place] after which he wasfollowed intermittently until about age 17 when he heard that he no longerneeded follow-up. He recently came back to medical care after a neuro likeevent that prompted admission to [facility]. At that time he was found to behypertensive. The ECHO sowed his right ventricular dilatation andpulmonary regurgitation. His SPECT scan was reassuring for the absence ofcoronary disease. Patient has a history of scoliosis, solitary kidney.Preoperatively his symptoms included tiring quickly with activity. Hedenied chest pain, dizziness, syncope, palpitations. No fever or weightloss.Procedure/Surgerie s: 04/30/2017 PVR #27 BiocorAirway Difficulty: Grade I - No special instrumentationOR Course: Uncomplicated Pacing wires: NoPostoperative Course/General Impression: (narrative or log of major eventswith date of onset): Transferred to PICU, extubated within 20 minutes ofarrival, stable, NSR, pain controlled. No events over night, patientde-lined, MS CT removed after OOB to chair without complication.Issues to communicate at signout:-Afib RVR overnight - Self converted with Metoprolol and IV Amiodarone.Per Dr. Maier no need for PO Amiodarone.-Positive urinalysis preoperatively - urine culture ordered-From [facility]. No skilled needs anticipated. Will follow up with CTS OPDand Dr. Khan in cardiology (requested). Likely discharge in 2-3 days.Pulmonary Valve Regurgitation, Acquired History: pre-op ECHO shows mild pulmonic stenosis. ?The peakpulmonic?gradient is 22.0 mm Hg. The mean pulmonic gradient is 13.0 mm Hg.There is ?3+ pulmonic regurgitation.Assessment: 04/30/2017 PVR #27 BiocorPlan: Continue ASA.Atelectasis History: Post op atelectasisAssessment: small bilateral pleural effusions with adjacent atelectasis.On RAPlan: encourage pep use, OOB to chair, ambulation, encourage cough AND deepbreathing. Optimize pain controlPostoperative Pain History: Developed postoperativelyAssessment: Pain well managed with current pain medication regimen.Patient appears drowsy after Oxycodone given.Plan: Continue scheduled daily Lidoderm patches and PRN Tylenol, Tramadol.Pain goal < 4Discharge Planning Issues -From [facility]. No skilled needs anticipated. Will follow up with CTSOPD and Dr. Khan in cardiology (requested). Likely discharge in 2-3 days.DAILY STEP DOWN CHECKLIST FOR CATHETER RELATED INFECTION PREVENTIONCVC, PICC, Meghana and/or Permacath present? NoDoes the patient have a urinary catheter beyond POD 2? NoVTE Risk Assessment: Moderate riskVTE Mechanical and/or Pharmacologic Prophylaxis: IPC Device, GCS andSubcutaneous HeparinLabs and medications reviewed in EpicCase discussed in depth with: Peds CTS team/Dr. MaierSIGNATURE: Hina Virgen CNP PATIENT NAME: Kian KuoDATE: May 03, 2017 PAGER/CONTACT #: [phone] [facility] 05-02-2017 ALLIED HEALTH HNO ID: [id number] thor: Aleyda (Ex Phys) AcitelliService: Cardiovascular MedicineAuthor Type: Exercise PhysiologistType: Allied HealthFiled: 05/02/2017 10:18 AMNote Text:CARDIAC REHABILITATIONPHASE I ASSESSMENTPATIENT NAME: Kian KuoMRN: [id number] DATE: May 02, 2017SESSION TIME: 9:52am BP HR SpO2 % Flow/Rate L/min Pain(0-10)Supine Yes 128/60 75 97% RA 4Seated (edge of bed > 30 sec) Yes N/A 67 N/A RA 4Sit --> Stand (stand unassisted > 30 sec) No N/A 75 N/A RA 4Ambulation (>10? unassisted) No 126/61 80 99% RA 4Post N/A N/A N/A N/A N/A N/APre-Exercise Assessment1. Ankle Pumps x 5:Left - YesRight - Yes2. Point Pain in Calf:Left - NoRight - No3. Dorsiflex:Left - YesRight - Yes4. Overhead Reach x 3:Left - YesRight - Yes5. Unstable Sternum:No6. Shoulder Pain:Left - NoRight - NoExerciseDistance: ~60 feetDuration: ~3-4 minutesAssistance: Contact guard assistDevice: wall handrailRECOMMENDATIONS:Ambul ate: with supervision - CGAOxygen: without F8Roeono Device: yes - IV pole / prnCOMMENTS:Pt resting in bed, c/o fatigue but willing to participate in activity. Pt.was slow and fairly steady ambulating in the purvis. He noted feeling alittle dizzy. Encouraged him to ambulate 2-3 more times today as able.Instructed on continued increased ambulation as tolerated 4-6 times perday.Reviewed signs and symptoms of exercise intolerance.Aleyda Gates, EX PHYSPager: [phone] 201610:15 AM Normal [facility] CASE MANAGEMon 05-02-2017 CASE MANAGEM HNO ID: [id number] thor: Fide (Rn) Rafiq, RNService: Case ManagementAuthor Type: Registered NurseType: Care Mgt Progress NoteFiled: 05/02/2017 6:37 PMNote Text:CARE MANAGEMENT PROGRESS NOTESERVICE DATE: 05/02/2017SERVICE TIME: 6:37 PM LOS: 2 daysNeeds Prior to Discharge: To Be Determined;OT/PT EvaluationNO KNOWN WEEKEND DC. SKILLED NEEDS TBD.SIGNATURE: Fide Conroy RN PATIENT NAME: Kian KuoDATE: May 02, 2017 : 6:37 PM PAGER/CONTACT #: 6:[phone] PM Normal [facility] CBCon 05-02-2017 Absolute nRBC 0.00 k/uL Normal <0.01 [facility] Comment on above: Performed By: #### C BC, CMP ####[place] [address] [address] [phone] Erythrocyte distribution width Auto Ratio (RBC) 11.9 % Normal 11.5-15.0 [facility] Comment on above: Performed By: #### C BC, CMP ####[place] [address] [address] [phone] Hematocrit Auto Volume Fraction (Bld) 35.4 % Low 39.0-51.0 [facility] Comment on above: Performed By: #### C BC, CMP ####[place] [address] [address] [place] [phone] Hemoglobin mass conc (Bld) 11.8 g/dL Low 13.0-17.0 [facility] Comment on above: Performed By: #### C BC, CMP ####[place] [address] [phone] MCH Auto Entitic mass (RBC) 31.0 pG Normal 26.0-34.0 [facility] Comment on above: Performed By: #### C BC, CMP ####[place] [address] [place] [phone] MCHC Auto mass conc (RBC) 33.3 g/dL Normal 30.5-36.0 [facility] Comment on above: Performed By: #### C BC, CMP ####[place] [address] [phone] MCV Auto Entitic volume (RBC) 92.9 fL Normal 80.0-100.0 [facility] Comment on above: Performed By: #### C BC, CMP ####[place] [address] [place], [place] [phone] Platelet mean volume Auto Entitic volume (Bld) 12.7 fL Normal 9.0-12.7 [facility] Comment on above: Performed By: #### C BC, CMP ####[address] [phone] Platelets Auto #/vol (Bld) 119 10*3/uL Low 150-400 [facility] Comment on above: Performed By: #### C BC, CMP ####[address] [phone] RBC Auto #/vol (Bld) 3.81 10*6/uL Low 4.20-6.00 [facility] Comment on above: Performed By: #### C BC, CMP ####[address] [phone] WBC Auto #/vol (Bld) 12.73 10*3/uL High 3.70-11.00 [facility] Comment on above: Performed By: #### C BC, CMP ####[address] [phone] Comp Metabolic Panelon 05-02 Albumin mass conc 4.2 g/dL Normal 3.9-4.9 [facility] Comment on above: Performed By: #### C BC, CMP ####[address] [phone] ALP enzyme act/vol 54 U/L Normal 36-108 [facility] Comment on above: Performed By: #### C BC, CMP ####[address] [phone] ALT enzyme act/vol 18 U/L Normal 10-54 [facility] Comment on above: Performed By: #### C BC, CMP ####[address] [phone] Anion gap 3 molar conc 13 mmol/L Normal 9-18 [facility] Comment on above: Performed By: #### C BC, CMP ####[place] [address] [address] [phone] AST enzyme act/vol 18 U/L Normal 14-40 [facility] Comment on above: Performed By: #### C BC, CMP ####[place] [address] [address] [place] [phone] Bilirubin mass conc 2.4 mg/dL High 0.2-1.3 [facility] Comment on above: Performed By: #### C BC, CMP ####[place] [address] [address] [place] [phone] Calcium mass conc 8.3 mg/dL Low 8.5-10.2 [facility] Comment on above: Performed By: #### C BC, CMP ####[place] [address] [address] [place] [phone] Chloride molar conc 99 mmol/L Normal 97-105 [facility] Comment on above: Performed By: #### C BC, CMP ####[place] [address] [address] [place] [phone] CO2 molar conc 27 mmol/L Normal 22-30 [facility] Comment on above: Performed By: #### C BC, CMP ####[place] [address] [address] [place] [phone] Creatinine mass conc 1.07 mg/dL Normal 0.73-1.22 [facility] Comment on above: Performed By: #### C BC, CMP ####[place] [address] [address] [place] [phone] eGFR- Amer. >60 Normal [facility] Comment on above: Performed By: #### C BC, CMP ####[place] [address] [place], [place] [phone] GFR/1.73 sq M predicted among non-blacks MDRD vol rate/area (S/P/Bld) mL/min/{1.73_m2} Normal [facility] Comment on above: Result Comment: eGFR (Estimated GFR) Units of measure: mL/min/1.73 meters squaredeGFR is derived from the reexpressed MDRD Study equation using the following parameters: serum creatinine, age, gender and race. The creatinine assay has been calibrated to be traceable to IDMS.An eGFR <60 mL/min/1.73m2 for >3 months is consistent with chronic kidney disease. Refer to KDOQI guidelines for clinical interpretation.In patients with unstable renal function, e.g. those with acute kidney injury, the eGFR may not accurately reflect actual GFR. Performed By: #### C ELADIO, CMP ####[facility] [place], [place] [phone] Glucose mass conc 162 mg/dL High 74-99 [facility] Comment on above: Result Comment: The [place] Diabetes Association (ADA) provides guidance for cutoff values for fasting glucose and random glucose. The ADA defines fasting as no caloric intake for at least 8 hours. Fasting plasma glucose results between 100 to 125 mg/dL indicate increased risk for diabetes (prediabetes).Fasting plasma glucose results greater than or equal to 126 mg/dL meet the criteria for diagnosis of diabetes. In the absence of unequivocal hyperglycemia, results should be confirmed by repeat testing. In a patient with classic symptoms of hyperglycemia or hyperglycemic crisis, random plasma glucose results greater than or equal to 200 mg/dL meet the criteria for diagnosis of diabetes.Reference: Standards of Medical Care in Diabetes 2016, [place] Diabetes Association. Diabetes Care. 2016.39(Suppl 1). Performed By: #### C BC, CMP ####[place] [address] [place], [place] [phone] Potassium molar conc 3.6 mmol/L Low 3.7-5.1 [facility] Comment on above: Performed By: #### C BC, CMP ####[place] [address] [place], [place] [phone] Protein mass conc 6.8 g/dL Normal 6.3-8.0 [facility] Comment on above: Performed By: #### C BC, CMP ####[facility] [address] [place], [place] [phone] Sodium molar conc 139 mmol/L Normal 136-144 [facility] Comment on above: Performed By: #### C BC, CMP ####[facility] [address] [place], [place] [phone] Urea nitrogen mass conc 20 mg/dL Normal 9-24 [facility] Comment on above: Performed By: #### C BC, CMP ####[facility] [place], [place] [phone] PROGRESSon 05-02-2017 Protein mass conc HNO ID: [id number] thor: Hina ([facility]) StimjaninService: Cardiac SurgeryAuthor Type: Nurse PractitionerType: Progress NotesFiled: 05/02/2017 6:33 PMNote Text:[facility] CTS POSTOP PROGRESS NOTEDay of Surgery:04/30/2017S/P SURGERY: PVR #27 BiocorINTERVAL EVENTS / PERTINENT ROS:Doing well overall, no acute issuesElevated HR - started on Metoprolol. Currently SR in '[facility] controlledEncourage ambulationRhythm: SRIntake/Output Summary (Last 24 hours) at 05/02/17 1832Last data filed at 05/02/17 1300 Gross per 24 hourIntake 815 mlOutput 0 mlNet 815 mlEKG: most recent image reviewedTELE: most recent recordings reviewedCXR: most recent report reviewedEchocardiogram: most recent report reviewedPHYSICAL EXAM:BP 119/67 Pulse 69 Temp 36.9 ?C (98.4 ?F) (Oral) Resp 15 Ht 167.9cm (5' 6.1") Wt 75.3 kg (165 lb 14.4 oz) SpO2 100% BMI 26.69 kg/q0Sqmug: AANDO x 3 moves all extremities with no apparent weaknessCV: no jugular venous distentionHeart Exam: RRR without murmur, gallop, or rubs. No ectopy.Resp: clear to auscultation bilaterally and diminished breath soundsAbd: The abdomen is soft, nontender, nondistended; BS normal;Skin: Skin color, texture, turgor normal, no suspicious rashes or lesionsExt: no edemaSurgical incisions: MSI well approximated without erythema, induration orfluctuation. 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 He recently came back to medical care after a neuro likeevent that prompted admission to [facility]. At that time he was found to behypertensive. The ECHO sowed his right ventricular dilatation andpulmonary regurgitation. His SPECT scan was reassuring for the absence ofcoronary disease. Patient has a history of scoliosis, solitary kidney.Preoperatively his symptoms included tiring quickly with activity. Hedenied chest pain, dizziness, syncope, palpitations. No fever or weightloss.Procedure/Surgerie s: 04/30/2017 PVR #27 BiocorAirway Difficulty: Grade I - No special instrumentationOR Course: Uncomplicated Pacing wires: NoPostoperative Course/General Impression: (narrative or log of major eventswith date of onset): Transferred to PICU, extubated within 20 minutes ofarrival, stable, NSR, pain controlled. No events over night, patientde-lined, MS CT removed after OOB to chair without complication.Issues to communicate at signout:Elevated HR - started on Metoprolol. [facility]. No skilled needs anticipated. Will follow up with CTS OPDand Dr. Khan in cardiology. Likely discharge in 3 days.Need to resume Lisinopril prior to discharge?Pulmonary Valve Regurgitation, Acquired History: pre-op ECHO shows mild pulmonic stenosis. ?The peakpulmonic?gradient is 22.0 mm Hg. The mean pulmonic gradient is 13.0 mm Hg.There is ?3+ pulmonic regurgitation.Assessment: 04/30/2017 PVR #27 BiocorPlan: Continue ASAAtelectasis History: Post op atelectasisAssessment: small bilateral pleural effusions with adjacent atelectasis.On RAPlan: encourage pep use, OOB to chair, ambulation, encourage cough AND deepbreathing. Optimize pain control.Postoperative Pain History: Developed postoperativelyAssessment: Pain well managed with current pain medication regimen.Plan: Discontinue IV HIDES INSPECTOR, Continue scheduled daily Lidoderm patches andPRN Tylenol, Tramadol and Oxycodone. Pain goal < 4DAILY STEP DOWN CHECKLIST FOR CATHETER RELATED INFECTION PREVENTIONCVC, PICC, Meghana and/or Permacath present? NoDoes the patient have a urinary catheter beyond POD 2? NoVTE Risk Assessment: Moderate riskVTE Mechanical and/or Pharmacologic Prophylaxis: IPC Device, GCS andSubcutaneous HeparinLabs and medications reviewed in EpicCase discussed in depth with: Jemal CTS teamSIGNATURE: Hina Virgen CNP PATIENT NAME: Kian KuoDATE: May 02, 2017 PAGER/CONTACT #: [phone] Normal [facility] Protein mass conc HNO ID: [id number] thor: Yohan Jain RtService: (none)Author Type: (none)Type: Progress NotesFiled: 05/02/2017 9:52 AMNote Text: Radiology Service Progress NotePATIENT NAME: Kian KuoMRN: [id number] OF SERVICE: May 02, 2017TIME: 9:52 AMPATIENT IDENTITY VERIFICATION COMPLETED USING TWO (2) METHODS: Patientconfirmed name verbally and ID band matches..PATIENT GENDER DATA: MalePATIENT RELEVANT IMPLANT DATA REVIEWED: YesRADIOLOGY DEPARTMENT: General X-ray: Exam(s) Completed: Chest X-RayPERIPHERAL IV DATA: Not applicableSIGNED BY: Yohan Jain RtOct2016 9:52 AM Normal [facility] Potassiumon 05-02-2017 Potassium molar conc 4.1 mmol/L Normal 3.7-5.1 [facility] Comment on above: Performed By: #### K 1 ####[facility] [place] [address] [phone] Urine Cultureon 05-02-2017 Bacteria identified Cx Nom (U) Sp. Request/Comment: - Specimen received in preservative Culture Result - No growth (<1,000 CFU/ml) Normal [facility] Comment on above: Performed By: #### U RCUL ####[facility] [place], [place] [phone] XR CHEST 2V FRONTAL/LATon XR CHEST 2V FRONTAL/LAT * * *Final Report* * *DATE OF EXAM: May 02 2017 9:50AM [id number] - XR CHEST 2V FRONTAL/LAT / REASON: Postop check * * * * Physician Interpretation * * * * EXAMINATION: CHEST RADIOGRAPH (2 VIEW FRONTAL and LATERAL)Clinical History: Postop checkM: XC2_3Comparison: 1 day priorRESULT:Lines, tubes, and devices: The patient is status post median sternotomy.Lungs and pleura: Patchy reticular opacities are noted, likely related to pulmonary edema. More clustered opacities at the lung bases may be secondary to atelectasis. There are trace to small bilateral pleural effusions. No pneumothorax.Cardiomediastina l silhouette: There is enlargement of the cardiomediastinal silhouette. Central pulmonary arteries are prominent. Pockets of air are noted in the retrosternal region, in keeping with recent postoperative state.Other: Dextroscoliosis of the thoracic spine is noted with degenerative changes.IMPRESSION:Please see body of report.Slitter Creaser Slotter Operator: PSCB Transcribe Date/Time: May 02 2017 12:35PDictated by : EULOGIO RICH MDThis examination was interpreted and the report reviewed and electronically signed by: EULOGIO RICH MD on May 02 2017 12:36PM [id number] Normal [facility] CBCon 05-01-2017 Absolute nRBC 0.00 k/uL Normal <0.01 [facility] Comment on above: Performed By: #### C BC, CMP, ABDIAZIZ ####[facility] [place], [place] [phone] Erythrocyte distribution width Auto Ratio (RBC) 11.9 % Normal 11.5-15.0 [facility] Comment on above: Performed By: #### C BC, CMP, ABDIAZIZ ####[facility] [place] [phone] Hematocrit Auto Volume Fraction (Bld) 31.5 % Low 39.0-51.0 [facility] Comment on above: Performed By: #### C BC, CMP, ABDIAZIZ ####[facility] [place] [phone] Hemoglobin mass conc (Bld) 10.9 g/dL Low 13.0-17.0 [facility] Comment on above: Performed By: #### C BC, CMP, ABDIAZIZ ####[place] [address] [address] [place] [phone] MCH Auto Entitic mass (RBC) 31.4 pG Normal 26.0-34.0 [facility] Comment on above: Performed By: #### C BC, CMP, ABDIAZIZ ####[place] [address] [address] [place] [phone] MCHC Auto mass conc (RBC) 34.6 g/dL Normal 30.5-36.0 [facility] Comment on above: Performed By: #### C BC, CMP, ABDIAZIZ ####[facility] [place] [phone] MCV Auto Entitic volume (RBC) 90.8 fL Normal 80.0-100.0 [facility] Comment on above: Performed By: #### C BC, CMP, ABDIAZIZ ####[place] [address] [address] [place] [phone] Platelet mean volume Auto Entitic volume (Bld) 12.6 fL Normal 9.0-12.7 [facility] Comment on above: Performed By: #### C BC, CMP, ABDIAZIZ ####[facility] [place] [phone] Platelets Auto #/vol (Bld) 113 10*3/uL Low 150-400 [facility] Comment on above: Performed By: #### C BC, CMP, ABDIAZIZ ####[facility] [address] [place], [place] [phone] RBC Auto #/vol (Bld) 3.47 10*6/uL Low 4.20-6.00 [facility] Comment on above: Performed By: #### C BC, CMP, ABDIAZIZ ####[facility] [address] [place], [place] [phone] WBC Auto #/vol (Bld) 10.70 10*3/uL Normal 3.70-11.00 [facility] Comment on above: Performed By: #### C BC, CMP, ABDIAZIZ ####[facility] [place], [place] [phone] CONSULT PROGon 05-01-2017 Protein mass conc HNO ID: [id number] thor: Concepcion JaquezSeredithe: Pediatric CardiologyAuthor Type: PhysicianType: Consult Progress NoteFiled: 05/01/2017 2:09 PMNote Text: PROGRESS NOTE PEDIATRIC CARDIOLOGYSERVICE DATE: 05/01/2017SERVICE TIME: 9:43 [facility]:: Arron Menard III, MD ADMISSION DATE:04/30/2017DATE OF : 1975 AGE [age] year old SEX: maleATTENDING PHYSICIAN ON SERVICE: Dr. 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 Remains on PCAmorphine, pain well controlled.L brachial art line and triple lumen IJ in place. Received one dose oflasix with good o/p. Afebrile.OBJECTIVEALLERGIES: ALLERGIESNo Known AllergiesPHYSICAL EXAMINATION:Vital Signs: Patient Vitals for the past 24 hrs: BP Temp Temp src Pulse Resp SpO2 Lolako55/12/17 0900 102/56 36.5 ?C (97.7 ?F) Koehler Thr 76 13 99 % -05/01/17 0800 118/64 36.5 ?C (97.7 ?F) Koehler Thr 75 13 99 % -05/01/17 0700 118/68 36.5 ?C (97.7 ?F) - 86 14 100 % -05/01/17 0600 110/61 36.6 ?C (97.9 ?F) - 85 14 100 % -05/01/17 0500 109/64 36.6 ?C (97.9 ?F) - 89 14 100 % -05/01/17 0400 121/66 36.5 ?C (97.7 ?F) - 92 16 99 % -05/01/17 0300 107/60 36.5 ?C (97.7 ?F) - 90 14 100 % -05/01/17 0200 107/76 36.5 ?C (97.7 ?F) - 97 19 100 % -05/01/17 0130 - 36.5 ?C (97.7 ?F) - 94 13 100 % -05/01/17 0100 100/55 36.5 ?C (97.7 ?F) - 94 15 100 % -05/01/17 0000 121/70 36.5 ?C (97.7 ?F) Koehler Thr 90 16 99 % -04/30/17 2330 - 36.5 ?C (97.7 ?F) - 88 13 99 % -04/30/17 2300 140/67 36.5 ?C (97.7 ?F) Koehler Thr 91 22 100 % -04/30/17 2230 138/75 36.5 ?C (97.7 ?F) - 76 13 100 % -04/30/17 2200 138/75 36.3 ?C (97.3 ?F) Koehler Thr 85 18 100 % -04/30/17 2130 - 36.4 ?C (97.5 ?F) - 80 12 99 % -04/30/17 2100 114/63 36.3 ?C (97.3 ?F) - 73 12 99 % -04/30/17 2030 - 36.4 ?C (97.5 ?F) - 80 27 100 % -04/30/17 2000 139/65 36.2 ?C (97.2 ?F) Koehler Thr 77 17 99 % -04/30/17 1800 113/58 (!) 35.8 ?C (96.4 ?F) - 64 12 99 % -04/30/17 1700 115/66 - - 68 11 100 % -04/30/17 1600 111/59 (!) 35.5 ?C (95.9 ?F) - 61 10 100 % -04/30/17 1500 - (!) 35.5 ?C (95.9 ?F) - 65 12 100 % -04/30/17 1400 - (!) 35.6 ?C (96.1 ?F) - 67 19 100 % -04/30/17 1330 - (!) 35.6 ?C (96.1 ?F) - 62 14 98 % -04/30/17 1323 - - - - - - 167.9 cm (5' 6.1")04/30/17 1300 - (!) 35.8 ?C (96.4 ?F) Koehler Thr 71 17 99 % -04/30/17 1230 - (!) 35.9 ?C (96.6 ?F) - 79 19 99 % -04/30/17 1200 - 36.2 ?C (97.2 ?F) Koehler Thr 90 - 99 % -04/30/17 1158 - - - - - 99 % -Respiratory Therapy: NCWT: 76kgI/Os:Intake/Output Summary (Last 24 hours) at 05/01/17 0942Last data filed at 05/01/17 0900 Gross per 24 hourIntake 1776.34 mlOutput 2902 mlNet -1125.66 mlGENERAL APPEARANCE: Awake , responds to commands, no distressHEENT: Normal, NC in placeEYES: Pupils equal, round and reactive to light.NECK: RIJ in placeCHEST: Chest rise is symmetric. Breath sounds are equal., Work ofbreathing is normal. , Lungs are clear to auscultation and There is nogrunting, flaring or retractingCOMPREHENSIVE CARDIAC: The precordium is normally active. The PMI is atthe 5th left intercostal space, mid-clavicular line. First heart soundnormal, second heart sound single. No clicks, gallops. No murmurs audible,no rubs or gallop.ABDOMEN: Abdomen is soft, non-tender; liver and spleen not palpable.EXTREMITIES: Radial pulses, +2 bilaterally, dorsalis pedal pulses, +2bilaterally and no brachio-femoral delay?TELE: NSRLABS:Component Latest Ref Rng AND Units 04/28/2017 05/01/2017WBC 3.70 - 11.00 k/uL 6.90 10.70RBC 4.20 - 6.00 m/uL 4.93 3.47 (L)Hemoglobin 13.0 - 17.0 g/dL 15.3 10.9 (L)Hematocrit 39.0 - 51.0 % 45.7 31.5 (L)MCV 80.0 - 100.0 fL 92.7 90.8MCH 26.0 - 34.0 pG 31.0 31.4MCHC 30.5 - 36.0 g/dL 33.5 34.6RDW-CV 11.5 - 15.0 % 11.6 11.9Platelet Count 150 - 400 k/uL 174 113 (L)MPV 9.0 - 12.7 fL 12.6 12.6Neut% % 64.0Abs Neut (ANC) 1.45 - 7.50 k/uL 4.41Lymph% % 24.6Abs Lymph 1.00 - 4.00 k/uL 1.70Mono% % 7.1Abs [place] <0.87 k/uL 0.49Eosin% % 3.3Abs Eosin <0.46 k/uL 0.23Baso% % 1.0Abs Baso <0.11 k/uL 0.07Nucleated Reds 0 /100 WBC 0.0Absolute nRBC <0.01 k/uL 0.00 0.00Diff Type Auto DiffProtein, Total 6.3 - 8.0 g/dL 5.7 (L)Albumin 3.9 - 4.9 g/dL 3.7 (L)Calcium 8.5 - 10.2 mg/dL 9.3 7.8 (L)Bilirubin, Total 0.2 - 1.3 mg/dL 2.1 (H)Alkaline Phosphatase 36 - 108 U/L 47AST 14 - 40 U/L 22Glucose 74 - 99 mg/dL 105 (H) 158 (H)BUN 9 - 24 mg/dL 21 17Creatinine 0.73 - 1.22 mg/dL 1.24 (H) 0.95Sodium 136 - 144 mmol/L 143 140Potassium 3.7 - 5.1 mmol/L 4.6 4.3Chloride 97 - 105 mmol/L 103 104CO2 22 - 30 mmol/L 25 22Anion Gap 9 - 18 mmol/L 15 14ALT 10 - 54 U/L 20eGFR- >60 >60eGFR-All Other Races . >60 >60Troponin T 0.000 - 0.029 ng/mL 0.054 (H)DATA:Diagnostic tests reviewed for today's visit:Most recent labs and imaging results.Most recent labsMost recent imagingASSESSMENT/PLAN41 yo M with 22q11 and TOF s/p initial complete repair at age 4 withsubsequent severe SD and RV dilation (RV EDV 123, RV/LV ratio >2) andsymptomatic (decreased exercise capacity) who underwent surgical PVreplacement with a 27mm biocor pulmonary valve (Noah, 04/30/17). He hadan uneventful intraoperative course and is hemodynamically stable offinotropes and ext[facility]. His postoperative ROE showed normal LVfunction, mild-mod RV dysfunction and normal prosthetic valve functionwithout stenosis or regurgitation. Tolerated de-escalation of care thusfar.??Plan/ Recommendations:- Advance diet- Schedule lasix 20 mg IV BID- Baseline HTN on ESPERANZA inhibitor (lisniporl 5mg BID), consider startingtomorrow- Continue telemetry- ASA 162mg today- Pain control and labs per PICU- Stable to transfer to the floor, adult CTS- Will need a pre discharge echo (prior to weekend)- LINES: -d/c R IJ and arterial line, PIV x 3, d/c koehler, CT x 1, eval fordiscontinuation after OOB to chair?David Gomezi MDPGY-5 Pediatric Cardiology FellowThe Jewish HospitalDate and Time: May 01, 2017, 9:51 AMI examined the patient and discussed the medical care with theresident/fellow/ONCOLOGY PHYSICIAN ASSISTANT and patient and PICU and family and surgery teams. Ipersonally viewed all tests listed and the telemetry. I agree with theassessment and plan as written.Concepcion Jaquez [facility] PhysicianPediatric Cardiology Normal [facility] Comp Metabolic Panelon 05-01 Albumin mass conc 3.7 g/dL Low 3.9-4.9 [facility] Comment on above: Performed By: #### C BC, CMP, ABDIAZIZ ####[facility] [place] [phone] ALP enzyme act/vol 47 U/L Normal 36-108 [facility] Comment on above: Performed By: #### C BC, CMP, ABDIAZIZ ####[facility] [place] [phone] ALT enzyme act/vol 20 U/L Normal 10-54 [facility] Comment on above: Performed By: #### C BC, CMP, ABDIAZIZ ####[facility] [place] [phone] Anion gap 3 molar conc 14 mmol/L Normal 9-18 [facility] Comment on above: Performed By: #### C BC, CMP, ABDIAZIZ ####[facility] [place], [place] [phone] AST enzyme act/vol 22 U/L Normal 14-40 [facility] Comment on above: Performed By: #### C BC, CMP, ABDIAZIZ ####[facility], [place] [phone] Bilirubin mass conc 2.1 mg/dL High 0.2-1.3 [facility] Comment on above: Performed By: #### C BC, CMP, ABDIAZIZ ####[facility]CP[address], [place] [phone] Calcium mass conc 7.8 mg/dL Low 8.5-10.2 [facility] Comment on above: Performed By: #### C ELADIO CMP, ABDIAZIZ ####[facility] [place], [place] [phone] Chloride molar conc 104 mmol/L Normal 97-105 [facility] Comment on above: Performed By: #### C ELADIO CMP, ABDIAZIZ ####[place] [address] [place], [place] [phone] CO2 molar conc 22 mmol/L Normal 22-30 [facility] Comment on above: Performed By: #### C ELADIO CMP, ABDIAZIZ ####[address] [phone] Creatinine mass conc 0.95 mg/dL Normal 0.73-1.22 [facility] Comment on above: Performed By: #### C ELADIO CMP, ABDIAZIZ ####[address] [phone] eGFR- Amer. >60 Normal [facility] Comment on above: Performed By: #### C ELADIO CMP, ABDIAZIZ ####[address] [phone] GFR/1.73 sq M predicted among non-blacks MDRD vol rate/area (S/P/Bld) mL/min/{1.73_m2} Normal [facility] Comment on above: Result Comment: eGFR (Estimated GFR) Units of measure: mL/min/1.73 meters squaredeGFR is derived from the reexpressed MDRD Study equation using the following parameters: serum creatinine, age, gender and race. The creatinine assay has been calibrated to be traceable to IDMS.An eGFR <60 mL/min/1.73m2 for >3 months is consistent with chronic kidney disease. Refer to KDOQI guidelines for clinical interpretation.In patients with unstable renal function, e.g. those with acute kidney injury, the eGFR may not accurately reflect actual GFR. Performed By: #### C BC CMP, ABDIAZIZ ####[facility] [address] [place], [place] [phone] Glucose mass conc 158 mg/dL High 74-99 [facility] Comment on above: Result Comment: The [place] Diabetes [employer] (ADA) provides guidance for cutoff values for fasting glucose and random glucose. The ADA defines fasting as no caloric intake for at least 8 hours. Fasting plasma glucose results between 100 to 125 mg/dL indicate increased risk for diabetes (prediabetes).Fasting plasma glucose results greater than or equal to 126 mg/dL meet the criteria for diagnosis of diabetes. In the absence of unequivocal hyperglycemia, results should be confirmed by repeat testing. In a patient with classic symptoms of hyperglycemia or hyperglycemic crisis, random plasma glucose results greater than or equal to 200 mg/dL meet the criteria for diagnosis of diabetes.Reference: Standards of Medical Care in Diabetes 2016, [place] [employer]. Diabetes Care. 2016.39(Suppl 1). Performed By: #### C BC CMP, ABDIAZIZ ####[facility] [address] [place], [place] [phone] Potassium molar conc 4.3 mmol/L Normal 3.7-5.1 [facility] Comment on above: Performed By: #### C ELADIO CMP, ABDIAZIZ ####[facility] [place], [place] [phone] Protein mass conc 5.7 g/dL Low 6.3-8.0 [facility] Comment on above: Performed By: #### C BC, CMP, ABDIAZIZ ####[facility] [address]CP[address], [place] [phone] Sodium molar conc 140 mmol/L Normal 136-144 [facility] Comment on above: Performed By: #### C BC, CMP, ABDIAZIZ ####[facility] [address] [place], [place] [phone] Urea nitrogen mass conc 17 mg/dL Normal 9-24 [facility] Comment on above: Performed By: #### C BC, CMP, ABDIAZIZ ####[facility] [address] [place], [place] [phone] PROGRESSon 05-01-2017 Protein mass conc HNO ID: [id number] thor: Everett Sheltone: Pediatric Critical CareAuthor Type: PhysicianType: Progress NotesFiled: 05/01/2017 11:13 AMNote Text:PROGRESS NOTE PEDIATRIC ICUSERVICE DATE: 05/01/2017SERVICE TIME: 7:06 AMDate of : 1975 Age: 41 year oldSUBJECTIVEINTERVAL HPI: Extubated after PICU arrival. 500 ml 5% albumin given forhypotension after arrival, no further episodes. Noted to have frequentpressing of HIDES INSPECTOR button, with subsequent lower BP. Basal ratediscontinued, now with improved BP and LOC, pain well controlled.MEDS REVIEWED: YesALLERGIES: ALLERGIESNo Known AllergiesVITAL SIGNS: Weight: 76.4 kgBP 118/68 Pulse 86 Temp 36.5 ?C (97.7 ?F) Resp 14 Ht 167.9 cm (5'6.1") Wt 76.4 kg (168 lb 6.9 oz) SpO2 100% BMI 27.1 kg/m2BP Min: 100/55 Max: 140/67Temp Av.2 ?C (97.2 ?F) Min: 35.5 ?C (95.9 ?F) Max: 36.6 ?C (97.9?F)Pulse Av.5 Min: 61 Max: 97Resp Av.3 Min: 10 Max: 27SpO2 Av.5 % Min: 98 % Max: 100 % 400 500 05/01/1707BP: 121/66 109/64 110/61 118/68Pulse: 92 89 85 86Resp: 16 14 14 14Temp: 36.5 ?C (97.7 ?F) 36.6 ?C (97.9 ?F) 36.6 ?C (97.9 ?F) 36.5 ?C (97.7?F)TempSrc:SpO2: 99% 100% 100% 100%Weight:Height:OBJECTIVEFI NDINGS BY SYSTEM:NEUROMental Status: Alert, Neurologic Exam: Intact, Pupil:3mm and briskbilaterally and Best Motor Response: Follows commandsRESPIRATORYPulmonary: Breath sounds equal, Diminished breath sounds bilateral basesand Respiratory effort: Comfortable, shallow respirationsAirway: ClearRespiratory support: 1L NC W1Wymmekrxk Therapy: ISChest Tubes: Yes - Mediastinal: Not neededBlood gases: ArterialComponent Latest Ref Rng AND Units 04/30/2017pH, Arterial 7.350 - 7.450 7.344 (L)pCO2, Arterial 36.0 - 46.0 mmHg 40.0pO2, Arterial 85.0 - 95.0 mmHg 144 (H)Bicarbonate, Arterial 22.0 - 26.0 mmol/L 21.2 (L)Base Excess, Arterial -2.0 - 2.0 mmol/L -3.7 (L)Hematocrit, Whole Blood 39.0 - 51.0 % 41.6Hemoglobin Total, Whole Blood 13.0 - 17.0 g/dL 13.6Oxyhemoglobin, Arterial 95.0 - 98.0 % 97.3Methemoglobin, Arterial 0.4 - 1.5 % 0.7Sodium, Whole Blood 135 - 146 mmol/L 137Potassium, Whole Blood 3.5 - 5.0 mmol/L 4.6Calcium Ionized, Whole Blood 1.08 - 1.30 mmol/L 1.14Glucose, Whole Blood 60 - 105 mg/dL 175 (H)Lactate 0.5 - 2.2 mmol/L 1.4Blood Gas Comment, Art RESULTS REPORTEDCritical Report Time 0CXR Findings: Bibasilar atelectasis. CXR personally viewed andinterpreted by ICU staff physician or NPCARDIACHemodynamic status: Stable and Heart rhythm:SinusCardiac Exam: Cardiac auscultation and palpation: Rhythm: regular rateand rhythm, Rate:normal sinus rhythm and Murmur: + rub, Peripheralperfusion Adequate, warm skin, cap refill less than 2 sec, Hepatomegaly:No, Edema (peripheral): No, Surgical wound: dressing dry and intact andTube drainage: Chest tube 1 18 ml overnight/26ml since ORRENAL / FEN / GI / ENDORecent Labs 04/28/1710NA 140 143K 4.3 4.6CHLOR 104 103CO2 22 25CREAT 0.95 1.24*BUN 17 21GLUC 158* 105*CA 7.8* 9.3Urine flow (mL/Kg/hr) 1.1 (since OR)IV Fluid:D5 1/4 NS at 30ml/hrFluid Intake:1600Fluid Balance:1700 (since OR)Nutrition: NPORecent Labs TPROT 5.7*ALB 3.7*ALKPHOS 47TBILI 2.1*AST 22ALT 20Abdominal exam: Soft, non-tender, hypoactive bowel soundsHEMATOLOGYRecent Labs 04/28/1710HB 10.9* 15.3HCT 31.5* 45.7PLT 113* 174PTSEC -- 10.4INR -- 1.0APTT -- 28.2Heme Comments: no active bleedingRecent Labs 04/28/1710WBC 10.70 6.90ABSNEUT -- 4.41NEUTP -- 64.0Cultures: noneAntibiotic meds: post op cefuroximeID comments: afebrileMUSCULOSKELETALPatien t is not receiving PTPATIENT SAFETY GOALSDVT prophylaxis: Compression stockingsHead elevatedGI prophylaxis: yesCentral line: Located in right IJ, day 2. d/c todayFoley catheter: d/c todayPatient does not qualify for PT. 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 OR course was uncomplicated with 30 minutesCPB.Extubated [facility]. Maintaining hemodynamics,slightly hypertensive per baseline btu did not require nicardipineinitiation. This morning CXR shows increase in bibasilar atelectasis withplan to initiate diuresis and encourage mobilization. Now ready for deescalation of care and transfer to [facility], and HIDES INSPECTOR for pain control post op.Critical care indication: resolvedPLANCNS-Pain management: Fentanyl HIDES INSPECTOR 20mcg demand dose with 10 min PABLITO +clinician doses. Lidoderm patches. Toradol 30mg q6h. Transition to POtylenol after IV doses complete.RESP-continuous pulse oximetry, maintain pox > 93%-Encourage IS-OOB to chair at least 3 times today. Eval chest tube output after OOB.CV-cardiorespiratory monitor-Goal MAPs 65-80-Hold home lisinopril for now, may restart tomorrow if stable.FENGI-ADAT as tolerated. Wean IVF with good PO intake-insulin per adult protocol, transition to sq today.-prn zofran for nauseaRENAL-strict IANDOs-lasix 20mg IV BID started todayHEME-anticoagulation: ASA 162mg dailyID-monitor fever curve-post op antibiotics cefuroxime x 4LINES-d/c R IJ and arterial line-PIV x 3-d/c koehler-CT x 1, eval for discontinuation after OOB to chairSOCIAL-Provide emotional support, answer family's questionsDISPO-[facility] for [facility]: resolvedSIGNATURE: Karen Singh CNP PATIENT NAME: Kian KuoDATE: May 01, 2017 : 7:06 AM PAGER/CONTACT #: [phone] STAFF: Everett Jimenez MDTEACHING PHYSICIAN NOTE OF PERSONAL INVOLVEMENT IN CAREI have reviewed the progress note obtained and documented by the nursepractitioner and I personally participated in the aldridge components. I havediscussed the case and management of the patient's care with the nursepractitioner, nurse and peds cardiology team. The following commentsrevise or confirm relevant aldridge components of the nurse practitioner'snote. I managed/supervised life or organ supporting interventions thatrequired frequent physician assessment. I have personally examined thepatient today and agree with the findings and plan outlined below unlessotherwise noted in bold and .IMPRESSION: Kian is a 41 year old male with history of Tetrology ofFallot, repaired at age of 4 with progressive symptomatic SD that is nowPOD #1 s/p PV replacement. OR course was uncomplicated with 30 minutesCPB.Extubated [facility]. Maintaining hemodynamics,slightly hypertensive per baseline btu did not require nicardipineinitiation. This morning CXR shows increase in bibasilar atelectasis withplan to initiate diuresis and encourage mobilization. Now ready for deescalation of care and transfer to [facility], and HIDES INSPECTOR for pain control post op.Level of care: Critical care initial hour (>= 6 years): 30 minutesAdditional 30 minutes CCT: Bailey Jimenez MD Normal [facility] PT EDon 05-01-2017 Protein mass conc HNO ID: [id number] thor: [facility] ProviderService: (none)Author Type: PhysicianType: Patient EducationFiled: 05/01/2017 6:25 PMNote Text:[facility] Medical CenterPatient Education Report --- Name: KIAN KUO Date:05/01/2017 Time: 6:25 PMPatient Ordered Video: Inpatient Fallsfrom [id number] via phone number [phone] at 6:25 PM Normal [facility] Troponin Ton 05-01-2017 Troponin T.cardiac mass conc 0.054 ng/mL High 0.000-0.02 9 [facility] Comment on above: Result Comment: Call ed to and read back by: Shanda Jo M43 PICU 05/01/17 Alcides Larios Performed By: #### C BC, CMP, ABDIAZIZ ####[facility] [address] [place], [place] [phone] XR CHEST 1V FRONTAL PORTon 1 XR CHEST 1V FRONTAL PORT * * *Final Report* * *DATE OF EXAM: May 01 2017 1:13PM NICOLE 5376 - XR CHEST 1V FRONTAL PORT / REASON: Encounter for chest tube removal * * * * Physician Interpretation * * * * EXAMINATION: CHEST RADIOGRAPH (PORTABLE SINGLE VIEW AP)Exam Date/Time: 05/01/2017 1:13 PMClinical History: Encounter for chest tube removalM: XCP_3Comparison: Earlier todayRESULT:See impression.IMPRESSION:Lines, tubes, and devices: Interval removal of right IJ central venous catheter and mediastinal drain. Patient is status post median sternotomy..Lungs and pleura: Interval improvement of heterogeneous opacities in the mid to lower lung zones. Atelectatic changes persist in the lung bases. No substantial pleural effusions or large pneumothorax is identified.Cardiomediastinal silhouette: The cardiomediastinal silhouette remains enlarged, unchanged. Curvilinear lucency likely secondary to postoperative pneumomediastinum circumscribes the left border of the heart. Reported history of repair of TOF.Other:Slitter Creaser Slotter Operator: [facility] Transcribe Date/Time: May 01 2017 2:08PDictated by : YEIMY TORRES MDThimike examination was interpreted and the report reviewed and electronically signed by: YEIMY TORRES MD on May 01 2017 2:09PM [id number] Normal [facility] XR CHEST 1V FRONTAL PORT * * *Final Report* * *DATE OF EXAM: May 01 2017 6:18AM NICOLE 5376 - XR CHEST 1V FRONTAL PORT / REASON: Post-operative state * * * * Physician Interpretation * * * * EXAMINATION: CHEST RADIOGRAPH (PORTABLE SINGLE VIEW AP)Exam Date/Time: 05/01/2017 6:18 AMClinical History: Post-operative stateM: XCP_3Comparison: 1 day priorRESULT:See impression.IMPRESSION:Lines, tubes, and devices: Patient is status post median sternotomy with right IJ central venous catheter and mediastinal drain.Lungs and pleura: Interval development of heterogeneous alveolar opacities in the mid to lower lung zones, most commonly secondary to edema. A trace left pleural effusion is suspected. No large pneumothorax is identified.Cardiomediastinal silhouette: Curvilinear lucency likely secondary to postoperative pneumomediastinum/pneumoperic ardium circumscribes the left border of the heart. The cardiomediastinal silhouette remains enlarged, unchanged. Reported history of repair of TOF.Other:Slitter Creaser Slotter Operator: [facility] Transcribe Date/Time: May 01 2017 11:10ADictated by : Neil JUAREZ examination was interpreted and the report reviewed and electronically signed by: YEIMY TORRES MD on May 01 2017 11:12AM [id number] Normal [facility] ANES Angelica 04-30-2017 ANES POST HNO ID: [id number] thor: Azael AbreubaService: AnesthesiologyAuthor Type: AnesthesiologistType: Anesthesia PostOpFiled: 04/30/2017 2:35 PMNote Text:POST ANESTHESIA EVALUATION NOTESERVICE DATE: 04/30/2017SERVICE TIME: 1420DOB: 1975Vitals: 04/30/1713Temp: (!) 35.9 ?C (96.6 ?F) (!) 35.8 ?C (96.4 ?F) (!) 35.6 ?C (96.1 ?F)(!) 35.6 ?C (96.1 ?F) 04/30/1713Arterial BP 1: 140/63 138/76 120/67 125/68BP: 04/30/1713Pulse: 79 71 62 67 04/30/1713Resp: 19 17 14 19 04/30/1713SpO2: 99% 99% 98% 100%Validated Vital Signs: YesPOST ANES STATUS: PACU/ICU Patient Condition: StableNeurological Status: Awake AND alert.Pulmonary Status: Breathing comfortably on supplemental oxygen.Airway Control: Returned to baseline unsupported.Cardiovascular Status: StablePain: Adequately controlledPostoperative Nausea/Vomiting: No significant post operative nausea orvomitingPostoperative Hydration Status: Adequate.Anesthetic Complications: NoneRecommendation: Continue current plan of care and Further care perPACU/ICU/Floor teamOther Remarks:SIGNATURE: Azael Alcantara DO PATIENT NAME: Kian KuoDATE: April 30, 2017 : 2:35 PM PAGER/CONTACT #: [phone] [facility] BRIEF OP NOTon 04-30-2017 BRIEF OP NOT HNO ID: [id number] thor: Kulwinder Longoervice: Cardiac SurgeryAuthor Type: PhysicianType: Brief Op NoteFiled: 04/30/2017 11:39 AMNote Text:CARDIOTHORACIC BRIEF OP NOTELOG ID: [id number]/PROCEDURE DATE: 04/30/2017INCISION/PROCEDURE START TIME: 9:47 AMINCISION CLOSE/PROCEDURE END TIME: 11:35 AMSURGEON(S) AND BILLING AND ACCOUNTING STAFF ASSISTANT(S):Surgeon(s) and Role: * Misty Maier - Primary * Kulwinder Alvarado - AssistingPhysician Human Resources Benefits Coordinator: Ozzie Moore) NeffPROCEDURES AND ANESTHESIA:Procedure(s) and Anesthesia Type: * REPLACE PULMONARY VALVE PEDAITRIC - GeneralANESTHESIA:GeneralBRIE F FINDINGS: Good sized pulmonary artery and pulmonary annulus.PREOPERATIVE DIAGNOSIS:Severe pulmonary valve regurgitation S/P Tetrology of Fallot repair.POSTOPERATIVE DIAGNOSIS:Severe pulmonary valve regurgitation S/P Tetrology of Fallot repair.ESTIMATED BLOOD LOSS: 76 ml.SPECIMENS: Pulmonary valve leaflet.COMPLICATIONS: NoneSIGNATURE: Kulwinder Alvarado MD PATIENT NAME: Kian KuoDATE: April 30, 2017 : 11:37 AM PAGER/CONTACT #: [phone] [facility] CASE MGT INIT ASSESon 2016 CASE MGT INIT ASSES HNO ID: [id number] thor: Ina CisseRn) CHRISTOPHER Villalbaervice: Care ManagementAuthor Type: Registered NurseType: Care Mgt Initial AssessmentFiled: 04/30/2017 8:01 AMNote Text:CARE MANAGEMENT: ASSESSMENT AND DISCHARGE PLANSERVICE DATE: 04/30/2017SERVICE TIME: 7:55PRIMARY CARE PHYSICIAN:Arron Menard III, MATILDAhone: [phone] STATUS: To Come InPOTENTIAL DISCHARGE PLANSHomePatient/Representati ve Stated Goals: home asapNeeds Prior to Discharge: To Be Determined;ProcedureHealth Insurance: Caresource, MedicaidLiving Arrangement: Home, Home with parent/guardianLives With: Parent(s)Financial Resources: 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 Contact:Extended Emergency Contact InformationPrimary Emergency Contact: Senthil Kuo Lwxkxoym: [facility] Emergency Contact: Sharmaine Martinez Yjtqqlnf: MotherSupportive: YesOther Important Patient Contacts: NoneCAREGIVER ASSESSMENT:Caregiver is ready, willing and able to meet the patient's needs asrecommended by the inter-professional team? YesPatient's transition needs and plan for meeting these needs: surgery todayDoes the patient have an acute stroke diagnosis, or has the patient had astroke during this admission? NoADVANCE DIRECTIVES:Does Patient Have Advance Directives? N/ADoes Patient Have Concerns About Advance Directives? NoPRIOR TO ADMISSION:Baseline Mental Status: Alert AND Oriented, Person, Place , Time, Situationand Age AppropriateFunctional Status: IndependentDoes Patient Currently Receive Any Community Services or Home Care? NoneEquipment Prior to Admission: NoneHEALTH:Health Issues Impacting Discharge Plan: Trtralogy of fallot, herniarepair, pulmonary valve regurgitationHealth Literacy Issues: NoPSYCHOSOCIAL:Is the Patient Psychosocially Complex? NoFamily/Patient Understanding of Illness/Diagnosis: Surgery todayMedication Adherence:Do you forget to take your medications? I do not forget to take mymedicationHave you ever stopped taking medications because you felt worse? None ofthe timeHave you ever taken less of your medication than what was prescribed byyour doctor? None of the timeIn the past 3 months, have you had issues obtaining one or more of yourmedications? None of the timeAre you interested in bedside delivery of your medications? No has WeyruchpharmacyFood Concerns:In the Last Month, Have You had Trouble Getting Food? No trouble gettingfoodDuring the Last Month, Have You Worried Whether Your Food Would Run OutBefore You Had Enough Money to Buy More? NoPsychosocial Needs: NoneUTILIZATION:Last Admission Date: noneIs this Within the Past 30 days? NoHas the Patient Been in a Half-Way Facility in the Past 30 days?N/AFREEDOM OF CHOICE EXPLAINED:N/AHALAUREN COMMUNICATION:Primary Care Physician: Sailaja Ezc with patient and family in M40 treatment room. Patient having surgerytoday. No skilled or equipment needs identified prior to admission. Stanley darling for needs.SIGNATURE: Ina Villalba RN PATIENT NAME: Kian KuoDATE: April 30, 2017 : 7:55 AM PAGER/CONTACT #: [phone] Normal [facility] CONSULTon 04-30-2017 CONSULT HNO ID: [id number] thor: Concepcion Mejias: Pediatric CardiologyAuthor Type: PhysicianType: ConsultsFiled: 05/01/2017 7:54 AMNote Text:[facility] CenterPediatric Cardiology ConsultationPatient Name: Kian KuoMRN: [id number] Care Physician: Arron Menard III, MDAdmission Date: 04/30/2017Date of : 1975 Age: [age] year old Sex: maleExamination Date: April 30, 2017 Examination Time: 1pmREASON FOR CONSULTATION: TOFREFERRING PROVIDER: Dr. Levi PHYSICIAN ON SERVICE: Dr. Mell Jaquez, pager: [phone] Diagnosis:S/P TOF, aber RSCA, LSVC S/P complete repair (Age 4, RBANDC)Severe Pulmonary regurgitationAbnormal exercise findings (4.7 METS),Significant (moderate) RV dilatation EDVi 123cc/m2 and (mild) decreased RVfunction, RV/LV indexed volume ratio>2 (CMR 02/03) OP: Surgical Biocor pulmonary valve replacement 27mmNon Cardiac Diagnosis:34h39Ovyrrdfip, single kidneyHigh blood pressureHistory of Present Illness:Per note from Dr. Khan 01/27/17:Kian is a 41 year old who had repair of TO[place] at age 4 at [place]. Hisbirth weight 4 lb 8 oz at 35 weeks. he was followed intermittently intoabout age 17 when he heard that he no longer needed follow-up. Herecently came back to medical care. He came back to care after a neurolike event that prompted admission to [facility]. At that time his bloodpressure was high. He had an echocardiogram and a spect scan. Theechocardiogram showed his right ventricular dilatation and pulmonaryregurgitation. His SPECT scan was reassuring for the absence of coronarydisease. I think he also had a brain scan which did not show anysignificant recent onset brain injury. He has a history of scoliosis,solitary kidney, swallowing problem, speech therapy, pneumonia frequentlyas an . He current tires quickly with activity. No chest pain,dizziness, syncope, palpitations. No fever, weight loss.Dco was presented at our surgical conference and was deemed a candidatefor surgical PVR, RVOT was large for transcatheter closure. He underwentan uncomplicated placement of a Biocor pulmonary valve in the OR today.Extubated on arrival to PICU. Access has a LB art line, RIJ, ,mediastinal chest tube and PICCardiac Symptoms: As abovePAST MEDICAL HISTORY:PAST MEDICAL HISTORYDiagnosis Date- Other specified disorder of gallbladder- Tetralogy of Fallot- Undescended testiclePAST SURGICAL HISTORY:PAST SURGICAL HISTORYProcedure Laterality Date- HOLTER MONITOR - PAST SURGICAL HISTORY OF 04/06/1980 cardiac cath. AND cineangiography- PAST SURGICAL HISTORY OF L thoracentesis- PAST SURGICAL HISTORY OF Schordon Removal- PAST SURGICAL HISTORY OF 06/20/1980 open heart surgeryBIRTH HISTORY: NON-CONTRIBUTORYCARDIAC FAMILY HISTORY: Unable to determine, no family at bedside,patient sedated. Per chart review: non contributory except: MGF AK, PM at70, PGM AK age 75. Brother has PM at age 42 and now has PM forbradycardiaSOCIAL HISTORY: Not a smoker, no alcohol useMedications:lisinopril (ZESTRIL, PRINIVIL) 5 mg tablet Take 5 mg by mouth twice daily.amoxicillin (POLYMOX, AMOXIL) 500 mg capsule take 4 caps po 1/2 hour priorto dental proceedureAllergies: ALLERGIESNo Known AllergiesPHYSICAL EXAMINATION:Vital Signs: Patient Vitals for the past 24 hrs: BP Temp Temp src Pulse Resp SpO2 Lccaox80/11/17 1200 - 36.2 ?C (97.2 ?F) Koehler Thr 90 - 99 % -04/30/17 1158 - - - - - 99 % -04/30/17 0636 142/94 36.5 ?C (97.7 ?F) Oral 91 20 99 % 76.4 kg (168 lb 6.9oz) Respiratory Therapy: NC 2 LWT: 76kgI/Os:Intake/Output Summary (Last 24 hours) at 04/30/17 1209Last data filed at 04/30/17 1200 Gross per 24 hourIntake 0 mlOutput 344 mlNet -344 mlGENERAL APPEARANCE: Mildly sedated, responds to commands, no distressHEENT: Normal, NC in placeEYES: Pupils equal, round and reactive to light.NECK: RIJ in placeCHEST: Chest rise is symmetric. , Breath sounds are equal., Work ofbreathing is normal. , Lungs are clear to auscultation and There is nogrunting, flaring or retractingCOMPREHENSIVE CARDIAC: The precordium is normally active. The PMI is atthe 5th left intercostal space, mid-clavicular line. First heart soundnormal, second heart sound single. No clicks, gallops. No murmurs audible,no rubs or gallop.ABDOMEN: Abdomen is soft, non-tender; liver and spleen not palpable.EXTREMITIES: Radial pulses, +2 bilaterally, dorsalis pedal pulses, +2bilaterally and no brachio-femoral delaySPECIAL STUDIES (I personally viewed all):TELE: NSRLABS:Echocardiogram (November 2016):?RV dilatation, mild PS free SD, ? 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 Abnormal aerobic (4.7 METS) and exercise (4.5 eMETS) capacity.2. Blunted heart rate response with max HR 139, normal HR recovery (12.2%1 min, 20.9% 2 min).3. Normal systolic and diastolic BP response.4. Peak VO2 (1.24 l/min and VO2/kg (16.6 ml/min/kg).5. AT/kg (15.3 ml/min/kg); 92.4% VO2max.6. Oxygen pulse (8.9 ml) with normal rise throughout exercise.7. Total ventilation (VE/ht2.5 11.2 l/ht2.5; VT/kg 16.0 ml/kg; RR 34/min).8. Peak exercise ETCO2 (37 torr).9. VE/VCO2 at AT and slope (32.5).10. NSR with no ectopy or ST-T changes at rest, during exercise orrecovery.11. Normal SpO2's during study- 100%.12. Patient was holding on to bars throughout test and had a unstablegait.??Conclusion: ?Blunted HR with normal BP and abnormal pulmonary response tosubmaximal exercise (RER 1.02) with evidence of limitation with submaximalnormal VO2/kg, AT, VE/VCO2, oxygen pulse and HR recovery.With a submaximal effort and normal HR recovery suggests cardiaclimitation along with VO2/kg and eMETS.??Cardiac MRI (01/27/2017):?SEVERE PULMONARY REGURGITATION (RV = 78 cc, RF = 71%).RIGHT VENTRICLE IS MODERATELY DILATED (EDVi = 123 cc/m2) WITH MILDLYREDUCED SYSTOLIC FUNCTION (RVEF = 46%).Left ventricle is normal in size with normal systolic function (LVEF =59%).- diastolic septal flattening, consistent with RV volume overload.LEFT-SIDED IVC DRAINING INTO THE CORONARY SINUS- normal pulmonary venous return.ABERRANT RSCA WITHOUT EVIDENCE OF DIVERTICULUM OF KOMMERELLPULMONARY ARTERIES: LEFT PA IS DILATED (3.5 cm)Dimensions: as described aboveAORTIC ROOT: ECTASIA, Aortic Root Diameter: 4 x 3.6 cm?? ? Ascending Thoracic Aorta: normal size, Diameter: 3 cmTEE 04/30/2017:?PREOPERATIVE STUDY:1. Systemic veins:B/L SVC's, LSVC to roofed CS.2. Pulmonary veins: normal3. Atria: normal sized4. Atrial septum: Intact with negative bubble study5. Tricuspid valve: trivial TR6. Mitral valve: Trivial MR7. Right ventricle: Severely dilated with mildly diminished systolicfunction8. Left ventricle: normal size and function qualitatively.9. Ventricular septum: intact, gkcsfjrka17. Pulmonary valve: Free regurgitation.11. Aortic valve: trileaflet, central bxgyqztwrsvsl14. Pulmonary arteries: normal MPA ANDRPA, severely dilated LPA13. Coronary arteries: normal gobyso86. Aorta: mild aortic root dilatation.?POSTOPERATIVE STUDY:Patient underwent pulmonary valve replacement with 27 mm prosthesis. PostbypassTEE performed starting clip #65 showed:1. Normal prosthetic valve function without stenosis or regurgitation.Vmax 1.6m/s.2. Normal LV size and function.3. Qualitatively there is slight interval decrease in RV size, withqualitativelymild to moderate reduction in systolic function.4. Trivial tricuspid regurgitation.Holter 04.28.17:Sinus rhythm with intraventricular conduction? ?delay-known right bundle branch block per? ?12-lead ECGHeart rate 56-122 bpm; average 87 bpmRare supraventricular ectopics in isolation; one? ?nonsustained run of paroxysmal supraventricular? ?tachycardia lasting 4 beats at 133 bpmRare ventricular ectopics in isolationDiary returned; patient reports feeling heart beat? ?fast at 7:30 PM? No unusual changes or event? ?marker at that time; Four event markers are? ?detcted during other hours revealing no unusual? ?changesImpression:41 yo M with 22q11 and TOF s/p initial complete repair at age 4 withsubsequent severe SD and RV dilation (RV EDV 123, RV/LV ratio >2) andsymptomatic (decreased exercise capacity) who underwent surgical PVreplacement with a 27mm biocor pulmonary valve (Noah, 04/30/17). He hadan uneventful intraoperative course and is hemodynamically stable offinotropes and [facility]. His postoperative ROE showed normal LVfunction, mild-mod RV dysfunction and normal prosthetic valve functionwithout stenosis or regurgitation.Plan/ Recommendations:- Maintain normal MAPs for age- Baseline HTN on ESPERANZA inhibitor (lisniporl 5mg BID), consider startingonce PO resumed- Deescalate care as tolerated- Continue telemetry and trend CVP- Start PO later in the day- ASA 162mg to start tomorrow- Pain control and labs per Chavez GREYGY-5 Pediatric Cardiology FellowThe Jewish HospitalDate and Time: April 30, 2017, 3:23 PMI examined the patient and discussed the medical care with theresident/fellow/ONCOLOGY PHYSICIAN ASSISTANT and PICU and family and surgery teams. I personallyviewed all tests listed and the telemetry. I agree with the assessment andplan as written.Concepcion Jaquez MDAttending PhysicianPediatric Cardiology Normal [facility] HISTORY PHYSICALon 7 HISTORY PHYSICAL HNO ID: [id number] thor: Everett Chavez: Pediatric Critical CareAuthor Type: PhysicianType: HANDPFiled: 04/30/2017 6:25 PMNote Text: HANDP PEDIATRIC ICUSERVICE DATE: 04/30/2017SERVICE TIME: 1200Primary Care Physician: Arron Menard III, MD Admission Date:04/30/2017Date of : 1975 Age: [age] year old Sex: maleInformant: family/EMR Reliability: HighSUBJECTIVEINDICATION for PICU: Functional disturbances following cardiac surgeryCHIEF COMPLAINT: S/p PVRPRESENT ILLNESS:Kian is a 41 year old male with a history of DiGeorge, Tetralogy ofFallot, S/P ToF repair at age 4, now with free SD. He is currentlysymptomatic and complains of Chest Pain: Character - intermittent,frequency - occasionally, duration - minutes, location to the left ofsternum. He reports h/o palpitations described as skipped beats and fasterbeats that has been ongoing for several years, this occurs with activityand at rest. He denies dizziness, fever, SOB, orthopnea, PND, diaphoresisand edema. Echo shows Free SD/mild PS with moderately dilated RV and milddysfunction. 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 HISTORYTOFPAST MEDICAL HISTORYDiagnosis Date- Other specified disorder of gallbladder- Tetralogy of Fallot- Undescended testiclePrior ED Visit/Hospitalizations: reviewedPAST SURGICAL HISTORYProcedure Laterality Date- HOLTER MONITOR - PAST SURGICAL HISTORY OF 04/06/1980 cardiac cath. AND cineangiography- PAST SURGICAL HISTORY OF L thoracentesis- PAST SURGICAL HISTORY OF Schordon Removal- PAST SURGICAL HISTORY OF 06/20/1980 open heart surgeryIMMUNIZATIONS:Immuniza tion HistoryAdministered Date(s) Administered TD Adult 04/18/2006re up to dateMEDICATIONS:No current facility-administered medications on file prior to encounter.Current Outpatient Prescriptions on File Prior to Encounter:lisinopril (ZESTRIL, PRINIVIL) 5 mg tablet Take 5 mg by mouth twice daily.amoxicillin (POLYMOX, AMOXIL) 500 mg capsule take 4 caps po 1/2 hour priorto dental proceedureALLERGIES: ALLERGIESNo Known AllergiesFAMILY HISTORYProblem Relation Age of Onset- None Mother- None Father- Other [OTHER] Brother heart block at 42 years old- Other [OTHER] Maternal Grandmother heart failure at 95 years- Other [OTHER] Maternal Grandfather Mi in late 60's, stroke age 89- Other [OTHER] Paternal Grandmother heart disease in 70s- Other [OTHER] Paternal Grandfather stroke late 80'sSOCIAL HISTORYSocial History Marital status: Single Spouse name: Years of education: 13 Number of children:Occupational 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 AmishSocial History Main Topics Smoking status: Never Smoker Alcohol use: Yes Comment: occasionally Drug use: NoOBJECTIVEREVIEW OF SYSTEMSConstitutional: No weight loss, malaise or fevers.HEENT: Negative for frequent or significant headaches, No changes inhearing or vision, wears glasses for near sightedness, last exam this pastsummer, + h/o nose bleeds, last occurred 6 months ago, treated in ED, noother nasal problemsResp: Negative for cough, wheezing, or shortness of breathCardiovascular: See HPI-palpitations/CPGI: Negative for abdominal discomfort, blood in stools or black stools orchange in bowel habitsGU: No history of dysuria, frequency, or incontinence and No difficultyurination, nocturia >1 times per night or hematuria. Single kidneyEndo: Negative for cold or heat intolerance, polyuria, polydipsia andgoiterHeme/Lymph: Negative for prolonged bleeding, bruising easily or swollennodesNeurologic: No history or headaches, syncope, paralysis, seizures ortremors. H/o scoliosisIntegumentary: Negative for lesions, rash, and itching.Vital Signs: BP 142/94 Pulse 90 Temp 36.2 ?C (97.2 ?F) (FoleyThermistor) Resp 20 Wt 76.4 kg (168 lb 6.9 oz) SpO2 99% BMI 27.1kg/m2 BMI 27.10 kg/(m2) Date: Wt: 04/28/2017 76.4 kg (168 lb 6.9 oz)FINDINGS BY SYSTEMNEUROMental Status: Sedated and drowsy }, Neurologic Exam: Intact, Pupil:3-2 mmbilaterally and briskly reactive and Best Motor Response: Follows commandsRESPIRATORYPulmonary: Clear to auscultation, Breath sounds equal and Respiratoryeffort: ComfortableAirway: ClearRespiratory support: 2.5 LNC K7Logchxerx Therapy: None indicated.Chest Tubes: Yes - Mediastinal: NeededBlood gases: ArterialCXR Findings: CXR personally viewed and interpreted by ICU staff physicianor NPCARDIACHemodynamic status: Stable and Heart rhythm:SinusCardiac Exam: Cardiac auscultation and palpation: Rhythm: regular rateand rhythm, Rate:normal sinus rhythm and Murmur: no, Peripheral perfusionAdequate, warm skin, cap refill less than 2 sec, Hepatomegaly: No, Edema(peripheral): Yes, Surgical wound: Initial post-op dsg intact and Tubedrainage: Chest tube 1 sanguinousRENAL / FEN / GI / ENDORecent Labs NA 143K 4.6CHLOR 103CO2 25CREAT 1.24*BUN 21GLUC 105*CA 9.3Fluid Balance: Not ApplicableNutrition: NPOAbdominal exam: Distended but softHEMATOLOGYRecent Labs HB 15.3HCT 45.7PLT 174PTSEC 10.4INR 1.0APTT 28.2Heme: 200 cell saver in OR, 400 crystalINFECTIOUS DISEASERecent Labs WBC 6.90ABSNEUT 4.41NEUTP 64.0Cultures:NoneAntibiotic meds:DATA:Diagnostic tests reviewed for today's visit:Most recent labs and imaging results.ASSESSMENT/PLANNabil consuelo is a 41 year old male with history of Tetrology of Fallot,repaired at age of 4 with progressive symptomatic SD, taken to the ORtoday for PV replacement . OR course was uncomplicated. 30 minutes CPB. Nodysrhthymias or bleeding. He was extubated upon arrival to PICU to 2.5LNC.Baseline hypertension, labetolol given per anethesia, Nicardipine atbedside.PLANCNS-neuro checks per routine and PRN-Fentanyl HIDES INSPECTOR-Fentanyl infusion with clinician doses for breakthrough pain-IV tylenol q 6 hours x 4 dosesRESP-continuous pulse ox-ABG and CXR svuSP-hekeiaanv-JNW-Nicardipi ne -maintain maps 80-100FEN/GI-NPO-D 5 07/24 NS at 30 ml/hr-Insulin per adult protocolRENAL-monitor I and OHEME-monitor chest tube output and for bleeding-monitor HNJSL-yvyx-cy antibiotics-monitor fever curveLines/Tubes-PIV x 2, art line, RIJ , Koehler, Chest tubes x1 MS, Pacer wiresSocial-support family, answer questionsCritical Care Indication: This critically ill adult with congenital heartdisease continues to require intensive monitoring and management,including inotropic support, after cardiovascular surgeryActive Problems:ACTIVE PROBLEM LISTTetralogy of FallotInguinal Hernia Without Mention of Obstruction Or Gangrene, Unilateral OrUnspecified, (Not Specified As Recurrent)S/P Tof (Tetralogy of Fallot) RepairPulmonary Valve Regurgitation, AcquiredPATIENT SAFETY GOALSDVT Prophylaxis: Compression stockingsHead Elevation: YESGI prophylaxis: YesCentral lines: Needed for patient monitoringCentral line type and site: right IJ, day 1Foley catheter: Needed for hourly urine output/fluid balanceICU Complications: noProcedures done today: yesRestraints: NoSkin Breakdown: NoSIGNATURE: Pam Muhammad CNP PATIENT NAME: Kian KuoDATE: April 30, 2017 : 10:12 AM PAGER/CONTACT #: [id number] STAFF: Everett Jimenez MDTEACHING PHYSICIAN NOTE OF PERSONAL INVOLVEMENT IN CAREI have reviewed the history and physical examination obtained anddocumented by the nurse practitioner and I personally participated in thekey components. I have discussed the case and management of the patient'scare with the nurse practitioner, nurse and peds cardiology team. Thefollowing comments revise or confirm relevant aldridge components of the nursepractitioner's note. I managed/supervised life or organ supportinginterventions that required frequent physician assessment. I havepersonally examined the patient today and agree with the findings and planoutlined below unless otherwise noted in bold and .IMPRESSION: Kian is a 41 year old male with history of Tetrology ofFallot, repaired at age of 4 with progressive symptomatic SD, taken to theOR today for PV replacement . OR course was uncomplicated. 30 minutes CPB.No dysrhthymias or bleeding. He was extubated upon arrival to PICU to2.5LNC. Baseline hypertension, labetolol given per anethesia, Nicardipineat bedside.Level of care: Critical care initial hour (>= 6 years): 30 minutesAdditional 30 minutes CCT: Bailey Jimenez MD [facility] NURSING PROGon 04-30-2017 Protein mass conc HNO ID: [id number] thor: Mallika CisseRn) Mary Webster: (none)Author Type: Registered NurseType: Nursing Progress NoteFiled: 04/30/2017 9:52 AMNote Text: Nursing Progress NotePatient Name: Kian KuoMRN: [id number] [address]: [address]H552[address]49 Transfer Note:Patient transferred out to room/unit OR in stable condition. Actionstaken: Patient belongings given to family memberThis note was completed by: Mallika Webster RN [facility] Protein mass conc HNO ID: [id number] thor: Soo Vasquez) Mary Lockwood: (none)Author Type: Registered NurseType: Nursing Progress NoteFiled: 04/30/2017 6:33 AMNote Text: Nursing Progress NotePatient Name: Kian KuoMRN: [id number] Location: [address]A164-07 Transfer Note:Patient transferred into room/unit Treatment room in stable condition.Actions taken: No futher actions taken at this time. Will continue tomonitor and check with patient.This note was completed by: Soo Lockwood RN [facility] OPERATIVE NOon 04-30-2017 OPERATIVE NO HNO ID: [id number] thor: Misty Pinto: Cardiac SurgeryAuthor Type: PhysicianType: Operative ReportFiled: 05/01/2017 5:25 PMNote Text:[facility] [address] [place]OPERATIVE REPORTDEPARTMENT OF THORACIC AND CARDIOVASCULAR SURGERYNAME: KIAN KUO [facility] #: [id number]: 04/30/2017 AGE: 41SURGEON 1: Misty Maier M.D.SURGEON 2:BILLING AND ACCOUNTING STAFF ASSISTANT 1: Kulwinder Alvarado M.D.BILLING AND ACCOUNTING STAFF ASSISTANT 2: EMMANUEL FlemingTHESIA: General.Note, Dr. Alvarado was required as no qualified executive vice president and chief operating officer wasavailable.OPERATION: Replacement 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.ANESTHESIOLOGIST: Azael Alcantara D.O.PREOPERATIVE DIAGNOSES: Tetralogy of Fallot, status post repair withtransannular patch at 4 years of age; free pulmonary regurgitation withright ventricular enlargement.POSTOPERATIVE DIAGNOSES: Tetralogy of Fallot, status post repair withtransannular patch at 4 years of age; free pulmonary regurgitation withright ventricular enlargement.OPERATIVE INDICATIONS: The patient is a 41-year-old male with tetralogyof Fallot and a 22q11 deletion, who is relatively active, but has beencomplaining of increasing fatigue and some palpitations. Evaluationsshowed enlarged right ventricle with free regurgitation, but Holter didnot show any significant arrhythmias that needed attention at this point. MRI demonstrated that the outflow tract was too large for a percutaneousvalve. Valve replacement done surgically was indicated.OPERATIVE FINDINGS: The reentry was relatively uncomplicated and sincethere was negative bubble study on the ROE preoperatively, we were ableto place the valve in the orthotopic position with running suturetechnique using cardiopulmonary bypass time of 21 minutes and nocardioplegia. The resulting valve function was excellent as was theheart function. The RV did remain enlarged.OPERATIVE PROCEDURE: After informed consent was obtained, the patient wasbrought to the operating room and a general endotracheal anesthetic wasinduced. The patient's chest was prepped with chlorhexidine and drapedsterilely. His old incision was excised as there was a relatively largescar and a resternotomy was performed with an oscillating saw. Wedissected the right atrium, the aorta, and the pulmonary artery and thensystemically heparinized. The aorta and right atrium were cannulated andcardiopulmonary bypass was initiated without cooling. We immediatelyincised the proximal pulmonary artery and excised some rudimentarynonfunctional pulmonary valve tissue. We were using a 27 mm Biocor valve. We can actually insert this into the opening in the pulmonary arterysuch that we did not need any augmentation patch. Using a 4-0 Prolenesuture, the valve was sewn into the orthotopic position with the anteriorportion of the suture line encompassing the incision in the pulmonaryartery as well as the sewing ring completing the valve insertion. Theright heart was de-aired and the suture line tied down securely. Thepatient was ventilated and from cardiopulmonary bypass. Afternoting good function on the transesophageal echocardiogram, we reversedthe heparin with protamine sulfate and decannulated. Once hemostasis wasachieved, a single 19- Omani Antony drain was placed into the mediastinumand the sternum was approximated with stainless steel wire. The midlineincision was closed in layers and the patient was extubated in theoperating room and taken to the Pediatric Intensive Care Unit inexcellent condition.I performed the entire operation with the exception of the final closure,which was performed by Dr. Alvarado with my immediate availability. Theinitial incision was 09:47, final dressings at 11:35.ESTIMATED BLOOD LOSS: 76 mL.DRAINS: Antony 19-Omani x1.SPECIMENS: Pulmonary valve tissue.COMPLICATIONS: None.Misty Maier M.D.RDS:[id number] #: [id number]: 04/30/2017 11:50:55 cc: Normal [facility] SURGICAL PATHOLOGYon 017 SURGICAL PATHOLOGY [facility]: [id number] Physician: MISTY MAIER MD FINAL DIAGNOSISPulmonary valve, excision - Mild myxoid change.CDT/srj 05/02/2017 COMMENTMovat stain was performed to assess the valvular architecture with adequatecontrol. Movat stain shows mild accumulation of mucopolysaccharides in thespongiosa. There are no inflammatory infiltrates. There is noneovascularization seen. CDT/srj 05/02/2017 Adry Whitehead M.D.(Electronic Signature) SPECIMEN SUBMITTEDA: PULMONARY VALVE CLINICAL DATATETRALOGY OF FALLOT; S/P TOF REPAIR; SD GROSS DESCRIPTIONA. Received in formalin labeled with the patient's name and "pulmonaryvalve" is a segment of semilunar valve, measuring 1.3 cm along the freeedge and 1.7 cm from the free edge to the base. The leaflet is gelatinousin consistency. There is no calcification. There are no vegetations orperforations. Fenestrations are identified. Channel Specialist sections aresubmitted in cassette A1.URVASHI/ka 05/01/2017Gross examination performed at [facility], [facility] [place] [address] of Report: 05/02/2017Date of Procedure: 04/30/2017Date of Receipt: 04/30/2017Submitted by: MISTY MAIER MDLocation: [id number] interpretation performed at [facility], [facility] [address]. Normal [facility] XR CHEST 1V FRONTAL PORTon 1 XR CHEST 1V FRONTAL PORT * * *Final Report* * *DATE OF EXAM: Apr 30 2017 12:45PM NICOLE [id number] - XR CHEST 1V FRONTAL PORT / REASON: Post-operative state * * * * Physician Interpretation * * * * EXAMINATION: CHEST RADIOGRAPH (PORTABLE SINGLE VIEW AP)Exam Date/Time: 04/30/2017 12:45 PMClinical History: Post-operative stateM: XCP_3Comparison: 2 days priorRESULT:See impression.IMPRESSION:Lines, tubes, and devices: Redo median sternotomy with placement of mediastinal or pericardial drainage catheter and right IJ catheter terminating in distal SVC.Lungs and pleura: Slight increase of mild basilar atelectasis. Underlying inflammatory changes or edema cannot be excluded. No pleural effusion or pneumothorax.Cardiomediastina l silhouette: Development of pneumopericardium. Heart remains enlarged. Thoracic aorta is mildly tortuous.Other:Transcriptioni st: PSCB Transcribe Date/Time: Apr 30 2017 4:42PDictated by : FARRAH FOX MDThis examination was interpreted and the report reviewed and electronically signed by: FARRAH FOX MD on Apr 30 2017 4:45PM [id number] Normal [facility] APTTon 04-28-2017 aPTT Coag time (Bld) 28.2 s Normal 23.0-32.4 [facility] Comment on above: Result Comment: Unfr actionated Heparin Therapeutic Ranges:Standard Heparin Nomogram: 53 to 78 seconds (anti-Xa level of 0.3 to 0.7 U/ml)Low Dose/ACS Nomogram: 49 to 67 seconds (anti-Xa level of 0.2 to 0.5 U/ml)Stroke Treatment Nomogram: 49 to 67 seconds (anti-Xa level of 0.2 to 0.5 U/ml)Note: The APTT therapeutic range has been determined for the current lot of laboratory APTT reagent in use throughout the [facility]. Performed By: #### C BCDIF, PT, PTT, BMP, AHCV ####[facility] [place], [place] [phone] Basic Metabolic Panlon 04-28 Anion gap 3 molar conc 15 mmol/L Normal 9-18 [facility] Comment on above: Performed By: #### C BCDIF, PT, PTT, BMP, AHCV ####[facility] [place], [place] [phone] Calcium mass conc 9.3 mg/dL Normal 8.5-10.2 [facility] Comment on above: Performed By: #### C BCDIF, PT, PTT, BMP, AHCV ####[facility] [place], [place] [phone] Chloride molar conc 103 mmol/L Normal 97-105 [facility] Comment on above: Performed By: #### C BCDIF, PT, PTT, BMP, AHCV ####[place] [address] [address] [phone] CO2 molar conc 25 mmol/L Normal 22-30 [facility] Comment on above: Performed By: #### C BCDIF, PT, PTT, BMP, AHCV ####[place] [address] [address] [place] [phone] Creatinine mass conc 1.24 mg/dL High 0.73-1.22 [facility] Comment on above: Performed By: #### C BCDIF, PT, PTT, BMP, AHCV ####[place] [address] [address] [place] [phone] eGFR- Amer. >60 Normal [facility] Comment on above: Performed By: #### C BCDIF, PT, PTT, BMP, AHCV ####[place] [address] [address] [place] [phone] GFR/1.73 sq M predicted among non-blacks MDRD vol rate/area (S/P/Bld) mL/min/{1.73_m2} Normal [facility] Comment on above: Result Comment: eGFR (Estimated GFR) Units of measure: mL/min/1.73 meters squaredeGFR is derived from the reexpressed MDRD Study equation using the following parameters: serum creatinine, age, gender and race. The creatinine assay has been calibrated to be traceable to IDMS.An eGFR <60 mL/min/1.73m2 for >3 months is consistent with chronic kidney disease. Refer to KDOQI guidelines for clinical interpretation.In patients with unstable renal function, e.g. those with acute kidney injury, the eGFR may not accurately reflect actual GFR. Performed By: #### C BCDIF, PT, PTT, BMP, AHCV ####[place] [address] [address] [phone] Glucose mass conc 105 mg/dL High 74-99 [facility] Comment on above: Result Comment: The [place] Diabetes Association (ADA) provides guidance for cutoff values for fasting glucose and random glucose. The ADA defines fasting as no caloric intake for at least 8 hours. Fasting plasma glucose results between 100 to 125 mg/dL indicate increased risk for diabetes (prediabetes).Fasting plasma glucose results greater than or equal to 126 mg/dL meet the criteria for diagnosis of diabetes. In the absence of unequivocal hyperglycemia, results should be confirmed by repeat testing. In a patient with classic symptoms of hyperglycemia or hyperglycemic crisis, random plasma glucose results greater than or equal to 200 mg/dL meet the criteria for diagnosis of diabetes.Reference: Standards of Medical Care in Diabetes 2016, [place] Diabetes Association. Diabetes Care. 2016.39(Suppl 1). Performed By: #### C BCDIF, PT, PTT, BMP, AHCV ####[address] [phone] Potassium molar conc 4.6 mmol/L Normal 3.7-5.1 [facility] Comment on above: Performed By: #### C BCDIF, PT, PTT, BMP, AHCV ####[address] [phone] Sodium molar conc 143 mmol/L Normal 136-144 [facility] Comment on above: Performed By: #### C BCDIF, PT, PTT, BMP, AHCV ####[address] [phone] Urea nitrogen mass conc 21 mg/dL Normal 9-24 [facility] Comment on above: Performed By: #### C BCDIF, PT, PTT, BMP, AHCV ####[address] [phone] CBC and Differentialon 04-28 Abs Baso 0.07 k/uL Normal <0.11 [facility] Comment on above: Performed By: #### C BCDIF, PT, PTT, BMP, AHCV ####[place] [address] [address] [phone] Abs [place] 0.49 k/uL Normal <0.87 [facility] Comment on above: Performed By: #### C BCDIF, PT, PTT, BMP, AHCV ####[place] [address] [address] [phone] Abs Neut 4.41 k/uL Normal 1.45-7.50 [facility] Comment on above: Performed By: #### C BCDIF, PT, PTT, BMP, AHCV ####[place] [address] [address] [phone] Absolute nRBC 0.00 k/uL Normal 0.00 [facility] Comment on above: Performed By: #### C BCDIF, PT, PTT, BMP, AHCV ####[place] [address] [address] [phone] Basophils/100 WBC Auto (Bld) 1.0 % Normal [facility] Comment on above: Performed By: #### C BCDIF, PT, PTT, BMP, AHCV ####[place] [address] [address] [phone] DTYPE Auto Diff Normal [facility] Comment on above: Performed By: #### C BCDIF, PT, PTT, BMP, AHCV ####[place] [address] [address] [phone] Eosinophils Auto #/vol (Bld) 0.23 10*3/uL Normal <0.46 [facility] Comment on above: Performed By: #### C BCDIF, PT, PTT, BMP, AHCV ####[place] [address] [address] [phone] Eosinophils/100 WBC Auto (Bld) 3.3 % Normal [facility] Comment on above: Performed By: #### C BCDIF, PT, PTT, BMP, AHCV ####[place] [address] [address] AveCP[address], [place] [phone] Erythrocyte distribution width Auto Ratio (RBC) 11.6 % Normal 11.5-15.0 [facility] Comment on above: Performed By: #### C BCDIF, PT, PTT, BMP, AHCV ####[place] [address] [address] [phone] Hematocrit Auto Volume Fraction (Bld) 45.7 % Normal 39.0-51.0 [facility] Comment on above: Performed By: #### C BCDIF, PT, PTT, BMP, AHCV ####[address] [phone] Hemoglobin mass conc (Bld) 15.3 g/dL Normal 13.0-17.0 [facility] Comment on above: Performed By: #### C BCDIF, PT, PTT, BMP, AHCV ####[place] [address] [address] [phone] Lymphocytes Auto #/vol (Bld) 1.70 10*3/uL Normal 1.00-4.00 [facility] Comment on above: Performed By: #### C BCDIF, PT, PTT, BMP, AHCV ####[address]Jenn[address] V[address] [phone] Lymphocytes/100 WBC Auto (Bld) 24.6 % Normal [facility] Comment on above: Performed By: #### C BCDIF, PT, PTT, BMP, AHCV ####[place] [address] [address], [place] [phone] MCH Auto Entitic mass (RBC) 31.0 pG Normal 26.0-34.0 [facility] Comment on above: Performed By: #### C BCDIF, PT, PTT, BMP, AHCV ####[place] [address] [address] [place] [phone] MCHC Auto mass conc (RBC) 33.5 g/dL Normal 30.5-36.0 [facility] Comment on above: Performed By: #### C BCDIF, PT, PTT, BMP, AHCV ####[place] [address] [address] [place] [phone] MCV Auto Entitic volume (RBC) 92.7 fL Normal 80.0-100.0 [facility] Comment on above: Performed By: #### C BCDIF, PT, PTT, BMP, AHCV ####[place] [address] [address] [place] [phone] Monocytes/100 WBC Auto (Bld) 7.1 % Normal [facility] Comment on above: Performed By: #### C BCDIF, PT, PTT, BMP, AHCV ####[place] [address] [address] [place] [phone] Neutrophils/100 WBC Auto (Bld) 64.0 % Normal [facility] Comment on above: Performed By: #### C BCDIF, PT, PTT, BMP, AHCV ####[place] [address] [address] [place] [phone] NRBCs 0.0 /100 WBC Normal 0 [facility] Comment on above: Performed By: #### C BCDIF, PT, PTT, BMP, AHCV ####[place] [address] [address] [place] [phone] Platelet mean volume Auto Entitic volume (Bld) 12.6 fL Normal 9.0-12.7 [facility] Comment on above: Performed By: #### C BCDIF, PT, PTT, BMP, AHCV ####[place] [address] [address] [place] [phone] Platelets Auto #/vol (Bld) 174 10*3/uL Normal 150-400 [facility] Comment on above: Performed By: #### C BCDIF, PT, PTT, BMP, AHCV ####[facility] [address] [place], [place] [phone] RBC Auto #/vol (Bld) 4.93 10*6/uL Normal 4.20-6.00 [facility] Comment on above: Performed By: #### C BCDIF, PT, PTT, BMP, AHCV ####[facility] [address] [place], [place] [phone] WBC Auto #/vol (Bld) 6.90 10*3/uL Normal 3.70-11.00 [facility] Comment on above: Performed By: #### C BCDIF, PT, PTT, BMP, AHCV ####[facility] [place], [place] [phone] CNNURSEon 04-28-2017 CNNURSE Nurse Visit (CHTSMN) -KIAN KUO ([id number]) 1975 [facility] Time Provider Glgpnhdzpw95/9/17 11:00 AM NURSE SURGICAL CHTSMN During your visit today, we recorded the following information about you: Temperature Pulse Respiration Blood pressure 98.3 degrees 74/minute 18/minute 128/80 Weight Height 76.4 kg 1.679 Virgilio Crabtree CNP 04/28/2017 1:36 PM SignedAMBULATORY PATIENT EDUCATIONTOPIC: Survival Skills: PROCEDURE/SURGERY Procedure/Surgery: PVRPre-op Teaching: Logistics ProtocolsComplication PreventionREADINESS TO LEARNCOGNITIVE ABILITY: Alert and orientedMOTIVATION TO LEARN: InterestedFAMILY SUPPORT: High - Very involved in pt careINSTRUCTION PROVIDED TO: Patient and MotherPATIENT LEARNS BEST BY: Multiple MethodsFACTORS AFFECTING LEARNING: NonePHYSICAL LIMITATIONS AFFECTING LEARNING: NoneLEARNING RESPONSEDIAGNOSIS: ToF, free PRMETHOD OF INSTRUCTION: Individual instructionPATIENT / FAMILY RESPONSE: Verbalizes understanding of: [id number]-Gmr rect action to take to follow pre-operative instructionsFOLLOW-UP PLAN: Follow up phone call to report Staph PCR results.SUPPLEMENTAL MATERIAL: NoneREFERRAL (RECOMMENDATION): NoneElectronically Signed By: Mulu Crabtree CNP In Department: PEDS CARDIOTHORACICReferring Provider: CONCEPCION JAQUEZ [[id number]]Allergies As of Date: 04/28/2017(No Known Allergies)Date Reviewed: 04/28/2017Reviewed by: Jodie Zambrano MA - Fully AssessedReason for Visit: Pre-Op Visit [1235]Reason For Visit History RecordedPrimary Visit Diagnosis:S/P TOF (tetralogy of Fallot) repair [Z98.890, Z87.74] Other Visit Diagnosis:Pulmonary valve regurgitation, acquired [I37.1]Order(s):mupirocin (BACTROBAN) 2 % ointmentApply ointment to nose at 9 PM on 04/29/17 and at 6 AM on 04/30/17.Disp: 1 TubeRfl: 0Prescriptions as of 04/28/2017 Sig: LISINOPRIL 5 MG TABLET Take 5 mg by mouth twice brianna* AMOXICILLIN 500 MG CAPSULE take 4 caps po 1/2 hour prior* MUPIROCIN 2 % TOPICAL OINTMENT Apply ointment to nose at 9 P*Problem List As Of Date 04/28/2017 Noted Resolved TETRALOGY OF FALLOT [Q21.3] UNILAT INGUINAL HERNIA [K40.90] INVALID FOR* S/P TOF (tetralogy of Fallot) repair [Z98.890, *INVALID FOR* Pulmonary valve regurgitation, acquired [I37.1] INVALID FOR*Visit Notes:>> Mulu Crabtree Mon Apr 28, 2017 1:34 PM Status: SignedAMBULATORY PATIENT EDUCATIONTOPIC: Survival Skills: PROCEDURE/SURGERY Procedure/Surgery: PVRPre-op Teaching: Logistics ProtocolsComplication PreventionREADINESS TO LEARNCOGNITIVE ABILITY: Alert and orientedMOTIVATION TO LEARN: InterestedFAMILY SUPPORT: High - Very involved in pt careINSTRUCTION PROVIDED TO: Patient and MotherPATIENT LEARNS BEST BY: Multiple MethodsFACTORS AFFECTING LEARNING: NonePHYSICAL LIMITATIONS AFFECTING LEARNING: NoneLEARNING RESPONSEDIAGNOSIS: ToF, free PRMETHOD OF INSTRUCTION: Individual instructionPATIENT / FAMILY RESPONSE: Verbalizes understanding of: [id number]-Kzj rect action to take to follow pre-operativeinstructionsFOLL OW-UP PLAN: Follow up phone call to report Staph PCR results.SUPPLEMENTAL MATERIAL: NoneREFERRAL (RECOMMENDATION): NoneElectronically Signed By: Mulu Crabtree CNP In Department: PEDSCARDIOTHORACICPrescriptio ns ordered this encounter Disp Refills Start End MUPIROCIN 2 % TOPICAL OINTMENT 1 Tu* 0 04/28/2017 Class: Print RX Sig: Apply ointment to nose at 9 PM on 04/29/17 and at 6 AM on 04/30/17. Status:Closed by JO CRABTREE CNP on 04/28/17 [facility] CNOVon 04-28-2017 CNOV Office Visit (CHPDMN) -KUOKIAN ([id number]) 1975 MDate Time Provider Nlhuxcmvai98/9/17 11:45 AM HOLTER LAB CHPDMN During your visit today, we recorded the following information about you:Mikayla Kiser Tech 04/28/2017 12:20 PM SignedHOLTER MONITOR APPLICATIONPEDIATRIC CARDIOLOGY-Chest is cleansed with alcohol-Skin prep applied-Electrodes place on chest and stress loops secured with tape-Fresh battery inserted in monitor-Holter monitor secured to patient with waist or shoulder straps-Instructed patient 1) Diary documentation 2) Usage of event button 3) Maintenance and care of monitor 4) Safety issues with monitor 5) Return unit in 24 hours or 48 hours 6) Call with problems [phone] understanding of instructions by patient.SIGNATURE: Mikayla Kiser PATIENT NAME: Kian KuoDATE: April 28, 2017 : 12:18 PMReferring Provider: MULU CRABTREE ([facility]) [[id number]]Allergies As of Date: 04/28/2017(No Known Allergies)Date Reviewed: 04/28/2017Reviewed by: Jodie Zambrano MA - Fully AssessedReason for Visit: Holter Monitor Application [261]Visit Diagnoses:S/P TOF (tetralogy of Fallot) repair [Z98.890, Z87.74] Palpitations [R00.2]Order(s):HOLTER MONITOR 24 HOUR [[id number]] Order #: [id number] as of 04/28/2017 Sig: MUPIROCIN 2 % TOPICAL OINTMENT Apply ointment to nose at 9 P* LISINOPRIL 5 MG TABLET Take 5 mg by mouth twice brianna* AMOXICILLIN 500 MG CAPSULE take 4 caps po 1/2 hour prior*Problem List As Of Date 04/28/2017 Noted Resolved TETRALOGY OF FALLOT [Q21.3] UNILAT INGUINAL HERNIA [K40.90] INVALID FOR* S/P TOF (tetralogy of Fallot) repair [Z98.890, *INVALID FOR* Pulmonary valve regurgitation, acquired [I37.1] INVALID FOR* Status:Closed by RASTA LE on 04/28/17 Normal [facility] CN Office Visit (TSMN) -KAIN KUO ([id number]) 1975 MDate Time Provider Xhjruhoamn97/9/17 11:00 AM MISTY MAIER CHTSMN During your visit today, we recorded the following information about you: Temperature Pulse Respiration Blood pressure 98.2 degrees 74/minute 20/minute 128/80 Weight Height 76.4 kg 1.679 Olga Maier MD 04/28/2017 1:56 PM SignedCONSULT HISTORY and PHYSICALCARDIOTHORACIC SURGERYConsulting Service: Cardiothoracic SurgeryRequesting Provider: [facility] Compliance Intern, Dr. Azael Khan on01/27/2017.Opinion/advice regarding: Pre-Op Open Heart SurgeryCardiothoracic Physician: Misty Maier MDNAME: Kian KuoMRN: [id number]: 167.9 cmWEIGHT: 76.4 kgIntended Procedure: Implantation of pulmonary ValveREDO: Yes, x1STS SCORE: PVRHas this patient been previously evaluated for Open Heart Surgery for thiscondition? Yes, but [facility] to [facility] for surgical managmentHPI: (4) This is a 41 year old male who presents in consultation for an opinionregarding treatment options for Tetralogy of Fallot, S/P ToF repair at age 4,now with free SD. Additional PMH includes scoliosis and solitary kidney. He iscurrently symptomatic and complains of Chest Pain: Character - intermittent,frequency - occasionally, duration - minutes, location to the left of sternum.He reports h/o palpitations described as skipped beats and faster beats thathas been ongoing for several years, this occurs with activity and at rest. Hedenies dizziness, fever, SOB, orthopnea, PND, diaphoresis and edema.Comorbidities include [facility] MEDICAL HISTORYDiagnosis Date- Other specified disorder of gallbladder- Tetralogy of Fallot- Undescended testiclePAST SURGICAL HISTORY:PAST SURGICAL HISTORYProcedure Laterality Date- HOLTER MONITOR - PAST SURGICAL HISTORY OF 04/06/1980 cardiac cath. ANDamp; cineangiography- PAST SURGICAL HISTORY OF L thoracentesis- PAST SURGICAL HISTORY OF Schordon Removal- PAST SURGICAL HISTORY OF 06/20/1980 open heart surgeryFAMILY HISTORYProblem Relation Age of Onset- None Mother- None Father- Other [OTHER] Brother heart block at 42 years old- Other [OTHER] Maternal Grandmother heart failure at 95 years- Other [OTHER] Maternal Grandfather Mi in late 60's, stroke age 89- Other [OTHER] Paternal Grandmother heart disease in 70s- Other [OTHER] Paternal Grandfather stroke late 80'sFAMILY HISTORY OF CAD: NoSOCIAL HISTORY:Social HistorySubstance Use Topics- Smoking status: Never Smoker- Smokeless tobacco: No- Alcohol use Yes Comment: occasionallySOCIAL HISTORY OF IVDU: NoSOCIAL HISTORY OF Smoking: NoSOCIAL HISTORY OF Alcohol Dependency: NoMEDICATIONS:Prior to Admission Medications:mupirocin (BACTROBAN) 2 % ointment Apply ointment to nose at 9 PM on 04/29/17nd at 6 AM on 04/30/17.lisinopril (ZESTRIL, PRINIVIL) 5 mg tablet Take 5 mg by mouth twice daily.amoxicillin (POLYMOX, AMOXIL) 500 mg capsule take 4 caps po 1/2 hour prior todental proceedureNo current hospital medications on file.ALLERGIES: ALLERGIESNo Known AllergiesCOMPLETE REVIEW OF SYSTEMS: (10)Constitutional: No weight loss, malaise or fevers.HEENT: Negative for frequent or significant headaches, No changes in hearing orvision, wears glasses for near sightedness, last exam this past summer, + h/onose bleeds, last occurred 6 months ago, treated in ED, no other nasal problemsResp: Negative for cough, wheezing, or shortness of breathCardiovascular: See HPIGI: Negative for abdominal discomfort, blood in stools or black stools orchange in bowel habitsGU: No history of dysuria, frequency, or incontinence and No difficultyurination, nocturia ANDgt;1 times per night or hematuriaEndo: Negative for cold or heat intolerance, polyuria, polydipsia and goiterHeme/Lymph: Negative for prolonged bleeding, bruising easily or swollen nodesNeurologic: No history or headaches, syncope, paralysis, seizures or tremorsIntegumentary: Negative for lesions, rash, and itching.Additional systems reviewed: No additional systems reviewedPHYSICAL EXAM: (8)BP 128/80 (BP Site: Left Arm, BP Position: Sitting, BP Cuff Size: RegularAdult) Pulse 74 Temp 36.8 ?C (98.2 ?F) (Oral) Resp 20 Ht 167.9 cm (5'6.1ANDquot;) Wt 76.4 kg (168 lb 6.9 oz) SpO2 100% BMI 27.1 kg/z6Mweqyrfkisxhzw: Pleasant, alert male in no acute distressHEENT: Normocephalic, PERRLA, EOM's intact and Neck No cervical,supraclavicular, or axillary adenopathy and No thyroid massesResp: Clear breath sounds b/l, symmetric chest excursion, no rales, rhonchi orwheezesCardiovascular: Regular rate ANDamp; rhythm, normal S1 and S2, Gr II/ ASYA heardbest over ULSB, Gr II/IV DM, no gallops, clicks or rubsGI: Soft, Round, Non-tender and Bowel sounds present, no hepatomegalyIntegumentary: Warm, Dry and No rash on chest, arms or legsMusculoskeletal: No deformitiesPeripheral: warm digits, 2+ peripheral distal pulses equal b/lNeurological/Psychiatric: Oriented to time, place ANDamp; person and Steady gaitAdditional systems reviewed: No additional systems reviewedLabs:Invalid input(s): MBPInvalid input(s): PROTNo results found for this basename: chol,hdl,ldlDATA: I have personally reviewed the following data: CXR, EKG, Cardiac MRI, Chest CTw/o pnikvwru70 hour holter is pendingImpression: This is a 41 year old year-old male, who is being evaluated forsurgical intervention of Tetralogy of Fallot, S/P ToF repair at age 4, now withfree SD. In consideration for surgery, the patient's acute and chronic medicalissues have been evaluated as documented above and reviewed in the electronicmedical record.Plan: Patient will be seen today by the surgeon, Dr. Misty Maier MD . If the patient is a surgical candidate according to criteria met, then advisethe following: Bactroban, prescriptions and instructions given.Anticipated Discharge Needs: No anticipated DC needsThese findings will be communicated back to the requesting providerelectronically.TAMRA URE:THEO GunterGER:[id number] of Service: 04/28/2017Time of Service: 11 [facility] STAFF PHYSICIAN NOTE OF PERSONAL INVOLVEMENT IN CAREPatient is seen in consultation at the request of the above noted physician. Delmar reviewed the documentation above obtained and documented by the NursePractitioner. I have reviewed comorbidities, relevant tests noted above andupdated the problem list as appropriate. I have personally participated in thekey component and physical exam and have discussed the case and management ofthe patient's care.Based on my evaluation he is a candidate for Cardiac Surgery.Impression:Kian is a 41 yo with TOF repaired as a child using a TAP. He has free PRand an enlarged RV. He meets criteria for a pulmonary valve replacement.Plan: Redo sternotomy and Biocor pulmonary valve replacement. Consent issigned.STAFF PHYSICIAN: CRISTINA SiddiquiATE OF SERVICE: April 28, 2017TIME OF SERVICE: 1:53 PMReferring Provider: CONCEPCION JAQUEZ [[id number]]Allergies As of Date: 04/28/2017(No Known Allergies)Date Reviewed: 04/28/2017Reviewed by: Jodie Zambrano MA - Fully AssessedReason for Visit: Pre-Op Visit [1235]Primary Visit Diagnosis:S/P TOF (tetralogy of Fallot) repair [Z98.890, Z87.74] Other Visit Diagnosis:Palpitations [R00.2]Order(s):HOLTER MONITOR 24 HOUR [[id number]] Order #: [id number] FUTUREPrescriptions as of 04/28/2017 Sig: MUPIROCIN 2 % TOPICAL OINTMENT Apply ointment to nose at 9 P* LISINOPRIL 5 MG TABLET Take 5 mg by mouth twice brianna* AMOXICILLIN 500 MG CAPSULE take 4 caps po 1/2 hour prior*Problem List As Of Date 04/28/2017 Noted Resolved TETRALOGY OF FALLOT [Q21.3] UNILAT INGUINAL HERNIA [K40.90] INVALID FOR* S/P TOF (tetralogy of Fallot) repair [Z98.890, *INVALID FOR* Pulmonary valve regurgitation, acquired [I37.1] INVALID FOR* Status:Closed by MISTY MAIER MD on 04/28/17 Normal [facility] CT CHEST WO IVCONon 04-28-[address] CHEST WO IVCON * * *Final Report* * *DATE OF EXAM: Apr 28 2017 8:45AM [facility] [place] / REASON: multiple diagnoses * * * * Physician Interpretation * * * * EXAMINATION: CHEST CT WITHOUT CONTRASTCLINICAL HISTORY: Other specified postprocedural states Personal history of (corrected) 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 Evaluated for severe pulmonary regurgitationTechnique: Spiral CT acquisition of the chest from the thoracic inlet to the upper abdomen without contrast.M: [id number]_4CT Dose-Length Product: 257 mGy*cmCT Dose Reduction Employed: Automated exposure control (AEC)Comparison: None, correlation with chest radiograph obtained on the same dayRESULT:Limitations: Motion misregistration present mostly on the left side, and probably related to cardiac pulsation.Lines, tubes, and devices: None.Lung parenchyma and pleura: On lung windows, clear central airways noted. Caliber of the airways is smaller than adjacent pulmonary arteries. Within the left lower lobe mainly superior segment, indistinct centrilobular nodular opacities and probably focal tree in bud opacities are noted, for example images 80, 93, 96 suggestive of localized bronchiolitis, possibly related to aspiration. No large consolidation.No pleural effusion. No pneumothorax.Thoracic inlet, heart, and mediastinum: Heterogeneous thyroid, with dominant right thyroid nodule measuring about 12 mm noted on image 11. No axillary or supraclavicular lymphadenopathy meeting size criteria noted.Intrathoracically, no progressive intrathoracic lymphadenopathy meeting size criteria noted. Multiple small mediastinal and hilar lymph nodes noted.Left aortic arch noted. Separate origins of right and left common carotid and left subclavian arteries noted. Aberrant right subclavian artery coursing dorsal to the proximal esophagus noted. 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 Common channel formation of the left superior and inferior pulmonary veins, an anatomic variant. Postsurgical changes inferior to the aortic root, and in the right ventricular outflow tract region presumably related to VSD repair and pulmonary outflow tract/pulmonary stenosis repair. Left pulmonary artery appears dilated measuring about 34 mm on image 71. Right pulmonary artery measures 23 mm. Normal (or somewhat small-sized) size pulmonary trunk, measuring about 22 mm, with aorta measuring 32 mm.Bones and soft tissues: On bone window images, scoliosis with segmentation anomaly of T11-L1 segment (incomplete segmentation) . Partial fusion of left first and second ribs noted. Small median sternotomy wires related to remote prior surgery. Chest wall soft tissues are unremarkable.Upper abdomen: Severely atrophic left kidney partially visualized, image 218. Compensatory hypertrophy of the right kidney noted with vague low-attenuation areas, which may relate to calyceal dilation. Nonspecific perinephric fat stranding noted, mild. Borderline enlarged abdominal lymph node, ventral to the left renal vein, noted on image 213. Other lymph nodes are small.QB_NIMPRESSION:1. Patient is a known tetralogy of Fallot lobe patient, with postsurgical changes noted in the body of the report. Note made of aberrant right subclavian artery, left aortic arch and persistent left SVC and dilated left pulmonary artery.2. Localized centrilobular micronodules and some tree in bud opacities located posteriorly in the left lower lobe superior segment, may relate to aspiration. No other suspicious nodules noted.3. No thoracic lymphadenopathy.Property Portfolio Officer ist: PSCB Transcribe Date/Time: Apr 28 2017 9:22ADictated by : HUMBERTO SANDERS MDThis examination was interpreted and the report reviewed and electronically signed by: HUMBERTO SANDERS MD on Apr 28 2017 9:44AM [id number] Normal [facility] Confirm Blood Typeon 017 ABO/RH(D) Positive Normal [facility] Comment on above: Performed By: #### C ONABO ####[facility] [address] [place], [place] [phone] Hepatitis C Ab IAon 04-28-20 17 Hepatitis C Ab IA Negative Normal Negative [facility] Comment on above: Performed By: #### C BCDIF, PT, PTT, BMP, AHCV ####[facility] [address] [place], [place] [phone] PROGRESSon 04-28-2017 Protein mass conc HNO ID: [id number] thor: Mikayla Kiser (Tech)Service: (none)Author Type: TechnicianType: Progress NotesFiled: 04/28/2017 12:20 PMNote Text:HOLTER MONITOR APPLICATIONPEDIATRIC CARDIOLOGY-Chest is cleansed with alcohol-Skin prep applied-Electrodes place on chest and stress loops secured with tape-Fresh battery inserted in monitor-Holter monitor secured to patient with waist or shoulder straps-Instructed patient 1) Diary documentation 2) Usage of event button 3) Maintenance and care of monitor 4) Safety issues with monitor 5) Return unit in 24 hours or 48 hours 6) Call with problems [phone] understanding of instructions by patient.SIGNATURE: Mikayla Kiser PATIENT NAME: Kian Lowe: April 28, 2017 : 12:18 PM Normal [facility] Protein mass conc HNO ID: [id number] thor: Misty Vaze: (none)Author Type: PhysicianType: Progress NotesFiled: 04/28/2017 1:56 PMNote Text:CONSULT HISTORY and PHYSICALCARDIOTHORACIC SURGERYConsulting Service: Cardiothoracic SurgeryRequesting Provider: [facility] Compliance Intern, Dr. Azael Khan on01/27/2017.Opinion/advice regarding: Pre-Op Open Heart SurgeryCardiothoracic Physician: Misty Maier MDNAME: Kian KuoMRN: [id number]: 167.9 cmWEIGHT: 76.4 kgIntended Procedure: Implantation of pulmonary ValveREDO: Yes, x1STS SCORE: PVRHas this patient been previously evaluated for Open Heart Surgery for thiscondition? Yes, but [facility]fered to [facility] for surgical managmentHPI: (4) This is a 41 year old male who presents in consultation for anopinion regarding treatment options for Tetralogy of Fallot, S/P ToFrepair at age 4, now with free SD. Additional PMH includes scoliosis andsolitary kidney. He is currently symptomatic and complains of Chest Pain:Character - intermittent, frequency - occasionally, duration - minutes,location to the left of sternum. He reports h/o palpitations described asskipped beats and faster beats that has been ongoing for several years,this occurs with activity and at rest. He denies dizziness, fever, SOB,orthopnea, PND, diaphoresis and edema.Comorbidities include [facility] MEDICAL HISTORYDiagnosis Date- Other specified disorder of gallbladder- Tetralogy of Fallot- Undescended testiclePAST SURGICAL HISTORY:PAST SURGICAL HISTORYProcedure Laterality Date- HOLTER MONITOR - PAST SURGICAL HISTORY OF 04/06/1980 cardiac cath. AND cineangiography- PAST SURGICAL HISTORY OF L thoracentesis- PAST SURGICAL HISTORY OF Schordon Removal- PAST SURGICAL HISTORY OF 06/20/1980 open heart surgeryFAMILY HISTORYProblem Relation Age of Onset- None Mother- None Father- Other [OTHER] Brother heart block at 42 years old- Other [OTHER] Maternal Grandmother heart failure at 95 years- Other [OTHER] Maternal Grandfather Mi in late 60's, stroke age 89- Other [OTHER] Paternal Grandmother heart disease in 70s- Other [OTHER] Paternal Grandfather stroke late 80'sFAMILY HISTORY OF CAD: NoSOCIAL HISTORY:Social HistorySubstance Use Topics- Smoking status: Never Smoker- Smokeless tobacco: No- Alcohol use Yes Comment: occasionallySOCIAL HISTORY OF IVDU: NoSOCIAL HISTORY OF Smoking: NoSOCIAL HISTORY OF Alcohol Dependency: NoMEDICATIONS:Prior to Admission Medications:mupirocin (BACTROBAN) 2 % ointment Apply ointment to nose at 9 PM on04/29/17 and at 6 AM on 04/30/17.lisinopril (ZESTRIL, PRINIVIL) 5 mg tablet Take 5 mg by mouth twice daily.amoxicillin (POLYMOX, AMOXIL) 500 mg capsule take 4 caps po 1/2 hour priorto dental proceedureNo current hospital medications on file.ALLERGIES: ALLERGIESNo Known AllergiesCOMPLETE REVIEW OF SYSTEMS: (10)Constitutional: No weight loss, malaise or fevers.HEENT: Negative for frequent or significant headaches, No changes inhearing or vision, wears glasses for near sightedness, last exam this pastsummer, + h/o nose bleeds, last occurred 6 months ago, treated in ED, noother nasal problemsResp: Negative for cough, wheezing, or shortness of breathCardiovascular: See HPIGI: Negative for abdominal discomfort, blood in stools or black stools orchange in bowel habitsGU: No history of dysuria, frequency, or incontinence and No difficultyurination, nocturia >1 times per night or hematuriaEndo: Negative for cold or heat intolerance, polyuria, polydipsia andgoiterHeme/Lymph: Negative for prolonged bleeding, bruising easily or swollennodesNeurologic: No history or headaches, syncope, paralysis, seizures ortremorsIntegumentary: Negative for lesions, rash, and itching.Additional systems reviewed: No additional systems reviewedPHYSICAL EXAM: (8)BP 128/80 (BP Site: Left Arm, BP Position: Sitting, BP Cuff Size: RegularAdult) Pulse 74 Temp 36.8 ?C (98.2 ?F) (Oral) Resp 20 Ht 167.9 cm(5' 6.1") Wt 76.4 kg (168 lb 6.9 oz) SpO2 100% BMI 27.1 kg/t3Midfnjlqqwfmij: Pleasant, alert male in no acute distressHEENT: Normocephalic, PERRLA, EOM's intact and Neck No cervical,supraclavicular, or axillary adenopathy and No thyroid massesResp: Clear breath sounds b/l, symmetric chest excursion, no rales,rhonchi or wheezesCardiovascular: Regular rate AND rhythm, normal S1 and S2, Gr II/ SEMheard best over ULSB, Gr II/IV DM, no gallops, clicks or rubsGI: Soft, Round, Non-tender and Bowel sounds present, no hepatomegalyIntegumentary: Warm, Dry and No rash on chest, arms or legsMusculoskeletal: No deformitiesPeripheral: warm digits, 2+ peripheral distal pulses equal b/lNeurological/Psychiatric: Oriented to time, place AND person and SteadygaitAdditional systems reviewed: No additional systems reviewedLabs:Invalid input(s): MBPInvalid input(s): PROTNo results found for this basename: chol,hdl,ldlDATA: I have personally reviewed the following data: CXR, EKG, Cardiac MRI,Chest CT w/o [id number] hour holter is pendingImpression: This is a 41 year old year-old male, who is being evaluatedfor surgical intervention of Tetralogy of Fallot, S/P ToF repair at age 4,now with free SD. In consideration for surgery, the patient's acute andchronic medical issues have been evaluated as documented above andreviewed in the electronic medical record.Plan: Patient will be seen today by the surgeon, Dr. Misty Maier MD . If the patient is a surgical candidate according to criteria met, thenadvise the following: Bactroban, prescriptions and instructions given.Anticipated Discharge Needs: No anticipated DC needsThese findings will be communicated back to the requesting providerelectronically.SIGNAT URE:THEO GunterGER:[id number] of Service: 04/28/2017Time of Service: 11 [facility] STAFF PHYSICIAN NOTE OF PERSONAL INVOLVEMENT IN CAREPatient is seen in consultation at the request of the above notedphysician. I have reviewed the documentation above obtained anddocumented by the Nurse Practitioner. I have reviewed comorbidities,relevant tests noted above and updated the problem list as appropriate. Delmar personally participated in the aldridge component and physical exam andhave discussed the case and management of the patient's care.Based on my evaluation he is a candidate for Cardiac Surgery.Impression:Kian is a 41 yo with TOF repaired as a child using a TAP. He has freePR and an enlarged RV. He meets criteria for a pulmonary valvereplacement.Plan: Redo sternotomy and Biocor pulmonary valve replacement. Consent issigned.STAFF PHYSICIAN: Misty Maier MDDATE OF SERVICE: April 28, 2017TIME OF SERVICE: 1:53 PM Normal [facility] Protein mass conc HNO ID: [id number] thor: Rachel Jacob (Mónica Maguire: RadiologyAuthor Type: TechnicianType: Progress NotesFiled: 04/28/2017 8:57 AMNote Text: Radiology Service Progress NotePATIENT NAME: Kian KuoMRN: [id number] OF SERVICE: April 28, 2017TIME: 8:57 AMPATIENT IDENTITY VERIFICATION COMPLETED USING TWO (2) METHODS: Patientconfirmed name verbally and Date of .PATIENT GENDER DATA: MalePATIENT RELEVANT IMPLANT DATA REVIEWED: YesRADIOLOGY DEPARTMENT: General X-ray: Exam(s) Completed: Chest X-RayPERIPHERAL IV DATA: Not applicableSIGNED BY: Rachel Montanez [facility] 2016 8:57 AM Normal [facility] Protein mass conc HNO ID: [id number] thor: Marsha Burnham RtService: (none)Author Type: (none)Type: Progress NotesFiled: 04/28/2017 8:43 AMNote Text: Radiology Service Progress NotePATIENT NAME: Kian KuoMRN: [id number] OF SERVICE: April 28, 2017TIME: 8:41 AMPATIENT IDENTITY VERIFICATION COMPLETED USING TWO (2) METHODS: Patientconfirmed name verbally and ID band matches..PATIENT GENDER DATA: MalePATIENT RELEVANT IMPLANT DATA REVIEWED: YesRADIOLOGY DEPARTMENT: CT; Exam(s) Completed: ChestPERIPHERAL IV DATA: Not applicableSIGNED BY: Marsha Burnham [facility] 8:41 AM Normal [facility] Protimeon 04-28-2017 INR Coag RelTime (Bld) 1.0 {INR} Normal 0.9-1.3 [facility] Comment on above: Result Comment: Hood min K Antagonist (VKA) Therapeutic Range: INR 2 to 3 (Target INR of 2.5)Note: For patients treated with VKA drugs, such as warfarin, the [place] [employer] 2012 Guideline recommends a therapeutic INR range of 2 to 3 (target INR of 2.5). This recommendation includes high-risk patients with antiphospholipid syndrome with previous arterial or venous thromboembolism, current-generation mechanical or bioprosthetic aortic heart valve replacement.Note: Patients with mechanical aortic valve replacement and additional risk factors for thromboembolic events (atrial fibrillation, previous thromboembolism, LV dysfunction, hypercoagulable conditions) or an older generation mechanical AVR (i.e., ball in-Cage) or any mechanical MVR should have a INR therapeutic range of 2.5 to 3.5 (target INR of 3).Castro GH, et al. Chest 2012, 141:7S-47SNishimura RA, et al. [facility] 2017, 70: 252-289 Performed By: #### C BCDIF, PT, PTT, BMP, AHCV ####[address] [phone] PT Sec 10.4 sec Normal 9.7-13.0 [facility] Comment on above: Performed By: #### C BCDIF, PT, PTT, BMP, AHCV ####[facility] [place], [place] [phone] Staph aureus PCRon 7 MRSA PCR Negative Normal [facility] Comment on above: Performed By: #### S APCR ####[address] [phone] S aureus Spec Source Nasal Normal [facility] Comment on above: Performed By: #### S APCR ####[address] [phone] Staph aureus PCR Negative Normal [facility] Comment on above: Performed By: #### S APCR ####[place] [id number] [place] [phone] Type and SCR (30D)on 017 ABO/RH(D) Positive Normal [facility] Comment on above: Performed By: #### T SCR30 ####[place] [address] [address] [place] [phone] Antibody Screen Negative Normal [facility] Comment on above: Performed By: #### T SCR30 ####[place] [address] [address] [place] [phone] Urinalysison 04-28-2017 Bilirubin, Urine Negative Normal Negative [facility] Comment on above: Performed By: #### U A ####[place] [address] [address] [place] [phone] Cast SEE COMMENT Critically abnormal 0 [facility] Comment on above: Result Comment: 1-3H yaline Cast Performed By: #### U A ####[place] [address] [address] [place] [phone] Clarity Cloudy Critically abnormal Clear [facility] Comment on above: Performed By: #### U A ####[place] [address] [address] [place] [phone] Color Yellow Normal Yellow [facility] Comment on above: Performed By: #### U A ####[facility] [place] [phone] Comments SEE COMMENT Normal [facility] Comment on above: Result Comment: Micr oscopic Examination Performed Performed By: #### U A ####[facility] [phone] Glucose Ql (U) Negative Normal Negative [facility] Comment on above: Performed By: #### U A ####[facility] [phone] Hemoglobin/Blood,Ur 1+ Critically abnormal Negative [facility] Comment on above: Performed By: #### U A ####[place] [phone] INR Coag RelTime (Bld) 3-5 Critically abnormal 0-3 [facility] Comment on above: Performed By: #### U A ####[place] [phone] Ketones Ql (U) Negative Normal Negative [facility] Comment on above: Performed By: #### U A ####[place] [phone] Leukest 3+ Critically abnormal Negative [facility] Comment on above: Performed By: #### U A ####[place] [phone] Nitrites Positive Critically abnormal Negative [facility] Comment on above: Performed By: #### U A ####[place] [phone] pH 5.0 Normal 4.5-8.0 [facility] Comment on above: Performed By: #### U A ####[place] [phone] Protein, Urine Negative Normal Negative [facility] Comment on above: Performed By: #### U A ####[place] [phone] Specific Coila, Ur 1.016 Normal 1.005-1 .03 0 [facility] Comment on above: Performed By: #### U A ####[place] [phone] Urine Ike Comment SEE COMMENT Normal [facility] Comment on above: Result Comment: N/A Performed By: #### U A ####[facility] [address] [place], [place] [phone] Urobilinogen Normal Normal Normal [facility] Comment on above: Performed By: #### U A ####[facility] [place], [place] [phone] WBC >25 Critically abnormal 0-5 [facility] Comment on above: Performed By: #### U A ####[facility] [place], [place] [phone] XR CHEST 2V FRONTAL/LATon XR CHEST 2V FRONTAL/LAT * * *Final Report* * *DATE OF EXAM: Apr 28 2017 8:54AM NICOLE [id number] - XR CHEST 2V FRONTAL/LAT / REASON: multiple diagnoses * * * * Physician Interpretation * * * * EXAMINATION: CHEST RADIOGRAPH (2 VIEW FRONTAL and LATERAL)Clinical History: Other specified postprocedural states Personal history of (corrected) congenital malformations of heart and circulatory system Nonrheumatic pulmonary valve insufficiencyM: XC2_3Comparison: NoneRESULT:Lines, tubes, and devices: None.Lungs and pleura: Lungs are clear.Cardiomediastinal silhouette: Sternotomy sutures are present from repair of tetralogy of Fallot. The heart size is normal. 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.IMPRESSION:Repair tetralogy of FallotNo acute diseaseTranscriptionist: PSCBimal Transcribe Date/Time: Apr 28 2017 11:14ADictated by : JANEL BERNAL MDThimike examination was interpreted and the report reviewed and electronically signed by: JANEL BERNAL MD on Apr 28 2017 11:17AM [id number] Normal [facility] HOSPon 04-23-2017 HOSP Patient Update (PCDAMN) -KIAN KUO ([id number]) 1975 MDate Time Provider Swvktjzlrq07/4/17 ARSENIO GLYNN (NESHA) PCDAMN During your visit today, we recorded the following information about you:Concepcion Jaquez MD 04/28/2017 8:21 AM SignedSurgical Conference SummaryPatient Name: Kian KuoMedical Record #: [id number] of : 1975Weight: 75 KgDate of Conference: 04/28/2017Date of Surgery: 04/29/2017Primary Surgeon: Dr. Verma property claims manager: Dr. 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 This region of loss contains approximately 81 genes, (Loss ofthis region is associated with DiGeorge/Velocardiofacial(VCF )/22q11.21Microdeletion syndrome)Scoliosis, single kidneyHigh blood pressure?Anticipated Surgery/Reason for Discussion:Pulmonary valve replacement due to free SD and RV dilation.RVOT was too large for percutaneous pulmonary valve implantation?Indication(s) for Surgery:Severe Pulmonary regurgitationAbnormal exercise findings (4.7 METS),Significant (moderate) RV dilatation EDVi 123cc/m2 and (mild) decreased RVfunction, RV/LV indexed volume ratioANDgt;2?Pertinent Positives/Negatives for Surgical Approach:RVOT is borderline too large for a percutaneous valveLSVC to coronary sinusAberrant right subclavian artery without diverticulum of Kommerellreassuring SPECT?scan at [place]?Scoliosis - Preoperative pulmonary evaluation - restrictive lung disease???Past Medical History:PAST MEDICAL HISTORYDiagnosis Date- DIS OF GALLBLADDER NEC- TETRALOGY OF FALLOT?Previous Surgeries:PAST SURGICAL HISTORYProcedure Laterality Date- HOLTER MONITOR - PAST SURGICAL HISTORY OF 04/06/1980 cardiac cath. ANDamp; cineangiography- PAST SURGICAL HISTORY OF L thoracentesis- PAST SURGICAL HISTORY OF Schordon Removal- PAST SURGICAL HISTORY OF 06/20/1980 open heart surgery?Medications:?Current Outpatient Prescriptions on File Prior to Visit:lisinopril (ZESTRIL, PRINIVIL) 5 mg tablet Take 5 mg by mouth twice daily.amoxicillin (POLYMOX, AMOXIL) 500 mg capsule take 4 caps po 1/2 hour prior todental proceedureNo current facility-administered medications on file prior to visit.Allergies:ALLERGIESNo Known Allergies??Echocardiogram (November 2016):RV dilatation, mild PS free SD, ? RVOT aneurysm, LSVC to CS, left arch probaber RSCA, dilated PAs?Metabolic Exercise Stress (01/27/2017):1. Abnormal aerobic (4.7 METS) and exercise (4.5 eMETS) capacity.2. Blunted heart rate response with max HR 139, normal HR recovery (12.2% 1min, 20.9% 2 min).3. Normal systolic and diastolic BP response.4. Peak VO2 (1.24 l/min and VO2/kg (16.6 ml/min/kg).5. AT/kg (15.3 ml/min/kg); 92.4% VO2max.6. Oxygen pulse (8.9 ml) with normal rise throughout exercise.7. Total ventilation (VE/ht2.5 11.2 l/ht2.5; VT/kg 16.0 ml/kg; RR 34/min).8. Peak exercise ETCO2 (37 torr).9. VE/VCO2 at AT and slope (32.5).10. NSR with no ectopy or ST-T changes at rest, during exercise or recovery.11. Normal SpO2's during study- 100%.12. Patient was holding on to bars throughout test and had a unstable gait.??Conclusion: ?Blunted HR with normal BP and abnormal pulmonary response tosubmaximal exercise (RER 1.02) with evidence of limitation with submaximalnormal VO2/kg, AT, VE/VCO2, oxygen pulse and HR recovery.With a submaximal effort and normal HR recovery suggests cardiac limitationalong with VO2/kg and eMETS.?Cardiac MRI (01/27/2017):SEVERE PULMONARY REGURGITATION (RV = 78 cc, RF = 71%).RIGHT VENTRICLE IS MODERATELY DILATED (EDVi = 123 cc/m2) WITH MILDLY REDUCEDSYSTOLIC FUNCTION (RVEF = 46%).Left ventricle is normal in size with normal systolic function (LVEF = 59%).- diastolic septal flattening, consistent with RV volume overload.LEFT-SIDED IVC DRAINING INTO THE CORONARY SINUS- normal pulmonary venous return.ABERRANT RSCA WITHOUT EVIDENCE OF DIVERTICULUM OF KOMMERELLPULMONARY ARTERIES: LEFT PA IS DILATED (3.5 cm)Dimensions: as described aboveAORTIC ROOT: ECTASIA, Aortic Root Diameter: 4 x 3.6 cm?? ? Ascending Thoracic Aorta: normal size, Diameter: 3 cmCardiology Recommendations: PVRSurgical Recommendations:In Attendance:Surgery:_x__Ahmad_ x__Najm _x__ Noah ___Pettersson??Cardiology:___ Aziz ___Boyle ___Challapudi ___ El Glenn __x_Erenberg ___Jou_x__Komarlu__x_Nadorlik ___Majdalany ___Prada _x__Preminger _x__Prieto_x__Saarel?_x__Sunt randy _x__Zahka??ICU:___Baloglu ___Daphtary ___Hanna _x__Hamza _x__Lampkin_x__Latifi ___McHugh___Gowda ___Ezetendu??Anesthesia:?___K imatian _x__ Chababa ___ Niezgoda ____Saliba___ Jorge A??Allergies As of Date: 04/23/2017(No Known Allergies)Date Reviewed: 01/28/2017Reviewed by: Azael Khan - Fully AssessedPrescriptions as of 04/23/2017 Sig: LISINOPRIL 5 MG TABLET Take 5 mg by mouth twice brianna* AMOXICILLIN 500 MG CAPSULE take 4 caps po 1/2 hour prior*Problem List As Of Date 04/23/2017 Noted Resolved TETRALOGY OF FALLOT [Q21.3] UNILAT INGUINAL HERNIA [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 Verma property claims manager: Dr. 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 This region of loss contains approximately 81genes, (Loss of this region is associated withDiGeorge/Velocardiofacial (VCF)/22q11.21 Microdeletion syndrome)Scoliosis, single kidneyHigh blood pressure?Anticipated Surgery/Reason for Discussion:Pulmonary valve replacement due to free SD and RV dilation.RVOT was too large for percutaneous pulmonary valve implantation?Indication(s) for Surgery:Severe Pulmonary regurgitationAbnormal exercise findings (4.7 METS),Significant (moderate) RV dilatation EDVi 123cc/m2 and (mild) decreased RVfunction, RV/LV indexed volume ratio>2?Pertinent Positives/Negatives for Surgical Approach:RVOT is borderline too large for a percutaneous valveLSVC to coronary sinusAberrant right subclavian artery without diverticulum of Kommerellreassuring SPECT?scan at [place]?Scoliosis - Preoperative pulmonary evaluation - restrictive lung disease???Past Medical History:PAST MEDICAL HISTORYDiagnosis Date- DIS OF GALLBLADDER NEC- TETRALOGY OF FALLOT?Previous Surgeries:PAST SURGICAL HISTORYProcedure Laterality Date- HOLTER MONITOR - PAST SURGICAL HISTORY OF 04/06/1980 cardiac cath. AND cineangiography- PAST SURGICAL HISTORY OF L thoracentesis- PAST SURGICAL HISTORY OF Schordon Removal- PAST SURGICAL HISTORY OF 06/20/1980 open heart surgery?Medications:?Current Outpatient Prescriptions on File Prior to Visit:lisinopril (ZESTRIL, PRINIVIL) 5 mg tablet Take 5 mg by mouth twice daily.amoxicillin (POLYMOX, AMOXIL) 500 mg capsule take 4 caps po 1/2 hour priorto dental proceedureNo current facility-administered medications on file prior to visit.Allergies:ALLERGIESNo Known Allergies??Echocardiogram (November 2016):RV dilatation, mild PS free SD, ? 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 Abnormal aerobic (4.7 METS) and exercise (4.5 eMETS) capacity.2. Blunted heart rate response with max HR 139, normal HR recovery (12.2%1 min, 20.9% 2 min).3. Normal systolic and diastolic BP response.4. Peak VO2 (1.24 l/min and VO2/kg (16.6 ml/min/kg).5. AT/kg (15.3 ml/min/kg); 92.4% VO2max.6. Oxygen pulse (8.9 ml) with normal rise throughout exercise.7. Total ventilation (VE/ht2.5 11.2 l/ht2.5; VT/kg 16.0 ml/kg; RR 34/min).8. Peak exercise ETCO2 (37 torr).9. VE/VCO2 at AT and slope (32.5).10. NSR with no ectopy or ST-T changes at rest, during exercise orrecovery.11. Normal SpO2's during study- 100%.12. Patient was holding on to bars throughout test and had a unstablegait.??Conclusion: ?Blunted HR with normal BP and abnormal pulmonary response tosubmaximal exercise (RER 1.02) with evidence of limitation with submaximalnormal VO2/kg, AT, VE/VCO2, oxygen pulse and HR recovery.With a submaximal effort and normal HR recovery suggests cardiaclimitation along with VO2/kg and eMETS.?Cardiac MRI (01/27/2017):SEVERE PULMONARY REGURGITATION (RV = 78 cc, RF = 71%).RIGHT VENTRICLE IS MODERATELY DILATED (EDVi = 123 cc/m2) WITH MILDLYREDUCED SYSTOLIC FUNCTION (RVEF = 46%).Left ventricle is normal in size with normal systolic function (LVEF =59%).- diastolic septal flattening, consistent with RV volume overload.LEFT-SIDED IVC DRAINING INTO THE CORONARY SINUS- normal pulmonary venous return.ABERRANT RSCA WITHOUT EVIDENCE OF DIVERTICULUM OF KOMMERELLPULMONARY ARTERIES: LEFT PA IS DILATED (3.5 cm)Dimensions: as described aboveAORTIC ROOT: ECTASIA, Aortic Root Diameter: 4 x 3.6 cm?? ? Ascending Thoracic Aorta: normal size, Diameter: 3 cmCardiology Recommendations: PVRSurgical Recommendations:In Attendance:Surgery:_x__Ahmad_ x__Najm _x__ Noah ___Pettersson??Cardiology:___ Aziz ___Boyle ___Challapudi ___ El Glenn __x_Erenberg ___Jou_x__Komarlu__x_Nadorlik ___Majdalany ___Prada _x__Preminger _x__Prieto_x__Saarel?_x__Sunt randy _x__Zahka??ICU:___Baloglu ___Daphtary ___Hanna _x__Hamza _x__Lampkin_x__Latifi ___McHugh___Gowda ___Ezetendu??Anesthesia:?___K imatian _x__ Chababa ___ Niezgoda ____Saliba___ Jorge A?? Normal [facility] Vital Signs Date Time Vital Sign Value Performing Clinician Faci lity 11-29-2024 13:08-0400 Body height 170.[address] Ambrosio Resendiz MD Work Phone: [facility] 11-29-2024 13:08-0400 Body mass index (BMI) [Ratio] 26 kg/m2 Dr. Ambrosio Resendiz MD Work Phone: [facility] 11-29-2024 13:08-0400 Body temperature 98 [degF] Dr. Ambrosio Resendiz MD Work Phone: [facility] 11-29-2024 13:08-0400 Body weight 75.[address] Ambrosio Resendiz MD Work Phone: [facility] 11-29-2024 13:08-0400 Diastolic blood pressure 80 mm[Hg] Dr. Ambrosio Resendiz MD Work Phone: [facility] 11-29-2024 13:08-0400 Heart rate 77 /min Dr. Ambrosio Resendiz MD Work Phone: [facility] 11-29-2024 13:08-0400 Respiratory rate 16 /min Dr. Ambrosio Resendiz MD Work Phone: [facility] 11-29-2024 13:08-0400 SaO2% (BldA) [Mass fraction] 98 % Dr. Ambrosio Resendiz MD Work Phone: [facility] 11-29-2024 13:08-0400 Systolic blood pressure 125 mm[Hg] Dr. Ambrosio Resendiz MD Work Phone: [facility] 03-03-2023 13:32-0400 Body height 170.[address] Ambrosio Resendiz Work Phone: [facility] 03-03-2023 13:32-0400 Body mass index (BMI) [Ratio] 27.7 kg/m2 Dr. Ambrosio Resendiz Work Phone: [facility] 03-03-2023 13:32-0400 Body temperature 98.2 [degF] Dr. Ambrosio Resendiz Work Phone: [facility] 03-03-2023 13:32-0400 Body weight 80.[address] Ambrosio Resendiz Work Phone: [facility] 03-03-2023 13:32-0400 Diastolic blood pressure 88 mm[Hg] Dr. Ambrosio Resendiz Work Phone: [facility] 03-03-2023 13:32-0400 Heart rate 87 /min Dr. Ambrosio Resendiz Work Phone: [facility] 03-03-2023 13:32-0400 Respiratory rate 16 /min Dr. Ambrosio Resendiz Work Phone: [facility] 03-03-2023 13:32-0400 SaO2% (BldA) [Mass fraction] 96 % Dr. Ambrosio Resendiz Work Phone: [facility] 03-03-2023 13:32-0400 Systolic blood pressure 140 mm[Hg] Dr. Ambrosio Resendiz Work Phone: [facility] 09-21-2022 12:15-0500 Body height 170.[address] Ambrosio Resendiz Work Phone: [facility] 09-21-2022 12:15-0500 Body mass index (BMI) [Ratio] 26.4 kg/m2 Dr. Ambrosio Resendiz Work Phone: [facility] 09-21-2022 12:15-0500 Body temperature 98.2 [degF] Dr. Ambrosio Resendiz Work Phone: [facility] 09-21-2022 12:15-0500 Body weight 76.[address] Ambrosio Resendiz Work Phone: [facility] 09-21-2022 12:15-0500 Diastolic blood pressure 92 mm[Hg] Dr. Ambrosio Resendiz Work Phone: [facility] 09-21-2022 12:15-0500 Heart rate 102 /min Dr. Ambrosio Resendiz Work Phone: [facility] 09-21-2022 12:15-0500 Respiratory rate 16 /min Dr. Ambrosio Resendiz Work Phone: [facility] 09-21-2022 12:15-0500 SaO2% (BldA) [Mass fraction] 99 % Dr. Ambrosio Rseendiz Work Phone: [facility] 09-21-2022 12:15-0500 Systolic blood pressure 136 mm[Hg] Dr. Ambrosio Resendiz Work Phone: [facility] 08-12-2022 11:32-0500 Body temperature 97.4 [degF] Dr. Ambrosio Resendiz Work Phone: [facility] 08-12-2022 11:32-0500 Body weight 79.[address] Ambrosio Resendiz Work Phone: [facility] 08-12-2022 11:32-0500 Diastolic blood pressure 77 mm[Hg] Dr. Ambrosio Resendiz Work Phone: [facility] 08-12-2022 11:32-0500 Heart rate 58 /min Dr. Ambrosio Resendiz Work Phone: [facility] 08-12-2022 11:32-0500 Respiratory rate 16 /min Dr. Ambrosio Resendiz Work Phone: [facility] 08-12-2022 11:32-0500 SaO2% (BldA) [Mass fraction] 92 % Dr. Ambrosio Resendiz Work Phone: [facility] 08-12-2022 11:32-0500 Systolic blood pressure 117 mm[Hg] Dr. Ambrosio Resendiz Work Phone: [facility] 09-11-2019 06:08-0500 Body Temperature 98.6 [degF] [facility] [place] 09-11-2019 06:08-0500 BP Diastolic 99 mm[Hg] [facility] , [place] 09-11-2019 06:08-0500 BP Systolic 154 mm[Hg] [facility] [place] 09-11-2019 06:08-0500 Pulse (Heart Rate) 88 /min [facility], [place] 09-11-2019 06:08-0500 Pulse Oximetry 96 % [facility] , [place] 09-11-2019 06:08-0500 Respiratory Rate 18 /min [facility] [place] Encounters Encounter Date Encounter Type Care Provider Facility Start: 11-29-2024 End: 11-29-[address] Ambrosio Resendiz MD -[email or web address] Work Phone: Start: 11-29-2024 End: 11-29-2024 ambulatory Ambrosio Resendiz Facility:[facility] Start: 11-25-2024 End: 11-25-[address] Ambrosio Resendiz MD Work Phone: [facility] Work Phone: Start: 11-25-2024 End: 11-25-[address] Ambrosio Resendiz MD -Laboratory Work Phone: Start: 11-25-2024 End: 11-25-2024 ambulatory Ambrosio Resendiz Facility:[facility] Start: 11-22-2024 ambulatory AMBROSIOHERNANDEZ RESENDIZ [facility] Start: 09-30-2024 End: 09-30-[address] Ambrosio Resendiz MD -[place] [email or web address] Work Phone: Start: 09-30-2024 End: 09-30-2024 ambulatory Ambrosio Resendiz Facility:[facility] Start: 06-24-2024 End: 06-24-2024 ambulatory Ambrosio Resendiz Facility:[facility] Start: 06-12-2024 End: 06-12-2024 Emergency department patient visit Ambrosio Resendiz Facility:[facility] Start: 05-31-2024 End: 05-31-2024 ambulatory Ambrosio Resendiz Facility:[facility] Start: 05-31-2024 End: 05-31-2024 ambulatory Ambrosio Resendiz Facility:[facility] Start: 04-19-2024 ambulatory Ambrosio Resendiz Facility :[facility] Start: 04-15-2024 ambulatory Ambrosio Resendiz Facility :[facility] Start: 04-15-2024 End: 04-15-2024 ambulatory Ambrosiohernandez Resendiz Facility:[facility] Start: 03-15-2024 End: 03-15-2024 ambulatory Ambrosiohernandez Resendiz Facility:[facility] Start: 03-08-2024 End: 03-08-2024 ambulatory Ambrosio Resendiz Facility:[facility] Start: 07-18-2023 End: 07-18-2023 ambulatory [facility] Work Phone: Start: 07-18-2023 End: 07-18-2023 Patient encounter procedure [facility]Labor[facility] Work Phone: Start: 03-06-2023 End: 03-06-[address] Ambrosio Resendiz Work Phone: [facility] Work Phone: Start: 03-06-2023 End: 03-06-[address] Ambrosio Resendiz Work Phone: [facility]Laboratory Work Phone: Start: 03-03-2023 End: 03-03-[address] Ambrosio Resendiz Work Phone: [facility] [place] Work Phone: Start: 09-21-2022 End: 09-21-2022 Emergency department patient visit Dr. Ambrosio Resendiz Work Phone: [facility]Emergency Department Start: 09-16-2022 Non-patient / Non-visit Dr. Shital Resendiz Work Phone: [facility] Start: 09-16-2022 End: 09-16-[address] Ambrosio Resendiz Work Phone: [facility] Work Phone: Start: 09-16-2022 End: 09-16-[address] Ambrosio Resendiz Work Phone: [facility] Start: 08-12-2022 End: 08-12-[address] Ambrosio Resendiz Work Phone: [facility] [place] Start: 09-08-2019 End: 09-11-2019 Evaluation and management of inpatient Nimrit K Lotey Work Phone: [facility] Start: 03-27-2018 End: 03-30-2018 Patient encounter AZAEL KHAN [facility] Start: 05-12-2017 End: 05-12-2017 Patient encounter PAULINE DASH [facility] Start: 05-06-2017 End: 05-06-2017 Patient encounter PAULINE DASH [facility] Start: 04-30-2017 End: 05-06-2017 Evaluation and management of inpatient PAULINE DASH [facility] Start: 04-28-2017 End: 05-08-2017 Patient encounter MISTY MAIER [facility] Procedures Date Procedure Procedure Detail Performing Clinician Start: 11-25-2024 Vitamin D, 25-hydrox y measurement Dr. Ambrosio Resendiz MD Work Phone: Comment on above: Vitamin D StatusDefi ciency: <20 ng/mL (50nmol/L)Insufficiency: 20-30 ng/mL (50-75 nmol/L)Sufficiency: 30-100 ng/mL (75-250 nmol/L)Toxicity: >100 ng/mL (>250 nmol/L) Start: 09-21-2022 Plain chest X-ray Dr. Shereen Resendiz Work Phone: Start: 09-11-2019 BASIC METABOLIC PANE L W/ REFLEX TO MG FOR LOW K Ruben Bimal Anderson Work Phone: Start: 09-11-2019 Blood count complete automated Ruben Anderson Work Phone: Start: 09-10-2019 OPERATIVE REPORT 3m Sca nning Start: 09-10-2019 BASIC METABOLIC PANE L W/ REFLEX TO MG FOR LOW K Ruben B Justin Work Phone: Start: 09-10-2019 Blood count complete automated Ruben Anderson Work Phone: Start: 09-09-2019 Us retroperitoneal r eal time w/image limited Sage Leach Work Phone: Start: 09-09-2019 Radiologic exam abdo men 1 view Wally Moctezuma Work Phone: Start: 09-09-2019 Culture bacterial quanttative colony count urine Sage Leach Work Phone: Start: 09-09-2019 Urnls dip stick/tabl et rgnt auto w/o microscopy Sage Leach Work Phone: Start: 09-09-2019 Assay of urea nitrogen urine Marc Reeves Work Phone: Start: 09-09-2019 Assay of urine sodium A karolina Reeves Work Phone: Start: 09-09-2019 Creatinine other source Marc Reeves Work Phone: Start: 09-09-2019 Blood count complete automated Ruben Anderson Work Phone: Start: 09-09-2019 BASIC METABOLIC PANE L W/ REFLEX TO MG FOR LOW K Ruben Anderson Work Phone: SARS-CoV-2 & FLU Ant igen (Rapid) Dr. Ambrosio Resendiz Work Phone: Plan of Treatment Date Care Activity Detail Author Start: 2026 Shingles Vaccine (1 of 2) Shingles Vaccine (1 of 2) [place], [place] Start: 03-06-2023 Assay of prostate specific antigen total ASSAY OF PSA TOTAL [facility] Start: 09-11-2020 Creatinine monitoring Creatinine mon itoring [place] Start: 09-11-2020 Potassium monitoring Potassium monit oring [place] Start: 03-21-2019 Influenza vaccination Flu vaccine (# 1) [place] Start: 2016 Lipid screen Lipid screen [place], [place] Start: 11-04-1991 HIV screen HIV screen [place], [place] Start: 11-04-1987 DTaP/Tdap/Td vaccine (1 - Tdap) DTaP/Tdap/Td vaccine (1 - Tdap) [place] Basic Metabolic Pane l w/ Reflex to MG Basic Metabolic Panel w/ Reflex to MG Lab Routine Daily until discontinued starting 09/09/2019, 3 completed [place] Comment on above: Daily until disconti nued starting 09/09/2019, 3 completed CBC CBC Lab Routine Daily until discontinued starting 09/09/2019, 3 completed [place] Comment on above: Daily until disconti nued starting 09/09/2019, 3 completed End: 09-10-2019 [place] Retrograde Pyelogram W WO Kub [place] Retrograde Pyelogram W WO Kub Imaging Routine Once for 1 Occurrences starting 09/10/2019 until 09/10/[address] [facility] [place] Comment on above: Once for 1 Occurrenc es starting 09/10/2019 until 09/10/2019 [place] Retrograde Pyelog kaia W WO Kub [place] Retrograde Pyelogram W WO Kub Imaging Routine 09/10/2019 6:25 AM EST [place] Hemoglobin A1c/Hemoglobin.total in Blood [facility] Initiate Oxygen Ther apy Protocol Initiate Oxygen Therapy Protocol Respiratory Care Routine Daily until discontinued starting 09/09/[address] [facility] [place] Comment on above: Daily until disconti nued starting 09/09/2019 Patient Education ED Pneumonia (Adult) [facility] Work Phone: Patient referral [facility] Work Phone: Prostate specific antigen measurement [facility] End: 09-10-2019 Stone Analysis Stone Analysis Microbiology Routine Once for 1 Occurrences starting 09/10/2019 until 09/10/[address] [facility] [place] Comment on above: Once for 1 Occurrenc es starting 09/10/2019 until 09/10/2019 Stone Analysis Stone Analysis Microbiology Routine 09/10/2019 6:[address] [facility] Immunizations Immunization Date Immunization Notes Care Provider Pieter new 08-06-2023 pneumococcal conjuga te vaccine, [address] Ambrosio Resendiz MD Work Phone: [facility] Payers Date Payer Category Payer Self-pay [id number] 2024 Unknown [id number] 1975 Unknown [id number] 2.16.8 [id number] Self-pay SELF PAY INSURANCE [id number] Unknown [facility] [id number] Unknown [id number] 2.16.8 [id number] Unknown [id number] 2.16.8 [id number] Unknown [id number] 2.16.8 [id number] Unknown [id number] 2.16.8 [id number] Unknown [id number] 2.16.8 [id number] Unknown [id number] 2.16.8 [id number] Unknown [id number] 2.16.8 [id number] Unknown [id number] 2.16.8 [id number] Unknown [id number] 2.16.8 [id number] Unknown [id number] 2.16.8 [id number] Unknown [id number] 2.16.8 [id number] Unknown [id number] 2.16.8 [id number] Social History Date Type Detail Facility Start: 09-09-2019 End: 03-03-2023 Tobacco smoking status NHIS Unknown if ever smoked [facility] Sex Assigned At Not on file [place], [place] Start: 1975 Sex Assigned At Male W [facility] Start: 09-28-2024 Tobacco smoking stat us NHIS Never smoked tobacco (finding) [facility] Evaluation note 11-29-2024 Note Date & Type Note Facility 11-29-2024 Evaluation note Diagnosis Onset Date Resolution Essential hypertension acute Ma 2024 1:00pm H/O pulmonic valve replacement acute November 29, 2024 1:00pm Hyperlipidemia acute November 29, 2024 1:00pm Impacted cerumen, left ear acute November 29, 2024 1:00pm Tetralogy of Fallot acute November 182024 1:00pm Type 2 diabetes mellitus acute November 29, 2024 1:00pm Vitamin D deficiency acute November 29, 2024 1:00pm [facility] Work Phone: Evaluation note Note Date & Type Note Facility Evaluation note Diagnosis Onset Date Essential hypertension acute H/O pulmonic valve replacement acute Hyperlipidemia acute Impacted cerumen of both ears acute Tetralogy of Fallot acute Type 2 diabetes mellitus acu te [facility] Work Phone: Evaluation note Note Date & Type Note Facility Evaluation note Diagnosis Onset Date Essential hypertension acute H/O pulmonic valve replacement acute Hyperlipidemia acute Type 2 diabetes mellitus acu te Vitamin D deficiency acute [facility] Work Phone: Evaluation note Note Date & Type Note Facility Evaluation note No assessment information availa [facility] Work Phone: Reason for referral (narrative) Note Date & Type Note Facility Reason for referral (narrative) No reason for referral information available [facility] Work Phone: Summary Purpose Family History No Family History Records Found Relationship Condition Age at Onset Recorded Date/T reji father Malignant neoplasm Unknown Advance Directives No Advanced Directives Records FoundDocuments on File Type Date Recorded 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 Expl 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 Advance Directives and Living Will Power of Pathology Manager Latest Code Status on File Code Status Date Activated Date Inactivated Comments Full Code 09/09/2019 12:34 AM Advance Directive Response Recorded Date/ Time Advance Directives No October 09 2:41pm Living Will No September 21, 2022 12:57pm Power of Pathology Manager No September 21 12:57pm Advance Directive Response Recorded Date/ Time Advance Directives No October 09 021 3:41pm Living Will No September 21, 2022 1:57pm Power of Pathology Manager No September 21 1:57pm Advance Directive Response Recorded Date/ Time Advance Directives No September 28 025 1:39pm Hospital Course * Heather Vanegas MD - 09/11/2019 8:31 AM EST [facility] Discharge Summary with Discharge DayProgress Note and Transition Note Doc Kuo : 1975 ADMIT DATE: 09/08/2019 DISCHARGE DATE: 09/11/2019 PRIMARYCARE PHYSICIAN: No primary care provider on file. VISIT STATUS: Admission CODE STATUS: Full Code DISCHARGE DIAGNOSES: Active Problems: Nephrolithiasis SHAWN (acute kidney injury) (HCC) Leukocytosis History of tetralogy of Fallot S/P AVR Resolved Problems: * No resolved hospital problems. * HOSPITAL COURSE: Doc Kuo is a 43 y.o. male with history of DiGeorge 22q11 genetic abnormality, left atrophickidney, DM2 (diet controlled, Hgb A1C 6.0), HLD, HTN, and Tetralogy of Fallot (s/p bioprosthetic AVR), who presents as a transfer from [facility] with complaints of severe right flank/back pain. In ER, patient was found to have severe hydronephrosis, UTI and obstructing ureteral stone. Transferred to [facility], where he underwent urethral stone removal and [...] % I/O last 3 completed shifts: In: 5 [P.O.:500; I.V.:1415] Out: - Physical Exam Constitutional: [...] DISCHARGE MEDICATIONS: Significant Medication Changes: none Doc Kuo Home Medication Instructions SITA:[id number] Printed on:09/11/19 0842 Medication Information aspirin 81 [...] Complexity: follow up within 7-14 calendar days (89075) [] Severe Complexity: follow up within 7 calendar days (13971) FOLLOW UP TESTING, PENDING RESULTS ORREFERRALS AT [...] at Home Your Recovery A ureteral (say "scc-MHU-[id number]-ul") stent is a thin, hollow tube that [...] your doctor if you can take an ddyp-ywr-injhtef medicine. If you think your pain medicine [...] Where can you learn more? Go to [email or web address] and sign in to your Access [employer] account. Enter B869 in the Search Health Information box to learn more about Ureteral Stent Placement: What to Expect at Home. If you do not have an account, please click on the "Sign Up Now" link. Current as of: March 10, 2019 Content Version: 12.3 5124-7439 [employer]. Care instructions adapted under license by [employer]. If youhave questions about a medical condition or this instruction, always ask your healthcare professional. [employer] disclaims any warranty or liability for your use of this information. * Attachments The following attachments cannot be sent through Care Everywhere. * Ureteral Stent Placement: Post-op (Taiwanese) documented in this encounter History of Present Illness * Acacia Mathew RN - 09/11/2019 1:11 PM EST Discharge instructions given to pt with good understanding * Marc Reeves PA-C - 09/10/2019 10:53 AM EST [facility] Progress Note Doc Kuo : 1975(43 y.o.) Date: 09/10/19 Subjective: HPI [...] ASA, metoprolol -stable, follows with cardiology at [facility]. Disposition -s/p stent 09/10- observe, likely d/c later today or tomorrow per urology -continue IV ceftriaxone DVTProphylaxis: SCDs and Ambulate in purvis Disposition:await test results, await planning consultant recommendations, await clinical improvement and anticipate discharge likely tomorrow I spent over 51% of total time providing counseling or incoordination of care: > 25 minutes discussed with nurse, patient and family updated, I personally examined the patient and I personally reviewed chart, data, labs radiology reports 6AM-6PM please page: [phone], Izabella Reeves PA-C 6PM-6AM please page: [facility] [place] [facility] Associated attestation - Heather Vanegas MD - 09/10/2019 4:15 PM EST Attending Supervising Physician's Attestation Statement I performed a history and physical examination on the patient and discussed the management with thephysician imaging assistant. I reviewed and agree with the [...] be monitored and followed by the diet sewer and drain technician. Fiorella Landa DT * Sabine Dale [...] Patient was given tylenol for fever. Dr. Leach was paged and notified. Will continue to monitor. * Laura Yu RN - 09/09/2019 1:00 AM EST Pt transferred from [facility]. Arrived 09/08/19 at approx 2325. Report received from ER nurse at [facility]. Pt presented to ER with flank pain and was worked up for possible kidney stone. Upon arrival to [facility], pt A&Ox4 and not in acute distress. 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 Dr. Leach contacted for orders and those were received. Pt resting comfortably in bed and his father is rooming with him. documented in this encounter Assessments Diagnosis Nephrolithiasis Calculus of kidney SHAWN (acute kidney injury) (HCC) Acute kidney failure, unspecified Leukocytosis Leukocytosis, unspecified History of tetralogy of Fallot S/P AVR Heart valve replaced by other means Chief Complaint and Reason for Visit Chief Complaint 6 M FU CONGENITAL HEART DISEASE COUGH Reason for Visit Essential hypertensi on H/O pulmonic valve replacement Hyperlipidemia Impacted cerumen of both ears Tetralogy of Fallot Type 2 diabetes mellitus Chief Complaint 6 M FU E ORDERS Reason for Visit Essential hypertensi on H/O pulmonic valve replacement Hyperlipidemia Type 2 diabetes mellitus Vitamin D deficiency Chief Complaint INT LABS Chief Complaint Admit Date Ear Flush September 30, 2024 11: 03am INT LAB ORDERS November 25, 2024 12:00p m 6 M FU November 29, 2024 1:00p m Reason for Visit Admit Date Essential hypertension November 29, 2024 1: 00pm H/O pulmonic valve replacement November 29, 2024 1:00pm Hyperlipidemia November 29, 2024 1:00p m Impacted cerumen, left ear November 29 1:00pm Tetralogy of Fallot November 29, 2024 1:00p m Type 2 diabetes mellitus November 29, 2024 1:00pm Vitamin D deficiency November 29, 2024 1:00 pm Additional Source Comments (unrecognized sect ion and content) No Status Records FoundNo Status Records FoundNo Status Records FoundNo Status Records FoundNo Status Records Found INFORMATION SOURCE (unrecogn ized section and content) DATE CREATED AUTHOR 04/13/2018 [facility] DATE CREATED AUTHOR AUTHOR'S ORGANIZ ATION 09/01/2019 [facility] DATE CREATED AUTHOR AUTHOR'S ORGANIZ ATION 11/10/2019 [facility] DATE CREATED AUTHOR AUTHOR'S ORGANIZ ATION 11/25/2024 [facility] DATE CREATED AUTHOR AUTHOR'S ORGANIZ ATION 11/30/2024 [facility] Reason for Visit (unrecogniz ed section and content) Reason Comments Care Teams (unrecognized sec tion and content) Team Status: Active Member Role Status Dates Dr. Ambrosio Resendiz MD Family Provider Active Dr. Ambrosio Resendiz MD Primary Care Provider Active Team Status: Inactive Member Role Status Dates Dr. Ambrosio Resendiz MD Primary Care Provider, Attendi ng Provider Active Team Status: Active Member Role Status Dates Dr. Ambrosio Resendiz MD Primary Care Provider Active Dr. John Corbett MD Attending Provider Active Team Status: Active Member Role Status Dates Dr. Ambrosio Resendiz MD Primary Care Pro vider, Attending Provider, Referring Provider Active Team Status: Inactive Member Role Status Dates Dr. Ambrosio Resendiz MD Primary Care Provider Active Dr. Cheryl Morse DO Emergency Provider Active Team Status: Inactive Member Role Status Dates Dr. Ambrosio Resendiz MD Primary Care Pro vider, Attending Provider, Referring Provider Active Team Status: Inactive Member Role Status Dates Dr. Ambrosio Resendiz MD Primary Care Provider Active Start: September 30, 2024 End: September 30, 2024 Dr. Ambrosio Resendiz MD Attending Provider Active Start: September 30, 2024 End: September 30, 2024 Team Status: Inactive Member Role Status Dates Dr. Ambrosio Resendiz MD Primary Care Provider Active Start: November 25, 2024 End: November 25, 2024 Dr. Ambrosio Resendiz MD Attending Provider Active Start: November 25, 2024 End: November 25, 2024 Dr. Ambrosio Resendiz MD Referring Provider Active Start: November 25, 2024 End: November 25, 2024 Team Status: Inactive Member Role Status Dates Dr. Ambrosio Resendiz MD Primary Care Provider Active Start: November 29, 2024 End: November 29, 2024 Dr. Ambrosio Resendiz MD Attending Provider Active Start: November 29, 2024 End: November 29, 2024 Goals (unrecognized section and content) Goals may be documented in a n alternate sectionGoals may be documented in an alternate sectionGoals may be documented in an alternate sectionGoals may be documented in an alternate sectionGoals may be documented in an alternate section FOR RECORDS PERTAINING TO PATIENTS WHO ARE [...] BE BASED ON THE PRIMARY CLINICAL RECORDS. [facility] [employer] [employer] [facility]. provides no warranty or guarantee of the accuracy or completeness of information in this document.
[2025-06-17 20:32] VITALS: BP 159/104; PULSE 76; RESP 18; TEMP 35.9; O2SAT 100
== END 2025-06-17 20:34 | disposition home or self-care (01) ==
PROVIDERS: Emergency Provider Emergency Medicine; PCP Internal Medicine; Visit Provider Emergency Medicine
DX: S80.12XA Contusion of left lower leg, initial encounter (principal); S81.802A Unspecified open wound, left lower leg, initial encounter; W10.8XXA Fall (on) (from) other stairs and steps, initial encounter; Y92.63 Factory as the place of occurrence of the external cause; Y99.0 Civilian activity done for income or pay
CPT/HCPCS: 73590; 90715; 99283